=== PATIENT | female | born 1950 | race African-American/Black ===

== ENCOUNTER 2016-09-14 22:34 | Emergency (ER) | payer OTHER ==
[2016-09-14 23:03] VITALS: BMI 22.4
[2016-09-15] MEDS ORDERED: SODIUM CHLORIDE 0.9% 1000 ML INFUS.BAG IV ONE (00:17)
[2016-09-15] MEDS ORDERED: ONDANSETRON 4 MG/2 ML VIAL IVPUSH PRN (00:17)
[2016-09-15] MEDS ORDERED: ONDANSETRON 4 MG/2 ML VIAL IVPUSH ONE (00:18)
[2016-09-15] MEDS ORDERED: ONDANSETRON 4 MG/2 ML VIAL ONE (00:31)
--- NOTE | 2016-09-15 01:04 | PDOC ---
History of Present Illness - General Chief Complaint: Nausea/Vomiting Stated Complaint: VOMITING Time Seen by Provider: 09/14/16 23:55 - History of Present Illness Initial Comments: 09/15/16 00:42 CHIEF COMPLAINT: abdominal pain HISTORY OF PRESENT ILLNESS: 66 yo F with hx of NIDDM, HLD, SBO, and metastatic uterine cancer presents to ED with abdominal pain and vomiting since 4 am today. Patient started chemo on Aug 17 and most recently had chemo this past Thursday. Her last bowel movement was 4 pm today and was normal. She complains of cold sweats and chills. Per her sister and close friends, she appeared to have altered mental status earlier this afternoon but is now back to baseline. She denies any chest pain, shortness of breath, difficulty breathing, palpitations, or headache. No recent travel or sick contacts. PAST MEDICAL HISTORY: Denies past medical history FAMILY HISTORY: Denies SOCIAL HISTORY: Lives at home with sister. Denies tobacco, alcohol, illicit drug use. SURGICAL HISTORY: Denies ALLERGIES: No known drug allergies REVIEW OF SYSTEMS General/Constitutional: Denies fever or chills. Denies weakness, weight change. HEENT: Denies change in vision. Denies ear pain or discharge. Denies sore throat. Cardiovascular: Denies chest pain or shortness of breath. Respiratory: Denies cough, wheezing, or hemoptysis. Gastrointestinal: Abdominal pain, persistent vomiting since 4 am this morning. Denies diarrhea or constipation. Denies rectal bleeding. Genitourinary: Denies dysuria, frequency, or change in urination. Musculoskeletal: Denies joint or muscle swelling or pain. Denies neck or back pain. Skin and breasts: Denies rash or easy bruising. Neurologic: Per family, AMS this afternoon, now resolved. Denies headache, vertigo, loss of consciousness, or loss of sensation. PHYSICAL EXAM General Appearance: Well-appearing, appropriately dressed. No apparent distress , no intoxication. HEENT: EOMI, PERRLA, normal ENT inspection, normal voice, TMs normal, pharynx normal. No conjunctival pallor. No photophobia, scleral icterus. Neck: Supple. Trachea midline. No tenderness, rigidity, carotid bruit, stridor , lymphadenopathy, or thyromegaly. Respiratory/Chest: Lungs CTAB. No shortness of breath, chest tenderness, respiratory distress, accessory muscle use. No crackles, rales, rhonchi, stridor , wheezing, dullness Cardiovascular: RRR. S1, S2. No JVD, murmur, bradycardia, tachycardia. Vascular Pulses: Dorsalis-Pedis (R): 2+, Dorsalis-Pedis (L): 2+ Gastrointestinal/Abdominal: Mass to lower abdomen. Normal bowel sounds. Abdomen soft, non-distended. No tenderness or rebound tenderness. No organomegaly, pulsatile mass, guarding, hernia, hepatomegaly, splenomegaly. Lymphatic: No adenopathy, tenderness. Musculoskeletal/Extremities: Normal inspection. FROM of all extremities, normal capillary refill. Pelvis Stable. No CVA tenderness. No tenderness to extremities, pedal edema, swelling, erythema or deformity. Integumentary: Appropriate color, dry, warm. No cyanosis, erythema, jaundice or rash Neurologic: sole cementer II-XII intact. Fully oriented, alert. Appropriate mood/affect. Motor strength 5/5. No appreciable EOM palsy, facial droop or sensory deficit. Past History - Past Medical History Allergies/Adverse Reactions: Allergies Allergy/AdvReac Type Severity Reaction Status Date / Time shellfish derived Allergy Intermediate Vomiting Verified 09/14/16 23:00 Home Medications: Ambulatory Orders Simvastatin 40 mg PO DAILY 07/24/16 Acetaminophen [Tylenol .Extra-Strength -] 500 mg PO Q6H PRN #30 tablet 08/09/16 Multivitamins [Multivit ([facility] Formulary)] 1 tab PO DAILY #30 tab 08/09/16 Ondansetron [Zofran -] 4 mg PO PRN PRN #15 tablet 08/09/16 Ondansetron [Zofran *Odt*] 8 mg SL TID PRN #21 od.tablet 09/15/16 Cancer: Yes (UTERINE) Diabetes: Yes Hypercholesterolemia: Yes - Surgical History Cholecystectomy: Yes - Immunization History Immunization Up to Date: Yes - Psycho/Social/Smoking Cessation Hx Suicidal Ideation: No Smoking History: Never smoked Hx Alcohol Use: No Drug/Substance Use Hx: No Substance Use Type: None Hx Substance Use Treatment: No *Physical Exam - Vital Signs Last Vital Signs Temp Pulse Resp BP Pulse Ox 97.4 F L 125 H 18 102/67 100 09/14/16 23:02 09/14/16 23:02 09/14/16 23:02 09/14/16 23:02 09/14/16 23:02 ED Treatment Course - LABORATORY CBC & Chemistry Diagram: 09/15/16 00:48 09/15/16 00:48 - RADIOLOGY Radiology Studies Ordered: Category Date Time Status HEAD CT WITHOUT CONTRAST [CT] Stat CT Scan 09/15/16 00:40 Ordered - Medications Given in the ED: ED Medications Discontinued Medications Generic Name Dose Route Start Last Admin Trade Name Dhiraj PRN Reason Stop Dose Admin Ondansetron HCl 8 mg 09/15/16 00:18 09/15/16 00:31 Zofran Injection IVPUSH 09/15/16 00:19 8 mg ONCE ONE Administration Sodium Chloride 1,000 ml 09/15/16 00:17 09/15/16 00:31 Normal Saline - IV 09/15/16 00:18 1,000 ml ONCE ONE Administration Medical Decision Making - Medical Decision Making 09/15/16 03:47 66 yo F with hx of NIDDM, HTN, metastatic uterine cancer presents to ED with abdominal pain and vomiting. -CBC, CMP, Mg -Head CT to r/o stroke -IVF, Zofran -2 mg morphine Labs: WBC, 3.3, K+ 5.6 - Kayexalate po Head CT negative for intracranial pathology. Patient reassessed; she states she is feeling much better and that the pain and nausea have both resolved. At this time patient reports that she was given Zofran for nausea/vomiting secondary to chemotherapy but she was swallowing the pill instead of letting it dissolve on her tongue. Persistent vomiting most likely secondary to chemotherapy and noncompliance to medication. -zofran 8 mg ODT rx sent to pharm. At this time patient's HR is 100 and she is afebrile. Neutropenia likely secondary to chemotherapy. Discussed case with ED attending Amol. Will discharge home with close follow up with PMD. Patient awaiting family for [employer]. Patient complains of epigastric discomfort. -EKG EKG - NSR. -20 mg pepcid IVPB Awaiting transport to home. Advised patient to f/u with oncologist today and to take medication as prescribed. Advised patient of signs and symptoms for return to ED; patient verbalized understanding and agrees to plan. *DC/Admit/Observation/Transfer Diagnosis at time of Disposition: Chemotherapy-induced vomiting - Discharge Dispostion Admit: No - Prescriptions Prescriptions: Ondansetron [Zofran *Odt*] 8 mg SL TID PRN #21 od.tablet PRN Reason: Nausea And/Or Vomiting - Patient Instructions Printed Discharge Instructions: Coping with Nausea and Vomiting From Chemotherapy Additional Instructions: Please take medication as prescribed - as discussed, please let the pill dissolve under your tongue. Please follow up with your oncologist today. If you experience fever, chills, chest pain, shortness of breath, headache, dizziness, weakness, slurred speech, change in vision, or have any new or worsening symptoms, please return to the ER immediately. Por favor, tome la medicacin segn lo prescrito - segn lo discutido, por favor deje que la pldora se disuelva bajo delarosa lengua. Por favor, siga con delarosa onc logo hoy. Si experimenta fiebre, escalofros, dolor en el pecho, dificultad para respirar, dolor de marcia, mareos, debilidad, dificultad para hablar, cambios en la visin o sntomas nuevos o que empeoran, por favor regrese inmediatamente a la kumar de emergencias. Print Language: MALAY
[2016-09-15 01:11] LABS: MCH 26.1 pg (25.7-33.7); MCHC 32.3 g/dl (32.0-36.0); MEAN CELL VOLUME 80.8 fl (80-96); MEAN PLT VOLUME 8.2 fl (7.5-11.1); PLATELET COUNT 498 K/MM3 (134-434); RDW 22.8 % (11.6-15.6); WHITE BLOOD COUNT 3.3 K/mm3 (4.0-10.0)
[2016-09-15 02:07] LABS: ALBUMIN 4.2 g/dl (3.4-5.0); BILIRUBIN,TOTAL 0.7 mg/dL (0.2-1.0); CALCIUM 10.2 mg/dL (8.5-10.1); CREATININE 1.3 mg/dL (0.55-1.02); MAGNESIUM 2.1 mg/dL (1.8-2.4); TOT PROT 9.1 g/dl (6.4-8.2)
[2016-09-15 02:18] LABS: ANISOCYTOSIS 1+; PLATELET ESTIMATE SLT INCREASED (NORMAL)
[2016-09-15] MEDS ORDERED: LIDOCAINE HCL 2% (20ML MULTI-DOSE VIAL) NR ONE (02:27)
[2016-09-15] MEDS ORDERED: morphine CARPU-JECT 2 MG/1 ML DISP.SYRIN IVPUSH ONE (02:45)
[2016-09-15] MEDS ORDERED: SODIUM POLYSTYRENE SULFONATE 15 GM/60 ML BOTTLE PO ONE (03:46)
[2016-09-15 03:47] VITALS: BP 105/40; PULSE 100; TEMP 97.9
[2016-09-15] MEDS ORDERED: SODIUM POLYSTYRENE SULFONATE 15 GM/60 ML BOTTLE ONE (03:53)
[2016-09-15] MEDS ORDERED: FAMOTIDINE 20 MG/50 ML IVPB 50 ML IVPB ONE ×2 (05:43→06:11)
[2016-09-15 05:50] LABS: URINE APPEARANCE CLEAR; URINE BILIRUBIN NEGATIVE (NEGATIVE); URINE BLOOD NEGATIVE (NEGATIVE); URINE COLOR LTYELLOW; URINE GLUCOSE (UA) NEGATIVE (NEGATIVE); URINE KETONE TRACE (NEGATIVE); URINE LEUK ESTERASE NEGATIVE (NEGATIVE); URINE NITRITE NEGATIVE (NEGATIVE); URINE PROTEIN NEGATIVE (NEGATIVE); URINE UROBILINOGEN NEGATIVE E.U./dl (0.2-1.0)
--- NOTE | 2016-09-15 11:02 | EKG ---
Test Reason : Blood Pressure : / mmHG Vent. Rate : 089 BPM Atrial Rate : 089 BPM P-R Int : 154 ms QRS Dur : 084 ms QT Int : 346 ms P-R-T Axes : 073 015 082 degrees QTc Int : 420 ms NORMAL SINUS RHYTHM NORMAL ECG WHEN COMPARED WITH ECG OF 29-JUL-2016 21:41, NO SIGNIFICANT CHANGE WAS FOUND Confirmed by ERIS TOBIN MD ([id number]) on 09/15/2016 11:02:06 AM Referred By: Confirmed By:ERIS TOBIN MD
== END 2016-09-15 06:48 | disposition home or self-care (01) ==
LOC: JER 22:34
PROC: 3E033GC Introduction of Other Therapeutic Substance into Peripheral Vein, Percutaneous Approach (ICD-10-PCS; principal; 2016-09-14)
PROC: 3E033NZ Introduction of Analgesics, Hypnotics, Sedatives into Peripheral Vein, Percutaneous Approach (ICD-10-PCS; 2016-09-14)
DX: R11.10 Vomiting, unspecified (principal); T45.1X5A Adverse effect of antineoplastic and immunosuppressive drugs, initial encounter; C55 Malignant neoplasm of uterus, part unspecified; E11.9 Type 2 diabetes mellitus without complications; E78.00 Pure hypercholesterolemia, unspecified; Y92.038 Other place in apartment as the place of occurrence of the external cause
CPT/HCPCS: 36415; 70450-TC; 80053; 81003; 83735; 85025; 87086; 93005; 93010; 96365; 96376; 99282-25

== ENCOUNTER 2016-10-08 07:33 | Day surgery (SDC) | payer OTHER ==
[2016-10-08] MEDS ORDERED: [UNRECOGNIZED DRUG - OTHER] IVPB ONE (08:00)
[2016-10-08] MEDS ORDERED: ONDANSETRON IVPB ONE (08:00)
[2016-10-08] MEDS ORDERED: DIPHENHYDRAMINE IVPB ONE (08:00)
[2016-10-08] MEDS ORDERED: DEXAMETHASONE IVPB ONE (08:00)
[2016-10-08] MEDS ORDERED: SODIUM CHLORIDE 250 ML IV ONE (08:00)
[2016-10-08] MEDS ORDERED: PACLITAXEL 102 MG in SODIUM CHLORIDE 250 ML IVPB ONE (09:00)
[2016-10-08 10:31] LABS: MCH 27.1 pg (25.7-33.7); MCHC 32.6 g/dl (32.0-36.0); MEAN PLT VOLUME 7.4 fl (7.5-11.1); PLATELET COUNT 221 K/MM3 (134-434)
[2016-10-08 12:56] LABS: PLATELET ESTIMATE ADEQUATE (NORMAL)
[2016-10-08 13:01] LABS: ANISOCYTOSIS 2+; MICROCYTOSIS 1+; OVALOCYTES 1+
[2016-10-08] MEDS ORDERED: ALTEPLASE 2 MG VIAL CVP ONE (13:45)
[2016-10-08 15:14] VITALS: BP 122/77; PULSE 88; TEMP 98.3
== END 2016-10-08 16:15 | disposition home or self-care (01) ==
LOC: JONCCHEMO 07:33 → J7W 07:34 → JONCCHEMO 16:15
PROVIDERS: ATTEND Internal Medicine Hematology & Oncology
DX: Z51.11 Encounter for antineoplastic chemotherapy (principal); C54.1 Malignant neoplasm of endometrium; E11.9 Type 2 diabetes mellitus without complications; Z85.41 Personal history of malignant neoplasm of cervix uteri
CPT/HCPCS: 96361; 96367; 96413; J2780; J9267; 36415; 85025; 96415; J2997

== ENCOUNTER 2016-10-15 06:35 | Day surgery (SDC) | payer OTHER ==
[2016-10-15] MEDS ORDERED: SODIUM CHLORIDE 250 ML IV ONE (08:00)
[2016-10-15] MEDS ORDERED: DIPHENHYDRAMINE IVPB ONE (08:30)
[2016-10-15] MEDS ORDERED: DEXAMETHASONE IVPB ONE (08:30)
[2016-10-15] MEDS ORDERED: ONDANSETRON IVPB ONE (08:30)
[2016-10-15] MEDS ORDERED: [UNRECOGNIZED DRUG - OTHER] IVPB ONE (08:30)
[2016-10-15] MEDS ORDERED: PACLITAXEL 102 MG in SODIUM CHLORIDE 250 ML IVPB ONE (09:00)
[2016-10-15 09:28] LABS: BASOPHIL 2.2 % (0-2.0); EOSINOPHIL 1.5 % (0-4.5); MCH 27.9 pg (25.7-33.7); MCHC 32.9 g/dl (32.0-36.0); MEAN CELL VOLUME 84.8 fl (80-96); MEAN PLT VOLUME 7.5 fl (7.5-11.1); NEUTROPHILS 43.9 % (42.8-82.8); PLATELET COUNT 333 K/MM3 (134-434); RDW 25.2 % (11.6-15.6); WHITE BLOOD COUNT 4.9 K/mm3 (4.0-10.0)
[2016-10-15 10:51] VITALS: BP 98/62; PULSE 71; TEMP 98.4
[2016-10-15 17:45] VITALS: BMI 24.4
== END 2016-10-15 14:00 | disposition home or self-care (01) ==
LOC: JONCCHEMO 06:35 → J7W 10:17 → JONCCHEMO 14:00
PROVIDERS: ATTEND Internal Medicine Hematology & Oncology
DX: Z51.11 Encounter for antineoplastic chemotherapy (principal); C54.1 Malignant neoplasm of endometrium; E11.9 Type 2 diabetes mellitus without complications; Z85.41 Personal history of malignant neoplasm of cervix uteri
CPT/HCPCS: 96361; 96367; 96413; J2780; J9267; 36415; 85025; 96415

== ENCOUNTER 2016-11-27 06:56 | Day surgery (SDC) | payer OTHER ==
[2016-11-27] MEDS ORDERED: PALONOSETRON HCL 0.25 MG in SODIUM CHLORIDE 50 ML IVPB ONE (08:00)
[2016-11-27] MEDS ORDERED: DEXAMETHASONE INJECTION 10 MG, DIPHENHYDRAMINE 25 MG, RANITIDINE INJECTION 50 MG in SOD... IVPB ONE (08:00)
[2016-11-27 08:24] LABS: MCH 30.5 pg (25.7-33.7); MCHC 32.9 g/dl (32.0-36.0); MEAN CELL VOLUME 92.7 fl (80-96); MEAN PLT VOLUME 7.7 fl (7.5-11.1); NEUTROPHILS 53.4 % (42.8-82.8); PLATELET COUNT 162 K/MM3 (134-434); RDW 16.2 % (11.6-15.6); WHITE BLOOD COUNT 7.2 K/mm3 (4.0-10.0)
[2016-11-27] MEDS ORDERED: PACLITAXEL 102 MG in SODIUM CHLORIDE 250 ML IVPB ONE (08:45)
[2016-11-27 09:30] VITALS: TEMP 98.3
[2016-11-27] MEDS ORDERED: SODIUM CHLORIDE IVPB ONE (09:45)
[2016-11-27] MEDS ORDERED: CARBOPLATIN IVPB ONE (09:45)
[2016-11-27] MEDS ORDERED: ALTEPLASE 2 MG VIAL CVP ONE (10:15)
[2016-11-27] MEDS ORDERED: SODIUM CHLORIDE 250 ML IV ONE (10:45)
[2016-11-27 11:17] LABS: CREATININE 0.8 mg/dL (0.55-1.02)
[2016-11-27 11:19] LABS: ALBUMIN 3.4 g/dl (3.4-5.0); BILIRUBIN,DIRECT 0.1 mg/dL (0.0-0.2); BILIRUBIN,TOTAL 0.3 mg/dL (0.2-1.0); TOT PROT 7.1 g/dl (6.4-8.2)
[2016-11-27 15:33] VITALS: BP 133/82; PULSE 76
== END 2016-11-27 15:33 | disposition home or self-care (01) ==
LOC: JONCCHEMO 06:56 → J7W 09:20 → JONCCHEMO 15:33
PROVIDERS: ATTEND Internal Medicine Hematology & Oncology
DX: Z51.11 Encounter for antineoplastic chemotherapy (principal); C90.00 Multiple myeloma not having achieved remission
CPT/HCPCS: 36415; 80048; 80076; 83036; 85025; 86304; 96361; 96367; 96413; 96417; J2469; J2997

== ENCOUNTER 2016-12-04 07:03 | Day surgery (SDC) | payer OTHER ==
[2016-12-04] MEDS ORDERED: DEXAMETHASONE INJECTION 10 MG in SODIUM CHLORIDE 50 ML IVPB ONE (08:00)
[2016-12-04] MEDS ORDERED: ONDANSETRON INJECTION 12 MG, DIPHENHYDRAMINE 25 MG, RANITIDINE INJECTION 50 MG in SODIU... IVPB ONE (08:00)
[2016-12-04] MEDS ORDERED: PACLITAXEL 102 MG in SODIUM CHLORIDE 250 ML IVPB ONE (08:30)
[2016-12-04 08:35] VITALS: TEMP 98.8
[2016-12-04 08:41] LABS: BASOPHIL 1.3 % (0-2.0); EOSINOPHIL 3.9 % (0-4.5); MCHC 33.5 g/dl (32.0-36.0); MEAN CELL VOLUME 92.5 fl (80-96); MEAN PLT VOLUME 7.7 fl (7.5-11.1); NEUTROPHILS 38.2 % (42.8-82.8); PLATELET COUNT 268 K/MM3 (134-434); RDW 14.9 % (11.6-15.6); WHITE BLOOD COUNT 5.6 K/mm3 (4.0-10.0)
[2016-12-04] MEDS ORDERED: SODIUM CHLORIDE 250 ML IV ONE (09:30)
[2016-12-04] MEDS ORDERED: ALTEPLASE 2 MG VIAL CVP ONE (10:15)
[2016-12-04 11:52] LABS: CO2 31 mmol/L (21-32); COCKROFT - GAULT 0; CREATININE 0.9 mg/dL (0.55-1.02); GLUCOSE,RANDOM 128 mg/dL (74-106)
[2016-12-04 11:53] LABS: ALBUMIN 3.4 g/dl (3.4-5.0); ANION GAP 4 (8-16); CALCIUM 8.8 mg/dL (8.5-10.1); SGOT/AST 25 U/L (15-37); SGPT/ALT 26 U/L (12-78)
[2016-12-04 11:55] LABS: ALK PHOS 64 U/L (45-117); BILIRUBIN,DIRECT < 0.1 mg/dL (0.0-0.2); BILIRUBIN,TOTAL 0.3 mg/dL (0.2-1.0); TOT PROT 6.9 g/dl (6.4-8.2)
[2016-12-04 14:43] VITALS: BP 116/72; PULSE 69
== END 2016-12-04 14:00 | disposition home or self-care (01) ==
LOC: JONCCHEMO 07:03 → J7W 09:25 → JONCCHEMO 14:00
PROVIDERS: ATTEND Internal Medicine Hematology & Oncology
DX: Z51.11 Encounter for antineoplastic chemotherapy (principal); C90.00 Multiple myeloma not having achieved remission
CPT/HCPCS: 36415; 80048; 80076; 85025; 96360; 96361; 96367; 96413; J2997

== ENCOUNTER 2016-12-11 07:09 | Day surgery (SDC) | payer OTHER ==
[2016-12-11] MEDS ORDERED: SODIUM CHLORIDE 250 ML IV ONE (08:00)
[2016-12-11] MEDS ORDERED: DEXAMETHASONE INJECTION 10 MG in SODIUM CHLORIDE 50 ML IVPB ONE (08:00)
[2016-12-11] MEDS ORDERED: ONDANSETRON INJECTION 12 MG, DIPHENHYDRAMINE 25 MG, RANITIDINE INJECTION 50 MG in SODIU... IVPB ONE (08:00)
[2016-12-11] MEDS ORDERED: PACLITAXEL 102 MG in SODIUM CHLORIDE 250 ML IVPB ONE (08:30)
[2016-12-11 09:53] LABS: BASOPHIL 0.7 % (0-2.0); EOSINOPHIL 1.6 % (0-4.5); MCH 31.4 pg (25.7-33.7); MCHC 33.8 g/dl (32.0-36.0); MEAN PLT VOLUME 7.4 fl (7.5-11.1); NEUTROPHILS 33.6 % (42.8-82.8); PLATELET COUNT 279 K/MM3 (134-434); RDW 14.5 % (11.6-15.6); WHITE BLOOD COUNT 4.2 K/mm3 (4.0-10.0)
[2016-12-11 10:16] VITALS: BP 117/70; PULSE 79; TEMP 99
[2016-12-11 10:58] LABS: CALCIUM 8.9 mg/dL (8.5-10.1); COCKROFT - GAULT 89.25; CREATININE 0.7 mg/dL (0.55-1.02); MAGNESIUM 1.9 mg/dL (1.8-2.4)
[2016-12-11 11:02] LABS: ALBUMIN 3.4 g/dl (3.4-5.0); ALK PHOS 64 U/L (45-117); BILIRUBIN,TOTAL 0.3 mg/dL (0.2-1.0); SGOT/AST 21 U/L (15-37); SGPT/ALT 27 U/L (12-78); TOT PROT 7.2 g/dl (6.4-8.2)
[2016-12-11 11:06] LABS: BILIRUBIN,DIRECT < 0.1 mg/dL (0.0-0.2)
== END 2016-12-11 15:47 | disposition home or self-care (01) ==
LOC: JONCCHEMO 07:09 → J7W 09:50 → JONCCHEMO 15:47
PROVIDERS: ATTEND Internal Medicine Hematology & Oncology
PROC: 3E04305 Introduction of Other Antineoplastic into Central Vein, Percutaneous Approach (ICD-10-PCS; principal; 2016-12-11)
PROC: 3E043GC Introduction of Other Therapeutic Substance into Central Vein, Percutaneous Approach (ICD-10-PCS; 2016-12-11)
PROC: 3E0437Z Introduction of Electrolytic and Water Balance Substance into Central Vein, Percutaneous Approach (ICD-10-PCS; 2016-12-11)
DX: Z51.11 Encounter for antineoplastic chemotherapy (principal); C54.1 Malignant neoplasm of endometrium
CPT/HCPCS: 96361; 96366; 96367; 96413; J1100; J1200; J2405; J9267; 36415; 74000-TC; 80048; 80076; 83735; 85025; 96360

== ENCOUNTER 2016-12-18 07:04 | Day surgery (SDC) | payer OTHER ==
[2016-12-18] MEDS ORDERED: DEXAMETHASONE INJECTION 10 MG in SODIUM CHLORIDE 50 ML IVPB ONE (08:00)
[2016-12-18] MEDS ORDERED: PALONOSETRON HCL 0.25 MG in SODIUM CHLORIDE 50 ML IVPB ONE (08:00)
[2016-12-18] MEDS ORDERED: SODIUM CHLORIDE 250 ML IV ONE (08:00)
[2016-12-18] MEDS ORDERED: DIPHENHYDRAMINE 25 MG, RANITIDINE INJECTION 50 MG in SODIUM CHLORIDE 50 ML IVPB ONE (08:00)
[2016-12-18] MEDS ORDERED: PACLITAXEL 108 MG in SODIUM CHLORIDE 250 ML IVPB ONE (08:45)
[2016-12-18 08:55] LABS: BASOPHIL 1.6 % (0-2.0); EOSINOPHIL 0.8 % (0-4.5); MCH 30.7 pg (25.7-33.7); MCHC 32.7 g/dl (32.0-36.0); MEAN CELL VOLUME 94.1 fl (80-96); MEAN PLT VOLUME 7.6 fl (7.5-11.1); NEUTROPHILS 37.5 % (42.8-82.8); PLATELET COUNT 230 K/MM3 (134-434); RDW 13.9 % (11.6-15.6); WHITE BLOOD COUNT 4.6 K/mm3 (4.0-10.0)
[2016-12-18] MEDS ORDERED: SODIUM CHLORIDE IVPB ONE (09:45)
[2016-12-18] MEDS ORDERED: CARBOPLATIN IVPB ONE (09:45)
[2016-12-18] MEDS ORDERED: PORTA CATH FLUSH 10 ML IVPUSH ONE (10:17)
[2016-12-18] MEDS ORDERED: DEXAMETHASONE SOD PHOSPHATE 10 MG/1 ML VIAL IVPB ONE (14:07)
[2016-12-18 14:17] VITALS: TEMP 98.7
--- NOTE | 2016-12-18 15:52 | PN ---
Progress Note (short form) - Note Progress Note: Was informed by nurse that she was having itchy hands while receiving carbo infusion, 30mins. into it. Carboplatin stopped at 14:00. no SOB/oral/throat symptoms. She was given decadron, benadryl, NS 0.9% Her vitals and exam were stable. she was monitored . She was not rechallenged Symptoms resolved She was given instructions about signs/symptoms of allergic reactions. She was asked to monitor her blood sugars closely and inform her PMD if they are high. Her friend was instructed as well. Her friend is going to be living with her. She was discharged at 3: 45 pm
[2016-12-18 16:44] VITALS: BP 131/68; PULSE 78
== END 2016-12-18 17:33 | disposition home or self-care (01) ==
LOC: JONCCHEMO 07:04 → J7W 10:04 → JONCCHEMO 17:33
PROVIDERS: ATTEND Internal Medicine Hematology & Oncology
DX: Z51.11 Encounter for antineoplastic chemotherapy (principal); C54.1 Malignant neoplasm of endometrium
CPT/HCPCS: 36415; 85025; 96360; 96361; 96367; 96375; 96413; 96417; J2469

== ENCOUNTER 2016-12-25 07:37 | Day surgery (SDC) | payer OTHER ==
[2016-12-25] MEDS ORDERED: ONDANSETRON INJECTION 12 MG, DIPHENHYDRAMINE 25 MG, RANITIDINE INJECTION 50 MG in SODIU... IVPB ONE (08:00)
[2016-12-25] MEDS ORDERED: SODIUM CHLORIDE 250 ML IV ONE (08:00)
[2016-12-25] MEDS ORDERED: DEXAMETHASONE INJECTION 10 MG in SODIUM CHLORIDE 50 ML IVPB ONE (08:00)
[2016-12-25] MEDS ORDERED: PACLITAXEL 108 MG in SODIUM CHLORIDE 250 ML IVPB ONE (08:30)
[2016-12-25 09:22] LABS: BASOPHIL 1.1 % (0-2.0); EOSINOPHIL 0.7 % (0-4.5); MCH 31.3 pg (25.7-33.7); MCHC 33.5 g/dl (32.0-36.0); MEAN CELL VOLUME 93.4 fl (80-96); MEAN PLT VOLUME 8.1 fl (7.5-11.1); NEUTROPHILS 40.3 % (42.8-82.8); PLATELET COUNT 169 K/MM3 (134-434); RDW 14.1 % (11.6-15.6); WHITE BLOOD COUNT 5.5 K/mm3 (4.0-10.0)
[2016-12-25 13:23] LABS: ALBUMIN 3.5 g/dl (3.4-5.0); BILIRUBIN,TOTAL 0.3 mg/dL (0.2-1.0); MAGNESIUM 1.8 mg/dL (1.8-2.4); SGOT/AST 22 U/L (15-37); SGPT/ALT 28 U/L (12-78)
[2016-12-25 13:24] LABS: ALK PHOS 62 U/L (45-117)
[2016-12-25 13:30] LABS: BILIRUBIN,DIRECT < 0.1 mg/dL (0.0-0.2)
[2016-12-25] MEDS ORDERED: PORTA CATH FLUSH 10 ML IVPUSH ONE (14:59)
[2016-12-25] MEDS ORDERED: MAGNESIUM OXIDE 400 MG TABLET (FP) PO ONE (15:15)
[2016-12-25 16:28] VITALS: BP 129/73; PULSE 80; TEMP 98.4
== END 2016-12-25 16:30 | disposition home or self-care (01) ==
LOC: JONCCHEMO 07:37 → J7W 11:12 → JONCCHEMO 16:30
PROVIDERS: ATTEND Internal Medicine Hematology & Oncology
PROC: 3E04305 Introduction of Other Antineoplastic into Central Vein, Percutaneous Approach (ICD-10-PCS; principal; 2016-12-25)
PROC: 3E043GC Introduction of Other Therapeutic Substance into Central Vein, Percutaneous Approach (ICD-10-PCS; 2016-12-25)
PROC: 3E0437Z Introduction of Electrolytic and Water Balance Substance into Central Vein, Percutaneous Approach (ICD-10-PCS; 2016-12-25)
DX: Z51.11 Encounter for antineoplastic chemotherapy (principal); C54.1 Malignant neoplasm of endometrium
CPT/HCPCS: 96361; 96367; 96375; 96413; J9267; 36415; 80076; 83735; 85025; 86304; 96360

== ENCOUNTER 2017-01-01 07:16 | Day surgery (SDC) | payer OTHER ==
[2017-01-01] MEDS ORDERED: DEXAMETHASONE INJECTION 10 MG in SODIUM CHLORIDE 50 ML IVPB ONE (08:00)
[2017-01-01] MEDS ORDERED: ONDANSETRON INJECTION 12 MG, DIPHENHYDRAMINE 25 MG, RANITIDINE INJECTION 50 MG in SODIU... IVPB ONE (08:00)
[2017-01-01] MEDS ORDERED: SODIUM CHLORIDE 250 ML IV ONE (08:00)
[2017-01-01] MEDS ORDERED: PACLITAXEL 108 MG in SODIUM CHLORIDE 250 ML IVPB ONE (08:30)
[2017-01-01 08:36] LABS: EOSINOPHIL 1.1 % (0-4.5); MCH 31.3 pg (25.7-33.7); MCHC 33.3 g/dl (32.0-36.0); MEAN PLT VOLUME 7.7 fl (7.5-11.1); NEUTROPHILS 37.6 % (42.8-82.8); PLATELET COUNT 256 K/MM3 (134-434); RDW 13.6 % (11.6-15.6); WHITE BLOOD COUNT 4.5 K/mm3 (4.0-10.0)
[2017-01-01 11:32] LABS: CALCIUM 9.3 mg/dL (8.5-10.1); COCKROFT - GAULT 78.2; CREATININE 0.8 mg/dL (0.55-1.02)
[2017-01-01 11:35] LABS: ALBUMIN 3.8 g/dl (3.4-5.0); ALK PHOS 64 U/L (45-117); BILIRUBIN,TOTAL 0.3 mg/dL (0.2-1.0); SGOT/AST 23 U/L (15-37); SGPT/ALT 30 U/L (12-78); TOT PROT 7.4 g/dl (6.4-8.2)
[2017-01-01 11:37] LABS: BILIRUBIN,DIRECT < 0.1 mg/dL (0.0-0.2)
[2017-01-01 12:47] VITALS: TEMP 98.8
[2017-01-01] MEDS ORDERED: PORTA CATH FLUSH 10 ML IVPUSH ONE (12:47)
[2017-01-01 13:41] LABS: MCH 31.2 pg (25.7-33.7); MCHC 33.3 g/dl (32.0-36.0); MEAN CELL VOLUME 93.6 fl (80-96); RDW 13.5 % (11.6-15.6); WHITE BLOOD COUNT 5.1 K/mm3 (4.0-10.0)
[2017-01-01 13:42] LABS: BASOPHIL 0.8 % (0-2.0); EOSINOPHIL 0.7 % (0-4.5); MEAN PLT VOLUME 8.4 fl (7.5-11.1); NEUTROPHILS 38.6 % (42.8-82.8); PLATELET COUNT 264 K/MM3 (134-434)
[2017-01-01 16:24] VITALS: BP 114/72; PULSE 83
== END 2017-01-01 19:08 | disposition home or self-care (01) ==
LOC: JONCCHEMO 07:16 → J7W 09:56 → JONCCHEMO 19:08
PROVIDERS: ATTEND Internal Medicine Hematology & Oncology
DX: Z51.11 Encounter for antineoplastic chemotherapy (principal); C54.1 Malignant neoplasm of endometrium
CPT/HCPCS: 36415; 80048; 80076; 83735; 85025; 85651; 86304; 96360; 96361; 96367; 96413

== ENCOUNTER 2017-01-08 07:36 | Day surgery (SDC) | payer OTHER ==
[2017-01-08] MEDS ORDERED: PALONOSETRON HCL 0.25 MG in SODIUM CHLORIDE 50 ML IVPB ONE (08:00)
[2017-01-08] MEDS ORDERED: DEXAMETHASONE INJECTION 10 MG in SODIUM CHLORIDE 50 ML IVPB ONE (08:00)
[2017-01-08] MEDS ORDERED: SODIUM CHLORIDE 250 ML IV ONE (08:00)
[2017-01-08] MEDS ORDERED: DIPHENHYDRAMINE 25 MG, RANITIDINE INJECTION 50 MG in SODIUM CHLORIDE 50 ML IVPB ONE (08:00)
[2017-01-08] MEDS ORDERED: PACLITAXEL 108 MG in SODIUM CHLORIDE 250 ML IVPB ONE (08:45)
[2017-01-08 10:25] LABS: MCH 30.8 pg (25.7-33.7); MEAN CELL VOLUME 93.3 fl (80-96); MEAN PLT VOLUME 7.9 fl (7.5-11.1); PLATELET COUNT 267 K/MM3 (134-434); RDW 13.8 % (11.6-15.6); WHITE BLOOD COUNT 5.1 K/mm3 (4.0-10.0)
[2017-01-08 10:26] LABS: PLATELET ESTIMATE ADEQUATE (NORMAL)
[2017-01-08] MEDS ORDERED: PORTA CATH FLUSH 10 ML IVPUSH ONE (12:30)
[2017-01-08 14:38] VITALS: BP 132/70; PULSE 70
[2017-01-08 14:39] VITALS: TEMP 98.2
== END 2017-01-08 14:49 | disposition home or self-care (01) ==
LOC: JONCCHEMO 07:36 → J7W 10:42 → JONCCHEMO 14:49
PROVIDERS: ATTEND Internal Medicine Hematology & Oncology
PROC: 3E04305 Introduction of Other Antineoplastic into Central Vein, Percutaneous Approach (ICD-10-PCS; principal; 2017-01-08)
PROC: 3E043GC Introduction of Other Therapeutic Substance into Central Vein, Percutaneous Approach (ICD-10-PCS; 2017-01-08)
PROC: 3E0437Z Introduction of Electrolytic and Water Balance Substance into Central Vein, Percutaneous Approach (ICD-10-PCS; 2017-01-08)
DX: Z51.11 Encounter for antineoplastic chemotherapy (principal); C54.1 Malignant neoplasm of endometrium
CPT/HCPCS: 96361; 96375; 96413; J9267; 36415; 85025; 96360; 96367; J2469

== ENCOUNTER 2017-01-15 07:19 | Day surgery (SDC) | payer OTHER ==
[2017-01-15 09:13] LABS: BASOPHIL 0.3 % (0-2.0); EOSINOPHIL 0.7 % (0-4.5); MCH 31.1 pg (25.7-33.7); MCHC 33.5 g/dl (32.0-36.0); MEAN CELL VOLUME 92.8 fl (80-96); MEAN PLT VOLUME 7.8 fl (7.5-11.1); NEUTROPHILS 38.7 % (42.8-82.8); PLATELET COUNT 214 K/MM3 (134-434); RDW 13.8 % (11.6-15.6); WHITE BLOOD COUNT 4.7 K/mm3 (4.0-10.0)
[2017-01-15 09:33] LABS: ALBUMIN 3.5 g/dl (3.4-5.0); ANION GAP 7 (8-16); CALCIUM 8.7 mg/dL (8.5-10.1); CO2 28 mmol/L (21-32); COCKROFT - GAULT 68.85; CREATININE 0.9 mg/dL (0.55-1.02); GLUCOSE,RANDOM 134 mg/dL (74-106); MAGNESIUM 1.8 mg/dL (1.8-2.4); SGOT/AST 23 U/L (15-37); SGPT/ALT 28 U/L (12-78)
[2017-01-15 09:35] LABS: ALK PHOS 63 U/L (45-117); BILIRUBIN,TOTAL 0.2 mg/dL (0.2-1.0)
[2017-01-15 09:36] LABS: BILIRUBIN,DIRECT < 0.1 mg/dL (0.0-0.2)
[2017-01-15] MEDS ORDERED: DEXAMETHASONE INJECTION 10 MG in SODIUM CHLORIDE 50 ML IVPB ONE (10:00)
[2017-01-15] MEDS ORDERED: SODIUM CHLORIDE 250 ML IV ONE (10:00)
[2017-01-15] MEDS ORDERED: ONDANSETRON INJECTION 12 MG, DIPHENHYDRAMINE 25 MG, RANITIDINE INJECTION 50 MG in SODIU... IVPB ONE (10:00)
[2017-01-15] MEDS ORDERED: PORTA CATH FLUSH 10 ML IVPUSH ONE (10:07)
[2017-01-15] MEDS ORDERED: PACLITAXEL 108 MG in SODIUM CHLORIDE 250 ML IVPB ONE (10:30)
[2017-01-15 13:56] VITALS: BP 112/67; PULSE 74; TEMP 98.3
== END 2017-01-15 14:12 | disposition home or self-care (01) ==
LOC: JONCCHEMO 07:19 → J7W 10:00 → JONCCHEMO 14:12
PROVIDERS: ATTEND Internal Medicine Hematology & Oncology
DX: Z51.11 Encounter for antineoplastic chemotherapy (principal); C54.1 Malignant neoplasm of endometrium
CPT/HCPCS: 36415; 80048; 80076; 83735; 85025; 96360; 96361; 96367; 96413

== ENCOUNTER 2017-04-23 07:46 | Day surgery (SDC) | payer OTHER ==
[2017-04-23 09:11] LABS: BASOPHIL 0.8 % (0-2.0); EOSINOPHIL 3.3 % (0-4.5); MCH 28.5 pg (25.7-33.7); MEAN CELL VOLUME 86.3 fl (80-96); NEUTROPHILS 41.1 % (42.8-82.8); PLATELET COUNT 250 K/MM3 (134-434); RDW 13.4 % (11.6-15.6); WHITE BLOOD COUNT 7.8 K/mm3 (4.0-10.0)
[2017-04-23 09:49] LABS: ALBUMIN 3.8 g/dl (3.4-5.0); ANION GAP 8 (8-16); BILIRUBIN,TOTAL 0.2 mg/dL (0.2-1.0); CALCIUM 9.7 mg/dL (8.5-10.1); CO2 27 mmol/L (21-32); CREATININE 0.9 mg/dL (0.55-1.02); GLUCOSE,RANDOM 140 mg/dL (74-106); MAGNESIUM 1.8 mg/dL (1.8-2.4); SGOT/AST 25 U/L (15-37); SGPT/ALT 29 U/L (12-78); TOT PROT 7.8 g/dl (6.4-8.2)
[2017-04-23 09:50] LABS: ALK PHOS 80 U/L (45-117)
[2017-04-23 09:52] LABS: BILIRUBIN,DIRECT < 0.2 mg/dL (0.0-0.2)
[2017-04-23] MEDS ORDERED: DEXAMETHASONE INJECTION 20 MG in SODIUM CHLORIDE 50 ML IVPB ONE ×2 (10:00→13:00)
[2017-04-23] MEDS ORDERED: SODIUM CHLORIDE 250 ML IV ONE (10:00)
[2017-04-23] MEDS ORDERED: ONDANSETRON INJECTION 12 MG, DIPHENHYDRAMINE 25 MG, RANITIDINE INJECTION 50 MG in SODIU... IVPB ONE (10:00)
[2017-04-23] MEDS ORDERED: PACLITAXEL 108 MG in SODIUM CHLORIDE 250 ML IVPB ONE (10:30)
[2017-04-23] MEDS ORDERED: DEXAMETHASONE INJECTION 10 MG in SODIUM CHLORIDE 50 ML IVPB ONE (10:30)
[2017-04-23 10:33] VITALS: TEMP 97.8
[2017-04-23] MEDS ORDERED: SODIUM CHLORIDE 0.45%/POT 1,000 ML IV SCH (11:00)
[2017-04-23] MEDS ORDERED: PORTA CATH FLUSH 10 ML IVPUSH ONE ×3 (16:35→16:44)
[2017-04-23 16:44] VITALS: BP 130/68; PULSE 85
== END 2017-04-23 16:47 | disposition home or self-care (01) ==
LOC: JONCCHEMO 07:46 → J7W 10:01 → JONCCHEMO 16:47
PROVIDERS: ATTEND Internal Medicine Hematology & Oncology
DX: Z51.11 Encounter for antineoplastic chemotherapy (principal); C54.1 Malignant neoplasm of endometrium
CPT/HCPCS: 36415; 80053; 80076; 83735; 85025; 86300; 86304; 96361; 96375; 96413; J3480; J8540

== ENCOUNTER 2017-04-30 07:19 | Day surgery (SDC) | payer OTHER ==
[2017-04-30] MEDS ORDERED: SODIUM CHLORIDE 250 ML IV ONE (08:00)
[2017-04-30] MEDS ORDERED: ONDANSETRON INJECTION 12 MG, DIPHENHYDRAMINE 25 MG, RANITIDINE INJECTION 50 MG in SODIU... IVPB ONE (08:30)
[2017-04-30] MEDS ORDERED: DEXAMETHASONE INJECTION 20 MG in SODIUM CHLORIDE 50 ML IVPB ONE (08:30)
[2017-04-30] MEDS ORDERED: PACLITAXEL 108 MG in SODIUM CHLORIDE 250 ML IVPB ONE (09:00)
[2017-04-30 10:03] LABS: BASOPHIL 0.7 % (0-2.0); EOSINOPHIL 3.1 % (0-4.5); MCH 28.3 pg (25.7-33.7); MCHC 33.1 g/dl (32.0-36.0); MEAN CELL VOLUME 85.6 fl (80-96); NEUTROPHILS 43.9 % (42.8-82.8); PLATELET COUNT 275 K/MM3 (134-434); RDW 13.6 % (11.6-15.6); WHITE BLOOD COUNT 6.9 K/mm3 (4.0-10.0)
[2017-04-30 10:26] LABS: ALBUMIN 3.8 g/dl (3.4-5.0); ANION GAP 7 (8-16); BILIRUBIN,DIRECT < 0.1 mg/dL (0.0-0.2); CALCIUM 9.2 mg/dL (8.5-10.1); CO2 27 mmol/L (21-32); CREATININE 0.9 mg/dL (0.55-1.02); GLUCOSE,RANDOM 126 mg/dL (74-106); MAGNESIUM 1.9 mg/dL (1.8-2.4); SGOT/AST 18 U/L (15-37); SGPT/ALT 30 U/L (12-78)
[2017-04-30 10:55] LABS: ALK PHOS 77 U/L (45-117); BILIRUBIN,TOTAL 0.3 mg/dL (0.2-1.0); TOT PROT 7.6 g/dl (6.4-8.2)
[2017-04-30 14:59] VITALS: TEMP 97.9
[2017-04-30] MEDS ORDERED: PORTA CATH FLUSH 10 ML IVPUSH ONE (18:39)
[2017-04-30 18:40] VITALS: BP 128/62; PULSE 77
== END 2017-04-30 14:50 | disposition home or self-care (01) ==
LOC: JONCCHEMO 07:19 → J7W 10:15 → JONCCHEMO 14:50
PROVIDERS: ATTEND Internal Medicine Hematology & Oncology
DX: Z51.11 Encounter for antineoplastic chemotherapy (principal); C54.1 Malignant neoplasm of endometrium
CPT/HCPCS: 36415; 80048; 80076; 83735; 85025; 96361; 96367; 96375; 96413

== ENCOUNTER 2017-05-07 07:26 | Day surgery (SDC) | payer OTHER ==
[2017-05-07] MEDS ORDERED: DEXAMETHASONE INJECTION 20 MG in SODIUM CHLORIDE 50 ML IVPB ONE (08:30)
[2017-05-07] MEDS ORDERED: ONDANSETRON INJECTION 12 MG, DIPHENHYDRAMINE 25 MG, RANITIDINE INJECTION 50 MG in SODIU... IVPB ONE (08:30)
[2017-05-07] MEDS ORDERED: PACLITAXEL 108 MG in SODIUM CHLORIDE 250 ML IVPB ONE (09:00)
[2017-05-07 09:25] LABS: BASOPHIL 0.6 % (0-2.0); MCH 28.3 pg (25.7-33.7); MCHC 33.1 g/dl (32.0-36.0); MEAN CELL VOLUME 85.4 fl (80-96); MEAN PLT VOLUME 7.9 fl (7.5-11.1); PLATELET COUNT 273 K/MM3 (134-434); RDW 13.8 % (11.6-15.6); WHITE BLOOD COUNT 5.7 K/mm3 (4.0-10.0)
[2017-05-07] MEDS ORDERED: SODIUM CHLORIDE 250 ML IV ONE (10:00)
[2017-05-07 10:01] LABS: ALBUMIN 3.5 g/dl (3.4-5.0); ANION GAP 10 (8-16); CALCIUM 9.4 mg/dL (8.5-10.1); CO2 21 mmol/L (21-32); GLUCOSE,RANDOM 142 mg/dL (74-106); MAGNESIUM 1.8 mg/dL (1.8-2.4)
[2017-05-07 10:05] LABS: ALK PHOS 76 U/L (45-117); BILIRUBIN,DIRECT < 0.1 mg/dL (0.0-0.2); BILIRUBIN,TOTAL 0.3 mg/dL (0.2-1.0); CREATININE 0.9 mg/dL (0.55-1.02); SGOT/AST 17 U/L (15-37); SGPT/ALT 23 U/L (12-78); TOT PROT 7.3 g/dl (6.4-8.2)
[2017-05-07 15:00] VITALS: BP 119/63; PULSE 82; TEMP 98.7
[2017-05-07] MEDS ORDERED: PORTA CATH FLUSH 10 ML IVPUSH ONE (15:00)
== END 2017-05-07 14:45 | disposition home or self-care (01) ==
LOC: JONCCHEMO 07:26 → J7W 09:51 → JONCCHEMO 14:45
PROVIDERS: ATTEND Internal Medicine Hematology & Oncology
PROC: 3E04305 Introduction of Other Antineoplastic into Central Vein, Percutaneous Approach (ICD-10-PCS; principal; 2017-05-07)
PROC: 3E043GC Introduction of Other Therapeutic Substance into Central Vein, Percutaneous Approach (ICD-10-PCS; 2017-05-07)
PROC: 3E0437Z Introduction of Electrolytic and Water Balance Substance into Central Vein, Percutaneous Approach (ICD-10-PCS; 2017-05-07)
DX: Z51.11 Encounter for antineoplastic chemotherapy (principal); C54.1 Malignant neoplasm of endometrium
CPT/HCPCS: 36415; 80053; 80076; 83735; 85025; 96361; 96367; 96375; 96413; 96415

== ENCOUNTER 2017-05-14 07:22 | Day surgery (SDC) | payer OTHER ==
[2017-05-14] MEDS ORDERED: PALONOSETRON HCL 0.25 MG in SODIUM CHLORIDE 50 ML IVPB ONE (08:00)
[2017-05-14] MEDS ORDERED: DIPHENHYDRAMINE 25 MG, RANITIDINE INJECTION 50 MG in SODIUM CHLORIDE 100 ML IVPB ONE (08:00)
[2017-05-14] MEDS ORDERED: DEXAMETHASONE INJECTION 20 MG in SODIUM CHLORIDE 50 ML IVPB ONE (08:00)
[2017-05-14] MEDS ORDERED: PACLITAXEL 108 MG in SODIUM CHLORIDE 250 ML IVPB ONE (08:30)
[2017-05-14 08:50] LABS: EOSINOPHIL 1.6 % (0-4.5); MCH 28.8 pg (25.7-33.7); MCHC 33.5 g/dl (32.0-36.0); MEAN CELL VOLUME 86.1 fl (80-96); MEAN PLT VOLUME 8.3 fl (7.5-11.1); NEUTROPHILS 50.8 % (42.8-82.8); PLATELET COUNT 302 K/MM3 (134-434); WHITE BLOOD COUNT 6.1 K/mm3 (4.0-10.0)
[2017-05-14 09:21] LABS: ALBUMIN 3.5 g/dl (3.4-5.0); ALK PHOS 76 U/L (45-117); ANION GAP 5 (8-16); BILIRUBIN,DIRECT < 0.1 mg/dL (0.0-0.2); BILIRUBIN,TOTAL 0.2 mg/dL (0.2-1.0); CALCIUM 9.2 mg/dL (8.5-10.1); CO2 27 mmol/L (21-32); GLUCOSE,RANDOM 172 mg/dL (74-106); MAGNESIUM 1.8 mg/dL (1.8-2.4); SGOT/AST 20 U/L (15-37); SGPT/ALT 28 U/L (12-78); TOT PROT 7.5 g/dl (6.4-8.2)
[2017-05-14] MEDS ORDERED: SODIUM CHLORIDE 250 ML IV ONE (09:30)
[2017-05-14] MEDS ORDERED: ALTEPLASE 2 MG VIAL CVP ONE (10:45)
[2017-05-14 16:54] VITALS: BP 134/75; PULSE 88; TEMP 98.6
== END 2017-05-14 17:00 | disposition home or self-care (01) ==
LOC: JONCCHEMO 07:22 → J7W 09:38 → JONCCHEMO 17:00
PROVIDERS: ATTEND Internal Medicine Hematology & Oncology
DX: Z51.11 Encounter for antineoplastic chemotherapy (principal); C54.1 Malignant neoplasm of endometrium
CPT/HCPCS: 36415; 36598; 80053; 80076; 83735; 85025; 96361; 96367; 96375; 96413; J2469; J2997

== ENCOUNTER 2017-05-25 07:33 | Day surgery (SDC) | payer OTHER ==
[2017-05-25 09:15] LABS: BASOPHIL 0.7 % (0-2.0); EOSINOPHIL 1.8 % (0-4.5); MCH 28.6 pg (25.7-33.7); MCHC 33.2 g/dl (32.0-36.0); MEAN CELL VOLUME 86.1 fl (80-96); MEAN PLT VOLUME 7.9 fl (7.5-11.1); NEUTROPHILS 42.7 % (42.8-82.8); PLATELET COUNT 291 K/MM3 (134-434); RDW 14.5 % (11.6-15.6); WHITE BLOOD COUNT 6.1 K/mm3 (4.0-10.0)
[2017-05-25 09:39] LABS: ALBUMIN 3.7 g/dl (3.4-5.0); ALK PHOS 91 U/L (45-117); ANION GAP 5 (8-16); BILIRUBIN,DIRECT < 0.1 mg/dL (0.0-0.2); BILIRUBIN,TOTAL 0.2 mg/dL (0.2-1.0); CALCIUM 8.8 mg/dL (8.5-10.1); CO2 29 mmol/L (21-32); GLUCOSE,RANDOM 125 mg/dL (74-106); MAGNESIUM 1.7 mg/dL (1.8-2.4); SGOT/AST 20 U/L (15-37); SGPT/ALT 28 U/L (12-78); TOT PROT 7.6 g/dl (6.4-8.2)
[2017-05-25] MEDS ORDERED: SODIUM CHLORIDE 250 ML IV ONE (10:00)
[2017-05-25] MEDS ORDERED: ONDANSETRON INJECTION 12 MG, DIPHENHYDRAMINE 25 MG, RANITIDINE INJECTION 50 MG in SODIU... IVPB ONE (10:00)
[2017-05-25] MEDS ORDERED: DEXAMETHASONE INJECTION 20 MG in SODIUM CHLORIDE 50 ML IVPB ONE (10:00)
[2017-05-25] MEDS ORDERED: PACLITAXEL 108 MG in SODIUM CHLORIDE 250 ML IVPB ONE (10:30)
[2017-05-25 14:36] VITALS: TEMP 97.9
[2017-05-25] MEDS ORDERED: PORTA CATH FLUSH 10 ML IVPUSH ONE (14:36)
[2017-05-25 15:18] VITALS: BP 117/70; PULSE 78
== END 2017-05-25 13:45 | disposition home or self-care (01) ==
LOC: JONCCHEMO 07:33 → J7W 09:59 → JONCCHEMO 13:45
PROVIDERS: ATTEND Internal Medicine Hematology & Oncology
DX: Z51.11 Encounter for antineoplastic chemotherapy (principal); C54.1 Malignant neoplasm of endometrium
CPT/HCPCS: 36415; 80053; 80076; 83735; 85025; 96361; 96367; 96375; 96413

== ENCOUNTER 2017-06-01 07:26 | Day surgery (SDC) | payer OTHER ==
[2017-06-01] MEDS ORDERED: [UNRECOGNIZED DRUG - OTHER] IVPB ONE (08:00)
[2017-06-01] MEDS ORDERED: RANITIDINE IVPB ONE (08:00)
[2017-06-01] MEDS ORDERED: ONDANSETRON IVPB ONE (08:00)
[2017-06-01] MEDS ORDERED: DEXAMETHASONE INJECTION 20 MG in SODIUM CHLORIDE 50 ML IVPB ONE (08:00)
[2017-06-01] MEDS ORDERED: DIPHENHYDRAMINE IVPB ONE (08:00)
[2017-06-01] MEDS ORDERED: PACLITAXEL 108 MG in SODIUM CHLORIDE 250 ML IVPB ONE (08:30)
[2017-06-01] MEDS ORDERED: SODIUM CHLORIDE 250 ML IV ONE (09:30)
[2017-06-01 09:32] LABS: BASOPHIL 0.8 % (0-2.0); EOSINOPHIL 2.1 % (0-4.5); MCH 27.9 pg (25.7-33.7); MCHC 32.7 g/dl (32.0-36.0); MEAN CELL VOLUME 85.3 fl (80-96); PLATELET COUNT 262 K/MM3 (134-434); RDW 14.3 % (11.6-15.6); WHITE BLOOD COUNT 6.6 K/mm3 (4.0-10.0)
[2017-06-01 09:59] LABS: ALBUMIN 3.5 g/dl (3.4-5.0); ANION GAP 9 (8-16); CO2 26 mmol/L (21-32); GLUCOSE,RANDOM 152 mg/dL (74-106); MAGNESIUM 1.9 mg/dL (1.8-2.4)
[2017-06-01 10:02] LABS: ALK PHOS 80 U/L (45-117); BILIRUBIN,DIRECT < 0.1 mg/dL (0.0-0.2); BILIRUBIN,TOTAL 0.3 mg/dL (0.2-1.0); SGOT/AST 24 U/L (15-37); SGPT/ALT 30 U/L (12-78); TOT PROT 7.3 g/dl (6.4-8.2)
[2017-06-01 10:04] VITALS: TEMP 97.8
[2017-06-01] MEDS ORDERED: PORTA CATH FLUSH 10 ML IVPUSH ONE (10:09)
[2017-06-01 13:01] VITALS: BP 114/75; PULSE 85
== END 2017-06-01 13:05 | disposition home or self-care (01) ==
LOC: JONCCHEMO 07:26 → J7W 09:45 → JONCCHEMO 13:05
PROVIDERS: ATTEND Internal Medicine Hematology & Oncology
DX: Z51.11 Encounter for antineoplastic chemotherapy (principal); C54.1 Malignant neoplasm of endometrium
CPT/HCPCS: 36415; 80053; 80076; 83735; 85025; 96361; 96367; 96375; 96413

== ENCOUNTER 2017-06-08 07:33 | Day surgery (SDC) | payer OTHER ==
[2017-06-08 09:31] LABS: BASOPHIL 0.5 % (0-2.0); MCHC 32.9 g/dl (32.0-36.0); MEAN CELL VOLUME 85.1 fl (80-96); MEAN PLT VOLUME 8.4 fl (7.5-11.1); NEUTROPHILS 47.6 % (42.8-82.8); PLATELET COUNT 271 K/MM3 (134-434); RDW 15.1 % (11.6-15.6); WHITE BLOOD COUNT 6.4 K/mm3 (4.0-10.0)
[2017-06-08 09:58] LABS: ALBUMIN 3.5 g/dl (3.4-5.0); ANION GAP 9 (8-16); BILIRUBIN,DIRECT < 0.1 mg/dL (0.0-0.2); CALCIUM 8.8 mg/dL (8.5-10.1); CO2 25 mmol/L (21-32); GLUCOSE,RANDOM 164 mg/dL (74-106); MAGNESIUM 1.9 mg/dL (1.8-2.4); SGOT/AST 19 U/L (15-37); SGPT/ALT 29 U/L (12-78)
[2017-06-08 09:59] LABS: ALK PHOS 79 U/L (45-117); BILIRUBIN,TOTAL 0.3 mg/dL (0.2-1.0); TOT PROT 7.2 g/dl (6.4-8.2)
[2017-06-08] MEDS ORDERED: PALONOSETRON HCL 0.25 MG in SODIUM CHLORIDE 50 ML IVPB ONE (10:00)
[2017-06-08] MEDS ORDERED: DIPHENHYDRAMINE 25 MG, RANITIDINE INJECTION 50 MG in SODIUM CHLORIDE 100 ML IVPB ONE (10:00)
[2017-06-08] MEDS ORDERED: DEXAMETHASONE INJECTION 20 MG in SODIUM CHLORIDE 50 ML IVPB ONE (10:00)
[2017-06-08] MEDS ORDERED: SODIUM CHLORIDE 250 ML IV ONE (10:00)
[2017-06-08] MEDS ORDERED: PACLITAXEL 108 MG in SODIUM CHLORIDE 250 ML IVPB ONE (10:45)
[2017-06-08 12:39] VITALS: TEMP 98.1
[2017-06-08] MEDS ORDERED: PORTA CATH FLUSH 10 ML IVPUSH PRN (14:21)
[2017-06-08 14:58] VITALS: BP 110/70; PULSE 90
== END 2017-06-08 14:05 | disposition home or self-care (01) ==
LOC: JONCCHEMO 07:33 → J7W 10:02 → JONCCHEMO 14:05
PROVIDERS: ATTEND Internal Medicine Hematology & Oncology
DX: Z51.11 Encounter for antineoplastic chemotherapy (principal); C54.1 Malignant neoplasm of endometrium
CPT/HCPCS: 36415; 80053; 80076; 83735; 85025; 96361; 96367; 96375; 96413; J2469

== ENCOUNTER 2017-06-15 07:19 | Day surgery (SDC) | payer OTHER ==
[2017-06-15 09:07] LABS: EOSINOPHIL 2.6 % (0-4.5); MCH 27.8 pg (25.7-33.7); MCHC 33.1 g/dl (32.0-36.0); MEAN CELL VOLUME 84.1 fl (80-96); MEAN PLT VOLUME 8.1 fl (7.5-11.1); NEUTROPHILS 45.6 % (42.8-82.8); PLATELET COUNT 269 K/MM3 (134-434); WHITE BLOOD COUNT 5.7 K/mm3 (4.0-10.0)
[2017-06-15 09:28] LABS: ALBUMIN 3.3 g/dl (3.4-5.0); ANION GAP 8 (8-16); BILIRUBIN,DIRECT < 0.1 mg/dL (0.0-0.2); BILIRUBIN,TOTAL 0.2 mg/dL (0.2-1.0); CALCIUM 8.6 mg/dL (8.5-10.1); CO2 25 mmol/L (21-32); CREATININE 0.9 mg/dL (0.55-1.02); GLUCOSE,RANDOM 174 mg/dL (74-106); MAGNESIUM 1.8 mg/dL (1.8-2.4); SGOT/AST 18 U/L (15-37); SGPT/ALT 27 U/L (12-78); TOT PROT 6.8 g/dl (6.4-8.2)
[2017-06-15 09:29] LABS: ALK PHOS 73 U/L (45-117)
[2017-06-15] MEDS ORDERED: SODIUM CHLORIDE 250 ML IV ONE (10:00)
[2017-06-15] MEDS ORDERED: ONDANSETRON INJECTION 12 MG, DIPHENHYDRAMINE 25 MG, RANITIDINE INJECTION 50 MG in SODIU... IVPUSH ONE (10:00)
[2017-06-15] MEDS ORDERED: DEXAMETHASONE INJECTION 20 MG in SODIUM CHLORIDE 50 ML IVPB ONE (10:00)
[2017-06-15] MEDS ORDERED: PACLITAXEL 108 MG in SODIUM CHLORIDE 250 ML IVPB ONE (10:30)
[2017-06-15 10:43] VITALS: TEMP 97.8
[2017-06-15] MEDS: PORTA CATH FLUSH 10 ML IVPUSH PRN ×2 (11:41→13:45)
[2017-06-15 13:49] VITALS: BP 114/71; PULSE 80
== END 2017-06-15 13:45 | disposition home or self-care (01) ==
LOC: JONCCHEMO 07:19 → J7W 10:20 → JONCCHEMO 13:45
PROVIDERS: ATTEND Internal Medicine Hematology & Oncology
DX: Z51.11 Encounter for antineoplastic chemotherapy (principal); C54.1 Malignant neoplasm of endometrium
CPT/HCPCS: 36415; 80053; 80076; 83735; 85025; 96361; 96367; 96375; 96413

== ENCOUNTER 2017-06-22 07:04 | Day surgery (SDC) | payer OTHER ==
[2017-06-22 09:13] LABS: BASOPHIL 0.7 % (0-2.0); EOSINOPHIL 2.6 % (0-4.5); MCH 28.3 pg (25.7-33.7); MCHC 33.7 g/dl (32.0-36.0); MEAN PLT VOLUME 8.4 fl (7.5-11.1); NEUTROPHILS 44.9 % (42.8-82.8); PLATELET COUNT 284 K/MM3 (134-434); RDW 14.9 % (11.6-15.6); WHITE BLOOD COUNT 5.4 K/mm3 (4.0-10.0)
[2017-06-22 09:43] LABS: ALBUMIN 3.4 g/dl (3.4-5.0); ALK PHOS 78 U/L (45-117); ANION GAP 6 (8-16); BILIRUBIN,DIRECT < 0.1 mg/dL (0.0-0.2); BILIRUBIN,TOTAL 0.2 mg/dL (0.2-1.0); CALCIUM 8.6 mg/dL (8.5-10.1); CO2 24 mmol/L (21-32); GLUCOSE,RANDOM 191 mg/dL (74-106); MAGNESIUM 1.7 mg/dL (1.8-2.4); SGOT/AST 17 U/L (15-37); SGPT/ALT 27 U/L (12-78)
[2017-06-22 09:51] VITALS: TEMP 97.9
[2017-06-22] MEDS ORDERED: PORTA CATH FLUSH 10 ML IVPUSH ONE (09:55)
[2017-06-22] MEDS ORDERED: DEXAMETHASONE INJECTION 20 MG in SODIUM CHLORIDE 50 ML IVPB ONE (10:00)
[2017-06-22] MEDS ORDERED: SODIUM CHLORIDE 250 ML IV ONE (10:00)
[2017-06-22] MEDS ORDERED: ONDANSETRON INJECTION 12 MG, DIPHENHYDRAMINE 25 MG, RANITIDINE INJECTION 50 MG in SODIU... IVPUSH ONE (10:00)
[2017-06-22] MEDS ORDERED: PACLITAXEL 108 MG in SODIUM CHLORIDE 250 ML IVPB ONE (10:30)
[2017-06-22] MEDS ORDERED: MAGNESIUM SULF 50% (8.12 MEQ/2 ML-1 GM VIAL) IVPB ONE (12:00)
[2017-06-22 13:02] VITALS: BP 113/70; PULSE 79
== END 2017-06-22 13:10 | disposition home or self-care (01) ==
LOC: JONCCHEMO 07:04 → J7W 09:19 → JONCCHEMO 13:10
PROVIDERS: ATTEND Internal Medicine Hematology & Oncology
DX: Z51.11 Encounter for antineoplastic chemotherapy (principal); C54.1 Malignant neoplasm of endometrium
CPT/HCPCS: 36415; 80048; 80076; 83735; 85025; 96361; 96367; 96375; 96413; 96417

== ENCOUNTER 2017-07-06 07:19 | Day surgery (SDC) | payer OTHER ==
[2017-07-06] MEDS ORDERED: DEXAMETHASONE INJECTION 20 MG in SODIUM CHLORIDE 50 ML IVPB ONE (08:30)
[2017-07-06] MEDS ORDERED: ONDANSETRON INJECTION 12 MG, DIPHENHYDRAMINE 25 MG, RANITIDINE INJECTION 50 MG in SODIU... IVPB ONE (08:30)
[2017-07-06] MEDS ORDERED: PACLITAXEL 108 MG in SODIUM CHLORIDE 250 ML IVPB ONE (09:00)
[2017-07-06 09:15] LABS: BASOPHIL 0.9 % (0-2.0); EOSINOPHIL 1.6 % (0-4.5); MCHC 33.1 g/dl (32.0-36.0); MEAN CELL VOLUME 84.6 fl (80-96); MEAN PLT VOLUME 7.9 fl (7.5-11.1); NEUTROPHILS 49.2 % (42.8-82.8); PLATELET COUNT 291 K/MM3 (134-434); RDW 15.6 % (11.6-15.6)
[2017-07-06 09:47] LABS: ALBUMIN 3.4 g/dl (3.4-5.0); ALK PHOS 72 U/L (45-117); ANION GAP 8 (8-16); BILIRUBIN,DIRECT < 0.2 mg/dL (0.0-0.2); BILIRUBIN,TOTAL 0.3 mg/dL (0.2-1.0); CALCIUM 8.8 mg/dL (8.5-10.1); CO2 24 mmol/L (21-32); CREATININE 0.9 mg/dL (0.55-1.02); GLUCOSE,RANDOM 193 mg/dL (74-106); MAGNESIUM 1.8 mg/dL (1.8-2.4); SGOT/AST 25 U/L (15-37); SGPT/ALT 30 U/L (12-78); TOT PROT 6.8 g/dl (6.4-8.2)
[2017-07-06] MEDS: SODIUM CHLORIDE 250 ML IV ONE ×2 (10:27→13:31)
[2017-07-06] MEDS ORDERED: PORTA CATH FLUSH 10 ML IVPUSH ONE (11:48)
[2017-07-06 14:37] VITALS: BP 119/75; PULSE 80; TEMP 98.8
== END 2017-07-06 14:36 | disposition home or self-care (01) ==
LOC: JONCCHEMO 07:19 → J7W 09:54 → JONCCHEMO 14:36
PROVIDERS: ATTEND Internal Medicine Hematology & Oncology
PROC: 3E04305 Introduction of Other Antineoplastic into Central Vein, Percutaneous Approach (ICD-10-PCS; principal; 2017-07-06)
PROC: 3E043GC Introduction of Other Therapeutic Substance into Central Vein, Percutaneous Approach (ICD-10-PCS; 2017-07-06)
PROC: 3E0437Z Introduction of Electrolytic and Water Balance Substance into Central Vein, Percutaneous Approach (ICD-10-PCS; 2017-07-06)
DX: Z51.11 Encounter for antineoplastic chemotherapy (principal); C54.1 Malignant neoplasm of endometrium
CPT/HCPCS: 36415; 80053; 80076; 83735; 85025; 96361; 96367; 96375; 96413; 96415

== ENCOUNTER 2017-07-13 07:17 | Day surgery (SDC) | payer OTHER ==
[2017-07-13 08:59] LABS: BASOPHIL 1.2 % (0-2.0); EOSINOPHIL 1.8 % (0-4.5); MCH 28.1 pg (25.7-33.7); MCHC 32.7 g/dl (32.0-36.0); MEAN CELL VOLUME 85.8 fl (80-96); MEAN PLT VOLUME 8.2 fl (7.5-11.1); NEUTROPHILS 51.9 % (42.8-82.8); PLATELET COUNT 301 K/MM3 (134-434); WHITE BLOOD COUNT 5.8 K/mm3 (4.0-10.0)
[2017-07-13 09:19] LABS: ALBUMIN 3.4 g/dl (3.4-5.0); ANION GAP 8 (8-16); BILIRUBIN,DIRECT < 0.2 mg/dL (0.0-0.2); CALCIUM 8.5 mg/dL (8.5-10.1); CO2 24 mmol/L (21-32); GLUCOSE,RANDOM 191 mg/dL (74-106); MAGNESIUM 1.7 mg/dL (1.8-2.4); SGOT/AST 20 U/L (15-37); SGPT/ALT 29 U/L (12-78)
[2017-07-13 09:21] LABS: ALK PHOS 81 U/L (45-117); BILIRUBIN,TOTAL 0.3 mg/dL (0.2-1.0)
[2017-07-13] MEDS ORDERED: DEXAMETHASONE INJECTION 20 MG in SODIUM CHLORIDE 50 ML IVPB ONE (10:00)
[2017-07-13] MEDS ORDERED: ONDANSETRON INJECTION 12 MG, DIPHENHYDRAMINE 25 MG, RANITIDINE INJECTION 50 MG in SODIU... IVPB ONE (10:00)
[2017-07-13] MEDS ORDERED: SODIUM CHLORIDE 250 ML IV ONE (10:00)
[2017-07-13] MEDS ORDERED: PACLITAXEL 108 MG in SODIUM CHLORIDE 250 ML IVPB ONE (10:30)
[2017-07-13 15:49] VITALS: BP 123/78; PULSE 84; TEMP 98.1
[2017-07-13] MEDS ORDERED: PORTA CATH FLUSH 10 ML IVPUSH ONE (15:49)
== END 2017-07-13 15:30 | disposition home or self-care (01) ==
LOC: JONCCHEMO 07:17 → J7W 09:37 → JONCCHEMO 15:30
PROVIDERS: ATTEND Internal Medicine Hematology & Oncology
DX: Z51.11 Encounter for antineoplastic chemotherapy (principal); C54.1 Malignant neoplasm of endometrium
CPT/HCPCS: 36415; 80053; 80076; 83735; 85025; 96361; 96366; 96367; 96375; 96413

== ENCOUNTER 2017-10-08 11:29 | Day surgery (SDC) | payer OTHER ==
[2017-10-07 18:51] VITALS: BMI 32.0
[2017-10-08] MEDS ORDERED: MIDAZOLAM HCL 2 MG/2 ML SINGLE DOSE VIAL ONE ×2 (15:44)
[2017-10-08] MEDS ORDERED: ceFAZolin SODIUM 1 GM VIAL IVPB ONE (15:50)
[2017-10-08] MEDS ORDERED: BACITRACIN 15 GM TUBE TOPICAL OINTMENT ONE (16:07)
--- NOTE | 2017-10-08 16:16 | HP ---
Admitting History and Physical - Admission Chief Complaint: pt here for port removal . Chemotherapy treatment is over. Limitations to Obtaining History: No Limitations - Past Medical History Gastrointestinal: Yes: Cancer Heme/Onc: Yes: Anemia - Smoking History Smoking history: Never smoked Have you smoked in the past 12 months: No - Alcohol/Substance Use Hx Alcohol Use: No Home Medications - Allergies Allergies/Adverse Reactions: Allergies Allergy/AdvReac Type Severity Reaction Status Date / Time carboplatin Allergy Intermediate Verified 01/07/17 14:37 shellfish derived Allergy Intermediate Vomiting Verified 09/14/16 23:00 carboplatinum Allergy Intermediate Uncoded 12/25/16 11:30 - Home Medications Home Medications: Ambulatory Orders Simvastatin 40 mg PO DAILY 07/24/16 Acetaminophen [Tylenol .Extra-Strength -] 500 mg PO Q6H PRN #30 tablet 08/09/16 Multivitamins [Multivit ([facility] Formulary)] 1 tab PO DAILY #30 tab 08/09/16 Enoxaparin Sodium [Lovenox] 80 mg SQ BID 09/28/17 Linaclotide [Linzess] 1 cap PO DAILY 09/28/17 Loratadine [Claritin] 1 tab PO DAILY 09/28/17 Meclizine HCl 1 tab PO TID PRN 09/28/17 Denison-3 Acid Ethyl Esters [Lovaza] 2 gm PO BID 09/28/17 Omeprazole Magnesium [Prilosec Otc] 40 mg PO DAILY 09/28/17 Psyllium [Metamucil (Sugar-Free) -] 1 packet PO DAILY 09/28/17 Simethicone 1 tab PO DAILY 09/28/17 Sitagliptin Phosphate [Januvia] 1 tab PO DAILY 09/28/17 Travoprost [Travatan Z] 1 drop OU DAILY 09/28/17 Zolpidem Tartrate [Ambien] 1 tab PO HS 09/28/17 Insulin Glargine,Hum.rec.anlog [Lantus Solostar] ASDIR 10/08/17 Meloxicam [Mobic] 15 mg PO 10/08/17 Review of Systems - Review of Systems Constitutional: reports: No Symptoms Eyes: reports: No Symptoms HENT: reports: No Symptoms Neck: reports: No Symptoms Cardiovascular: reports: No Symptoms Respiratory: reports: No Symptoms Gastrointestinal: reports: No Symptoms Genitourinary: reports: No Symptoms Breasts: reports: No Symptoms Reported Musculoskeletal: reports: No Symptoms Integumentary: reports: No Symptoms Neurological: reports: No Symptoms Endocrine: reports: No Symptoms Hematology/Lymphatic: reports: No Symptoms Psychiatric: reports: No Symptoms Physical Examination Vital Signs: Vital Signs Temperature 98.2 F 10/08/17 12:16 Pulse Rate 71 10/08/17 12:16 Respiratory Rate 16 10/08/17 12:16 Blood Pressure 102/74 10/08/17 12:16 O2 Sat by Pulse Oximetry (%) 98 10/08/17 12:16 Constitutional: Yes: Well Nourished, No Distress, Calm Eyes: Yes: WNL, Conjunctiva Clear, EOM Intact HENT: Yes: WNL, Atraumatic, Normocephalic Neck: Yes: WNL, Supple, Trachea Midline Cardiovascular: Yes: WNL, Regular Rate and Rhythm Respiratory: Yes: WNL, Regular, CTA Bilaterally Gastrointestinal: Yes: WNL, Normal Bowel Sounds Musculoskeletal: Yes: WNL Extremities: Yes: WNL Edema: No Integumentary: Yes: WNL Neurological: Yes: WNL, Alert, Oriented ...Motor Strength: WNL Psychiatric: Yes: WNL Problem List - Problems (1) Uterine cancer Code(s): C55 - MALIGNANT NEOPLASM OF UTERUS, PART UNSPECIFIED Assessment/Plan S/P chemotherapy for uterine cancer. Port no longer needed. 1. Will remove port today.
--- NOTE | 2017-10-08 16:18 | OP ---
Operative Note - Note: Operative Date: 10/08/17 Pre-Operative Diagnosis: uterine cancer Operation: removal of portacath Post-Operative Diagnosis: Same as Pre-op Surgeon: Brendan Bernard Anesthesia: Fractional Estimated Blood Loss (mls): 5 Operative Report Dictated: Yes
[2017-10-08] MEDS ORDERED: LIDOCAINE HCL 1%, 10 MG/ML (20ML VIAL) INF ONE (16:22)
[2017-10-08] MEDS ORDERED: ONDANSETRON 4 MG/2 ML VIAL IVPUSH PRN (16:26)
[2017-10-08] MEDS ORDERED: oxyCODONE HCL 5 MG TABLET PO PRN (16:26)
[2017-10-08] MEDS ORDERED: LACTATED RINGERS SOLUTION 1,000 ML IV SCH (16:30)
[2017-10-08 16:34] VITALS: TEMP 97.8
[2017-10-08 18:14] VITALS: BP 132/80; PULSE 76
--- NOTE | 2017-10-13 17:30 | PATH ---
Surgical Pathology Report Patient Name: MICHAEL ALLRED [facility]. Rec. 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 MACROSCOPIC DIAGNOSIS. Electronically Signed Leigh Pina M.D. Gross Description Received fresh labeled "explanted port," is a 2.5 x 2.5 x 1.3 cm grant metallic device, consistent with a port. The port displays a 23 cm in length portion of tubing extending from one aspect. No soft tissue is present. No sections are submitted, gross only. 10/12/2017 saudi10/12/2017
== END 2017-10-08 18:19 | disposition home or self-care (01) ==
LOC: JASU-SURG 11:29
PROVIDERS: ATTEND Surgery Vascular Surgery
PROC: 02PY03Z Removal of Infusion Device from Great Vessel, Open Approach (ICD-10-PCS; principal; 2017-10-08 13:45)
DX: Z45.2 Encounter for adjustment and management of vascular access device (principal); C55 Malignant neoplasm of uterus, part unspecified
CPT/HCPCS: 82962; 88300-TC; 94760

== ENCOUNTER → 2018-03-16 | Day surgery (SDC) | payer OTHER ==
[2018-03-16 10:01] LABS: BASO % 0.8 % (0-2.0); EOS % 1.3 % (0-4.5); HEMATOCRIT 30.3 % (32.4-45.2); HEMOGLOBIN 9.8 GM/dL (10.7-15.3); MCH 26.7 pg (25.7-33.7); MCHC 32.4 g/dl (32.0-36.0); MEAN CELL VOLUME 82.6 fl (80-96); MEAN PLT VOLUME 7.1 fl (7.5-11.1); MONO % 8.3 % (3.8-10.2); NEUT % 66.6 % (42.8-82.8); PLATELET COUNT 489 K/MM3 (134-434); RBC 3.67 M/mm3 (3.60-5.2); RDW 13.3 % (11.6-15.6); WHITE BLOOD COUNT 9.6 K/mm3 (4.0-10.0)
[2018-03-16 10:18] LABS: INR 1.39 (0.82-1.09); PROTHROMBIN TIME (PATIENT) 15.7 SEC (9.7-13.0)
[2018-03-16 13:30] LABS: PERITONEAL RBC 8769 /mm3
[2018-03-16 13:55] LABS: PERITONEAL FLUID LYMPHOCYTE 76 %; PERITONEAL FLUID MACROPHAGE 1 %; PERITONEAL FLUID MONOCYTE 18 %; PERITONEAL FLUID NEUTROPHIL 5 %
[2018-03-16 14:08] LABS: TOTAL PROTEIN,PERITONEAL FLUID 5 gm/dL
--- NOTE | 2018-03-19 14:21 | PATH ---
Cytology Non-Gynecological Report Patient Name: MICHAEL ALLRED [facility]. Rec. #: [id number] /Age/Gender: 1950 (Age: 68) / F Account: [id number] Location: RADIOLOGY INTER Taken: 03/16/2018 Received: 03/16/2018 Reported: 03/19/2018 Physicians: Fran Dave M.D. Specimen(s) Received A: PERITONEAL FLUID B: PERITONEAL FLUID Clinical History Poorly differentiated adenocarcinoma, uterine cancer Final Diagnosis ABDOMINAL FLUID, PARACENTESIS: SATISFACTORY FOR EVALUATION. POSITIVE FOR MALIGNANT CELLS. ADENOCARCINOMA. MALIGNANT EPITHELIAL CELLS WITH INCREASED NUCLEUS TO CYTOPLASMIC RATIO, HYPERCHROMASIA, IRREGULAR NUCLEAR CONTOURS, AND COARSE CHROMATIN DISPERSED FEW CLUSTERS IN A BACKGROUND OF RARE MESOTHELIAL CELLS AND LYMPHOCYTES PRESENT. Comment: Scant evidence. Immunohistochemical stains performed at [place], [place] ([id number]) and interpreted at [facility] show few clusters of malignant epithelial cells which are strongly positive for Lev-Ep4 (JANEE), p16 , DHAVAL; while weakly positive for MOC31, Lyndon-8 (rare), WT-1 (rare), and ER(rare). D2-40 immunohistochemical stain highlights rare mesothelial cells, while negative for calretinin. Prior history of uterine cancer and prior biopsy ([id number]) is noted. Prior cytology reviewed and show morphologic similarities ([id number]). Overall cytomorphologic features and immunophenotype are consistent with involvement by known history of poorly differentiated adenocarcinoma, favor Mullerian origin. Electronically Signed Leigh Pina M.D. Gross Description A. Approximately 50 cc of bloody fluid received fixed in 50% alcohol. Two direct smears and one cellblock prepared. B. Approximately 1200 cc of bloody fluid received fresh. Two direct smears and one cellblock prepared.
== END | disposition home or self-care (01) ==
LOC: JRADIR 09:23
PROVIDERS: ATTEND Internal Medicine Hematology & Oncology
PROC: 0W9G3ZX Drainage of Peritoneal Cavity, Percutaneous Approach, Diagnostic (ICD-10-PCS; principal; 2018-03-16)
DX: C55 Malignant neoplasm of uterus, part unspecified (principal); R18.0 Malignant ascites
CPT/HCPCS: 36415; 76942-TC; 82042; 82150; 82945; 83615; 84157; 85025; 85610; 87070; 87075; 87102; 87116; 87205; 87206; 87210; 88108; 88305-TC; 89051

== ENCOUNTER 2018-03-29 07:45 | Day surgery (SDC) | payer OTHER ==
[2018-03-22 10:25] VITALS: BMI 26.7
[2018-03-29 08:42] LABS: BASO % 0.6 % (0-2.0); EOS % 1.6 % (0-4.5); HEMATOCRIT 25.9 % (32.4-45.2); HEMOGLOBIN 8.6 GM/dL (10.7-15.3); LYMPH % 25.4 % (8-40); MCH 26.5 pg (25.7-33.7); MCHC 33.3 g/dl (32.0-36.0); MEAN CELL VOLUME 79.8 fl (80-96); MEAN PLT VOLUME 6.5 fl (7.5-11.1); MONO % 8.4 % (3.8-10.2); PLATELET COUNT 644 K/MM3 (134-434); RBC 3.25 M/mm3 (3.60-5.2); RDW 14.3 % (11.6-15.6); WHITE BLOOD COUNT 8.8 K/mm3 (4.0-10.0)
[2018-03-29 09:10] LABS: INR 1.35 (0.83-1.09); PROTHROMBIN TIME (PATIENT) 15.3 SEC (9.7-13.0)
[2018-03-29] MEDS ORDERED: PORTA CATH FLUSH 10 ML IVPUSH PRN (09:53)
[2018-03-29] MEDS ORDERED: PALONOSETRON HCL 0.25 MG/5 ML VIAL IVPUSH ONE (10:00)
[2018-03-29] MEDS ORDERED: DEXAMETHASONE INJECTION 20 MG, DIPHENHYDRAMINE 50 MG, RANITIDINE INJECTION 50 MG in SOD... IVPB ONE (10:00)
[2018-03-29] MEDS ORDERED: DEXTROSE 5% IV ONE (10:30)
[2018-03-29] MEDS ORDERED: WATER IV ONE (10:30)
[2018-03-29] MEDS ORDERED: DOXORUBICIN HCL LIPOSOMAL IV ONE (10:30)
[2018-03-29] MEDS ORDERED: SODIUM CHLORIDE IV ONE (12:00)
[2018-03-29] MEDS ORDERED: BEVACIZUMAB IV ONE (12:00)
[2018-03-29] MEDS ORDERED: SODIUM CHLORIDE 250 ML IV ONE (13:30)
[2018-03-29 18:37] VITALS: TEMP 97.6
[2018-03-29 18:41] VITALS: BP 110/60
[2018-03-29] MEDS ORDERED: PORTA CATH FLUSH 10 ML IVPUSH ONE (18:41)
[2018-03-29 18:44] VITALS: PULSE 70
== END 2018-03-29 18:10 | disposition home or self-care (01) ==
LOC: JRADIR 07:45
PROVIDERS: ATTEND Internal Medicine Hematology & Oncology
PROC: 02HV33Z Insertion of Infusion Device into Superior Vena Cava, Percutaneous Approach (ICD-10-PCS; principal; 2018-03-29)
PROC: B518ZZA Fluoroscopy of Superior Vena Cava, Guidance (ICD-10-PCS; 2018-03-29)
PROC: 3E04305 Introduction of Other Antineoplastic into Central Vein, Percutaneous Approach (ICD-10-PCS; 2018-03-29)
DX: Z51.11 Encounter for antineoplastic chemotherapy (principal); C54.1 Malignant neoplasm of endometrium
CPT/HCPCS: 36561; 96361; 96367; 96413; 96415; 96417; C1751; 36415; 77001-TC-FY; 85025; 85610; 96375; C1788; J1100; J2469; J9035; Q2049

== ENCOUNTER 2018-04-19 07:48 | Day surgery (SDC) | payer OTHER ==
[2018-04-19 09:43] LABS: BASO % 0.8 % (0-2.0); EOS % 1.2 % (0-4.5); HEMATOCRIT 28.4 % (32.4-45.2); HEMOGLOBIN 9.1 GM/dL (10.7-15.3); LYMPH % 25.2 % (8-40); MCH 25.4 pg (25.7-33.7); MEAN CELL VOLUME 79.4 fl (80-96); MEAN PLT VOLUME 7.3 fl (7.5-11.1); MONO % 12.3 % (3.8-10.2); NEUT % 60.5 % (42.8-82.8); PLATELET COUNT 724 K/MM3 (134-434); RBC 3.58 M/mm3 (3.60-5.2); RDW 15.9 % (11.6-15.6)
[2018-04-19] MEDS ORDERED: DEXAMETHASONE INJECTION 10 MG in DEXTROSE 5%-WATER - 50 ML IVPB ONE (10:00)
[2018-04-19 10:03] LABS: ALBUMIN 2.8 g/dl (3.4-5.0); ANION GAP 9 MMOL/L (8-16); BILIRUBIN,TOTAL 0.2 mg/dL (0.2-1.0); BLOOD UREA NITROGEN 11 mg/dL (7-18); CALCIUM 9.2 mg/dL (8.5-10.1); CHLORIDE 101 mmol/L (98-107); CO2 26 mmol/L (21-32); CREATININE 1.1 mg/dL (0.55-1.02); GLUCOSE,RANDOM 107 mg/dL (74-106); POTASSIUM 4.6 mmol/L (3.5-5.1); SGOT/AST 20 U/L (15-37); SGPT/ALT 9 U/L (12-78); SODIUM 136 mmol/L (136-145); TOT PROT 7.4 g/dl (6.4-8.2)
[2018-04-19 10:04] LABS: ALBUMIN 2.7 g/dl (3.4-5.0); ALK PHOS 124 U/L (45-117); BILIRUBIN,DIRECT < 0.2 mg/dL (0.0-0.2); BILIRUBIN,TOTAL 0.2 mg/dL (0.2-1.0); MAGNESIUM 2.1 mg/dL (1.8-2.4); SGOT/AST 17 U/L (15-37); SGPT/ALT 10 U/L (12-78); TOT PROT 7.4 g/dl (6.4-8.2)
[2018-04-19 10:05] LABS: ALK PHOS 125 U/L (45-117)
[2018-04-19] MEDS ORDERED: BEVACIZUMAB IV ONE (10:30)
[2018-04-19] MEDS ORDERED: SODIUM CHLORIDE IV ONE (10:30)
[2018-04-19] MEDS ORDERED: SODIUM CHLORIDE 250 ML IV ONE (11:00)
[2018-04-19] MEDS ORDERED: PORTA CATH FLUSH 10 ML IVPUSH ONE (16:41)
[2018-04-19 16:47] VITALS: BP 130/80; PULSE 72; TEMP 98
== END 2018-04-19 16:47 | disposition home or self-care (01) ==
LOC: JONCCHEMO 07:48 → J7W 10:01 → JONCCHEMO 16:47
PROVIDERS: ATTEND Internal Medicine Hematology & Oncology
DX: Z51.11 Encounter for antineoplastic chemotherapy (principal); C54.1 Malignant neoplasm of endometrium
CPT/HCPCS: 36415; 80053; 80076; 83735; 85025; 96361; 96375; 96413; J1100; J9035

== ENCOUNTER 2018-04-27 07:34 | Day surgery (SDC) | payer OTHER ==
[2018-04-27] MEDS ORDERED: PALONOSETRON HCL 0.25 MG/5 ML VIAL IVPUSH ONE (08:00)
[2018-04-27] MEDS ORDERED: DEXAMETHASONE INJECTION 20 MG, DIPHENHYDRAMINE 25 MG, RANITIDINE INJECTION 50 MG in SOD... IVPB ONE (08:00)
[2018-04-27] MEDS ORDERED: DEXTROSE 5% IV ONE (08:30)
[2018-04-27] MEDS ORDERED: DOXORUBICIN HCL LIPOSOMAL IV ONE (08:30)
[2018-04-27] MEDS ORDERED: WATER IV ONE (08:30)
[2018-04-27] MEDS ORDERED: SODIUM CHLORIDE 250 ML IV ONE (09:30)
[2018-04-27 10:17] LABS: BASO % 0.9 % (0-2.0); EOS % 1.1 % (0-4.5); HEMATOCRIT 28.9 % (32.4-45.2); HEMOGLOBIN 9.4 GM/dL (10.7-15.3); LYMPH % 22.9 % (8-40); MCH 25.5 pg (25.7-33.7); MCHC 32.4 g/dl (32.0-36.0); MEAN CELL VOLUME 78.6 fl (80-96); MEAN PLT VOLUME 7.3 fl (7.5-11.1); MONO % 10.7 % (3.8-10.2); NEUT % 64.4 % (42.8-82.8); PLATELET COUNT 583 K/MM3 (134-434); RBC 3.67 M/mm3 (3.60-5.2); RDW 16.5 % (11.6-15.6); WHITE BLOOD COUNT 7.4 K/mm3 (4.0-10.0)
[2018-04-27 11:18] LABS: CHLORIDE 104 mmol/L (98-107); POTASSIUM 4.4 mmol/L (3.5-5.1); SODIUM 140 mmol/L (136-145)
[2018-04-27 11:20] LABS: CALCIUM 8.7 mg/dL (8.5-10.1)
[2018-04-27 11:21] LABS: ALBUMIN 2.5 g/dl (3.4-5.0); ANION GAP 9 MMOL/L (8-16); BLOOD UREA NITROGEN 9 mg/dL (7-18); CO2 27 mmol/L (21-32); GLUCOSE,RANDOM 132 mg/dL (74-106)
[2018-04-27 11:26] LABS: BILIRUBIN,DIRECT < 0.2 mg/dL (0.0-0.2); CREATININE 0.9 mg/dL (0.55-1.02); SGOT/AST 17 U/L (15-37); SGPT/ALT 10 U/L (12-78)
[2018-04-27 11:27] LABS: ALK PHOS 117 U/L (45-117); BILIRUBIN,TOTAL 0.1 mg/dL (0.2-1.0); TOT PROT 6.9 g/dl (6.4-8.2)
[2018-04-27 15:30] VITALS: TEMP 97.5
[2018-04-27] MEDS ORDERED: PORTA CATH FLUSH 10 ML IVPUSH ONE (15:32)
[2018-04-27 15:38] VITALS: BP 130/81; PULSE 65
== END 2018-04-27 14:30 | disposition home or self-care (01) ==
LOC: JONCCHEMO 07:34 → J7W 11:17 → JONCCHEMO 14:30
PROVIDERS: ATTEND Internal Medicine Hematology & Oncology
PROC: 3E04305 Introduction of Other Antineoplastic into Central Vein, Percutaneous Approach (ICD-10-PCS; principal; 2018-04-27)
PROC: 3E043GC Introduction of Other Therapeutic Substance into Central Vein, Percutaneous Approach (ICD-10-PCS; 2018-04-27)
PROC: 3E0437Z Introduction of Electrolytic and Water Balance Substance into Central Vein, Percutaneous Approach (ICD-10-PCS; 2018-04-27)
DX: Z51.11 Encounter for antineoplastic chemotherapy (principal); C54.1 Malignant neoplasm of endometrium; C54.9 Malignant neoplasm of corpus uteri, unspecified; E11.9 Type 2 diabetes mellitus without complications; E78.5 Hyperlipidemia, unspecified
CPT/HCPCS: 36415; 80053; 80076; 83735; 85025; 96361; 96367; 96375; 96413; J1100; J2469; Q2049

== ENCOUNTER 2018-04-28 07:40 | Day surgery (SDC) | payer OTHER ==
[2018-04-28] MEDS ORDERED: PEGFILGRASTIM 6 MG/0.6 ML DISP.SYRIN SQ ONE (09:00)
[2018-04-28 17:41] VITALS: BP 125/72; PULSE 69; TEMP 97.9
== END 2018-04-28 15:20 | disposition home or self-care (01) ==
LOC: JONCCHEMO 07:40 → J7W 15:05 → JONCCHEMO 15:20
PROVIDERS: ATTEND Internal Medicine Hematology & Oncology
PROC: 3E013GC Introduction of Other Therapeutic Substance into Subcutaneous Tissue, Percutaneous Approach (ICD-10-PCS; principal; 2018-04-28)
DX: Z76.89 Persons encountering health services in other specified circumstances (principal); C54.1 Malignant neoplasm of endometrium; E11.9 Type 2 diabetes mellitus without complications; E78.5 Hyperlipidemia, unspecified
CPT/HCPCS: 96372; J2505

== ENCOUNTER 2018-05-10 07:34 | Day surgery (SDC) | payer OTHER ==
[2018-05-10] MEDS ORDERED: DEXAMETHASONE INJECTION 10 MG in SODIUM CHLORIDE 50 ML IVPB ONE (08:00)
[2018-05-10] MEDS ORDERED: SODIUM CHLORIDE IV ONE (08:30)
[2018-05-10] MEDS ORDERED: BEVACIZUMAB IV ONE (08:30)
[2018-05-10] MEDS ORDERED: SODIUM CHLORIDE 250 ML IV ONE (09:00)
[2018-05-10 10:12] LABS: BASO % 0.9 % (0-2.0); EOS % 1.8 % (0-4.5); HEMOGLOBIN 9.8 GM/dL (10.7-15.3); LYMPH % 16.3 % (8-40); MCH 24.8 pg (25.7-33.7); MCHC 31.6 g/dl (32.0-36.0); MEAN CELL VOLUME 78.6 fl (80-96); MEAN PLT VOLUME 7.6 fl (7.5-11.1); MONO % 4.7 % (3.8-10.2); NEUT % 76.3 % (42.8-82.8); PLATELET COUNT 412 K/MM3 (134-434); RBC 3.94 M/mm3 (3.60-5.2); RDW 17.5 % (11.6-15.6); WHITE BLOOD COUNT 10.8 K/mm3 (4.0-10.0)
[2018-05-10 10:53] LABS: CHLORIDE 101 mmol/L (98-107); POTASSIUM 4.6 mmol/L (3.5-5.1); SODIUM 138 mmol/L (136-145)
[2018-05-10 11:08] LABS: ALBUMIN 2.9 g/dl (3.4-5.0); ALK PHOS 158 U/L (45-117); ALK PHOS 165 U/L (45-117); ANION GAP 11 MMOL/L (8-16); BILIRUBIN,DIRECT < 0.2 mg/dL (0.0-0.2); BILIRUBIN,TOTAL 0.3 mg/dL (0.2-1.0); BLOOD UREA NITROGEN 12 mg/dL (7-18); CALCIUM 9.2 mg/dL (8.5-10.1); CO2 26 mmol/L (21-32); CREATININE 0.9 mg/dL (0.55-1.3); GLUCOSE,RANDOM 100 mg/dL (74-106); MAGNESIUM 2.3 mg/dL (1.8-2.4); SGOT/AST 18 U/L (15-37); SGOT/AST 21 U/L (15-37); SGPT/ALT 10 U/L (13-61); TOT PROT 7.6 g/dl (6.4-8.2); TOT PROT 7.9 g/dl (6.4-8.2)
[2018-05-10 16:45] VITALS: TEMP 98.1
[2018-05-10 16:57] VITALS: BP 112/72; PULSE 82
[2018-05-10] MEDS ORDERED: PORTA CATH FLUSH 10 ML IVPUSH ONE (16:57)
== END 2018-05-10 13:20 | disposition home or self-care (01) ==
LOC: JONCCHEMO 07:34 → J7W 10:46 → JONCCHEMO 13:20
PROVIDERS: ATTEND Internal Medicine Hematology & Oncology
DX: Z51.11 Encounter for antineoplastic chemotherapy (principal); C54.1 Malignant neoplasm of endometrium
CPT/HCPCS: 36415; 80053; 80076; 83735; 84156; 85025; 96361; 96413; J1100; J9035

== ENCOUNTER 2018-05-24 07:27 | Day surgery (SDC) | payer OTHER ==
[2018-05-24 09:34] LABS: BASO % 1.1 % (0-2.0); EOS % 1.8 % (0-4.5); HEMATOCRIT 30.1 % (32.4-45.2); HEMOGLOBIN 9.3 GM/dL (10.7-15.3); LYMPH % 22.7 % (8-40); MCH 24.4 pg (25.7-33.7); MCHC 31.1 g/dl (32.0-36.0); MEAN CELL VOLUME 78.7 fl (80-96); MEAN PLT VOLUME 6.9 fl (7.5-11.1); MONO % 9.2 % (3.8-10.2); NEUT % 65.2 % (42.8-82.8); PLATELET COUNT 554 K/MM3 (134-434); RBC 3.82 M/mm3 (3.60-5.2); RDW 18.8 % (11.6-15.6); WHITE BLOOD COUNT 8.4 K/mm3 (4.0-10.0)
[2018-05-24 09:57] LABS: ALBUMIN 2.8 g/dl (3.4-5.0); ALK PHOS 105 U/L (45-117); BILIRUBIN,DIRECT < 0.2 mg/dL (0.0-0.2); BILIRUBIN,TOTAL 0.2 mg/dL (0.2-1); SGOT/AST 13 U/L (15-37); SGPT/ALT 11 U/L (13-61); TOT PROT 7.2 g/dl (6.4-8.2)
[2018-05-24 10:00] LABS: ALBUMIN 2.8 g/dl (3.4-5.0); ALK PHOS 107 U/L (45-117); ANION GAP 11 MMOL/L (8-16); BILIRUBIN,TOTAL 0.2 mg/dL (0.2-1); BLOOD UREA NITROGEN 13 mg/dL (7-18); CALCIUM 9.7 mg/dL (8.5-10.1); CHLORIDE 105 mmol/L (98-107); CO2 23 mmol/L (21-32); GLUCOSE,RANDOM 128 mg/dL (74-106); POTASSIUM 4.5 mmol/L (3.5-5.1); SGOT/AST 14 U/L (15-37); SGPT/ALT 12 U/L (13-61); SODIUM 140 mmol/L (136-145); TOT PROT 7.1 g/dl (6.4-8.2)
[2018-05-24] MEDS ORDERED: DEXAMETHASONE INJECTION 20 MG, DIPHENHYDRAMINE 25 MG, RANITIDINE INJECTION 50 MG in SOD... IVPB ONE (10:00)
[2018-05-24] MEDS ORDERED: PALONOSETRON HCL 0.25 MG/5 ML VIAL IVPUSH ONE (10:00)
[2018-05-24] MEDS ORDERED: DEXTROSE 5% IV ONE (10:30)
[2018-05-24] MEDS ORDERED: DOXORUBICIN HCL LIPOSOMAL IV ONE (10:30)
[2018-05-24] MEDS ORDERED: WATER IV ONE (10:30)
[2018-05-24] MEDS ORDERED: SODIUM CHLORIDE 250 ML IV ONE (11:30)
[2018-05-24 11:33] VITALS: TEMP 97.9
[2018-05-24 13:53] VITALS: BP 129/76; PULSE 78
[2018-05-24] MEDS ORDERED: PORTA CATH FLUSH 10 ML IVPUSH ONE (13:53)
== END 2018-05-24 13:45 | disposition home or self-care (01) ==
LOC: JONCCHEMO 07:27 → J7W 10:28 → JONCCHEMO 13:45
PROVIDERS: ATTEND Internal Medicine Hematology & Oncology
DX: Z51.11 Encounter for antineoplastic chemotherapy (principal); C54.1 Malignant neoplasm of endometrium
CPT/HCPCS: 36415; 80053; 80076; 83735; 85025; 96361; 96367; 96375; 96413; J1100; J2469; Q2049

== ENCOUNTER 2018-05-25 07:28 | Day surgery (SDC) | payer OTHER ==
[2018-05-25] MEDS ORDERED: PEGFILGRASTIM 6 MG/0.6 ML DISP.SYRIN SQ ONE (10:00)
[2018-05-25 14:30] VITALS: BP 137/73; PULSE 72; TEMP 97.8
== END 2018-05-25 11:20 | disposition home or self-care (01) ==
LOC: JONCCHEMO 07:28 → J7W 11:08 → JONCCHEMO 11:20
PROVIDERS: ATTEND Internal Medicine Hematology & Oncology
PROC: 3E013GC Introduction of Other Therapeutic Substance into Subcutaneous Tissue, Percutaneous Approach (ICD-10-PCS; principal; 2018-05-25)
DX: Z76.89 Persons encountering health services in other specified circumstances (principal); C54.1 Malignant neoplasm of endometrium
CPT/HCPCS: 96372; J2505

== ENCOUNTER 2018-06-21 07:28 | Day surgery (SDC) | payer OTHER ==
[2018-06-21] MEDS ORDERED: DEXAMETHASONE INJECTION 20 MG, DIPHENHYDRAMINE 25 MG, RANITIDINE INJECTION 50 MG in SOD... IVPB ONE (08:00)
[2018-06-21] MEDS ORDERED: PALONOSETRON HCL 0.25 MG/5 ML VIAL IVPUSH ONE (08:00)
[2018-06-21] MEDS ORDERED: DOXORUBICIN HCL LIPOSOMAL IV ONE (08:30)
[2018-06-21] MEDS ORDERED: DEXTROSE 5% IV ONE (08:30)
[2018-06-21] MEDS ORDERED: WATER IV ONE (08:30)
[2018-06-21] MEDS ORDERED: BEVACIZUMAB IV ONE (09:30)
[2018-06-21] MEDS ORDERED: SODIUM CHLORIDE IV ONE (09:30)
[2018-06-21 09:35] LABS: BASO % 0.7 % (0-2.0); EOS % 2.5 % (0-4.5); HEMATOCRIT 28.5 % (32.4-45.2); LYMPH % 23.1 % (8-40); MCH 25.4 pg (25.7-33.7); MCHC 31.7 g/dl (32.0-36.0); MEAN CELL VOLUME 80.3 fl (80-96); MEAN PLT VOLUME 7.6 fl (7.5-11.1); MONO % 9.3 % (3.8-10.2); NEUT % 64.4 % (42.8-82.8); PLATELET COUNT 443 K/MM3 (134-434); RBC 3.55 M/mm3 (3.60-5.2); RDW 20.5 % (11.6-15.6)
[2018-06-21] MEDS ORDERED: SODIUM CHLORIDE 250 ML IV ONE (10:00)
[2018-06-21 10:51] LABS: ALBUMIN 2.8 g/dl (3.4-5.0); ALK PHOS 98 U/L (45-117); ANION GAP 5 MMOL/L (8-16); BILIRUBIN,DIRECT 0.1 mg/dL (0.0-0.2); BILIRUBIN,TOTAL 0.2 mg/dL (0.2-1); BLOOD UREA NITROGEN 10 mg/dL (7-18); CALCIUM 8.6 mg/dL (8.5-10.1); CHLORIDE 107 mmol/L (98-107); CO2 26 mmol/L (21-32); GLUCOSE,RANDOM 125 mg/dL (74-106); MAGNESIUM 2.2 mg/dL (1.8-2.4); POTASSIUM 4.2 mmol/L (3.5-5.1); SGOT/AST 18 U/L (15-37); SGPT/ALT 12 U/L (13-61); SODIUM 138 mmol/L (136-145); TOT PROT 6.8 g/dl (6.4-8.2)
[2018-06-21 11:36] LABS: ANISOCYTOSIS 2+; MACROCYTOSIS 0; OVALOCYTE 1+; PLATELET ESTIMATE NORMAL; TEAR DROP CELLS 1+
[2018-06-21 11:49] VITALS: TEMP 98
[2018-06-21] MEDS ORDERED: PORTA CATH FLUSH 10 ML IVPUSH ONE (14:34)
[2018-06-21 14:35] VITALS: BP 138/60; PULSE 64
== END 2018-06-21 14:15 | disposition home or self-care (01) ==
LOC: JONCCHEMO 07:28 → J7W 10:37 → JONCCHEMO 14:15
PROVIDERS: ATTEND Internal Medicine Hematology & Oncology
DX: Z51.11 Encounter for antineoplastic chemotherapy (principal); C54.1 Malignant neoplasm of endometrium
CPT/HCPCS: 36415; 80053; 80076; 83735; 85025; 86301; 86304; 96361; 96367; 96375; 96413; 96417; J1100; J2469; J9035; Q2049

== ENCOUNTER 2018-06-22 07:52 | Day surgery (SDC) | payer OTHER ==
[2018-06-22] MEDS ORDERED: PEGFILGRASTIM 6 MG/0.6 ML DISP.SYRIN SQ ONE (08:00)
[2018-06-22 13:09] VITALS: BP 149/71; PULSE 64; TEMP 97.8
== END 2018-06-22 13:17 | disposition home or self-care (01) ==
LOC: JONCCHEMO 07:52 → J7W 11:14 → JONCCHEMO 13:17
PROVIDERS: ATTEND Internal Medicine Hematology & Oncology
PROC: 3E013GC Introduction of Other Therapeutic Substance into Subcutaneous Tissue, Percutaneous Approach (ICD-10-PCS; principal; 2018-06-22)
DX: C54.1 Malignant neoplasm of endometrium (principal); Z76.89 Persons encountering health services in other specified circumstances
CPT/HCPCS: 73110-TC-LR-FY; 73110-TC-RT-FY; 96372; J2505

== ENCOUNTER 2018-07-12 07:27 | Day surgery (SDC) | payer OTHER ==
[2018-07-12] MEDS ORDERED: DEXAMETHASONE INJECTION 10 MG in DEXTROSE 5%-WATER - 50 ML IVPB ONE (10:00)
[2018-07-12 10:16] LABS: BASO % 0.5 % (0-2.0); EOS % 2.1 % (0-4.5); HEMATOCRIT 28.4 % (32.4-45.2); HEMOGLOBIN 8.9 GM/dL (10.7-15.3); LYMPH % 21.8 % (8-40); MCH 25.1 pg (25.7-33.7); MCHC 31.2 g/dl (32.0-36.0); MEAN CELL VOLUME 80.6 fl (80-96); MEAN PLT VOLUME 7.6 fl (7.5-11.1); MONO % 7.1 % (3.8-10.2); NEUT % 68.5 % (42.8-82.8); PLATELET COUNT 508 K/MM3 (134-434); RBC 3.52 M/mm3 (3.60-5.2); RDW 19.9 % (11.6-15.6); WHITE BLOOD COUNT 6.8 K/mm3 (4.0-10.0)
[2018-07-12] MEDS ORDERED: BEVACIZUMAB IV ONE (10:30)
[2018-07-12] MEDS ORDERED: SODIUM CHLORIDE IV ONE (10:30)
[2018-07-12 10:47] LABS: ALK PHOS 107 U/L (45-117); ANION GAP 8 MMOL/L (8-16); BILIRUBIN,DIRECT 0.1 mg/dL (0.0-0.2); BILIRUBIN,TOTAL 0.2 mg/dL (0.2-1); BLOOD UREA NITROGEN 17 mg/dL (7-18); CALCIUM 8.8 mg/dL (8.5-10.1); CHLORIDE 106 mmol/L (98-107); CO2 25 mmol/L (21-32); CREATININE 0.9 mg/dL (0.55-1.3); GLUCOSE,RANDOM 118 mg/dL (74-106); MAGNESIUM 2.1 mg/dL (1.8-2.4); POTASSIUM 4.8 mmol/L (3.5-5.1); SGOT/AST 16 U/L (15-37); SGPT/ALT 13 U/L (13-61); SODIUM 139 mmol/L (136-145)
[2018-07-12] MEDS ORDERED: SODIUM CHLORIDE 250 ML IV ONE (11:00)
[2018-07-12 12:36] VITALS: TEMP 97.9
[2018-07-12] MEDS ORDERED: PORTA CATH FLUSH 10 ML IVPUSH ONE (12:37)
[2018-07-12 14:54] VITALS: BP 146/79; PULSE 84
[2018-07-12 22:15] LABS: URINE APPEARANCE CLEAR; URINE BILIRUBIN NEGATIVE (<2.0 mg/dL); URINE COLOR DKYELLOW; URINE GLUCOSE (UA) NEGATIVE (NEGATIVE); URINE KETONE NEGATIVE (NEGATIVE); URINE LEUK ESTERASE NEGATIVE (NEGATIVE); URINE NITRITE NEGATIVE (NEGATIVE); URINE PROTEIN NEGATIVE (NEGATIVE); URINE UROBILINOGEN NEGATIVE mg/dL (0.2-1.0)
== END 2018-07-12 13:55 | disposition home or self-care (01) ==
LOC: JONCCHEMO 07:27 → J7W 11:14 → JONCCHEMO 13:55
PROVIDERS: ATTEND Internal Medicine Hematology & Oncology
DX: Z51.11 Encounter for antineoplastic chemotherapy (principal); C54.1 Malignant neoplasm of endometrium
CPT/HCPCS: 36415; 80053; 80076; 81003; 82378; 83735; 85025; 86301; 86304; 96361; 96375; 96413; J1100; J9035

== ENCOUNTER 2018-07-19 07:26 | Day surgery (SDC) | payer OTHER ==
[2018-07-19] MEDS ORDERED: PALONOSETRON HCL 0.25 MG/5 ML VIAL IVPUSH ONE (10:00)
[2018-07-19] MEDS ORDERED: DEXAMETHASONE INJECTION 20 MG, DIPHENHYDRAMINE 25 MG, RANITIDINE INJECTION 50 MG in SOD... IVPB ONE (10:00)
[2018-07-19] MEDS ORDERED: WATER IV ONE (10:30)
[2018-07-19] MEDS ORDERED: DEXTROSE 5% IV ONE (10:30)
[2018-07-19] MEDS ORDERED: DOXORUBICIN HCL LIPOSOMAL IV ONE (10:30)
[2018-07-19 10:33] LABS: BASO % 0.9 % (0-2.0); EOS % 1.8 % (0-4.5); HEMATOCRIT 25.8 % (32.4-45.2); HEMOGLOBIN 8.7 GM/dL (10.7-15.3); LYMPH % 21.7 % (8-40); MCHC 33.7 g/dl (32.0-36.0); MEAN PLT VOLUME 7.7 fl (7.5-11.1); MONO % 10.3 % (3.8-10.2); NEUT % 65.3 % (42.8-82.8); PLATELET COUNT 462 K/MM3 (134-434); RBC 3.22 M/mm3 (3.60-5.2); RDW 19.9 % (11.6-15.6); WHITE BLOOD COUNT 7.6 K/mm3 (4.0-10.0)
[2018-07-19] MEDS ORDERED: SODIUM CHLORIDE 250 ML IV ONE (11:30)
[2018-07-19 11:36] LABS: ALK PHOS 94 U/L (45-117); ANION GAP 9 MMOL/L (8-16); BILIRUBIN,DIRECT 0.1 mg/dL (0.0-0.2); BILIRUBIN,TOTAL 0.2 mg/dL (0.2-1); BLOOD UREA NITROGEN 15 mg/dL (7-18); CALCIUM 8.5 mg/dL (8.5-10.1); CHLORIDE 106 mmol/L (98-107); CO2 22 mmol/L (21-32); CREATININE 0.9 mg/dL (0.55-1.3); GLUCOSE,RANDOM 103 mg/dL (74-106); MAGNESIUM 2.2 mg/dL (1.8-2.4); POTASSIUM 4.4 mmol/L (3.5-5.1); SGOT/AST 18 U/L (15-37); SGPT/ALT 13 U/L (13-61); SODIUM 137 mmol/L (136-145); TOT PROT 6.7 g/dl (6.4-8.2)
[2018-07-19 17:10] VITALS: PULSE 76; TEMP 97.6
[2018-07-19 17:18] VITALS: BP 133/68
[2018-07-19] MEDS ORDERED: PORTA CATH FLUSH 10 ML IVPUSH ONE (17:18)
== END 2018-07-19 15:15 | disposition home or self-care (01) ==
LOC: JONCCHEMO 07:26 → J7W 10:26 → JONCCHEMO 15:15
PROVIDERS: ATTEND Internal Medicine Hematology & Oncology
DX: Z51.11 Encounter for antineoplastic chemotherapy (principal); C54.1 Malignant neoplasm of endometrium
CPT/HCPCS: 36415; 80053; 80076; 82378; 83735; 85025; 86304; 96361; 96367; 96375; 96413; J1100; J2469; Q2049

== ENCOUNTER 2018-07-20 07:28 | Day surgery (SDC) | payer OTHER ==
[2018-07-20] MEDS ORDERED: PEGFILGRASTIM 6 MG/0.6 ML DISP.SYRIN SQ ONE (10:00)
[2018-07-20 16:43] VITALS: BP 123/84; PULSE 74; TEMP 97.9
== END 2018-07-20 11:30 | disposition home or self-care (01) ==
LOC: JONCCHEMO 07:28 → J7W 11:04 → JONCCHEMO 11:30
PROVIDERS: ATTEND Internal Medicine Hematology & Oncology
PROC: 3E013GC Introduction of Other Therapeutic Substance into Subcutaneous Tissue, Percutaneous Approach (ICD-10-PCS; principal; 2018-07-20)
DX: C54.1 Malignant neoplasm of endometrium (principal); Z76.89 Persons encountering health services in other specified circumstances
CPT/HCPCS: 96372; J2505

== ENCOUNTER 2018-08-02 07:22 | Day surgery (SDC) | payer OTHER ==
[2018-08-02 09:52] LABS: BASO % 0.3 % (0-2.0); EOS % 2.3 % (0-4.5); HEMATOCRIT 28.3 % (32.4-45.2); HEMOGLOBIN 8.8 GM/dL (10.7-15.3); LYMPH % 17.1 % (8-40); MCH 25.7 pg (25.7-33.7); MEAN CELL VOLUME 82.9 fl (80-96); MEAN PLT VOLUME 8.2 fl (7.5-11.1); MONO % 4.8 % (3.8-10.2); NEUT % 75.5 % (42.8-82.8); PLATELET COUNT 261 K/MM3 (134-434); RBC 3.41 M/mm3 (3.60-5.2); RDW 18.6 % (11.6-15.6); WHITE BLOOD COUNT 7.4 K/mm3 (4.0-10.0)
[2018-08-02] MEDS ORDERED: DEXAMETHASONE SODIUM PHOSPHATE 10 MG in DEXTROSE 5%-WATER - 50 ML IVPB ONE (10:00)
[2018-08-02 10:03] LABS: ALBUMIN 2.9 g/dl (3.4-5.0); BILIRUBIN,DIRECT 0.1 mg/dL (0.0-0.2); BILIRUBIN,TOTAL 0.3 mg/dL (0.2-1); TOT PROT 6.8 g/dl (6.4-8.2)
[2018-08-02 10:04] LABS: ALK PHOS 116 U/L (45-117); ANION GAP 7 MMOL/L (8-16); BILIRUBIN,TOTAL 0.2 mg/dL (0.2-1); BLOOD UREA NITROGEN 19 mg/dL (7-18); CALCIUM 8.5 mg/dL (8.5-10.1); CHLORIDE 104 mmol/L (98-107); CO2 26 mmol/L (21-32); CREATININE 1.1 mg/dL (0.55-1.3); GLUCOSE,RANDOM 114 mg/dL (74-106); POTASSIUM 4.4 mmol/L (3.5-5.1); SGOT/AST 19 U/L (15-37); SGPT/ALT 14 U/L (13-61); SODIUM 138 mmol/L (136-145); TOT PROT 6.9 g/dl (6.4-8.2)
[2018-08-02] MEDS ORDERED: SODIUM CHLORIDE IV ONE (10:30)
[2018-08-02] MEDS ORDERED: BEVACIZUMAB IV ONE (10:30)
[2018-08-02] MEDS ORDERED: SODIUM CHLORIDE 250 ML IV ONE (11:00)
[2018-08-02 17:00] VITALS: TEMP 97.6
[2018-08-02] MEDS ORDERED: PORTA CATH FLUSH 10 ML IVPUSH ONE (17:00)
[2018-08-02 17:01] VITALS: BP 140/83; PULSE 77
== END 2018-08-02 12:45 | disposition home or self-care (01) ==
LOC: JONCCHEMO 07:22 → J7W 10:34 → JONCCHEMO 12:45
PROVIDERS: ATTEND Internal Medicine Hematology & Oncology
DX: Z51.11 Encounter for antineoplastic chemotherapy (principal); C54.1 Malignant neoplasm of endometrium
CPT/HCPCS: 36415; 80053; 80076; 83735; 85025; 96361; 96375; 96413; J9035

== ENCOUNTER 2018-08-11 08:50 | Inpatient (IN) | payer OTHER ==
--- NOTE | 2018-08-11 09:29 | PDOC ---
History of Present Illness - History of Present Illness Initial Comments: The patient is a 68 year old female, with a significant PMH of NIDDM, HLD, SBO, diverticulosis, metastatic uterine cancer, and peritoneal carcinomatosis, who presents to the emergency department today for an abdominal cyst drainage. Patient presents to the emergency department today as per Dr. Cervantes request, to be admitted for her cyst drainage. Patient notes she is currently on her 6th cycle of Avastatin. Patient does not complain of significant pain at this time. Patient notes she also has a RLQ hernia. She reports nausea, vomit, diarrhea, and flatulence secondary to chemo medications, and a cough secondary to her seasonal allergies. Patient has no other complaints at this time. The patient denies chest pain, shortness of breath, headache and dizziness. Denies fever, chills, and constipation. Denies dysuria, frequency, urgency and hematuria. Allergies: Seasonal, carboplatin & shellfish Past surgical history: Cholecystectomy & Hysterectomy Social history: No reported PCP: Dr. Alex Tapia Oncologist: Dr. Fran Barger 08/11/18 10:13 <Katie Flores - Last Filed: 08/11/18 14:09> - General History Source: Patient, Old Records Exam Limitations: No Limitations <Mae Watson - Last Filed: 08/12/18 09:30> - General Chief Complaint: Pain Stated Complaint: PCP sent, endomitrial CA Time Seen by Provider: 08/11/18 09:29 Past History <Katie Flores - Last Filed: 08/11/18 14:09> - Past Medical History Anemia: Yes Cancer: Yes (UTERINE, Endometrial) COPD: No Diabetes: Yes Disorders: Yes (uterine) Hypercholesterolemia: Yes - Surgical History Abdominal Surgery: Yes (BLOCKAGE,HERNIA) Cholecystectomy: Yes Orthopedic Surgery: Yes (SHOULDER SX,HAND SX) - Immunization History Immunization Up to Date: Yes - Suicide/Smoking/Psychosocial Hx Smoking History: Never smoked Have you smoked in the past 12 months: No Information on smoking cessation initiated: No Hx Alcohol Use: No Drug/Substance Use Hx: No Substance Use Type: None Hx Substance Use Treatment: No <Mae Watson - Last Filed: 08/12/18 09:30> - Past Medical History Allergies/Adverse Reactions: Allergies Allergy/AdvReac Type Severity Reaction Status Date / Time carboplatin Allergy Intermediate Verified 08/11/18 08:56 shellfish derived Allergy Intermediate Vomiting Verified 08/11/18 08:56 carboplatinum Allergy Intermediate Uncoded 08/11/18 08:56 Home Medications: Ambulatory Orders Loratadine [Claritin] 1 tab PO DAILY 09/28/17 Omeprazole Magnesium [Prilosec Otc] 40 mg PO DAILY 09/28/17 Travoprost [Travatan Z] 1 drop OU DAILY 09/28/17 Meloxicam 15 mg PO 08/11/18 Psyllium Husk [Metamucil] 0.4 gm PO 08/11/18 Sitagliptin Phosphate [Januvia] 100 mg PO 08/11/18 Review of Systems - Review of Systems Comments:: GENERAL/CONSTITUTIONAL: No fever or chills. No weakness. HEAD, EYES, EARS, NOSE AND THROAT: No change in vision. No ear pain or discharge. No sore throat. CARDIOVASCULAR: No chest pain or shortness of breath. RESPIRATORY: +Cough secondary to seasonal allergies. No wheezing or hemoptysis. GASTROINTESTINAL: +Nausea, vomit, flatulence, and diarrhea secondary to chemo medications. No constipation. GENITOURINARY: No dysuria, frequency, or change in urination. MUSCULOSKELETAL: +Abdominal cyst. +RLQ hernia.No joint or muscle swelling or pain. No neck or back pain. SKIN: No rash NEUROLOGIC: No headache, vertigo, loss of consciousness, or change in strength/ sensation. ENDOCRINE: No increased thirst. No abnormal weight change. HEMATOLOGIC/LYMPHATIC: No anemia, easy bleeding, or history of blood clots. ALLERGIC/IMMUNOLOGIC: No hives or skin allergy. 08/11/18 10:13 <Katie Flores - Last Filed: 08/11/18 14:09> *Physical Exam - Vital Signs Last Vital Signs Temp Pulse Resp BP Pulse Ox 97.9 F 91 H 18 172/92 H 99 08/11/18 08:53 08/11/18 08:53 08/11/18 08:53 08/11/18 08:53 08/11/18 08:53 - Physical Exam Comments: GENERAL: The patient is in no acute distress. HEAD: Normal with no signs of trauma. EYES: PERRLA, EOMI, sclera anicteric, conjunctiva clear. ENT: Ears normal, nares patent, oropharynx clear without exudates. Moist mucous membranes. NECK: Normal range of motion, supple without lymphadenopathy, JVD, or masses. LUNGS: Breath sounds equal, clear to auscultation bilaterally. No wheezes, and no crackles. HEART:Regular rate and rhythm, normal S1 and S2 without murmur, rub or gallop. ABDOMEN: +Abdominal distention. +Soft RLQ hernia, nontender to palpation. Soft, nontender, normoactive bowel sounds. No guarding, no rebound. No masses palpable. EXTREMITIES: Normal range of motion, no edema. No clubbing or cyanosis. No erythema, or tenderness. NEUROLOGICAL: Cranial nerves II through XII grossly intact. Normal speech. No focal neurological deficits. MUSCULOSKELETAL: Back non-tender to palpation, no CVA tenderness SKIN: Warm, Dry, normal turgor, no rashes or lesions noted. 08/11/18 10:14 <Katie Flores - Last Filed: 08/11/18 14:09> - Vital Signs Last Vital Signs Temp Pulse Resp BP Pulse Ox 97.9 F 91 H 18 172/92 H 99 08/11/18 08:53 08/11/18 08:53 08/11/18 08:53 08/11/18 08:53 08/11/18 08:53 <Mae Watson - Last Filed: 08/12/18 09:30> Moderate Sedation - Procedure Monitoring Vital Signs: Procedure Monitoring Vital Signs Temperature 97.9 F 08/11/18 08:53 Pulse Rate 91 H 08/11/18 08:53 Respiratory Rate 18 08/11/18 08:53 Blood Pressure 172/92 H 08/11/18 08:53 O2 Sat by Pulse Oximetry (%) 99 08/11/18 08:53 <Katie Flores - Last Filed: 08/11/18 14:09> - Procedure Monitoring Vital Signs: Procedure Monitoring Vital Signs Temperature 97.9 F 08/11/18 08:53 Pulse Rate 91 H 08/11/18 08:53 Respiratory Rate 18 08/11/18 08:53 Blood Pressure 172/92 H 08/11/18 08:53 O2 Sat by Pulse Oximetry (%) 99 08/11/18 08:53 <Mae Watson - Last Filed: 08/12/18 09:30> Heart Score/ECG Review - ECG Intrepretation Comment:: Normal sinus rythm. Minimal voltage criteria for LVH, may be normal variant. Borderline ECG. 08/11/18 10:14 <Katie Flores - Last Filed: 08/11/18 14:09> ED Treatment Course - LABORATORY CBC & Chemistry Diagram: 08/11/18 09:57 08/11/18 09:57 - RADIOLOGY Radiograph Interpretation: RAD/CHEST X-RAY Impression. No evidence of active pulmonary disease. Reported By: Clement Tellez MD 08/11/18 13:27. 08/11/18 14:09 <Katie Flores - Last Filed: 08/11/18 14:09> - LABORATORY CBC & Chemistry Diagram: 08/12/18 06:00 08/12/18 06:00 <Mae Watson - Last Filed: 08/12/18 09:30> Medical Decision Making - Medical Decision Making 08/11/18 10:44 Ms Todd has a h/o metastatic endometrial cancer s/p chemo She is currently on chemotherapy and presents for evaluation/treatment of abdominal ascites No fevers or chills Pt does not particularly reports abdominal pain EKG - NSR rate of 77 bpm, axis nml, no st elevations or depressions, t waves upright Labs - Laboratory Tests 08/02/18 08/11/18 08/11/18 09:22 09:57 09:57 WBC 7.4 6.7 Hgb 8.8 L 8.0 L Hct 28.3 L 24.1 L Plt Count 261 D 466 H D INR 1.14 H 08/11/18 11:34 Laboratory Tests 08/02/18 08/11/18 09:22 09:57 Sodium 138 139 Potassium 4.4 4.0 Chloride 104 106 Carbon Dioxide 26 24 BUN 19 H 12 Creatinine 1.1 1.1 Random Glucose 114 H 98 CXR pending 08/11/18 11:39 Going to IR 08/11/18 12:37 Pt is complete IR drainage of ascites Per Dr Rinaldi: Pt is able to eat now NGT must be placed overnight to wall suction Tomorrow, pt will go BACK to IR for drainage of the other collection Pt admitted to hospitalist team Plan per IR discussed with the Hospitalist team 08/11/18 12:46 CXR still pending <Mae Watson - Last Filed: 08/12/18 09:30> *DC/Admit/Observation/Transfer - Attestations Scribe Attestion: 08/11/18 10:14 Documentation prepared by ZOE Zamorano, acting as medical records clerk for Mae Watson MD. <Katie Flores - Last Filed: 08/11/18 14:09> - Discharge Dispostion Decision to Admit order: Yes <Mae Watson - Last Filed: 08/12/18 09:30> Diagnosis at time of Disposition: Ascites - Discharge Dispostion Condition at time of disposition: Stable
[2018-08-11 10:17] LABS: BASO % 0.9 % (0-2.0); EOS % 1.9 % (0-4.5); HEMATOCRIT 24.1 % (32.4-45.2); LYMPH % 22.3 % (8-40); MCH 27.3 pg (25.7-33.7); MCHC 33.4 g/dl (32.0-36.0); MEAN PLT VOLUME 7.7 fl (7.5-11.1); NEUT % 63.9 % (42.8-82.8); PLATELET COUNT 466 K/MM3 (134-434); RBC 2.93 M/mm3 (3.60-5.2); RDW 18.5 % (11.6-15.6); WHITE BLOOD COUNT 6.7 K/mm3 (4.0-10.0)
[2018-08-11 10:33] LABS: INR 1.14 (0.83-1.09); PROTHROMBIN TIME (PATIENT) 13.5 SEC (9.7-13.0)
[2018-08-11 11:17] LABS: ALBUMIN 2.9 g/dl (3.4-5.0); ALK PHOS 94 U/L (45-117); ANION GAP 8 MMOL/L (8-16); BILIRUBIN,TOTAL 0.2 mg/dL (0.2-1); BLOOD UREA NITROGEN 12 mg/dL (7-18); CALCIUM 8.2 mg/dL (8.5-10.1); CHLORIDE 106 mmol/L (98-107); CO2 24 mmol/L (21-32); CREATININE 1.1 mg/dL (0.55-1.3); GLUCOSE,RANDOM 98 mg/dL (74-106); SGOT/AST 17 U/L (15-37); SGPT/ALT 12 U/L (13-61); SODIUM 139 mmol/L (136-145); TOT PROT 6.4 g/dl (6.4-8.2)
[2018-08-11 12:13] LABS: URINE APPEARANCE CLEAR; URINE BILIRUBIN NEGATIVE (<2.0 mg/dL); URINE COLOR LTYELLOW; URINE GLUCOSE (UA) NEGATIVE (NEGATIVE); URINE KETONE NEGATIVE (NEGATIVE); URINE LEUK ESTERASE NEGATIVE (NEGATIVE); URINE NITRITE NEGATIVE (NEGATIVE); URINE PROTEIN NEGATIVE (NEGATIVE); URINE UROBILINOGEN NEGATIVE mg/dL (0.2-1.0)
--- NOTE | 2018-08-11 13:35 | EKG ---
Test Reason : Blood Pressure : / mmHG Vent. Rate : 077 BPM Atrial Rate : 077 BPM P-R Int : 184 ms QRS Dur : 082 ms QT Int : 394 ms P-R-T Axes : 046 -04 044 degrees QTc Int : 445 ms NORMAL SINUS RHYTHM MINIMAL VOLTAGE CRITERIA FOR LVH, MAY BE NORMAL VARIANT BORDERLINE ECG WHEN COMPARED WITH ECG OF 15-SEP-2016 05:47, T WAVE INVERSION NO LONGER EVIDENT IN LATERAL LEADS Confirmed by ANABEL JHA, MARY ([id number]) on 08/11/2018 1:35:18 PM Referred By: Confirmed By:MARY LITTLE MD
--- NOTE | 2018-08-11 14:19 | CONSULT ---
Consult Consult Specialty:: Hematology-Oncology Referred by:: Dr. John Reason for Consultation:: Endometrial cancer - History of Present Illness Chief Complaint: abdominal pain History of Present Illness: 68 yr old maltese speaking woman with metastatic uterine cancer with peritoneal carcinomatosis on 6th cycle of avostatin, NIDDM, HLD, hx of SBO, ascitis, diverticulosis, RLQ hernia, referred by oncologist for drainage of abdominal cyst drainage identified on CT scan 08/06. She has been having nausea, and scant nonbloody vomiting for past few days, last emesis 2 days ago. Typically has constipation and had to take laxatives yesterday for BM, normal without melena or hematochezia. She has been tolerating her diet well. Last paracentesis , as per patient was 08/06. denies chest pain, lightheadedness, sob, LE, weightloss. pt has a hx of extensive and repeat abdominal surgeries. - History Source History Provided By: Patient (use of [employer] interpretor: Kellie [id number]) Limitations to Obtaining History: Language Barrier - Past Medical History Cardio/Vascular: Yes: HTN Gastrointestinal: Yes: Cancer (uterine with mets) Heme/Onc: Yes: Anemia - Alcohol/Substance Use Hx Alcohol Use: No - Smoking History Smoking history: Never smoked Have you smoked in the past 12 months: No Home Medications - Allergies Allergies/Adverse Reactions: Allergies Allergy/AdvReac Type Severity Reaction Status Date / Time carboplatin Allergy Intermediate Verified 08/11/18 08:56 shellfish derived Allergy Intermediate Vomiting Verified 08/11/18 08:56 carboplatinum Allergy Intermediate Uncoded 08/11/18 08:56 - Home Medications Home Medications: Ambulatory Orders Loratadine [Claritin] 1 tab PO DAILY 09/28/17 Omeprazole Magnesium [Prilosec Otc] 40 mg PO DAILY 09/28/17 Travoprost [Travatan Z] 1 drop OU DAILY 09/28/17 Meloxicam 15 mg PO 08/11/18 Psyllium Husk [Metamucil] 0.4 gm PO 08/11/18 Sitagliptin Phosphate [Januvia] 100 mg PO 08/11/18 Family Disease History - Family Disease History Other Family History: Aunt with cancer Review of Systems - Review of Systems Constitutional: denies: Fever Eyes: reports: No Symptoms HENT: reports: No Symptoms Neck: reports: No Symptoms Cardiovascular: denies: Chest Pain, Palpitations, Shortness of Breath Respiratory: reports: Cough (chronic) Gastrointestinal: reports: Bloating, Constipation, Nausea Genitourinary: reports: No Symptoms Musculoskeletal: reports: No Symptoms Physical Exam Vital Signs: Vital Signs Temperature 97.9 F 08/11/18 13:02 Pulse Rate 76 08/11/18 13:02 Respiratory Rate 18 08/11/18 13:02 Blood Pressure 151/83 08/11/18 13:02 O2 Sat by Pulse Oximetry (%) 98 08/11/18 13:02 Constitutional: Yes: No Distress, Calm Eyes: Yes: Conjunctiva Clear, EOM Intact, PERRL HENT: Yes: Atraumatic, Normocephalic. No: Pharyngeal Erythema, Thrush Neck: Yes: Supple, Trachea Midline Cardiovascular: Yes: Regular Rate and Rhythm. No: Murmur Respiratory: Yes: Regular, CTA Bilaterally Gastrointestinal: Yes: Soft, Distention, Palpable Mass, Other (seruous drainage from pigtail) Extremities: Yes: WNL Edema: No Neurological: Yes: Alert, Oriented Labs: CBC, BMP 08/11/18 09:57 08/11/18 09:57 Assessment/Plan 68 yr old with metastic malignangy, recurrent ascitis presents with abdominal pain requiring paracentesis found to have loculated fluid collections within the abdomen and pelvis. Problem List: Metastatic cancer HTN Loculated ascitis Anemia- chronic A/P underwent ascitis today with IR, tolerated procedure well, drainage with seruous drainage. Fluid studies pending plan for pigtail placement for cyst tomorrow with IR, will need NG tube to wall suction 2hrs after dinner to decompress stomach prior to procedure tomorrow NPO at midnight
[2018-08-11 14:44] LABS: BF WBC & OTHER NUCLEATED CELLS 635 /mm3
[2018-08-11 14:57] VITALS: BMI 27.1
--- NOTE | 2018-08-11 14:58 | PN ---
Teaching Attending Note Name of Resident: Annalee Payne ATTENDING PHYSICIAN STATEMENT I saw and evaluated the patient. I reviewed the resident's note and discussed the case with the resident. I agree with the resident's findings and plan as documented. SUBJECTIVE: [facility] reference # [id number] The patient is a 68yo Guinean speaking female with a PMHx of uterine cancer ( diagnosed in 2010), peritoneal carcinomatosis, hyperlipidemia, GERD, diverticulosis, SBO, was sent to ED. By , the oncologist. The patient is s/p 6th cycle of Avastatin, s/p taxol and carbaplatin. Patient went for IR drainage (paracenthesis) , patient has a pigtail being drained. Patient denies having any fever or chills, her last peritoneal drainage was 5 days ago. OBJECTIVE: Vital Signs Temperature 97.9 F 08/11/18 13:02 Pulse Rate 76 08/11/18 13:02 Respiratory Rate 18 08/11/18 13:02 Blood Pressure 151/83 08/11/18 13:02 O2 Sat by Pulse Oximetry (%) 98 08/11/18 13:02 GENERAL: Awake, alert, and fully oriented, in no acute distress. HEAD: Normal with no signs of trauma. LUNGS: Breath sounds equal, clear to auscultation bilaterally. No wheezes, and no crackles. No accessory muscle use. HEART:s1s2 normal, RRR, ABDOMEN: Soft, mild tenderness, s/p pigtail for drainage , decreased the abdominal distention. positive for BS, no guarding, no rebound, positive for hernia palpable in supraumblical area. MUSCULOSKELETAL: Normal range of motion at all joints. No bony deformities or tenderness. No CVA tenderness. EXTREMITIES: 2+ pulses, warm, well-perfused. No calf tenderness. No peripheral edema. NEUROLOGICAL: Cranial nerves II-XII intact. Normal speech. PSYCHIATRIC: Cooperative. Good eye contact. Appropriate mood and affect. SKIN: Warm, dry, normal turgor, no rashes or lesions noted. CBCD WBC 6.7 K/mm3 (4.0-10.0) 08/11/18 09:57 RBC 2.93 M/mm3 (3.60-5.2) L 08/11/18 09:57 Hgb 8.0 GM/dL (10.7-15.3) L 08/11/18 09:57 Hct 24.1 % (32.4-45.2) L 08/11/18 09:57 MCV 82.0 fl (80-96) 08/11/18 09:57 MCHC 33.4 g/dl (32.0-36.0) 08/11/18 09:57 RDW 18.5 % (11.6-15.6) H 08/11/18 09:57 Plt Count 466 K/MM3 (134-434) H D 08/11/18 09:57 MPV 7.7 fl (7.5-11.1) 08/11/18 09:57 CMP Sodium 139 mmol/L (136-145) 08/11/18 09:57 Potassium 4.0 mmol/L (3.5-5.1) 08/11/18 09:57 Chloride 106 mmol/L (98-107) 08/11/18 09:57 Carbon Dioxide 24 mmol/L (21-32) 08/11/18 09:57 Anion Gap 8 MMOL/L (8-16) 08/11/18 09:57 BUN 12 mg/dL (7-18) 08/11/18 09:57 Creatinine 1.1 mg/dL (0.55-1.3) 08/11/18 09:57 Creat Clearance w eGFR 49.39 (>60) 08/11/18 09:57 Random Glucose 98 mg/dL (74-106) 08/11/18 09:57 Calcium 8.2 mg/dL (8.5-10.1) L 08/11/18 09:57 Total Bilirubin 0.2 mg/dL (0.2-1) 08/11/18 09:57 AST 17 U/L (15-37) 08/11/18 09:57 ALT 12 U/L (13-61) L 08/11/18 09:57 Alkaline Phosphatase 94 U/L (45-117) 08/11/18 09:57 Total Protein 6.4 g/dl (6.4-8.2) 08/11/18 09:57 Albumin 2.9 g/dl (3.4-5.0) L 08/11/18 09:57 Current Medications Generic Name Dose Route Start Last Admin Trade Name Freq PRN Reason Stop Dose Admin Insulin Aspart 1 vial 08/11/18 16:30 Novolog Vial Sliding Scale - SQ ACHS ECTOR Protocol Home Medications Medication Instructions Recorded Simvastatin 40 mg PO DAILY 07/24/16 Acetaminophen [Tylenol 500 mg PO Q6H PRN #30 tablet 08/09/16 .Extra-Strength -] Multivitamins [Multivit ([facility] 1 tab PO DAILY #30 tab 08/09/16 Formulary)] Linaclotide [Linzess] 1 cap PO DAILY 09/28/17 Loratadine [Claritin] 1 tab PO DAILY 09/28/17 Warren-3 Acid Ethyl Esters [Lovaza] 2 gm PO BID 09/28/17 Omeprazole Magnesium [Prilosec Otc] 40 mg PO DAILY 09/28/17 Simethicone 1 tab PO DAILY 09/28/17 Sitagliptin Phosphate [Januvia] 1 tab PO DAILY 09/28/17 Travoprost [Travatan Z] 1 drop OU DAILY 09/28/17 Zolpidem Tartrate [Ambien] 1 tab PO HS 09/28/17 Insulin Glargine,Hum.rec.anlog 0 units SQ ASDIR 10/08/17 [Lantus Solostar] Microbiology 08/11/18 12:40 Peritoneal Fluid Gram Stain - Final 08/11/18 12:40 Peritoneal Fluid WM Preparation - Preliminary 08/11/18 12:40 Peritoneal Fluid Fungal Culture - Preliminary ASSESSMENT AND PLAN: The patient is a 68 year old Guinean speaking female with a PMHx of uterine cancer (diagnosed in 2010), peritoneal carcinomatosis, hyperlipidemia, GERD, diverticulosis, SBO, that presented to the hospital for having increased ascites from Dr. kennedy's office. Patient went for IR procedure, was placed pigtail for continues drainage for ascites. # Metastatic endometrial ca s/p paracentesis by IR, patient has a pigtail, draining well. #Ascites due to metastatic endometrial cancer/perotineal carcinomatosis s/p IR drainage #T2DM : ISS ACHS, BGM ACHS # GERD: cont Omeprazole tomorrow after drainage # Hyperlipidemia: not on medications currently # Hx of anemia- recheck Hct in A.M. DVT px: SCds for now. another procedure by IR in am , NG tube , Npo , DVT px after the procedure.
--- NOTE | 2018-08-11 15:21 | HP ---
CHIEF COMPLAINT: nausea and vomiting PCP: [facility] HISTORY OF PRESENT ILLNESS: The patient is a 68 year old Libyan speaking female with a PMH of uterine cancer (diagnosed in 2010), peritoneal carcinomatosis, hyperlipidemia, GERD, diverticulosis, SBO, that presented to the hospital referred from her Oncologist office-Dr Dave. She finished 6th cycle of Avastin, was treated with taxol and carbaplatin in the past. She has been complaining of nausea and NBNB vomiting for the past 2 days. After she came to the hospital, she underwent paracenthesis in IR. When I saw the patient, she didn't have any complaints, stated that is feeling better after the drainage. Last time she had peritoneal drainage was 5 days ago. She denies fever, chills, abdominal pain, diarrhea. [place]; [id number] ER course was notable for: (1)CBC, CMP (2)CXR (3)IR paracenthesis PAST MEDICAL HISTORY: As above PAST SURGICAL HISTORY: cholecystitis hysterectomy open abdominal surgery for peritoneal carcinomatosis in [facility] in 2017 Social History: Smoking:denies, never smoker Alcohol:denies Drugs: denies The patient lives alone. Family History: unkle and cousin Ca Allergies carboplatin Allergy (Intermediate, Verified 08/11/18 08:56) PT HAD REACTION TO CARBOPLATIN AND WILL NO LONGER RECIEVE THERAPY PER MD OFFICE shellfish derived Allergy (Intermediate, Verified 08/11/18 08:56) Vomiting carboplatinum Allergy (Intermediate, Uncoded 08/11/18 08:56) HOME MEDICATIONS: Home Medications Medication Instructions Recorded Loratadine [Claritin] 1 tab PO DAILY 09/28/17 Omeprazole Magnesium [Prilosec Otc] 40 mg PO DAILY 09/28/17 Travoprost [Travatan Z] 1 drop OU DAILY 09/28/17 Meloxicam 15 mg PO 08/11/18 Psyllium Husk [Metamucil] 0.4 gm PO 08/11/18 Sitagliptin Phosphate [Januvia] 100 mg PO 08/11/18 REVIEW OF SYSTEMS CONSTITUTIONAL: Absent: fever, chills, diaphoresis, generalized weakness, malaise HEENT: Absent: rhinorrhea, nasal congestion, throat pain, throat swelling, difficulty swallowing CARDIOVASCULAR: Absent: chest pain, syncope, palpitations, irregular heart rate, lightheadedness , peripheral edema RESPIRATORY: Absent: cough, shortness of breath, dyspnea with exertion, orthopnea, wheezing, stridor, hemoptysis GASTROINTESTINAL: nausea, vomiting Absent: abdominal pain, diarrhea, constipation, melena, hematochezia GENITOURINARY: Absent: dysuria, frequency, urgency, hesitancy, hematuria MUSCULOSKELETAL: Absent: myalgia, arthralgia, joint swelling, back pain, neck pain SKIN: Absent: rash HEMATOLOGIC/IMMUNOLOGIC: Absent: easy bleeding, easy bruising, lymphadenopathy, frequent infections NEUROLOGIC: Absent: headache, focal weakness or paresthesias, dizziness PSYCHIATRIC: Absent: anxiety, depression PHYSICAL EXAMINATION Vital Signs - 24 hr 08/11/18 08/11/18 08/11/18 08:53 10:07 11:33 Temperature 97.9 F 98.2 F Pulse Rate 91 H 77 Pulse Rate [ Left Radial] Respiratory 18 20 Rate Blood Pressure 172/92 H 150/89 Blood Pressure [Right Arm] O2 Sat by Pulse 99 99 100 Oximetry (%) 08/11/18 13:02 Temperature 97.9 F Pulse Rate Pulse Rate [ 76 Left Radial] Respiratory 18 Rate Blood Pressure Blood Pressure 151/83 [Right Arm] O2 Sat by Pulse 98 Oximetry (%) GENERAL: Awake, alert, and fully oriented, in no acute distress. HEAD: Normal with no signs of trauma. EYES: Pupils equal, round and reactive to light, extraocular movements intact, sclera anicteric, conjunctiva clear, pale. EARS, NOSE, THROAT: Oropharynx clear without exudates. Moist mucous membranes. NECK: Normal range of motion, supple without lymphadenopathy, JVD, or masses. LUNGS: Breath sounds equal, clear to auscultation bilaterally. No wheezes, and no crackles. No accessory muscle use. HEART: Regular rate and rhythm, normal S1 and S2 without murmur, rub or gallop. ABDOMEN: Soft, nontender, distended, normoactive bowel sounds, no guarding, no rebound, mass on right side-non tender, soft MUSCULOSKELETAL: Normal range of motion at all joints. No bony deformities or tenderness. UPPER EXTREMITIES: No peripheral edema. LOWER EXTREMITIES: 2+ pulses, no peripheral edema. NEUROLOGICAL: Non focal, gait not observed. PSYCHIATRIC: Cooperative. Good eye contact. SKIN: Warm, dry, normal turgor, no rashes, longitudinal abdominal scar in her mid and lower abdomen. Laboratory Results - last 24 hr 08/11/18 08/11/18 08/11/18 09:57 09:57 09:57 WBC 6.7 RBC 2.93 L Hgb 8.0 L Hct 24.1 L MCV 82.0 MCH 27.3 MCHC 33.4 RDW 18.5 H Plt Count 466 H D MPV 7.7 Absolute Neuts (auto) 4.3 Neutrophils % 63.9 Lymphocytes % 22.3 D Monocytes % 11.0 H D Eosinophils % 1.9 Basophils % 0.9 Nucleated RBC % 0 PT with INR 13.50 H INR 1.14 H Sodium 139 Potassium 4.0 Chloride 106 Carbon Dioxide 24 Anion Gap 8 BUN 12 Creatinine 1.1 Creat Clearance w eGFR 49.39 Random Glucose 98 Calcium 8.2 L Total Bilirubin 0.2 AST 17 ALT 12 L Alkaline Phosphatase 94 Total Protein 6.4 Albumin 2.9 L Urine Color Urine Appearance Urine pH Ur Specific [place] Urine Protein Urine Glucose (UA) Urine Ketones Urine Blood Urine Nitrite Urine Bilirubin Urine Urobilinogen Ur Leukocyte Esterase Fluid Source Fluid WBC Fluid RBC Blood Type Antibody Screen 08/11/18 08/11/18 08/11/18 09:57 10:06 12:40 WBC RBC Hgb Hct MCV MCH MCHC RDW Plt Count MPV Absolute Neuts (auto) Neutrophils % Lymphocytes % Monocytes % Eosinophils % Basophils % Nucleated RBC % PT with INR INR Sodium Potassium Chloride Carbon Dioxide Anion Gap BUN Creatinine Creat Clearance w eGFR Random Glucose Calcium Total Bilirubin AST ALT Alkaline Phosphatase Total Protein Albumin Urine Color Ltyellow Urine Appearance Clear Urine pH 7.0 D Ur Specific [place] 1.008 L Urine Protein Negative Urine Glucose (UA) Negative Urine Ketones Negative Urine Blood Negative Urine Nitrite Negative Urine Bilirubin Negative Urine Urobilinogen Negative Ur Leukocyte Esterase Negative Fluid Source Ascitic fluid Fluid WBC 635 Fluid RBC 1371 Blood Type O POSITIVE Antibody Screen Negative ASSESSMENT/PLAN: The patient is a 68 year old Libyan speaking female with a PMH of uterine cancer (diagnosed in 2010), peritoneal carcinomatosis, hyperlipidemia, GERD, diverticulosis, SBO, that presented to the hospital referred from her Oncologist office-Dr Dave for IR drainage, ascites. Ascites (in light of history of metaastatic cancer, pertoneal carcinomatosis, treatment with chemiotherapy) -she had 2400 cc of fluid drained and 600 cc was emptied out on arrival to medical floors -pending cytology of peritoneal fluid -she is scheduled for another drainage tomorrow by IR -NPO after midnight, no Heparin, coagulation studies ordered, -NGT on wall suction 2 hrs after dinner -monitoring vital signs, labs for infection -no antibiotics recommended now -will follow IR and Oncology recommendations DMII: -ISS ACHS -BGM ACHS GERD: -cont Omeprazole tomorrow after drainage Hyperlipidemia: -not on medications currently F/E/N: no/no changes/Diabetic, NPO after midnight Disposition: med surg Medications confirmed with pharmacy and updated in [employer]. Problem List - Problem (1) Ascites Code(s): R18.8 - OTHER ASCITES Qualifiers: (2) Chemotherapy-induced vomiting Code(s): R11.10 - VOMITING, UNSPECIFIED; T45.1X5A - ADVERSE EFFECT OF ANTINEOPLASTIC AND IMMUNOSUP DRUGS, INIT (3) H/O cancer of uterus Code(s): Z85.42 - PERSONAL HISTORY OF MALIGNANT NEOPLASM OF OTH PRT UTERUS (4) Intestinal obstruction Code(s): K56.60 - UNSPECIFIED INTESTINAL OBSTRUCTION * DO NOT USE * (5) Small bowel obstruction Code(s): K56.69 - OTHER INTESTINAL OBSTRUCTION * DO NOT USE * (6) Abdominal carcinomatosis Code(s): C76.2 - MALIGNANT NEOPLASM OF ABDOMEN (7) Uterine cancer Code(s): C55 - MALIGNANT NEOPLASM OF UTERUS, PART UNSPECIFIED Visit type - Emergency Visit Emergency Visit: Yes ED Registration Date: 08/11/18 Care time: The patient presented to the Emergency Department on the above date and was hospitalized for further evaluation of their emergent condition. - New Patient This patient is new to me today: Yes Date on this admission: 08/11/18 - Critical Care Critical Care patient: No
[2018-08-11 15:50] LABS: BODY FLUID MACROPHAGES 7 %; BODY FLUID MONOCYTE 30 %; BODYL FLD EOSINOPHIL 1 %
[2018-08-11] MEDS: INSULIN SLIDING SCALE (NOVOLOG) 1 VIAL SQ SCH ×2 (16:30→21:50)
--- NOTE | 2018-08-11 17:06 | PN ---
Teaching Attending Note Name of Resident: Casandra Lynch ATTENDING PHYSICIAN STATEMENT I saw and evaluated the patient. I reviewed the resident's note and discussed the case with the resident. I agree with the resident's findings and plan as documented. SUBJECTIVE:Patient seen earlier today in office Metastatic recurrent endometrial cancer . Recently receiving avastin-doxil having progressed on taxol/carboplatinum. Has had several surgical debulking procedures. Case previously reviewed with I.R. Underwent paracentesis earlier today and will have NG tube placed and attempt at cyst drainage. In interim , exploring other chemotherapy options. Last Vital Signs Temp Pulse Resp BP Pulse Ox 97.9 F 76 18 151/83 98 08/11/18 13:02 08/11/18 13:02 08/11/18 13:02 08/11/18 13:02 08/11/18 13:02 HEENT: NADIA, EOM Intact Oropharynx: No thrush, No mucositis Neck: Supple Nodes: Without adenopathy Breasts: Without masses Cor: RSR, No murmurs, No gallops Lungs: Clear to P&A Abd: Soft, Normal bowel sounds, No organomegaly; ascites now with catheter, large right sided abdominal hernia Ext:No significant edema Skin: No rashes, Integument intact CBC, BMP 08/11/18 09:57 08/11/18 09:57 Current Medications Generic Name Dose Route Start Last Admin Trade Name Freq PRN Reason Stop Dose Admin Insulin Aspart 1 vial 08/11/18 16:30 08/11/18 16:30 Novolog Vial Sliding Scale - SQ Not Given ACHS ECTOR Protocol Impression: Metastatic endometrial ca S/P paracentesis Attempt at cyst drainage on 08/12. anemia- recheck Hct in A.M. OBJECTIVE: ASSESSMENT AND PLAN:
[2018-08-11] MEDS ORDERED: HEPARIN NA (PORCINE) 5,000 UNITS/ML 1ML VIAL SQ SCH (18:00)
[2018-08-11] MEDS: LATANOPROST 0.005% OPHTH SOLN 2.5ML BOTTLE OU SCH (21:51)
[2018-08-12] MEDS: INSULIN SLIDING SCALE (NOVOLOG) 1 VIAL SQ SCH ×4 (06:04→21:21)
[2018-08-12 07:07] LABS: BASO % 0.5 % (0-2.0); EOS % 1.6 % (0-4.5); HEMATOCRIT 25.8 % (32.4-45.2); HEMOGLOBIN 8.7 GM/dL (10.7-15.3); LYMPH % 22.8 % (8-40); MCH 27.6 pg (25.7-33.7); MCHC 33.8 g/dl (32.0-36.0); MEAN CELL VOLUME 81.7 fl (80-96); MONO % 12.7 % (3.8-10.2); NEUT % 62.4 % (42.8-82.8); PLATELET COUNT 448 K/MM3 (134-434); RBC 3.16 M/mm3 (3.60-5.2); WHITE BLOOD COUNT 6.3 K/mm3 (4.0-10.0)
[2018-08-12 07:26] LABS: ALBUMIN 2.8 g/dl (3.4-5.0); ALK PHOS 91 U/L (45-117); ANION GAP 5 MMOL/L (8-16); BILIRUBIN,TOTAL 0.6 mg/dL (0.2-1); BLOOD UREA NITROGEN 11 mg/dL (7-18); CALCIUM 8.2 mg/dL (8.5-10.1); CHLORIDE 107 mmol/L (98-107); CO2 26 mmol/L (21-32); GLUCOSE,RANDOM 96 mg/dL (74-106); MAGNESIUM 2.1 mg/dL (1.8-2.4); PHOSPHOROUS 4.5 mg/dL (2.5-4.9); POTASSIUM 3.9 mmol/L (3.5-5.1); SGOT/AST 17 U/L (15-37); SGPT/ALT 12 U/L (13-61); SODIUM 138 mmol/L (136-145); TOT PROT 6.1 g/dl (6.4-8.2)
[2018-08-12 07:27] LABS: INR 1.18 (0.83-1.09); PROTHROMBIN TIME (PATIENT) 13.9 SEC (9.7-13.0)
--- NOTE | 2018-08-12 07:51 | PN ---
Physical Exam: SUBJECTIVE: Patient seen and examined. Pt for IR drainage today. No acute events overnight. OBJECTIVE: Vital Signs Temperature 98.1 F 08/12/18 06:21 Pulse Rate 73 08/12/18 06:21 Respiratory Rate 20 08/12/18 06:21 Blood Pressure 147/83 08/12/18 06:21 O2 Sat by Pulse Oximetry (%) 98 08/11/18 21:00 GENERAL: Awake, alert, and fully oriented, in no acute distress. HEAD: Normal with no signs of trauma. EYES: Pupils equal, round and reactive to light, extraocular movements intact, sclera anicteric, conjunctiva clear, pale. EARS, NOSE, THROAT: Oropharynx clear without exudates. Moist mucous membranes. NECK: Normal range of motion, supple without lymphadenopathy, JVD, or masses. LUNGS: Breath sounds equal, clear to auscultation bilaterally. No wheezes, and no crackles. No accessory muscle use. HEART: Regular rate and rhythm, normal S1 and S2 without murmur, rub or gallop. ABDOMEN: Soft, nontender, distended, normoactive bowel sounds, no guarding, no rebound, mass on right side-non tender, soft; Abd catheter in place draining blood, tube and drainage bag seen with blood clots MUSCULOSKELETAL: Normal range of motion at all joints. No bony deformities or tenderness. UPPER EXTREMITIES: No peripheral edema. LOWER EXTREMITIES: 2+ pulses, no peripheral edema. NEUROLOGICAL: Non focal, gait not observed. PSYCHIATRIC: Cooperative. Good eye contact. SKIN: Warm, dry, normal turgor, no rashes, longitudinal abdominal scar in her mid and lower abdomen. CBCD WBC 6.3 K/mm3 (4.0-10.0) 08/12/18 06:00 RBC 3.16 M/mm3 (3.60-5.2) L 08/12/18 06:00 Hgb 8.7 GM/dL (10.7-15.3) L 08/12/18 06:00 Hct 25.8 % (32.4-45.2) L 08/12/18 06:00 MCV 81.7 fl (80-96) 08/12/18 06:00 MCHC 33.8 g/dl (32.0-36.0) 08/12/18 06:00 RDW 18.0 % (11.6-15.6) H 08/12/18 06:00 Plt Count 448 K/MM3 (134-434) H 08/12/18 06:00 MPV 8.0 fl (7.5-11.1) 08/12/18 06:00 CMP Sodium 138 mmol/L (136-145) 08/12/18 06:00 Potassium 3.9 mmol/L (3.5-5.1) 08/12/18 06:00 Chloride 107 mmol/L (98-107) 08/12/18 06:00 Carbon Dioxide 26 mmol/L (21-32) 08/12/18 06:00 Anion Gap 5 MMOL/L (8-16) L 08/12/18 06:00 BUN 11 mg/dL (7-18) 08/12/18 06:00 Creatinine 1.0 mg/dL (0.55-1.3) 08/12/18 06:00 Creat Clearance w eGFR 55.14 (>60) 08/12/18 06:00 Calcium 8.2 mg/dL (8.5-10.1) L 08/12/18 06:00 Total Bilirubin 0.6 mg/dL (0.2-1) 08/12/18 06:00 AST 17 U/L (15-37) 08/12/18 06:00 ALT 12 U/L (13-61) L 08/12/18 06:00 Alkaline Phosphatase 91 U/L (45-117) 08/12/18 06:00 Total Protein 6.1 g/dl (6.4-8.2) L 08/12/18 06:00 Albumin 2.8 g/dl (3.4-5.0) L 08/12/18 06:00 Home Medication List Medication Instructions Recorded Confirmed Type Loratadine [Claritin] 1 tab PO DAILY 09/28/17 08/11/18 History Omeprazole Magnesium [Prilosec Otc] 40 mg PO DAILY 09/28/17 08/11/18 History Travoprost [Travatan Z] 1 drop OU DAILY 09/28/17 08/11/18 History Meloxicam 15 mg PO 08/11/18 History Psyllium Husk [Metamucil] 0.4 gm PO 08/11/18 History Sitagliptin Phosphate [Januvia] 100 mg PO 08/11/18 History Active Medications Acetaminophen (Tylenol -) 650 mg PO Q6H PRN PRN Reason: FEVER Insulin Aspart (Novolog Vial Sliding Scale -) 1 vial SQ ACHS ECTOR; Protocol Last Admin: 08/12/18 06:04 Dose: Not Given Latanoprost (Xalatan 0.005% Eye Drops -) 1 drop OU HS ECTOR Last Admin: 08/11/18 21:51 Dose: 1 drop Pantoprazole Sodium (Protonix -) 40 mg PO DAILY [facility] CONSULT: IR- Dr. Rinaldi Heme- Dr. Dave IMAGING: * CXR: No evidence of active pulmonary disease. * CTAP: 1. Development of right lower lobe lung nodule since 02/02/2018 suspicious for metastatic disease. A complete CT scan of the chest is now recommended. 2. Increased size of right hepatic mass, also consistent with a metastatic lesion. 3. Increased ascites and lesser sac loculation. 4. No additional evidence of metastatic disease or acute pathology within the abdomen or pelvis. ASSESSMENT/PLAN: The patient is a 68 year old Tristanian speaking female with a PMH of uterine cancer (diagnosed in 2010), peritoneal carcinomatosis, hyperlipidemia, GERD, diverticulosis, SBO, that presented to the hospital referred from her Oncologist office-Dr Dave for IR drainage, ascites. #Ascites; in setting of metastatic endometrial cx, peritoneal carcinomatosis (s/ p chemotherapy tx) -Underwent 2 IR drainage procedures during this admission. Today, has ELINOR drain for cystic drainage; tolerated procedure well. -pending cytology of peritoneal fluid -monitoring vital signs, labs for infection -Pt failed multiple therapies; heme to evaluate if patient is candidate for clinical trial, awaiting oncology records from [facility] for further evaluation. #DMII -ISS ACHS -BGM ACHS #Acute anemia -Hgb 8.7 today. Recheck H/H in AM. #GERD -Protonix 40 PO QD #HLD -not on medications currently #Prophylaxis DVT: SCDs F/E/N: -no IVf needed, PO fluid hydration -recheck lytes in AM -diabetic diet Dispo -cont to monitor on med surg -Zeina (niece) is HCP. . Can call her for updates on patient. Expressed that if there are no other treatments available, would like pt to remain in [facility] to spend rest of her time with family. Visit type - Emergency Visit Emergency Visit: Yes ED Registration Date: 08/11/18 Care time: The patient presented to the Emergency Department on the above date and was hospitalized for further evaluation of their emergent condition. - New Patient This patient is new to me today: Yes Date on this admission: 08/12/18 - Critical Care Critical Care patient: No
[2018-08-12] MEDS: ACETAMINOPHEN 325 MG TABLET (FP) PO PRN (08:09)
[2018-08-12 08:50] LABS: ACTIVATED PTT 120.2 SECONDS (25.2-36.5)
--- NOTE | 2018-08-12 09:54 | PN ---
Teaching Attending Note Name of Resident: Liya Barksdale ATTENDING PHYSICIAN STATEMENT I saw and evaluated the patient. I reviewed the resident's note and discussed the case with the resident. I agree with the resident's findings and plan as documented. SUBJECTIVE: Patient is feeling better going by IR for another procedure. OBJECTIVE: Vital Signs Temperature 98.1 F 08/12/18 06:21 Pulse Rate 73 08/12/18 06:21 Respiratory Rate 20 08/12/18 06:21 Blood Pressure 147/83 08/12/18 06:21 O2 Sat by Pulse Oximetry (%) 98 08/11/18 21:00 GENERAL: Awake, alert, and fully oriented, in no acute distress. HEAD: Normal with no signs of trauma. LUNGS: Breath sounds equal, clear to auscultation bilaterally. No wheezes, and no crackles. No accessory muscle use. HEART:s1s2 normal, RRR, ABDOMEN: Soft, mild tenderness, s/p pigtail bloody drainage , decreased the abdominal distention. positive for BS, no guarding, no rebound, positive for hernia palpable in supraumblical area. EXTREMITIES: 2+ pulses, warm, well-perfused. No calf tenderness. No peripheral edema. NEUROLOGICAL: Cranial nerves II-XII intact. Normal speech. PSYCHIATRIC: Cooperative. Good eye contact. Appropriate mood and affect. SKIN: Warm, dry, normal turgor, no rashes or lesions noted. CBCD WBC 6.3 K/mm3 (4.0-10.0) 08/12/18 06:00 RBC 3.16 M/mm3 (3.60-5.2) L 08/12/18 06:00 Hgb 8.7 GM/dL (10.7-15.3) L 08/12/18 06:00 Hct 25.8 % (32.4-45.2) L 08/12/18 06:00 MCV 81.7 fl (80-96) 08/12/18 06:00 MCHC 33.8 g/dl (32.0-36.0) 08/12/18 06:00 RDW 18.0 % (11.6-15.6) H 08/12/18 06:00 Plt Count 448 K/MM3 (134-434) H 08/12/18 06:00 MPV 8.0 fl (7.5-11.1) 08/12/18 06:00 CMP Sodium 138 mmol/L (136-145) 08/12/18 06:00 Potassium 3.9 mmol/L (3.5-5.1) 08/12/18 06:00 Chloride 107 mmol/L (98-107) 08/12/18 06:00 Carbon Dioxide 26 mmol/L (21-32) 08/12/18 06:00 Anion Gap 5 MMOL/L (8-16) L 08/12/18 06:00 BUN 11 mg/dL (7-18) 08/12/18 06:00 Creatinine 1.0 mg/dL (0.55-1.3) 08/12/18 06:00 Creat Clearance w eGFR 55.14 (>60) 08/12/18 06:00 Random Glucose 96 mg/dL (74-106) 08/12/18 06:00 Calcium 8.2 mg/dL (8.5-10.1) L 08/12/18 06:00 Total Bilirubin 0.6 mg/dL (0.2-1) 08/12/18 06:00 AST 17 U/L (15-37) 08/12/18 06:00 ALT 12 U/L (13-61) L 08/12/18 06:00 Alkaline Phosphatase 91 U/L (45-117) 08/12/18 06:00 Total Protein 6.1 g/dl (6.4-8.2) L 08/12/18 06:00 Albumin 2.8 g/dl (3.4-5.0) L 08/12/18 06:00 Current Medications Generic Name Dose Route Start Last Admin Trade Name Randolphq PRN Reason Stop Dose Admin Acetaminophen 650 mg 08/12/18 07:28 08/12/18 08:09 Tylenol - PO 650 mg Q6H PRN Administration FEVER Insulin Aspart 1 vial 08/11/18 16:30 08/12/18 06:04 Novolog Vial Sliding Scale - SQ Not Given ACHS ECTOR Protocol Latanoprost 1 drop 08/11/18 22:00 08/11/18 21:51 Xalatan 0.005% Eye Drops - OU 1 drop HS ECTOR Administration Pantoprazole Sodium 40 mg 08/12/18 18:45 Protonix - PO DAILY [facility] Home Medications Medication Instructions Recorded Loratadine [Claritin] 1 tab PO DAILY 09/28/17 Omeprazole Magnesium [Prilosec Otc] 40 mg PO DAILY 09/28/17 Travoprost [Travatan Z] 1 drop OU DAILY 09/28/17 Meloxicam 15 mg PO 08/11/18 Psyllium Husk [Metamucil] 0.4 gm PO 08/11/18 Sitagliptin Phosphate [Januvia] 100 mg PO 08/11/18 EXAM#: TYPE/EXAM: RESULT: [id number] CT/ABDOMEN PELVIS CT WITH CONTR HISTORY PROVIDED: Endometrial CA. Sequential axial images were obtained from the domes of the diaphragms through the symphysis pubis following the administration of both oral and intravenous contrast material. Evaluation lung bases demonstrates an 11 mm nodule within the right lower lobe abutting the hemidiaphragm. This nodule has developed since a prior study of 02/02/2018. There is additional punctate nodule within the periphery of the right lower lobe that may be calcified and was present on the previous exam. A follow-up CT scan of the chest is now recommended. There is a moderate amount of ascites within the abdomen and pelvis. The amount of ascites has increased since the prior study. Some of the fluid is loculated with a large collection within the lesser sac which measures 13.8 x 12.2 cm. This collection has significantly increased in size since the prior study. There is a loculation within the chari hepatis measuring 4 cm. Evaluation of the liver demonstrates a hypodense mass within the dome of the right lobe. The mass measures 2.1 x 1.9 cm and has also increased in size since the prior study. No new intrahepatic masses have developed. The spleen, pancreas, adrenal glands and kidneys demonstrate no significant abnormalities. There is no evidence of intra-abdominal or retroperitoneal lymphadenopathy. Examination of the pelvis demonstrates no evidence of pelvic masses or lymphadenopathy. There is a large ventral hernia within the right lower quadrant containing ascitic fluid and nonobstructed small bowel loops. The uterus has been removed. There is no evidence of bony metastases or acute abnormalities. IMPRESSION: 1. Development of right lower lobe lung nodule since 02/02/2018 suspicious for metastatic disease. A complete CT scan of the chest is now recommended. 2. Increased size of right hepatic mass, also consistent with a metastatic lesion. 3. Increased ascites and lesser sac loculation. 4. No additional evidence of metastatic disease or acute pathology within the abdomen or pelvis. Please see above discussion. 08/11/18 12:40 Peritoneal Fluid Gram Stain - Final 08/11/18 12:40 Peritoneal Fluid WM Preparation - Preliminary 08/11/18 12:40 Peritoneal Fluid Fungal Culture - Preliminary ASSESSMENT AND PLAN: The patient is a 68 year old Khmer speaking female with a PMHx of uterine cancer (diagnosed in 2010), peritoneal carcinomatosis, hyperlipidemia, GERD, diverticulosis, SBO, who presented to the hospital for having increased ascites from Dr. Kennedy's office. Patient went for IR procedure, was placed pigtail for continues drainage for ascites. # Metastatic endometrial ca s/p paracentesis by IR, patient has a pigtail, bloody drainage, discussed with IR will go for cystic drainage today . full fluid studies pending. As per Dr. kennedy , patient's malignancy has been resistant to multiple therapies, awaiting information from [facility] regarding possible clinical trials. #Ascites due to metastatic endometrial cancer/perotineal carcinomatosis s/p IR drainage #T2DM : ISS ACHS, BGM ACHS # GERD: cont Omeprazole tomorrow after drainage # Hyperlipidemia: not on medications currently # Hx of anemia- recheck Hct in A.M. DVT px: SCds for now.
[2018-08-12 10:20] LABS: INR 1.2 (0.83-1.09); PROTHROMBIN TIME (PATIENT) 14.2 SEC (9.7-13.0)
[2018-08-12 10:46] LABS: ACTIVATED PTT 125.4 SECONDS (25.2-36.5)
[2018-08-12 13:16] LABS: BODY FLUID ALBUMIN 2.5 g/dL (.)
[2018-08-12] MEDS ORDERED: ONDANSETRON 4 MG/2 ML VIAL IVPUSH ONE (14:20)
--- NOTE | 2018-08-12 14:33 | PN ---
Progress Note (short form) - Note Progress Note: s/p cyst drainage and pigtail placement pt indicated to primary team that if there was not further treatment options she would rather return to [place] and spend her final days with he family c/o nausea denies abdominal pain Vital Signs Period Temp Pulse Resp BP Sys/Marcelino Pulse Ox Last 24 Hr 97.9 F-98.5 F 70-84 14-20 137-164/77-96 95-99 PE: NAD EOMI, celestina no thrush/oral lesions s1, s2, no mrg abd soft, nontender, nondistended, left lateral quadrant with pigtail catheter in place draining bloody fluid, insertion site CDI right sided pigtail removed, site covered with dressing, no leakage no LE edema CBCD WBC 6.3 K/mm3 (4.0-10.0) 08/12/18 06:00 RBC 3.16 M/mm3 (3.60-5.2) L 08/12/18 06:00 Hgb 8.7 GM/dL (10.7-15.3) L 08/12/18 06:00 Hct 25.8 % (32.4-45.2) L 08/12/18 06:00 MCV 81.7 fl (80-96) 08/12/18 06:00 MCHC 33.8 g/dl (32.0-36.0) 08/12/18 06:00 RDW 18.0 % (11.6-15.6) H 08/12/18 06:00 Plt Count 448 K/MM3 (134-434) H 08/12/18 06:00 MPV 8.0 fl (7.5-11.1) 08/12/18 06:00 CMP Sodium 138 mmol/L (136-145) 08/12/18 06:00 Potassium 3.9 mmol/L (3.5-5.1) 08/12/18 06:00 Chloride 107 mmol/L (98-107) 08/12/18 06:00 Carbon Dioxide 26 mmol/L (21-32) 08/12/18 06:00 Anion Gap 5 MMOL/L (8-16) L 08/12/18 06:00 BUN 11 mg/dL (7-18) 08/12/18 06:00 Creatinine 1.0 mg/dL (0.55-1.3) 08/12/18 06:00 Creat Clearance w eGFR 55.14 (>60) 08/12/18 06:00 Calcium 8.2 mg/dL (8.5-10.1) L 08/12/18 06:00 Total Bilirubin 0.6 mg/dL (0.2-1) 08/12/18 06:00 AST 17 U/L (15-37) 08/12/18 06:00 ALT 12 U/L (13-61) L 08/12/18 06:00 Alkaline Phosphatase 91 U/L (45-117) 08/12/18 06:00 Total Protein 6.1 g/dl (6.4-8.2) L 08/12/18 06:00 Albumin 2.8 g/dl (3.4-5.0) L 08/12/18 06:00 Active Medications Acetaminophen (Tylenol -) 650 mg PO Q6H PRN PRN Reason: FEVER Last Admin: 08/12/18 08:09 Dose: 650 mg Insulin Aspart (Novolog Vial Sliding Scale -) 1 vial SQ ACHS ECTOR; Protocol Last Admin: 08/12/18 11:48 Dose: Not Given Latanoprost (Xalatan 0.005% Eye Drops -) 1 drop OU HS ECTOR Last Admin: 08/11/18 21:51 Dose: 1 drop Pantoprazole Sodium (Protonix -) 40 mg PO DAILY ECTOR Intake & Output 08/11/18 08/12/18 08/12/18 23:59 07:59 15:59 Intake Total 0 0 Output Total 1000 280 Balance -1000 0 -280 Intake: IVPB 0 0 Output: Gastric Drainage 500 Drainage 500 280 Abdomen 500 280 Other: Voiding Method Toilet Toilet 68 yr old with metastic malignancy, cyst requiring pigtail placement for continuous drainage. Problem List: Metastatic cancer HTN large abdominal cyst Anemia- chronic A/P underwent paracentesis with IR 08/11 and cyst drainage today, tolerated procedures well, full fluid studies pending. pigtail in place with bloody fluid pt's malignancy has been resistent to multiple therapies, awaiting information from [facility] regarding possible clinical trials and to determine GOC as per patient's wishes if no further treatment options
[2018-08-12] MEDS: PANTOPRAZOLE 40 MG TABLET (FP) PO SCH (18:07)
--- NOTE | 2018-08-12 18:45 | PN ---
Progress Note (short form) - Note Progress Note: PAtient seen and examined Denies any complaints AFVSS Cor: RSR, No murmurs, No gallops Lungs: Clear to P&A Abd: Soft, Normal bowel sounds, ascites+ Ext:No significant edema Labs/MEds reviewed A/P Metastatic endometrial ca -- on doxil/avastin S/P paracentesis cyst drainage supportive care
[2018-08-12] MEDS ORDERED: PT OWN MED DRAWER 7, Y5N ONE (20:59)
[2018-08-12] MEDS: LATANOPROST 0.005% OPHTH SOLN 2.5ML BOTTLE OU SCH (21:18)
[2018-08-13] MEDS: INSULIN SLIDING SCALE (NOVOLOG) 1 VIAL SQ SCH ×2 (06:43→12:30)
[2018-08-13 07:15] LABS: BASO % 0.7 % (0-2.0); EOS % 3.5 % (0-4.5); HEMATOCRIT 25.1 % (32.4-45.2); HEMOGLOBIN 8.3 GM/dL (10.7-15.3); LYMPH % 31.7 % (8-40); MCH 27.3 pg (25.7-33.7); MCHC 33.1 g/dl (32.0-36.0); MEAN CELL VOLUME 82.5 fl (80-96); MEAN PLT VOLUME 8.2 fl (7.5-11.1); MONO % 13.7 % (3.8-10.2); NEUT % 50.4 % (42.8-82.8); PLATELET COUNT 417 K/MM3 (134-434); RBC 3.04 M/mm3 (3.60-5.2); RDW 17.9 % (11.6-15.6); WHITE BLOOD COUNT 5.4 K/mm3 (4.0-10.0)
[2018-08-13 08:00] LABS: ALBUMIN 2.6 g/dl (3.4-5.0); ALK PHOS 76 U/L (45-117); ANION GAP 7 MMOL/L (8-16); BILIRUBIN,TOTAL 0.3 mg/dL (0.2-1); BLOOD UREA NITROGEN 14 mg/dL (7-18); CALCIUM 8.6 mg/dL (8.5-10.1); CHLORIDE 105 mmol/L (98-107); CO2 26 mmol/L (21-32); CREATININE 0.9 mg/dL (0.55-1.3); GLUCOSE,RANDOM 77 mg/dL (74-106); SGOT/AST 16 U/L (15-37); SGPT/ALT 10 U/L (13-61); SODIUM 138 mmol/L (136-145); TOT PROT 5.8 g/dl (6.4-8.2)
[2018-08-13] MEDS: PANTOPRAZOLE 40 MG TABLET (FP) PO SCH (09:36)
[2018-08-13] MEDS: ACETAMINOPHEN 325 MG TABLET (FP) PO PRN (09:36)
[2018-08-13 13:36] VITALS: BP 145/83; PULSE 70; TEMP 98
--- NOTE | 2018-08-13 15:46 | PN ---
Teaching Attending Note Name of Resident: Liya Barksdale ATTENDING PHYSICIAN STATEMENT I saw and evaluated the patient. I reviewed the resident's note and discussed the case with the resident. I agree with the resident's findings and plan as documented. SUBJECTIVE: OBJECTIVE: Vital Signs Temperature 98 F 08/13/18 13:34 Pulse Rate 70 08/13/18 13:34 Respiratory Rate 20 08/13/18 13:34 Blood Pressure 145/83 08/13/18 13:34 O2 Sat by Pulse Oximetry (%) 95 08/12/18 21:00 GENERAL: Awake, alert, and fully oriented, in no acute distress. HEAD: Normal with no signs of trauma. LUNGS: Breath sounds equal, clear to auscultation bilaterally. No wheezes, and no crackles. No accessory muscle use. HEART:s1s2 normal, RRR, ABDOMEN: Soft, mild tenderness, s/p pigtail bloody drainage , decreased the abdominal distention. positive for BS, no guarding, no rebound, positive for hernia palpable in supraumblical area. EXTREMITIES: 2+ pulses, warm, well-perfused. No calf tenderness. No peripheral edema. NEUROLOGICAL: Cranial nerves II-XII intact. Normal speech. PSYCHIATRIC: Cooperative. Good eye contact. Appropriate mood and affect. SKIN: Warm, dry, normal turgor, no rashes or lesions noted. CBCD WBC 5.4 K/mm3 (4.0-10.0) 08/13/18 06:00 RBC 3.04 M/mm3 (3.60-5.2) L 08/13/18 06:00 Hgb 8.3 GM/dL (10.7-15.3) L 08/13/18 06:00 Hct 25.1 % (32.4-45.2) L 08/13/18 06:00 MCV 82.5 fl (80-96) 08/13/18 06:00 MCHC 33.1 g/dl (32.0-36.0) 08/13/18 06:00 RDW 17.9 % (11.6-15.6) H 08/13/18 06:00 Plt Count 417 K/MM3 (134-434) 08/13/18 06:00 MPV 8.2 fl (7.5-11.1) 08/13/18 06:00 CMP Sodium 138 mmol/L (136-145) 08/13/18 06:00 Potassium 4.0 mmol/L (3.5-5.1) 08/13/18 06:00 Chloride 105 mmol/L (98-107) 08/13/18 06:00 Carbon Dioxide 26 mmol/L (21-32) 08/13/18 06:00 Anion Gap 7 MMOL/L (8-16) L 08/13/18 06:00 BUN 14 mg/dL (7-18) 08/13/18 06:00 Creatinine 0.9 mg/dL (0.55-1.3) 08/13/18 06:00 Creat Clearance w eGFR > 60 (>60) 08/13/18 06:00 Random Glucose 77 mg/dL (74-106) 08/13/18 06:00 Calcium 8.6 mg/dL (8.5-10.1) 08/13/18 06:00 Total Bilirubin 0.3 mg/dL (0.2-1) 08/13/18 06:00 AST 16 U/L (15-37) 08/13/18 06:00 ALT 10 U/L (13-61) L 08/13/18 06:00 Alkaline Phosphatase 76 U/L (45-117) 08/13/18 06:00 Total Protein 5.8 g/dl (6.4-8.2) L 08/13/18 06:00 Albumin 2.6 g/dl (3.4-5.0) L 08/13/18 06:00 Current Medications Generic Name Dose Route Start Last Admin Trade Name Freq PRN Reason Stop Dose Admin Acetaminophen 650 mg 08/12/18 07:28 08/13/18 09:36 Tylenol - PO 650 mg Q6H PRN Administration FEVER Insulin Aspart 1 vial 08/11/18 16:30 08/13/18 12:30 Novolog Vial Sliding Scale - SQ Not Given ACHS ECTOR Protocol Latanoprost 1 drop 08/11/18 22:00 08/12/18 21:18 Xalatan 0.005% Eye Drops - OU 1 drop HS ECTOR Administration Pantoprazole Sodium 40 mg 08/12/18 18:45 08/13/18 09:36 Protonix - PO 40 mg DAILY ECTOR Administration Home Medications Medication Instructions Recorded Loratadine [Claritin] 1 tab PO DAILY 09/28/17 Omeprazole Magnesium [Prilosec Otc] 40 mg PO DAILY 09/28/17 Travoprost [Travatan Z] 1 drop OU HS 09/28/17 Meloxicam 15 mg PO DAILY 08/11/18 Psyllium Husk [Metamucil] 0.4 gm PO DAILY 08/11/18 Sitagliptin Phosphate [Januvia] 100 mg PO DAILY 08/11/18 Acetaminophen [Tylenol] 2 tab PO Q6H PRN 08/13/18 Insulin NPH Hum/Reg Insulin Hm 6 units SQ ACDIN 08/13/18 [Novolin 70-30 Flexpen] Linaclotide [Linzess] 1 tab PO DAILY 08/13/18 Metformin HCl [Glucophage] 1 tab PO AC 08/13/18 Ondansetron [Zuplenz] 1 tab PO Q8H PRN 08/13/18 Zolpidem Tartrate [Ambien] 1 tab PO HS 08/13/18 EXAM#: TYPE/EXAM: RESULT: [id number] CT/ABDOMEN PELVIS CT WITH CONTR HISTORY PROVIDED: Endometrial CA. Sequential axial images were obtained from the domes of the diaphragms through the symphysis pubis following the administration of both oral and intravenous contrast material. Evaluation lung bases demonstrates an 11 mm nodule within the right lower lobe abutting the hemidiaphragm. This nodule has developed since a prior study of 02/02/2018. There is additional punctate nodule within the periphery of the right lower lobe that may be calcified and was present on the previous exam. A follow-up CT scan of the chest is now recommended. There is a moderate amount of ascites within the abdomen and pelvis. The amount of ascites has increased since the prior study. Some of the fluid is loculated with a large collection within the lesser sac which measures 13.8 x 12.2 cm. This collection has significantly increased in size since the prior study. There is a loculation within the chari hepatis measuring 4 cm. Evaluation of the liver demonstrates a hypodense mass within the dome of the right lobe. The mass measures 2.1 x 1.9 cm and has also increased in size since the prior study. No new intrahepatic masses have developed. The spleen, pancreas, adrenal glands and kidneys demonstrate no significant abnormalities. There is no evidence of intra-abdominal or retroperitoneal lymphadenopathy. Examination of the pelvis demonstrates no evidence of pelvic masses or lymphadenopathy. There is a large ventral hernia within the right lower quadrant containing ascitic fluid and nonobstructed small bowel loops. The uterus has been removed. There is no evidence of bony metastases or acute abnormalities. IMPRESSION: 1. Development of right lower lobe lung nodule since 02/02/2018 suspicious for metastatic disease. A complete CT scan of the chest is now recommended. 2. Increased size of right hepatic mass, also consistent with a metastatic lesion. 3. Increased ascites and lesser sac loculation. 4. No additional evidence of metastatic disease or acute pathology within the abdomen or pelvis. Please see above discussion. 08/11/18 12:40 Peritoneal Fluid Gram Stain - Final 08/11/18 12:40 Peritoneal Fluid WM Preparation - Preliminary 08/11/18 12:40 Peritoneal Fluid Fungal Culture - Preliminary ASSESSMENT AND PLAN: The patient is a 68 year old Malay speaking female with a PMHx of uterine cancer (diagnosed in 2010), peritoneal carcinomatosis, hyperlipidemia, GERD, diverticulosis, SBO, who presented to the hospital for having increased ascites from Dr. Kennedy's office. Patient went for IR procedure, was placed pigtail for continues drainage for ascites. # Metastatic endometrial ca s/p paracentesis by IR, s/p removal of a pigtail, patient has a drainage by IR ,will be going home with the cystic drainage . Discussed with the patient , can go home with the drainage and removal will be on Thursday or , patient needs to call for the appointment. As per Dr. kennedy , patient's malignancy has been resistant to multiple therapies, patient will followed up with ; awaiting information from [facility] regarding possible clinical trials. #Ascites due to metastatic endometrial cancer/perotineal carcinomatosis s/p IR drainage #T2DM : ISS ACHS, BGM ACHS # GERD: cont Omeprazole tomorrow after drainage # Hyperlipidemia: not on medications currently # Hx of anemia- stable , no further bloody drainage.
--- NOTE | 2018-08-13 18:55 | PATH ---
Cytology Non-Gynecological Report Patient Name: MICHAEL ALLERD Med. Rec. #: [id number] /Age/Gender: 1950 (Age: 68) / F Account: [id number] Location: [facility] MED/SURG Taken: 08/12/2018 Received: 08/12/2018 Reported: 08/13/2018 Physicians: Tay Silva M.D. Specimen(s) Received ABD ABSCESS FLUID Clinical History Abdominal abscess Final Diagnosis ABDOMINAL ABSCESS FOR CYTOLOGY: SATISFACTORY FOR EVALUATION. ATYPICAL. RARE ATYPICAL CELLS WITH HYPERCHROMASIA, MILD NUCLEAR ENLARGEMENT, AND DEGENERATIVE CHANGES IN A HEMORRHAGIC BACKGROUND PRESENT. Comment: See concurrent specimen ([id number]). Prior materials are noted. Electronically Signed Leigh Pina M.D. Gross Description Approximately 45 cc of bloody fluid received fixed in 50% alcohol. One cytofunnel prepared and Pap stained. One cellblock prepared.
--- NOTE | 2018-08-13 19:25 | DS ---
Physical Exam: SUBJECTIVE: Patient seen and examined OBJECTIVE: Vital Signs Period Temp Pulse Resp BP Sys/Marcelino Pulse Ox Last 24 Hr 98 F-98.6 F 68-77 18-20 131-145/67-83 95 PHYSICAL EXAM GENERAL: The patient is awake, alert, and fully oriented, in no acute distress. HEAD: Normal with no signs of trauma. EYES: PERRL, extraocular movements intact, sclera anicteric, conjunctiva clear. ENT: Ears normal, nares patent, oropharynx clear without exudates, moist mucous membranes. NECK: Trachea midline, full range of motion, supple. LUNGS: Breath sounds equal, clear to auscultation bilaterally, no wheezes, no crackles, no accessory muscle use. HEART: Regular rate and rhythm, S1, S2 without murmur, rub or gallop. ABDOMEN: Soft, nontender, nondistended, normoactive bowel sounds, no guarding, no rebound, no hepatosplenomegaly, no masses. EXTREMITIES: 2+ pulses, warm, well-perfused, no edema. NEUROLOGICAL: Cranial nerves II through XII grossly intact. Normal speech, gait not observed. PSYCH: Normal mood, normal affect. SKIN: Warm, dry, normal turgor, no rashes or lesions noted. LABS Laboratory Results - last 24 hr 08/11/18 08/12/18 08/13/18 12:40 21:17 05:48 WBC RBC Hgb Hct MCV MCH MCHC RDW Plt Count MPV Absolute Neuts (auto) Neutrophils % Lymphocytes % Monocytes % Eosinophils % Basophils % Nucleated RBC % Sodium Potassium Chloride Carbon Dioxide Anion Gap BUN Creatinine Creat Clearance w eGFR POC Glucometer 117 89 Random Glucose Calcium Total Bilirubin AST ALT Alkaline Phosphatase Total Protein Albumin POC Fluid pH 8.3 08/13/18 08/13/18 08/13/18 06:00 06:00 12:29 WBC 5.4 RBC 3.04 L Hgb 8.3 L Hct 25.1 L MCV 82.5 MCH 27.3 MCHC 33.1 RDW 17.9 H Plt Count 417 MPV 8.2 Absolute Neuts (auto) 2.7 Neutrophils % 50.4 Lymphocytes % 31.7 D Monocytes % 13.7 H Eosinophils % 3.5 D Basophils % 0.7 Nucleated RBC % 0 Sodium 138 Potassium 4.0 Chloride 105 Carbon Dioxide 26 Anion Gap 7 L BUN 14 Creatinine 0.9 Creat Clearance w eGFR > 60 POC Glucometer 121 Random Glucose 77 Calcium 8.6 Total Bilirubin 0.3 AST 16 ALT 10 L Alkaline Phosphatase 76 Total Protein 5.8 L Albumin 2.6 L POC Fluid pH HOSPITAL COURSE: Date of Admission:08/11/18 Date of Discharge: 08/13/18 Discharge Summary Reason For Visit: CARCINOMATOSIS,ASCITES Condition: Improved - Instructions Diet, Activity, Other Instructions: You were seen in the hospital for drainage of fluid in your abdomen. During your hospital stay, a procedure was done by the interventional radiologist to drain the fluid in your abdomen. You were also seen by the hematology oncologist for further evaluation. Your symptoms subsequently improved. You are being discharged home. You will keep the abdominal drain in until you return to interventional radiology for removal next week. Call tomorrow and schedule an appointment for next August 18 to make an appointment for your drainage removal. Keep the area of the dressing dry if you take a shower. Avoid baths for now MEDICAL RECOMMENDATIONS Please continue your home medications as directed. CONSULT RECOMMENDATIONS Please follow up with your primary care physician, Dr. Tapia, within 1 week. Please also follow up with your oncologist, Dr. Dave, within 1 week. If you experience worsening abdominal pain, chest pain, shortness of breath, difficulty breathing, then proceed to your nearest emergency room immediately. Referrals: Alex Tapia MD [Primary Care Provider] - 1 Week Genaro Rinaldi MD [Staff Physician] - 08/18/18 (Please call the office for the Drainage removal. ) Fran Dave MD [Staff Physician] - 1 Week Disposition: HOME - Home Medications Comprehensive Discharge Medication List: Ambulatory Orders Loratadine [Claritin] 1 tab PO DAILY 09/28/17 Omeprazole Magnesium [Prilosec Otc] 40 mg PO DAILY 09/28/17 Travoprost [Travatan Z] 1 drop OU HS 09/28/17 Meloxicam 15 mg PO DAILY 08/11/18 Psyllium Husk [Metamucil] 0.4 gm PO DAILY 08/11/18 Sitagliptin Phosphate [Januvia] 100 mg PO DAILY 08/11/18 Acetaminophen [Tylenol] 2 tab PO Q6H PRN 08/13/18 Insulin NPH Hum/Reg Insulin Hm [Novolin 70-30 Flexpen] 6 units SQ ACDIN 12/21/ 18 Linaclotide [Linzess] 1 tab PO DAILY 08/13/18 Metformin HCl [Glucophage] 1 tab PO AC 08/13/18 Ondansetron [Zuplenz] 1 tab PO Q8H PRN 08/13/18 Zolpidem Tartrate [Ambien] 1 tab PO HS 08/13/18
--- NOTE | 2018-08-16 14:01 | PATH ---
Cytology Non-Gynecological Report Patient Name: MICHAEL ALLRED Med. Rec. #: [id number] /Age/Gender: 1950 (Age: 68) / F Account: [id number] Location: [facility] MED/SURG Taken: 08/11/2018 Received: 08/12/2018 Reported: 08/16/2018 Physicians: Tay Silva M.D. Specimen(s) Received PERITONEAL FLUID Clinical History Peritoneal fluid Final Diagnosis PERITONEAL FLUID FOR CYTOLOGY: SATISFACTORY FOR EVALUATION. ATYPICAL CELLS PRESENT. RARE ATYPICAL CELLS WITH HYPERCHROMASIA AND ENLARGED NUCLEI. REACTIVE LYMPHOCYTES IN THE BACKGROUND. Comment: See concurrent specimen ([id number]). Prior materials are noted. Electronically Signed Belem Rowland M.D. Gross Description Approximately 40cc of junior fluid received in 50% alcohol. A cytospin and cell block prepared.
== END 2018-08-13 16:35 | disposition home or self-care (01) | DRG 375 ==
LOC: JER 08:50 → JERBED 11:33 → J7W 13:59
PROVIDERS: ADMIT Internal Medicine; ATTEND Internal Medicine
PROC: 0W9G3ZX Drainage of Peritoneal Cavity, Percutaneous Approach, Diagnostic (ICD-10-PCS; 2018-08-11)
PROC: 0W9G30Z Drainage of Peritoneal Cavity with Drainage Device, Percutaneous Approach (ICD-10-PCS; principal; 2018-08-12)
DX: C78.6 Secondary malignant neoplasm of retroperitoneum and peritoneum (principal); K56.609 Unspecified intestinal obstruction, unspecified as to partial versus complete obstruction; R18.8 Other ascites; C54.1 Malignant neoplasm of endometrium; E11.9 Type 2 diabetes mellitus without complications; E78.5 Hyperlipidemia, unspecified; K21.9 Gastro-esophageal reflux disease without esophagitis; D64.9 Anemia, unspecified; R11.2 Nausea with vomiting, unspecified; T45.1X5A Adverse effect of antineoplastic and immunosuppressive drugs, initial encounter
CPT/HCPCS: 36415; 49406; 71045-TC-FY; 76098-TC-FY; 76380-TC; 76998-TC; 80053; 81003; 82042; 82150; 82945; 82962; 83615; 83735; 83986; 84100; 84157; 84478; 85025; 85610; 85730; 86850; 86900; 86901; 87040; 87070; 87075; 87086; 87102; 87116; 87205; 87206; 87210; 87899; 88108; 88305-TC; 93005; 93010; 97116-GP; 97161-GP; 99285-25; A4358; C1729; C1769

== ENCOUNTER 2018-08-27 09:30 | Inpatient (IN) | payer OTHER ==
--- NOTE | 2018-08-27 09:53 | PDOC ---
History of Present Illness - General History Source: Patient - History of Present Illness Initial Comments: 08/27/18 15:24 Pt is a 68 y/o F with PMH of metastatic endometrial cancer, peritoneal carcinomatosis, NIDDM, who presents to the ED with abdominal pain since yesterday. Pt states she has nausea vomiting and associated diarrhea. When asked where her pain is, she points to the R lower quadrent. Pt also states she recently had a drain placed by IR for theraputic drainage of her ascites. Pt states that she last emptied approximately 300ccs yesterday afternoon from the drain. She notes that only a little has drained since yesterday. Pt admits to subjective fevers. Denies SOB, difficulty breathing, chest pain, weakness, frequency, urgency and hematuria. <Nereida Bates - Last Filed: 08/30/18 09:45> <Fran Fox - Last Filed: 09/03/18 07:18> - General Chief Complaint: Pain Stated Complaint: VOMITING Time Seen by Provider: 08/27/18 09:39 Past History - Travel Traveled outside of the country in the last 30 days: No Close contact w/someone who was outside of country & ill: No - Past Medical History Anemia: Yes Asthma: No Cancer: Yes (UTERINE, Endometrial) Cardiac Disorders: No CVA: No COPD: No CHF: No Dementia: No Diabetes: Yes GI Disorders: Yes (GERD, diverticulosis, SBO) Disorders: Yes (uterine) HTN: No Hypercholesterolemia: Yes Liver Disease: No Seizures: No Thyroid Disease: No - Surgical History Abdominal Surgery: Yes (BLOCKAGE,HERNIA) Appendectomy: No Cardiac Surgery: No Cholecystectomy: Yes Lung Surgery: No Neurologic Surgery: No Orthopedic Surgery: Yes (SHOULDER SX,HAND SX) - Immunization History Immunization Up to Date: Yes - Suicide/Smoking/Psychosocial Hx Smoking History: Never smoked Have you smoked in the past 12 months: No Information on smoking cessation initiated: No Hx Alcohol Use: No Drug/Substance Use Hx: No Substance Use Type: None Hx Substance Use Treatment: No <Nereida Bates - Last Filed: 08/30/18 09:45> <Fran Fox - Last Filed: 09/03/18 07:18> - Past Medical History Allergies/Adverse Reactions: Allergies Allergy/AdvReac Type Severity Reaction Status Date / Time carboplatin Allergy Intermediate Verified 08/11/18 08:56 shellfish derived Allergy Intermediate Vomiting Verified 08/11/18 08:56 carboplatinum Allergy Intermediate Uncoded 08/11/18 08:56 Home Medications: Ambulatory Orders Loratadine [Claritin] 1 tab PO DAILY 09/28/17 Omeprazole Magnesium [Prilosec Otc] 40 mg PO DAILY 09/28/17 Travoprost [Travatan Z] 1 drop OU HS 09/28/17 Meloxicam 15 mg PO DAILY 08/11/18 Psyllium Husk [Metamucil] 0.4 gm PO DAILY 08/11/18 Sitagliptin Phosphate [Januvia] 100 mg PO DAILY 08/11/18 Acetaminophen [Tylenol] 2 tab PO Q6H PRN 08/13/18 Insulin NPH Hum/Reg Insulin Hm [Novolin 70-30 Flexpen] 6 units SQ ACDIN Linaclotide [Linzess] 1 tab PO DAILY 08/13/18 Metformin HCl [Glucophage] 1 tab PO AC 08/13/18 Ondansetron [Zuplenz] 1 tab PO Q8H PRN 08/13/18 Zolpidem Tartrate [Ambien] 1 tab PO HS 08/13/18 *Physical Exam - Vital Signs Last Vital Signs Temp Pulse Resp BP Pulse Ox 99.6 F 114 H 20 144/81 96 08/27/18 09:42 08/27/18 09:42 08/27/18 09:42 08/27/18 09:42 08/27/18 09:42 <Nereida Bates - Last Filed: 08/30/18 09:45> - Vital Signs Last Vital Signs Temp Pulse Resp BP Pulse Ox 98.0 F 83 18 141/69 98 09/03/18 06:00 09/03/18 06:00 09/03/18 06:00 09/03/18 06:00 09/02/18 21:00 <Fran Fox - Last Filed: 09/03/18 07:18> Moderate Sedation - Procedure Monitoring Vital Signs: Procedure Monitoring Vital Signs Temperature 99.6 F 08/27/18 09:42 Pulse Rate 114 H 08/27/18 09:42 Respiratory Rate 20 08/27/18 09:42 Blood Pressure 144/81 08/27/18 09:42 O2 Sat by Pulse Oximetry (%) 96 08/27/18 09:42 <Nereida Bates - Last Filed: 08/30/18 09:45> - Procedure Monitoring Vital Signs: Procedure Monitoring Vital Signs Temperature 98.0 F 09/03/18 06:00 Pulse Rate 83 09/03/18 06:00 Respiratory Rate 18 09/03/18 06:00 Blood Pressure 141/69 09/03/18 06:00 O2 Sat by Pulse Oximetry (%) 98 09/02/18 21:00 <Fran Fox - Last Filed: 09/03/18 07:18> ED Treatment Course - LABORATORY CBC & Chemistry Diagram: 08/30/18 06:30 08/30/18 06:30 <Nereida Bates - Last Filed: 08/30/18 09:45> - LABORATORY CBC & Chemistry Diagram: 08/30/18 06:30 08/30/18 06:30 - ADDITIONAL ORDERS Additional order review: 08/27/18 12:35 Blood Culture - Final Blood - Peripheral Venous NO GROWTH AFTER 5 DAYS INCUBATION 08/27/18 12:35 Blood Culture - Final Blood - Peripheral Venous NO GROWTH AFTER 5 DAYS INCUBATION 08/27/18 13:40 Urine Culture - Final Urine - Urine Clean Catch 08/27/18 10:18 RBC 3.71 MCV 82.5 MCHC 30.9 L RDW 16.8 H MPV 8.3 Neutrophils % 87.7 H D Lymphocytes % 3.9 L D Monocytes % 8.0 Eosinophils % 0.2 D Basophils % 0.2 - Medications Given in the ED: ED Medications Discontinued Medications Generic Name Dose Route Start Last Admin Trade Name Randolphq PRN Reason Stop Dose Admin Acetaminophen 1,000 mg 08/27/18 09:56 08/27/18 10:29 Ofirmev Injection - IVPB 08/27/18 09:57 1,000 mg ONCE ONE Administration Enoxaparin Sodium 40 mg 09/02/18 16:47 09/02/18 18:10 Lovenox - SQ 09/02/18 16:48 40 mg ONCE ONE Administration Sodium Chloride 1,000 mls @ 1,000 mls/hr 08/27/18 10:41 08/27/18 10:58 Normal Saline - IV 08/27/18 11:40 1,000 mls/hr .Q1H ONE Administration Vancomycin HCl 1,000 mg/ 250 mls @ 166.667 mls/hr 08/27/18 12:46 08/27/18 14: 22 Dextrose IVPB 08/27/18 14:15 166.667 mls/hr ONCE ONE Administration Protocol Piperacillin Sod/Tazobactam 50 mls @ 100 mls/hr 08/27/18 12:45 08/27/18 14:02 Sod 3.375 gm/ Dextrose IVPB 08/27/18 13:14 100 mls/hr ONCE ONE Administration Protocol Azithromycin 500 mg/ Dextrose 250 mls @ 250 mls/hr 08/27/18 13:09 08/27/18 13 :34 IVPB 08/27/18 14:08 250 mls/hr ONCE ONE Administration Sodium Chloride 1,000 mls @ 100 mls/hr 08/27/18 19:15 08/29/18 02:57 Normal Saline - IV 100 mls/hr ASDIR ECTOR Administration Cefepime HCl 2 gm in 50 mls @ 100 mls/hr 08/27/18 22:00 08/30/18 07:07 Maxipime 2gm Ivpb (Premix) IVPB Not Given BID ECTOR Protocol Vancomycin HCl 1,000 mg/ 250 mls @ 166.667 mls/hr 08/27/18 20:15 08/30/18 07: 07 Dextrose IVPB Not Given Q12H ECTOR Protocol Vancomycin HCl 1,000 mg in 250 mls @ 166.667 mls/hr 08/28/18 02:22 08/28/18 03:04 Vancomycin (Pre-Docked) IVPB 08/28/18 03:51 166.667 mls/hr Q12H ECTOR Administration Protocol Cefepime HCl 2 gm/ Dextrose 100 mls @ 200 mls/hr 08/27/18 22:00 08/27/18 22: 05 IVPB 08/27/18 22:29 200 mls/hr BID ECTOR Administration Protocol Vancomycin HCl 1,000 mg in 250 mls @ 200 mls/hr 08/29/18 03:00 08/31/18 02:45 Vancomycin (Pre-Docked) IVPB 200 mls/hr DAILY@0300 ECTOR Administration Protocol Piperacillin Sod/Tazobactam 50 mls @ 100 mls/hr 08/28/18 18:00 08/31/18 09:47 Sod 3.375 gm/ Dextrose IVPB 100 mls/hr Q8H-IV ECTOR Administration Protocol Ampicillin Sodium/Sulbactam 100 mls @ 200 mls/hr 08/31/18 15:00 09/02/18 15: 42 Sodium 1.5 gm/ Sodium Chloride IVPB 200 mls/hr Q6H-IV ECTOR Administration Insulin Aspart 1 vial 08/27/18 22:00 09/01/18 17:34 Novolog Vial Sliding Scale - SQ Not Given ACHS ECTOR Protocol Insulin Aspart 1 vial 09/01/18 17:48 09/02/18 18:36 Novolog Vial Sliding Scale - SQ Not Given ACHS ECTOR Protocol Insulin Aspart 1 vial 09/02/18 18:00 09/02/18 18:35 Novolog Vial Sliding Scale - SQ Not Given DAILY ECTOR Protocol Ketorolac Tromethamine 15 mg 08/27/18 13:10 08/27/18 13:41 Toradol Injection - IVPUSH 08/27/18 13:11 15 mg ONCE ONE Administration Ondansetron HCl 4 mg 08/27/18 09:56 08/27/18 10:30 Zofran Injection IVPUSH 08/27/18 09:57 4 mg ONCE ONE Administration <Fran Fox - Last Filed: 09/03/18 07:18> Medical Decision Making - Critical Care Time Total Critical Care Time (minutes): 30 Critical Care Statement: The care of this patient involved high complexity decision making to prevent further life threatening deterioration of the patient 's condition and/or to evaluate & treat vital organ system(s) failure or risk of failure. - Medical Decision Making 08/27/18 11:27 Pt is a 68 y/o F who presents to the ED for lower abdominal pain for one day with associated nausea, vomiting and diarrhea. Pt recently had ELINOR drain placed by IR for a loculated fluid collection in the abdomen. -On exam pt is warm to the touch. Pt is tachycardic at 111. -Exam notable for TTP of the RLQ, LLQ. ELINOR drain in place on the L lower abdomen -Minimal < 50cc dark serosanguenous fluid in the ELINOR currently -Acute abdomen vs ascites vs SBO vs clogged ELINOR drain. -Labs, IV fluids, CXR, ofirmev, zofran, and CTAP ordered at this time -re-evaluate 08/27/18 12:36 -rectal temp done, pt temp 101F -Septic order set ordered -Peritonitis? -Consult to Dr. Jolie solomon -Re-evaluate 08/27/18 13:37 -Pt with leukocytosis to 17. (+) left shift. -Pt with PNA on x-ray. Give recent admission, covered for hospital acquired PNA. -Zosyn, vancomycin, and azithromycin ordered -Pt to head to CT at 15:00 08/27/18 17:31 CT: Atelectesis seen at base of R lower lobe. Also shows R lower quadrant ventral hernia containing ascites and slightly dilated loops of small bowel. In comparison to prior CT exam of 08/06/18 note is made of C-guided percutaneous drainage catheter placement within a fluid collection within the lesser sac representing partially loculated ascites. The lesser sac of fluid collection currently measures approximately 9x3.4cm previously 22x29pu. Note also made of a diminished amount of ascites within the abdomen and pelvis bilaterally which is currently appears moderate. Periotneal fluid collected from drain and sent for culture, gram stain and cell count. Abx should also cover possible peritonitis Pt admitted to [facility]. Case discussed with Dr. Grullon. Attending: Dr. Cintron <Nereida Bates - Last Filed: 08/30/18 09:45> - Medical Decision Making 09/03/18 07:18 The patient was seen and evaluated in conjunction with SUSAN Bates under my direct supervision, ancillary studies were reviewed. I agree with the plan as outlined by SUSAN Bates . <Fran Fox - Last Filed: 09/03/18 07:18> *DC/Admit/Observation/Transfer - Discharge Dispostion Decision to Admit order: Yes <Nereida Bates - Last Filed: 08/30/18 09:45> <Fran Fox - Last Filed: 09/03/18 07:18> Diagnosis at time of Disposition: Fever, Pneumonia Ascites Qualifiers: Ascites type: malignant Qualified Code(s): R18.0 - Malignant ascites - Discharge Dispostion Disposition: HOME Condition at time of disposition: Improved
[2018-08-27] MEDS ORDERED: ACETAMINOPHEN 1000 MG/100 ML VIAL (NON FORMULARY) IVPB ONE (09:56)
[2018-08-27] MEDS ORDERED: ONDANSETRON 4 MG/2 ML VIAL IVPUSH ONE (09:56)
[2018-08-27] MEDS ORDERED: ACETAMINOPHEN INJECTION 100 ML IVPB ONE (10:06)
[2018-08-27] MEDS ORDERED: ONDANSETRON 4 MG/2 ML VIAL ONE (10:06)
[2018-08-27] MEDS ORDERED: SODIUM CHLORIDE 1,000 ML IV ONE (10:41)
[2018-08-27 10:42] LABS: BASO % 0.2 % (0-2.0); EOS % 0.2 % (0-4.5); HEMATOCRIT 30.6 % (32.4-45.2); HEMOGLOBIN 9.5 GM/dL (10.7-15.3); LYMPH % 3.9 % (8-40); MCH 25.5 pg (25.7-33.7); MCHC 30.9 g/dl (32.0-36.0); MEAN CELL VOLUME 82.5 fl (80-96); MEAN PLT VOLUME 8.3 fl (7.5-11.1); NEUT % 87.7 % (42.8-82.8); PLATELET COUNT 255 K/MM3 (134-434); RBC 3.71 M/mm3 (3.60-5.2); RDW 16.8 % (11.6-15.6)
[2018-08-27 10:57] LABS: INR 1.69 (0.83-1.09)
[2018-08-27 11:05] LABS: ALBUMIN 2.6 g/dl (3.4-5.0); ALK PHOS 134 U/L (45-117); ANION GAP 10 MMOL/L (8-16); BILIRUBIN,TOTAL 0.6 mg/dL (0.2-1); BLOOD UREA NITROGEN 20 mg/dL (7-18); CALCIUM 8.3 mg/dL (8.5-10.1); CHLORIDE 102 mmol/L (98-107); CO2 21 mmol/L (21-32); CREATININE 1.3 mg/dL (0.55-1.3); GLUCOSE,RANDOM 97 mg/dL (74-106); POTASSIUM 4.5 mmol/L (3.5-5.1); SGOT/AST 29 U/L (15-37); SGPT/ALT 24 U/L (13-61); SODIUM 133 mmol/L (136-145); TOT PROT 6.4 g/dl (6.4-8.2)
--- NOTE | 2018-08-27 12:36 | EKG ---
Test Reason : Blood Pressure : / mmHG Vent. Rate : 111 BPM Atrial Rate : 111 BPM P-R Int : 168 ms QRS Dur : 082 ms QT Int : 328 ms P-R-T Axes : 059 -08 055 degrees QTc Int : 446 ms SINUS TACHYCARDIA OTHERWISE NORMAL ECG WHEN COMPARED WITH ECG OF 11-AUG-2018 10:14, NO SIGNIFICANT CHANGE WAS FOUND Confirmed by BRENDA VALERIO MD ([id number]) on 08/27/2018 12:35:59 PM Referred By: Confirmed By:BRENDA VALERIO MD
[2018-08-27] MEDS ORDERED: PIPERACILLIN/TAZOB 3.375 GM 3.375 GM in DEXTROSE 5%-WATER - 50 ML IVPB ONE (12:45)
[2018-08-27] MEDS ORDERED: VANCOMYCIN 1,000 MG in DEXTROSE 5%-WATER - 250 ML IVPB ONE (12:46)
[2018-08-27] MEDS ORDERED: AZITHROMYCIN IVPB 500 MG in DEXTROSE 5%-WATER - 250 ML IVPB ONE (13:09)
[2018-08-27] MEDS ORDERED: KETOROLAC TROMETHAMINE 15 MG/ML VIAL IVPUSH ONE (13:10)
[2018-08-27] MEDS ORDERED: AZITHROMYCIN IVPB 500 MG/250 ML BAG IVPB ONE (13:22)
[2018-08-27] MEDS ORDERED: VANCOMYCIN 1 GRAM (PRE-DOCKED) 1,000 MG/250 ML BAG IVPB ONE (13:23)
[2018-08-27] MEDS ORDERED: PIPERACILLIN/TAZOB 3.375 GM 3.375 GM/50 ML BAG IVPB ONE (13:23)
[2018-08-27] MEDS ORDERED: KETOROLAC TROMETHAMINE 15 MG/ML VIAL ONE (13:37)
[2018-08-27 13:59] LABS: URINE APPEARANCE CLEAR; URINE BILIRUBIN NEGATIVE (<2.0 mg/dL); URINE COLOR DKYELLOW; URINE GLUCOSE (UA) NEGATIVE (NEGATIVE); URINE KETONE NEGATIVE (NEGATIVE); URINE LEUK ESTERASE NEGATIVE (NEGATIVE); URINE NITRITE NEGATIVE (NEGATIVE); URINE PROTEIN 1+ (NEGATIVE); URINE UROBILINOGEN NEGATIVE mg/dL (0.2-1.0)
[2018-08-27 14:48] LABS: EPI CELLS RARE /HPF (FEW); URINE HYALINE CAST 1 /lpf; URINE MUCUS RARE
--- NOTE | 2018-08-27 17:56 | HP ---
Admitting History and Physical - Admission Chief Complaint: Fever and abdominal pain x2 days History of Present Illness: The patient is a 68 yo F, with PMHx of NIDDM, HLD, SBO, diverticulosis, metastatic uterine cancer, and peritoneal carcinomatosis, recently discharged ( 08/11/18-08/13/18) with a peritoneal drain for out patient removal, now presenting with fever and abdominal pain. Pain is worse in the RLQ (previously diagnosed ventral hernia). There is associated fever not relieved with tylenol at home. Pt was unable to take the L peritoneal ELINOR drain out as an outpatient she reports, because of insurance issues. Pt said she has being emptying the drain of about 50mls daily now of more serosanguinous fluid from terrance hemorrhagic drainage in past. No dysuria,no hematuria. She has nausea but no vomiting but has had no appetite, with poor PO intake (no food today and one meal yesterday). Pt has had one episode of watery stool yesterday, with 2 of loose bowel movements the day before. No nasal congestion, but pt reports occassional dry cough. No chest pain or SOB. History Source: Patient Limitations to Obtaining History: Language Barrier (Used an pre parole counseling aide) - Past Medical History Cardiovascular: Yes: HTN Gastrointestinal: Yes: Cancer (uterine with mets) Heme/Onc: Yes: Anemia - Past Surgical History Additional Past Surgical History: Peritoneal drainage - Smoking History Smoking history: Never smoked Have you smoked in the past 12 months: No - Alcohol/Substance Use Hx Alcohol Use: No Home Medications - Allergies Allergies/Adverse Reactions: Allergies Allergy/AdvReac Type Severity Reaction Status Date / Time carboplatin Allergy Intermediate Verified 08/11/18 08:56 shellfish derived Allergy Intermediate Vomiting Verified 08/11/18 08:56 carboplatinum Allergy Intermediate Uncoded 08/11/18 08:56 - Home Medications Home Medications: Ambulatory Orders Loratadine [Claritin] 1 tab PO DAILY 09/28/17 Omeprazole Magnesium [Prilosec Otc] 40 mg PO DAILY 09/28/17 Travoprost [Travatan Z] 1 drop OU HS 09/28/17 Meloxicam 15 mg PO DAILY 08/11/18 Psyllium Husk [Metamucil] 0.4 gm PO DAILY 08/11/18 Sitagliptin Phosphate [Januvia] 100 mg PO DAILY 08/11/18 Acetaminophen [Tylenol] 2 tab PO Q6H PRN 08/13/18 Insulin NPH Hum/Reg Insulin Hm [Novolin 70-30 Flexpen] 6 units SQ ACDIN Linaclotide [Linzess] 1 tab PO DAILY 08/13/18 Metformin HCl [Glucophage] 1 tab PO AC 08/13/18 Ondansetron [Zuplenz] 1 tab PO Q8H PRN 08/13/18 Zolpidem Tartrate [Ambien] 1 tab PO HS 08/13/18 Review of Systems - Review of Systems Constitutional: reports: Fever, Loss of Appetite Respiratory: reports: Cough Gastrointestinal: reports: Abdominal Pain, Diarrhea Physical Examination Vital Signs: Vital Signs Temperature 101.3 F H 08/27/18 10:53 Pulse Rate 109 H 08/27/18 10:53 Respiratory Rate 16 08/27/18 10:53 Blood Pressure 125/73 08/27/18 10:53 O2 Sat by Pulse Oximetry (%) 97 08/27/18 10:53 Constitutional: Yes: No Distress Eyes: Yes: WNL HENT: Yes: Other (dry mucous membrane) Cardiovascular: Yes: Tachycardia, S1, S2 Respiratory: Yes: CTA Bilaterally. No: Rales, Rhonchi, Wheezes Gastrointestinal: Yes: Normal Bowel Sounds, Soft, Palpable Mass (R flank tender) , Tenderness, Epigastrium Renal/: No: CVA Tenderness - Left, CVA Tenderness - Right Musculoskeletal: No: Back Pain Extremities: Yes: WNL Edema: No Peripheral Pulses WNL: Yes Neurological: Yes: Alert, Oriented. No: Aphasia, Confusion, Facial Droop, Lethargy, Loss of Sensation ...Motor Strength: WNL Psychiatric: Yes: WNL Labs: CBC, BMP 08/27/18 10:18 08/27/18 10:18 Imaging - Results Chest X-ray: Image Reviewed ( A single AP view the chest is been submitted. Since 08/11/2018 there is some new increased density in the retrocardiac area/ left base. This could represent some atelectasis or infiltrate. The remainder the study is unchanged.) Cat Scan: Image Reviewed (No definite CT findings of acute pathology are noted. In comparison to a prior CT exam of 08/06/2018 note is made of interval placement of a percutaneous drainage catheter within a fluid collection within the lesser sac representing partially loculated ascites. The lesser sac fluid collection has diminished in size. Note is also made of diminished generalized ascites within the abdomen and pelvis which currently appears moderate in volume. A 1.3 cm right lower lobe pulmonary nodule is seen which appears to be slightly increased in size previously measuring 1.1 cm. Bibasilar discoid atelectasis is noted. The remainder of the exam demonstrates no obvious interval change. Mild peritoneal thickening is seen within the right upper quadrant laterally suggestive of peritoneal neoplastic disease. 2.1 cm right hepatic lobe hypodense lesion also suggestive of neoplastic disease. Right lower quadrant ventral hernia containing ascites and several slightly dilated small bowel loops. Administered oral contrast is noted to traverse the small bowel and opacify the colon.) Assessment/Plan The patient is a 68 yo F, with PMHx of NIDDM, HLD, SBO, diverticulosis, metastatic uterine cancer, and peritoneal carcinomatosis, recently discharged ( 08/11/18-08/13/18) with a peritoneal drain for out patient removal, now presenting with fever and abdominal pain. Sepsis secondary to peritonitis vs soft tissue abscess SIRS 2/4 with abdominal pain around previous peritoneal mass with persistent drain Blood cx- pending Peritoneal fluid cx received vanc/zosyn/azithromyc Cont vanc 1g Q12 Start cefepime 2g Q12 ID consult- Dr Griffith Soft tissue US R abdomen CT abd reported above Peritoneal fluid analysis negative flu test negative UA R quadrant ventral hernia Tender, also with some ascites (per imaging) May require surgical evaluation Diarrhea C diff toxin Hyponatremia Likely hypovolemic Poor intake reported NS@100 CADE Likely prerenal NS @100 Anemia Likely in setting of metastatic cancer Monitor CBC Normal transfusion [facility] Hemonc on board NIDDM [id number] ISS ACHS, metastatic uterine cancer, and peritoneal carcinomatosis Dr Dave cpnsult Pt failed therapy in past Availability of Clinical trials previously being evaluated HLD Not on home Statin Elevated alkaline phosphatase In setting of metastasis Monitor Hx of SBO/Hx of diverticulosis No evidence of obstruction FEN NS @100 Monitor lytes Diet PPx Heparin Visit type - Emergency Visit Emergency Visit: Yes ED Registration Date: 08/27/18 Care time: The patient presented to the Emergency Department on the above date and was hospitalized for further evaluation of their emergent condition. - New Patient This patient is new to me today: Yes Date on this admission: 08/27/18 - Critical Care Critical Care patient: No
--- NOTE | 2018-08-27 20:03 | PN ---
Teaching Attending Note Name of Resident: Lila Grullon ATTENDING PHYSICIAN STATEMENT I saw and evaluated the patient. I reviewed the resident's note and discussed the case with the resident. I agree with the resident's findings and plan as documented. SUBJECTIVE: Patient is a 68 year old woman with PMH of NIDDM, HLD, SBO, diverticulosis, metastatic uterine cancer, and peritoneal carcinomatosis, recently discharged ( 08/11/18-08/13/18) with a peritoneal drain for out patient removal, now presenting with fever and abdominal pain. She was unable to take the drain out as an outpatient because of insurance issues. She has being emptying the drain of about 50mls daily now of more serosanguinous fluid from terrance hemorrhagic drainage in past. No dysuria,no hematuria. She has nausea, no vomiting and poor appetite. She had one episode of watery stool yesterday, with 2 of loose bowel movements the day before. No nasal congestion, but reports occasional dry cough. No chest pain or SOB. OBJECTIVE: Alert Vital Signs Period Temp Pulse Resp BP Sys/Marcelino Pulse Ox Last 24 Hr 99.6 F-101.3 F 109-114 16-20 125-144/73-81 96-97 HEENT: No Jaundice, eye redness or discharge, PERRLA, EOMI. Normocephalic, atraumatic. External ears are normal and hearing is grossly intact. No nasal discharge. Neck: Supple, nontender. No palpable adenopathy or thyromegaly. No JVD Chest: Good effort. Clear to auscultation and percussion. Heart: Regular. No S3, rub or murmur Abdomen: Not distended, soft, lower abdominal and epigastric tenderness; ELINOR drain in LLQ; fluctuant mass in RLQ abdominal wall - tender; no HSM. No rebound or guarding. Normoactive bowel sounds. Ext: Peripheral pulses intact. No leg edema. Skin: Warm and dry. No petechiae, rash or ecchymosis. Neuro: Alert. Oriented x3. CN 2-12 grossly intact. Sensation grossly intact in all four extremities and DTR are symmetric. Current Medications Generic Name Dose Route Start Last Admin Trade Name Freq PRN Reason Stop Dose Admin Sodium Chloride 1,000 mls @ 100 mls/hr 08/27/18 19:15 Normal Saline - IV ASDIR ECTOR Insulin Aspart 1 vial 08/27/18 22:00 Novolog Vial Sliding Scale - SQ ACHS [facility] Protocol Ondansetron HCl 4 mg 08/27/18 19:17 Zofran Injection IVPUSH Q6H PRN NAUSEA Home Medications Medication Instructions Recorded Loratadine [Claritin] 1 tab PO DAILY 09/28/17 Omeprazole Magnesium [Prilosec Otc] 40 mg PO DAILY 09/28/17 Travoprost [Travatan Z] 1 drop OU HS 09/28/17 Meloxicam 15 mg PO DAILY 08/11/18 Psyllium Husk [Metamucil] 0.4 gm PO DAILY 08/11/18 Sitagliptin Phosphate [Januvia] 100 mg PO DAILY 08/11/18 Acetaminophen [Tylenol] 2 tab PO Q6H PRN 08/13/18 Insulin NPH Hum/Reg Insulin Hm 6 units SQ ACDIN 08/13/18 [Novolin 70-30 Flexpen] Linaclotide [Linzess] 1 tab PO DAILY 08/13/18 Metformin HCl [Glucophage] 1 tab PO AC 08/13/18 Ondansetron [Zuplenz] 1 tab PO Q8H PRN 08/13/18 Zolpidem Tartrate [Ambien] 1 tab PO HS 08/13/18 Abnormal Lab Results 08/27/18 08/27/18 08/27/18 10:18 10:18 10:18 WBC 17.0 H Hgb 9.5 L Hct 30.6 L D MCH 25.5 L MCHC 30.9 L RDW 16.8 H Absolute Neuts (auto) 14.9 H Neutrophils % 87.7 H D Lymphocytes % 3.9 L D PT with INR 20.00 H INR 1.69 H Sodium 133 L BUN 20 H Calcium 8.3 L Alkaline Phosphatase 134 H Albumin 2.6 L Urine Protein 08/27/18 13:40 WBC Hgb Hct MCH MCHC RDW Absolute Neuts (auto) Neutrophils % Lymphocytes % PT with INR INR Sodium BUN Calcium Alkaline Phosphatase Albumin Urine Protein 1+ H ASSESSMENT AND PLAN: 1. Sepsis due to Peritonitis - Sepsis workup done. CT scan shows loculated ascites. No acute pathology on CXR and EKG shows sinus tachycardia. Peritoneal fluid will be sent for analysis and culture. Will treat with Vancomycin and Cefepime pending culture. Will get sonogram of RLQ abdominal wall mass to rule out abdominal wall fluid collection/?abscess. If peritonitis is confirmed, then the ELINOR drain will have to come out. 2. Hypoalbuminemia - Possibly due to combined effects of proteinuria, malnutrition and inflammation associated with comorbid chronic conditions. Will ensure adequate dietary protein intake and also consult type photography supervisor. 3. DM - For now, we will hold the home diabetes drugs and implement sliding scale insulin regimen. Provide comprehensive diabetes care with patient teaching and counseling about the importance of euglycemia, eye care and foot care. 4. Anemia - Multifactorial including chronic inflammation and cancer. Will do basic anemia work up including serial stool guaiacs, reticulocyte count and iron studies. 5. DVT prophylaxis - Lovenox 40 mg SQ q 24 hours. 6. Advance directives - Full code
[2018-08-27] MEDS ORDERED: CEFEPIME 2 GM/100 ML BAG IVPB ONE (21:46)
[2018-08-27] MEDS: SODIUM CHLORIDE 1,000 ML IV SCH (21:47)
[2018-08-27] MEDS ORDERED: CEFEPIME 2 GM in DEXTROSE 5%-WATER 100 ML IVPB SCH (22:00)
[2018-08-27] MEDS: INSULIN SLIDING SCALE (NOVOLOG) 1 VIAL SQ SCH (23:58)
[2018-08-27] MEDS: ACETAMINOPHEN 325 MG TABLET (FP) PO PRN (23:59)
[2018-08-28] MEDS ORDERED: ACETAMINOPHEN 325 MG TABLET (FP) ONE
[2018-08-28] MEDS ORDERED: VANCOMYCIN 1 GRAM (PRE-DOCKED) 1,000 MG/250 ML BAG IVPB SCH (02:22)
[2018-08-28] MEDS: INSULIN SLIDING SCALE (NOVOLOG) 1 VIAL SQ SCH ×4 (06:06→21:43)
[2018-08-28 06:42] LABS: BASO % 0.7 % (0-2.0); EOS % 3.8 % (0-4.5); HEMATOCRIT 25.6 % (32.4-45.2); HEMOGLOBIN 8.7 GM/dL (10.7-15.3); LYMPH % 7.2 % (8-40); MCHC 34.1 g/dl (32.0-36.0); MEAN PLT VOLUME 8.2 fl (7.5-11.1); MONO % 10.9 % (3.8-10.2); NEUT % 77.4 % (42.8-82.8); PLATELET COUNT 249 K/MM3 (134-434); RBC 3.12 M/mm3 (3.60-5.2); RDW 16.9 % (11.6-15.6); WHITE BLOOD COUNT 9.9 K/mm3 (4.0-10.0)
[2018-08-28 06:56] LABS: INR 1.43 (0.83-1.09); PROTHROMBIN TIME (PATIENT) 16.9 SEC (9.7-13.0)
[2018-08-28 06:59] LABS: ACTIVATED PTT 36.3 SECONDS (25.2-36.5)
[2018-08-28 07:29] LABS: ALBUMIN 2.2 g/dl (3.4-5.0); ALK PHOS 120 U/L (45-117); ANION GAP 8 MMOL/L (8-16); BILIRUBIN,TOTAL 0.6 mg/dL (0.2-1); BLOOD UREA NITROGEN 27 mg/dL (7-18); CALCIUM 7.8 mg/dL (8.5-10.1); CHLORIDE 101 mmol/L (98-107); CO2 23 mmol/L (21-32); CREATININE 1.4 mg/dL (0.55-1.3); GLUCOSE,RANDOM 73 mg/dL (74-106); MAGNESIUM 2.1 mg/dL (1.8-2.4); PHOSPHOROUS 4.2 mg/dL (2.5-4.9); POTASSIUM 4.1 mmol/L (3.5-5.1); SGOT/AST 17 U/L (15-37); SGPT/ALT 15 U/L (13-61); SODIUM 132 mmol/L (136-145); TOT PROT 5.8 g/dl (6.4-8.2)
[2018-08-28] MEDS: ACETAMINOPHEN 325 MG TABLET (FP) PO PRN ×2 (10:45→21:43)
--- NOTE | 2018-08-28 10:55 | PN ---
Progress Note (short form) - Note Progress Note: patient is feeling better with no acute distress. Vital Signs Temperature 98.9 F 08/28/18 10:07 Pulse Rate 92 H 08/28/18 10:07 Respiratory Rate 18 08/28/18 10:07 Blood Pressure 142/77 08/28/18 10:07 O2 Sat by Pulse Oximetry (%) 97 08/28/18 03:31 HEENT: No Jaundice, PERRLA, EOMI. NC/AT Neck: Supple, nontender. No palpable adenopathy or thyromegaly. No JVD Chest: Good effort. Clear to auscultation and percussion. Heart: Regular. S1S2 positive , No S3, rub or murmur Abdomen: soft, lower abdominal and epigastric tenderness; ELINOR drain in LLQ; fluctuant mass in RLQ abdominal wall - tender. ELINOR draining. Ext: Peripheral pulses intact. No leg edema. Skin: Warm and dry. No petechiae, rash or ecchymosis. Neuro: Alert. Oriented x3. CN 2-12 grossly intact. CBCD WBC 9.9 K/mm3 (4.0-10.0) 08/28/18 06:20 RBC 3.12 M/mm3 (3.60-5.2) L 08/28/18 06:20 Hgb 8.7 GM/dL (10.7-15.3) L 08/28/18 06:20 Hct 25.6 % (32.4-45.2) L D 08/28/18 06:20 MCV 82.0 fl (80-96) 08/28/18 06:20 MCHC 34.1 g/dl (32.0-36.0) 08/28/18 06:20 RDW 16.9 % (11.6-15.6) H 08/28/18 06:20 Plt Count 249 K/MM3 (134-434) 08/28/18 06:20 MPV 8.2 fl (7.5-11.1) 08/28/18 06:20 CMP Sodium 132 mmol/L (136-145) L 08/28/18 06:20 Potassium 4.1 mmol/L (3.5-5.1) 08/28/18 06:20 Chloride 101 mmol/L (98-107) 08/28/18 06:20 Carbon Dioxide 23 mmol/L (21-32) 08/28/18 06:20 Anion Gap 8 MMOL/L (8-16) 08/28/18 06:20 BUN 27 mg/dL (7-18) H 08/28/18 06:20 Creatinine 1.4 mg/dL (0.55-1.3) H 08/28/18 06:20 Creat Clearance w eGFR 37.39 (>60) 08/28/18 06:20 Random Glucose 73 mg/dL (74-106) L 08/28/18 06:20 Calcium 7.8 mg/dL (8.5-10.1) L 08/28/18 06:20 Total Bilirubin 0.6 mg/dL (0.2-1) 08/28/18 06:20 AST 17 U/L (15-37) 08/28/18 06:20 ALT 15 U/L (13-61) 08/28/18 06:20 Alkaline Phosphatase 120 U/L (45-117) H 08/28/18 06:20 Total Protein 5.8 g/dl (6.4-8.2) L 08/28/18 06:20 Albumin 2.2 g/dl (3.4-5.0) L 08/28/18 06:20 CARDIAC ENZYMES Troponin I < 0.02 ng/ml (0.00-0.05) 08/27/18 13:30 Current Medications Generic Name Dose Route Start Last Admin Trade Name Freq PRN Reason Stop Dose Admin Acetaminophen 650 mg 08/27/18 22:26 08/28/18 10:45 Tylenol - PO 650 mg Q4H PRN Administration PAIN LEVEL 1-5 Sodium Chloride 1,000 mls @ 100 mls/hr 08/27/18 19:15 08/27/18 21:47 Normal Saline - IV 100 mls/hr ASDIR ECTOR Administration Cefepime HCl 2 gm in 50 mls @ 100 mls/hr 08/27/18 22:00 Maxipime 2gm Ivpb (Premix) IVPB BID ECTOR Protocol Vancomycin HCl 1,000 mg/ 250 mls @ 166.667 mls/hr 08/27/18 20:15 Dextrose IVPB Q12H ECTOR Protocol Insulin Aspart 1 vial 08/27/18 22:00 08/28/18 06:06 Novolog Vial Sliding Scale - SQ Not Given ACHS ECTOR Protocol Ondansetron HCl 4 mg 08/27/18 19:17 Zofran Injection IVPUSH Q6H PRN NAUSEA Home Medications Medication Instructions Recorded Loratadine [Claritin] 1 tab PO DAILY 09/28/17 Omeprazole Magnesium [Prilosec Otc] 40 mg PO DAILY 09/28/17 Travoprost [Travatan Z] 1 drop OU HS 09/28/17 Meloxicam 15 mg PO DAILY 08/11/18 Psyllium Husk [Metamucil] 0.4 gm PO DAILY 08/11/18 Sitagliptin Phosphate [Januvia] 100 mg PO DAILY 08/11/18 Acetaminophen [Tylenol] 2 tab PO Q6H PRN 08/13/18 Insulin NPH Hum/Reg Insulin Hm 6 units SQ ACDIN 08/13/18 [Novolin 70-30 Flexpen] Linaclotide [Linzess] 1 tab PO DAILY 08/13/18 Metformin HCl [Glucophage] 1 tab PO AC 08/13/18 Ondansetron [Zuplenz] 1 tab PO Q8H PRN 08/13/18 Zolpidem Tartrate [Ambien] 1 tab PO HS 08/13/18 Microbiology 08/27/18 22:50 Ascites Gram Stain - Final 08/27/18 22:50 Ascites Body Fluid Culture - Preliminary Non Lactose Fermenting Gnb Lactose Fermenting Neg Bacilli Staphylococcus Latex Coag Pos Group D Strep Or Entero Coccus 08/27/18 12:35 Blood - Peripheral Venous Blood Culture - Preliminary NO GROWTH OBTAINED AFTER 24 HOURS, INCUBATION TO CONTINUE FOR 4 DAYS. 08/27/18 12:35 Blood - Peripheral Venous Blood Culture - Preliminary NO GROWTH OBTAINED AFTER 24 HOURS, INCUBATION TO CONTINUE FOR 4 DAYS. 08/27/18 13:40 Urine - Urine Clean Catch Urine Culture - Final A/P: The patient is a 68 yo F, with PMHx of NIDDM, HLD, SBO, diverticulosis, metastatic uterine cancer, and peritoneal carcinomatosis, recently discharged ( 08/11/18-08/13/18) with a peritoneal drain for out patient removal, now presenting with fever and abdominal pain. #Sepsis secondary to Infected loculated ascitic collection on IV antibiotic as per ID, Empiric zosyn/ vancomycin, Await c/s. Surgical evaluation needed,dr licea. # Metastatic endometrial ca/ Peritoneal carcinomatosis with right quadrant ventral hernia, draining , positive for ELINOR drainage. #Acute Hyponatremia: ON IVF continue to monitor #CADE : 19/09.4 will monitor #Anemia: will monitor #NIDDM: ss with coverage #HLD: Not on home Statin DVT PX: Heparin Visit type - Emergency Visit Emergency Visit: Yes ED Registration Date: 08/27/18 Care time: The patient presented to the Emergency Department on the above date and was hospitalized for further evaluation of their emergent condition. - New Patient This patient is new to me today: Yes Date on this admission: 08/29/18 - Critical Care Critical Care patient: No - Discharge Referral Referred to [facility] No
[2018-08-28] MEDS ORDERED: INSULIN (NOVOLOG) ASPART 100 UNITS/ML 10ML VIAL ONE (11:07)
[2018-08-28] MEDS: CEFEPIME HCL/D5W 2 GM/50 ML BAG IVPB SCH (15:40)
[2018-08-28] MEDS ORDERED: DEXTROSE 5%-WATER - 50 ML IVPB ONE (16:44)
[2018-08-28] MEDS ORDERED: PIPERACILLIN/TAZOBACTAM 3.375 GM VIAL IVPB ONE (16:44)
--- NOTE | 2018-08-28 16:51 | PN ---
Progress Note (short form) - Note Progress Note: ID Consult dictated Infected loculated ascitic collection- polymicrobial ( ? perforated vicus) Fever/ leukocytosis R/O sepsis secondary to GI source Metastatic endometrial ca/ Peritoneal carcinomatosis Await c/s Empiric zosyn/ vancomycin Surgical evaluation
[2018-08-28] MEDS: PIPERACILLIN/TAZOB 3.375 GM 3.375 GM in DEXTROSE 5%-WATER - 50 ML IVPB SCH (17:21)
[2018-08-28] MEDS: VANCOMYCIN 1,000 MG in DEXTROSE 5%-WATER - 250 ML IVPB SCH (17:24)
--- NOTE | 2018-08-28 19:59 | CONS ---
DATE OF CONSULTATION: 08/28/2018 HISTORY OF PRESENT ILLNESS: The patient is a 68-year-old female who is evaluated for fever and leukocytosis. Her history was obtained from the chart as she is English speaking. The patient has a history of metastatic endometrial carcinoma with malignant ascites and peritoneal carcinomatosis. She was hospitalized at [facility] from August 11 through August 13, 2018. At that time, she underwent drainage of loculated ascites by the Interventional Radiology Department. She was discharged home with a drainage catheter in place. Cultures from the initial tap were negative. Routine culture and sensitivity, AFB and fungal cultures were also negative. She now returns with increasing abdominal pain, nausea, vomiting and diarrhea for one day prior to admission. She was seen in the emergency room where her temperature was 101.3 and her white blood cell count was 17,000. Cultures of the blood were obtained as well as cultures of the ascitic fluid. The ascitic fluid is now growing mixed organisms, including gram-negative Staphylococcus aureus and enterococcus. The patient is awake and alert. She complains of abdominal pain, mostly in the lower quadrants, right greater than left. PAST MEDICAL HISTORY: Positive for metastatic endometrial carcinoma, peritoneal carcinomatosis, [id number] diabetes mellitus, hyperlipidemia, diverticulosis, history of small bowel obstruction. ALLERGIES: CARBOPLATIN. MEDICATIONS: Claritin, Prilosec, meloxicam, Linzess, Glucophage. SOCIAL HISTORY: She lives in the community. She is a nonsmoker, nondrinker. REVIEW OF SYSTEMS: Neurologic: No loss of consciousness, seizure activity or focal weakness. Cardiac: Negative for chest pain or palpitations. Respiratory: Negative for cough or sputum production. Gastrointestinal: As per HPI. Genitourinary: Negative for urinary tract infection. LABORATORY DATA: White count on admission 17,000, presently 9.9, hematocrit 25.6, platelet count 249, creatinine 1.4. Urinalysis shows 5 white cells. Influenza swab is negative. PHYSICAL EXAMINATION: General: The patient is awake and alert, in no acute distress. Vital Signs: T-max is 101.3, blood pressure 142/77, pulse 96 and regular, respirations 20 per minute. HEENT:: Sclerae anicteric. Heart: Heart sounds S1, S2. Lungs: Clear. Abdomen: Obese, distended. There is a drainage catheter present in the left midline, lower abdomen. There is an area of what appears to be herniation in the right lower quadrant with tenderness. No mass, rebound or rigidity. Extremities: Negative for edema. IMPRESSION: 1. Infected ascitic fluid collection. 2. Fever; leukocytosis; rule out sepsis secondary to intra-abdominal focus. 3. Metastatic endometrial carcinoma with peritoneal carcinomatosis. PLAN: 1. Initial cultures status post drainage of the loculated ascitic collection were negative; now with mixed organisms. Concerned about the possibility of an occult bowel perforation in light of the mixed sapna. Await cultures. 2. Empiric antibiotic coverage with vancomycin and Zosyn. 3. Surgical evaluation. Thank you for the kind referral. WALTER LE M.D. [id number]
--- NOTE | 2018-08-28 20:21 | CONSULT ---
- Consultation REQUESTING PROVIDER: Rahul JHA CONSULT REQUEST: We have been asked to surgically evaluate this patient for abnormal imaging findings and ? abdominal pain ? PCP:Yulisa Alfonso HISTORY OF PRESENT ILLNESS: 68 y/o female w/known metastatic endometrial carcinoma presented w/fever and other c/o's; patient recently completed chemo and recently had drainage of a lesser sac collection; she is eating and moving her bowels(diarrhea) and passing flatus; she denies nausea and /or vomiting. She has a known incisional hernia. Interview was conducted in [facility]; previous admissions were reviewed as well as w/u to date. Dr. Whitlock notes reviewed. Last PET scan 6 months ago was c/w carcinomatosis. PMHx: IDDM PSHx: TAHBSO 11 years ago; recurrence in 2015 and debulking 04/09; incisional hernia developed after that. Home Medications Medication Instructions Recorded Loratadine [Claritin] 1 tab PO DAILY 09/28/17 Omeprazole Magnesium [Prilosec Otc] 40 mg PO DAILY 09/28/17 Travoprost [Travatan Z] 1 drop OU HS 09/28/17 Meloxicam 15 mg PO DAILY 08/11/18 Psyllium Husk [Metamucil] 0.4 gm PO DAILY 08/11/18 Sitagliptin Phosphate [Januvia] 100 mg PO DAILY 08/11/18 Acetaminophen [Tylenol] 2 tab PO Q6H PRN 08/13/18 Insulin NPH Hum/Reg Insulin Hm 6 units SQ ACDIN 08/13/18 [Novolin 70-30 Flexpen] Linaclotide [Linzess] 1 tab PO DAILY 08/13/18 Metformin HCl [Glucophage] 1 tab PO AC 08/13/18 Ondansetron [Zuplenz] 1 tab PO Q8H PRN 08/13/18 Zolpidem Tartrate [Ambien] 1 tab PO HS 08/13/18 Allergies Allergy/AdvReac Type Severity Reaction Status Date / Time carboplatin Allergy Intermediate Verified 08/11/18 08:56 shellfish derived Allergy Intermediate Vomiting Verified 08/11/18 08:56 carboplatinum Allergy Intermediate Uncoded 08/11/18 08:56 PHYSICAL EXAM: GENERAL: Awake, alert, and fully oriented, in no acute distress. HEAD: Normal with no signs of trauma. EYES: sclera anicteric, conjunctiva clear. NECK: Normal ROM, supple without lymphadenopathy, JVD, or masses. ABDOMEN: Soft, nontender, not distended, normoactive bowel sounds, no guarding, no rebound, no masses. No organomegaly. Healed midline scar; reducible RLQ hernia; there is a drain in the LUQ attached to a closed suction device.o/w negative. No evidence of an acute surgical abdomen. MUSCULOSKELETAL: Normal ROM at all joints. No bony deformities or tenderness. No CVA tenderness. UPPER EXTREMITIES: 2+ pulses, warm, well-perfused. No cyanosis. Cap refill <2 seconds. No peripheral edema. LOWER EXTREMITIES: 2+ pulses, warm, well-perfused. No calf tenderness. No peripheral edema. NEUROLOGICAL: Normal speech, gait not observed. PSYCH: Cooperative. Good eye contact. Appropriate mood and affect. SKIN: Warm, dry, normal turgor, no rashes or lesions noted. Vital Signs Temperature 100.6 F H 08/28/18 18:00 Pulse Rate 102 H 08/28/18 18:00 Respiratory Rate 20 08/28/18 18:00 Blood Pressure 144/83 08/28/18 18:00 O2 Sat by Pulse Oximetry (%) 98 08/28/18 09:00 Lab Results WBC 9.9 K/mm3 (4.0-10.0) 08/28/18 06:20 RBC 3.12 M/mm3 (3.60-5.2) L 08/28/18 06:20 Hgb 8.7 GM/dL (10.7-15.3) L 08/28/18 06:20 Hct 25.6 % (32.4-45.2) L D 08/28/18 06:20 MCV 82.0 fl (80-96) 08/28/18 06:20 MCHC 34.1 g/dl (32.0-36.0) 08/28/18 06:20 RDW 16.9 % (11.6-15.6) H 08/28/18 06:20 Plt Count 249 K/MM3 (134-434) 08/28/18 06:20 Sodium 132 mmol/L (136-145) L 08/28/18 06:20 Potassium 4.1 mmol/L (3.5-5.1) 08/28/18 06:20 Chloride 101 mmol/L (98-107) 08/28/18 06:20 Carbon Dioxide 23 mmol/L (21-32) 08/28/18 06:20 Anion Gap 8 MMOL/L (8-16) 08/28/18 06:20 BUN 27 mg/dL (7-18) H 08/28/18 06:20 Creatinine 1.4 mg/dL (0.55-1.3) H 08/28/18 06:20 Random Glucose 73 mg/dL (74-106) L 08/28/18 06:20 Calcium 7.8 mg/dL (8.5-10.1) L 08/28/18 06:20 INR 1.43 (0.83-1.09) H 08/28/18 06:20 CT a/p reviewed and US reviewed; labs reviewed/cultures reviewed. IMP: NO evidence of an acute surgical abdomen at this time. PLAN: Suggest continuing current tx. plan; there is no evidence for surgical intervention at this time; would tx. w/antibiotics and f/u repeat cultures from the edrainage catheter; prognosis is poor and would avoid surgical intervention at all costs; carcinomatosis and malignant ascites have an almost 100% 30 day mortality. Will f/u. Sal Ware MD FACS
--- NOTE | 2018-08-28 20:54 | PN ---
Progress Note (short form) - Note Progress Note: Patient known to oncology service. Recent discharge, with readmission yesterday, with history gleaned from admission note, as below. "The patient is a 68 yo F, with PMHx of NIDDM, HLD, SBO, diverticulosis, metastatic uterine cancer, and peritoneal carcinomatosis, recently discharged ( 08/11/18-08/13/18) with a peritoneal drain for out patient removal, now presenting with fever and abdominal pain. Pain is worse in the RLQ (previously diagnosed ventral hernia). There is associated fever not relieved with tylenol at home. Pt was unable to take the L peritoneal ELINOR drain out as an outpatient she reports, because of insurance issues. Pt said she has being emptying the drain of about 50mls daily now of more serosanguinous fluid from terrance hemorrhagic drainage in past. No dysuria,no hematuria. She has nausea but no vomiting but has had no appetite, with poor PO intake (no food today and one meal yesterday). Pt has had one episode of watery stool yesterday, with 2 of loose bowel movements the day before. No nasal congestion, but pt reports occassional dry cough. No chest pain or SOB." No new complaints since admission. No acute events overnight. Inpatient Meds reviewed. Current Medications Generic Name Dose Route Start Last Admin Trade Name Dhiraj PRN Reason Stop Dose Admin Acetaminophen 650 mg 08/27/18 22:26 08/28/18 10:45 Tylenol - PO 650 mg Q4H PRN Administration PAIN LEVEL 1-5 Sodium Chloride 1,000 mls @ 100 mls/hr 08/27/18 19:15 08/27/18 21:47 Normal Saline - IV 100 mls/hr ASDIR ECTOR Administration Vancomycin HCl 1,000 mg in 250 mls @ 200 mls/hr 08/29/18 03:00 Vancomycin (Pre-Docked) IVPB DAILY@0300 ECTOR Protocol Piperacillin Sod/Tazobactam 50 mls @ 100 mls/hr 08/28/18 18:00 08/28/18 17:21 Sod 3.375 gm/ Dextrose IVPB 100 mls/hr Q8H-IV ECTOR Administration Protocol Insulin Aspart 1 vial 08/27/18 22:00 08/28/18 17:21 Novolog Vial Sliding Scale - SQ 2 units ACHS ECTOR Administration Protocol Ondansetron HCl 4 mg 08/27/18 19:17 Zofran Injection IVPUSH Q6H PRN NAUSEA On Examination: Last Vital Signs Temp Pulse Resp BP Pulse Ox 100.6 F H 102 H 20 144/83 98 08/28/18 18:00 08/28/18 18:00 08/28/18 18:00 08/28/18 18:00 08/28/18 09:00 General: In no acute distress, lying comfortably in bed. Extremities: No pallor or icterus. No pedal edema. No palpable lymphadenopathy. Chest: breathing comfortably Abdomen: Mildly-distended, diffusely tender, drain in-situ LLQ Neuro: Alert, oriented, non-focal. Labs: CBC, BMP 08/28/18 06:20 08/28/18 06:20 Assessment. Oncology history as per Dr Dave's most recent note. "Metastatic recurrent endometrial cancer . Recently receiving avastin-doxil having progressed on taxol/carboplatinum. Has had several surgical debulking procedures. In interim , exploring other chemotherapy options." Presently admitted with fever, and likely peritoneal infection - loculated ascitic collection. ID following, on broad spectrum antibiotics for polymicrobial infection. Awaiting surgical consultation regarding surgical management options. Explained to patient's proxy that no decisions regarding further treatment would be made until this acute issue was dealt with.
[2018-08-28] MEDS: SODIUM CHLORIDE 1,000 ML IV SCH (21:20)
[2018-08-29] MEDS ORDERED: DEXTROSE 5%-WATER - 50 ML IVPB ONE ×2 (01:55→11:10)
[2018-08-29] MEDS ORDERED: PIPERACILLIN/TAZOBACTAM 3.375 GM VIAL IVPB ONE ×2 (01:55→11:10)
[2018-08-29] MEDS: SODIUM CHLORIDE 1,000 ML IV SCH (02:57)
[2018-08-29] MEDS: PIPERACILLIN/TAZOB 3.375 GM 3.375 GM in DEXTROSE 5%-WATER - 50 ML IVPB SCH ×3 (02:57→18:02)
[2018-08-29] MEDS: VANCOMYCIN 1 GRAM (PRE-DOCKED) 1,000 MG/250 ML BAG IVPB SCH (05:14)
[2018-08-29] MEDS: INSULIN SLIDING SCALE (NOVOLOG) 1 VIAL SQ SCH ×4 (07:16→21:45)
[2018-08-29] MEDS ORDERED: INSULIN (NOVOLOG) ASPART 100 UNITS/ML 10ML VIAL ONE (11:45)
--- NOTE | 2018-08-29 14:44 | PN ---
Physical Exam: SUBJECTIVE: Patient seen and examined. She is complaining of left sided abdominal pain, no fever, no chills, no diarrhea overnight. OBJECTIVE: Vital Signs Period Temp Pulse Resp BP Sys/Marcelino Pulse Ox Last 24 Hr 98.3 F-100.6 F 89-102 20-20 134-149/73-83 97 GENERAL: The patient is awake, alert, and fully oriented, in no acute distress. HEAD: Normal with no signs of trauma. EYES: Extraocular movements intact, sclera anicteric, conjunctiva clear. ENT: Ears normal, nares patent, oropharynx clear without exudates, moist mucous membranes. NECK: Trachea midline, full range of motion, supple. LUNGS: Breath sounds equal, clear to auscultation bilaterally, no wheezes, no crackles, no accessory muscle use. HEART: Regular rate and rhythm, S1, S2 without murmur, rub or gallop. ABDOMEN: Soft, nontender, nondistended, mass on right side, soft, non tender, peritoneal drain on left side of her abdomen, mild tenderness to palpation, normoactive bowel sounds, no guarding. EXTREMITIES: 2+ pulses, no edema. NEUROLOGICAL: Normal speech, non focal, gait not observed. PSYCH: Normal mood, normal affect. SKIN: Warm, dry, normal turgor, no rashes. Laboratory Results - last 24 hr 08/28/18 08/28/18 08/29/18 16:04 21:42 07:12 POC Glucometer 106 92 96 08/29/18 11:30 POC Glucometer 116 Active Medications Generic Name Dose Route Start Last Admin Trade Name Randolphq PRN Reason Stop Dose Admin Acetaminophen 650 mg 08/27/18 22:26 08/28/18 21:43 Tylenol - PO 650 mg Q4H PRN Administration PAIN LEVEL 1-5 Vancomycin HCl 1,000 mg in 250 mls @ 200 mls/hr 08/29/18 03:00 08/29/18 05:14 Vancomycin (Pre-Docked) IVPB 200 mls/hr DAILY@0300 ECTOR Administration Protocol Piperacillin Sod/Tazobactam 50 mls @ 100 mls/hr 08/28/18 18:00 08/29/18 11:26 Sod 3.375 gm/ Dextrose IVPB 100 mls/hr Q8H-IV ECTOR Administration Protocol Insulin Aspart 1 vial 08/27/18 22:00 01/06/19 12:54 Novolog Vial Sliding Scale - SQ Not Given ACHS ECTOR Protocol Ondansetron HCl 4 mg 08/27/18 19:17 Zofran Injection IVPUSH Q6H PRN NAUSEA Microbiology 08/27/18 12:35 Blood Culture - Preliminary Blood - Peripheral Venous NO GROWTH OBTAINED AFTER 48 HOURS, INCUBATION TO CONTINUE FOR 3 DAYS. 08/27/18 12:35 Blood Culture - Preliminary Blood - Peripheral Venous NO GROWTH OBTAINED AFTER 48 HOURS, INCUBATION TO CONTINUE FOR 3 DAYS. 08/27/18 22:50 Gram Stain - Final Ascites Body Fluid Culture - Preliminary Acinetobacter Baumannii/Haemol Lactose Fermenting Neg Bacilli Staphylococcus Latex Coag Pos Group D Strep Or Entero Coccus Anaerobic Culture - Final NO ANAEROBES WERE ISOLATED 08/27/18 13:40 Urine Culture - Final Urine - Urine Clean Catch ASSESSMENT/PLAN: The patient is a 68 yo F, with PMHx of NIDDM, HLD, SBO, diverticulosis, metastatic uterine cancer, and peritoneal carcinomatosis, recently discharged ( 08/11/18-08/13/18) with a peritoneal drain for outpatient removal, now presenting with fever and abdominal pain. Sepsis: -due to to peritonitis vs loculated ascitic collection -Blood cx no growth -Peritoneal fluid cx: Acinetobacter Baumannii/Haemol, Lactose Fermenting Neg Bacilli, Staphylococcus Latex Coag Pos., Group D Strep Or Entero Coccus -continue Vancomycin and Zosyn - f/u ID recommendations and Surgery recommendations. As per Dr Ware very poor prognosis metastatic uterine cancer and peritoneal carcinomatosis -f/u Hem/onc recommendations -Pt failed therapy in past: avastin-doxil having progressed on taxol/ carboplatinum, now looking for other treatments R quadrant ventral hernia no tenderness, not a candidate for surgery Diarrhea -C diff toxin Hyponatremia -resolved CADE -fluids stopped today, will monitor Anemia -Likely in setting of metastatic cancer -f/u Hem/Onc recommendations NIDDM -BGMSACHS -ISS ACHS, Elevated alkaline phosphatase -In setting of metastasis -Monitor Hx of SBO -No evidence of obstruction now FEN no/no changes/Diabetic diet Dispo: med surg, grave prognosis Problem List - Problems (1) Fever Code(s): R50.9 - FEVER, UNSPECIFIED Qualifiers: Fever type: unspecified Qualified Code(s): R50.9 - Fever, unspecified (2) Pneumonia Code(s): J18.9 - PNEUMONIA, UNSPECIFIED ORGANISM Qualifiers: Pneumonia type: due to unspecified organism Laterality: right Lung location: lower lobe of lung Qualified Code(s): J18.1 - Lobar pneumonia, unspecified organism (3) Ascites Code(s): R18.8 - OTHER ASCITES Qualifiers: Ascites type: malignant Qualified Code(s): R18.0 - Malignant ascites (4) Abdominal carcinomatosis Code(s): C76.2 - MALIGNANT NEOPLASM OF ABDOMEN (5) Uterine cancer Code(s): C55 - MALIGNANT NEOPLASM OF UTERUS, PART UNSPECIFIED (6) Abdominal pain Code(s): R10.9 - UNSPECIFIED ABDOMINAL PAIN Qualifiers: Abdominal location: generalized Qualified Code(s): R10.84 - Generalized abdominal pain Visit type - Emergency Visit Emergency Visit: Yes ED Registration Date: 08/27/18 Care time: The patient presented to the Emergency Department on the above date and was hospitalized for further evaluation of their emergent condition. - New Patient This patient is new to me today: No - Critical Care Critical Care patient: No - Discharge Referral Referred to [facility] No
--- NOTE | 2018-08-29 18:09 | PN ---
Teaching Attending Note Name of Resident: Annalee Payne ATTENDING PHYSICIAN STATEMENT I saw and evaluated the patient. I reviewed the resident's note and discussed the case with the resident. I agree with the resident's findings and plan as documented. SUBJECTIVE: Patient has no new complains. OBJECTIVE: Vital Signs Temperature 99.2 F 08/29/18 14:29 Pulse Rate 92 H 08/29/18 14:29 Respiratory Rate 20 08/29/18 14:29 Blood Pressure 130/75 08/29/18 14:29 O2 Sat by Pulse Oximetry (%) 97 08/29/18 09:00 HEENT: No Jaundice, PERRLA, EOMI. NC/AT Neck: Supple, nontender. No palpable adenopathy or thyromegaly. No JVD Chest: Good effort. Clear to auscultation and percussion. Heart: Regular. S1S2 positive , No S3, rub or murmur Abdomen: soft, lower abdominal and epigastric tenderness; ELINOR drain in LLQ; fluctuant mass in RLQ abdominal wall - tender. ELINOR draining. Ext: Peripheral pulses intact. No leg edema. Skin: Warm and dry. No petechiae, rash or ecchymosis. Neuro: Alert. Oriented x3. CN 2-12 grossly intact. CBCD WBC 9.9 K/mm3 (4.0-10.0) 08/28/18 06:20 RBC 3.12 M/mm3 (3.60-5.2) L 08/28/18 06:20 Hgb 8.7 GM/dL (10.7-15.3) L 08/28/18 06:20 Hct 25.6 % (32.4-45.2) L D 08/28/18 06:20 MCV 82.0 fl (80-96) 08/28/18 06:20 MCHC 34.1 g/dl (32.0-36.0) 08/28/18 06:20 RDW 16.9 % (11.6-15.6) H 08/28/18 06:20 Plt Count 249 K/MM3 (134-434) 08/28/18 06:20 MPV 8.2 fl (7.5-11.1) 08/28/18 06:20 CMP Sodium 132 mmol/L (136-145) L 08/28/18 06:20 Potassium 4.1 mmol/L (3.5-5.1) 08/28/18 06:20 Chloride 101 mmol/L (98-107) 08/28/18 06:20 Carbon Dioxide 23 mmol/L (21-32) 08/28/18 06:20 Anion Gap 8 MMOL/L (8-16) 08/28/18 06:20 BUN 27 mg/dL (7-18) H 08/28/18 06:20 Creatinine 1.4 mg/dL (0.55-1.3) H 08/28/18 06:20 Creat Clearance w eGFR 37.39 (>60) 08/28/18 06:20 Random Glucose 73 mg/dL (74-106) L 08/28/18 06:20 Calcium 7.8 mg/dL (8.5-10.1) L 08/28/18 06:20 Total Bilirubin 0.6 mg/dL (0.2-1) 08/28/18 06:20 AST 17 U/L (15-37) 08/28/18 06:20 ALT 15 U/L (13-61) 08/28/18 06:20 Alkaline Phosphatase 120 U/L (45-117) H 08/28/18 06:20 Total Protein 5.8 g/dl (6.4-8.2) L 08/28/18 06:20 Albumin 2.2 g/dl (3.4-5.0) L 08/28/18 06:20 CARDIAC ENZYMES Troponin I < 0.02 ng/ml (0.00-0.05) 08/27/18 13:30 Current Medications Generic Name Dose Route Start Last Admin Trade Name Freq PRN Reason Stop Dose Admin Acetaminophen 650 mg 08/27/18 22:26 08/28/18 21:43 Tylenol - PO 650 mg Q4H PRN Administration PAIN LEVEL 1-5 Vancomycin HCl 1,000 mg in 250 mls @ 200 mls/hr 08/29/18 03:00 08/29/18 05:14 Vancomycin (Pre-Docked) IVPB 200 mls/hr DAILY@0300 [facility] Administration Protocol Piperacillin Sod/Tazobactam 50 mls @ 100 mls/hr 08/28/18 18:00 08/29/18 18:02 Sod 3.375 gm/ Dextrose IVPB 100 mls/hr Q8H-IV [facility] Administration Protocol Insulin Aspart 1 vial 08/27/18 22:00 08/29/18 18:01 Novolog Vial Sliding Scale - SQ Not Given ACHS [facility] Protocol Ondansetron HCl 4 mg 08/27/18 19:17 Zofran Injection IVPUSH Q6H PRN NAUSEA Home Medications Medication Instructions Recorded Loratadine [Claritin] 1 tab PO DAILY 09/28/17 Omeprazole Magnesium [Prilosec Otc] 40 mg PO DAILY 09/28/17 Travoprost [Travatan Z] 1 drop OU HS 09/28/17 Meloxicam 15 mg PO DAILY 08/11/18 Psyllium Husk [Metamucil] 0.4 gm PO DAILY 08/11/18 Sitagliptin Phosphate [Januvia] 100 mg PO DAILY 08/11/18 Acetaminophen [Tylenol] 2 tab PO Q6H PRN 08/13/18 Insulin NPH Hum/Reg Insulin Hm 6 units SQ ACDIN 08/13/18 [Novolin 70-30 Flexpen] Linaclotide [Linzess] 1 tab PO DAILY 08/13/18 Metformin HCl [Glucophage] 1 tab PO AC 08/13/18 Ondansetron [Zuplenz] 1 tab PO Q8H PRN 08/13/18 Zolpidem Tartrate [Ambien] 1 tab PO HS 08/13/18 microbiology 08/27/18 12:35 Blood - Peripheral Venous Blood Culture - Preliminary NO GROWTH OBTAINED AFTER 48 HOURS, INCUBATION TO CONTINUE FOR 3 DAYS. 08/27/18 12:35 Blood - Peripheral Venous Blood Culture - Preliminary NO GROWTH OBTAINED AFTER 48 HOURS, INCUBATION TO CONTINUE FOR 3 DAYS. 08/27/18 22:50 Ascites Gram Stain - Final 08/27/18 22:50 Ascites Body Fluid Culture - Preliminary Acinetobacter Baumannii/Haemol Lactose Fermenting Neg Bacilli Staphylococcus Latex Coag Pos Group D Strep Or Entero Coccus 08/27/18 22:50 Ascites Anaerobic Culture - Final NO ANAEROBES WERE ISOLATED 08/27/18 13:40 Urine - Urine Clean Catch Urine Culture - Final ASSESSMENT AND PLAN: The patient is a 68 yo F, with PMHx of NIDDM, HLD, SBO, diverticulosis, metastatic uterine cancer, and peritoneal carcinomatosis, recently discharged ( 08/11/18-08/13/18) with a peritoneal drain for out patient removal, now presenting with fever and abdominal pain. #Sepsis secondary to Infected loculated ascitic collection on IV antibiotic as per ID, sensitive to zosyn/ vancomycin . Surgical evaluation as per dr licea. # Metastatic endometrial ca/ Peritoneal carcinomatosis with right quadrant ventral hernia, draining , positive for ELINOR drainage. #Acute Hyponatremia: improving on IVF , continue to monitor #CADE : 19/09.4 will monitor #Anemia: will monitor #NIDDM: ss with coverage #HLD: Not on home Statin DVT PX: Heparin
[2018-08-29] MEDS: ACETAMINOPHEN 325 MG TABLET (FP) PO PRN (22:20)
[2018-08-30] MEDS ORDERED: PIPERACILLIN/TAZOBACTAM 3.375 GM VIAL IVPB ONE ×3 (02:21→17:13)
[2018-08-30] MEDS ORDERED: DEXTROSE 5%-WATER - 50 ML IVPB ONE ×3 (02:22→17:13)
[2018-08-30] MEDS: VANCOMYCIN 1 GRAM (PRE-DOCKED) 1,000 MG/250 ML BAG IVPB SCH (02:29)
[2018-08-30] MEDS: PIPERACILLIN/TAZOB 3.375 GM 3.375 GM in DEXTROSE 5%-WATER - 50 ML IVPB SCH ×3 (02:30→17:15)
[2018-08-30] MEDS: INSULIN SLIDING SCALE (NOVOLOG) 1 VIAL SQ SCH ×4 (06:35→22:24)
[2018-08-30] MEDS: VANCOMYCIN 1,000 MG in DEXTROSE 5%-WATER - 250 ML IVPB SCH (07:07)
[2018-08-30] MEDS: CEFEPIME HCL/D5W 2 GM/50 ML BAG IVPB SCH (07:07)
[2018-08-30] MEDS ORDERED: INSULIN (NOVOLOG) ASPART 100 UNITS/ML 10ML VIAL ONE ×3 (07:41→17:25)
[2018-08-30 08:00] LABS: ALBUMIN 2.1 g/dl (3.4-5.0); ALK PHOS 126 U/L (45-117); ANION GAP 7 MMOL/L (8-16); BILIRUBIN,TOTAL 0.4 mg/dL (0.2-1); BLOOD UREA NITROGEN 13 mg/dL (7-18); CALCIUM 8.1 mg/dL (8.5-10.1); CHLORIDE 106 mmol/L (98-107); CO2 23 mmol/L (21-32); CREATININE 0.8 mg/dL (0.55-1.3); GLUCOSE,RANDOM 94 mg/dL (74-106); MAGNESIUM 1.9 mg/dL (1.8-2.4); PHOSPHOROUS 3.6 mg/dL (2.5-4.9); POTASSIUM 3.8 mmol/L (3.5-5.1); SGOT/AST 16 U/L (15-37); SGPT/ALT 13 U/L (13-61); SODIUM 137 mmol/L (136-145); TOT PROT 5.7 g/dl (6.4-8.2)
[2018-08-30 08:09] LABS: BASO % 0.6 % (0-2.0); EOS % 5.1 % (0-4.5); HEMATOCRIT 23.9 % (32.4-45.2); HEMOGLOBIN 8.2 GM/dL (10.7-15.3); LYMPH % 14.3 % (8-40); MCH 27.6 pg (25.7-33.7); MCHC 34.1 g/dl (32.0-36.0); MEAN CELL VOLUME 80.9 fl (80-96); MONO % 15.6 % (3.8-10.2); NEUT % 64.4 % (42.8-82.8); PLATELET COUNT 306 K/MM3 (134-434); RBC 2.96 M/mm3 (3.60-5.2); RDW 16.4 % (11.6-15.6); WHITE BLOOD COUNT 6.3 K/mm3 (4.0-10.0)
--- NOTE | 2018-08-30 09:25 | PN ---
Physical Exam: SUBJECTIVE: Patient seen and examined at bedside. No acute events overnight. Tolerating diet. OBJECTIVE: Vital Signs Temperature 98.3 F 08/30/18 14:04 Pulse Rate 92 H 08/30/18 14:04 Respiratory Rate 18 08/30/18 14:04 Blood Pressure 156/84 08/30/18 14:04 O2 Sat by Pulse Oximetry (%) 100 08/30/18 09:00 GENERAL: The patient is awake, alert, and fully oriented, in no acute distress. HEENT: AT/NC. EOMI. RISHI. Moist mucus membranes. NECK: Trachea midline, full range of motion, supple. LUNGS: CTA B/L. No wheezes noted. HEART: RRR. Normal S1, S2. No murmurs noted. ABDOMEN: Soft NT/ND. +BS in all 4Q's. EXTREMITIES: 2+ pulses, no edema. NEUROLOGICAL: Normal speech, non focal, gait not observed. PSYCH: Normal mood, normal affect. SKIN: Warm, dry, normal turgor, no rashes. CBCD WBC 6.3 K/mm3 (4.0-10.0) 08/30/18 06:30 RBC 2.96 M/mm3 (3.60-5.2) L 08/30/18 06:30 Hgb 8.2 GM/dL (10.7-15.3) L 08/30/18 06:30 Hct 23.9 % (32.4-45.2) L 08/30/18 06:30 MCV 80.9 fl (80-96) 08/30/18 06:30 MCHC 34.1 g/dl (32.0-36.0) 08/30/18 06:30 RDW 16.4 % (11.6-15.6) H 08/30/18 06:30 Plt Count 306 K/MM3 (134-434) D 08/30/18 06:30 MPV 8.0 fl (7.5-11.1) 08/30/18 06:30 CMP Sodium 137 mmol/L (136-145) 08/30/18 06:30 Potassium 3.8 mmol/L (3.5-5.1) 08/30/18 06:30 Chloride 106 mmol/L (98-107) 08/30/18 06:30 Carbon Dioxide 23 mmol/L (21-32) 08/30/18 06:30 Anion Gap 7 MMOL/L (8-16) L 08/30/18 06:30 BUN 13 mg/dL (7-18) 08/30/18 06:30 Creatinine 0.8 mg/dL (0.55-1.3) 08/30/18 06:30 Creat Clearance w eGFR > 60 (>60) 08/30/18 06:30 Calcium 8.1 mg/dL (8.5-10.1) L 08/30/18 06:30 Total Bilirubin 0.4 mg/dL (0.2-1) 08/30/18 06:30 AST 16 U/L (15-37) 08/30/18 06:30 ALT 13 U/L (13-61) 08/30/18 06:30 Alkaline Phosphatase 126 U/L (45-117) H 08/30/18 06:30 Total Protein 5.7 g/dl (6.4-8.2) L 08/30/18 06:30 Albumin 2.1 g/dl (3.4-5.0) L 08/30/18 06:30 Active Medications Acetaminophen (Tylenol -) 650 mg PO Q4H PRN PRN Reason: PAIN LEVEL 1-5 Last Admin: 08/29/18 22:20 Dose: 650 mg Vancomycin HCl (Vancomycin (Pre-Docked)) 1,000 mg in 250 mls @ 200 mls/hr IVPB DAILY@0300 [facility]; Protocol Last Admin: 08/30/18 02:29 Dose: 200 mls/hr Piperacillin Sod/Tazobactam (Sod 3.375 gm/ Dextrose) 50 mls @ 100 mls/hr IVPB Q8H-IV [facility]; Protocol Last Admin: 08/30/18 09:55 Dose: 100 mls/hr Insulin Aspart (Novolog Vial Sliding Scale -) 1 vial SQ ACHS [facility]; Protocol Last Admin: 08/30/18 11:56 Dose: 2 units Ondansetron HCl (Zofran Injection) 4 mg IVPUSH Q6H PRN PRN Reason: NAUSEA CONSULTS Surg- Dr. Ware ID- Dr. Griffith Onc- Dr. Dave ASSESSMENT/PLAN: 68F with PMHx of NIDDM, HLD, SBO, diverticulosis, metastatic uterine cancer, and peritoneal carcinomatosis, recently discharged (08/11/18-08/13/18) with a peritoneal drain for outpatient removal, now presenting with fever and abdominal pain. #Sepsis; 2/2 peritonitis vs. loculated ascitic collection -BCx neg x72h -Peritoneal fluid cx +Acinetobacter Baumannii/Haemol, Lactose Fermenting Neg Bacilli, Staphylococcus Latex Coag Pos., Group D Strep Or Entero Coccus -continue Vancomycin 1gm IVPB QD (started 08/29/18) and Zosyn 3.375 gm (started 08/28/18) -Per surg, no signs of acute abdomen, no surg intervention at this time. #Metastatic uterine cancer and peritoneal carcinomatosis -f/u Hem/onc recommendations -Pt failed therapy in past: avastin-doxil having progressed on taxol/ carboplatinum; grave prognosis #R quadrant ventral hernia -no tenderness, not a candidate for surgery #CADE. BUN/Cr 13/0.8. Resolved. #Anemia; likely in setting of metastatic cancer -f/u Hem/Onc recommendations #NIDDM -BGMs ACHS -ISS ACHS #Elevated alkaline phosphatase; in setting of metastasis -cont to monitor #FEN -no/no changes/Diabetic diet Dispo -cont to monitor on med-surg, grave prognosis Visit type - Emergency Visit Emergency Visit: Yes ED Registration Date: 08/27/18 Care time: The patient presented to the Emergency Department on the above date and was hospitalized for further evaluation of their emergent condition. - New Patient This patient is new to me today: Yes Date on this admission: 08/30/18 - Critical Care Critical Care patient: No
--- NOTE | 2018-08-30 11:43 | PN ---
Progress Note (short form) - Note Progress Note: Attending Surgeon Seen in f/u; no c/o; tolerating diet; moving her bowels VSS AF abdo-soft; flat and non tender; hernia is reducible. WBC-nl IMP: no evidence of an acute surgical abdomen PLAN: Continue present tx. ? palliative care; defer to Oncology.Spoke w/her HCP. Sal Ware MD FACS
--- NOTE | 2018-08-30 16:35 | PN ---
Progress Note, Physician History of Present Illness: Awake, supine in bed Ambulating Temps down Afebrile WBC improved WNL Abdominal c/s polymicrobial Tolerating antibiotics - Current Medication List Current Medications: Active Medications Acetaminophen (Tylenol -) 650 mg PO Q4H PRN PRN Reason: PAIN LEVEL 1-5 Last Admin: 08/29/18 22:20 Dose: 650 mg Vancomycin HCl (Vancomycin (Pre-Docked)) 1,000 mg in 250 mls @ 200 mls/hr IVPB DAILY@0300 [facility]; Protocol Last Admin: 08/30/18 02:29 Dose: 200 mls/hr Piperacillin Sod/Tazobactam (Sod 3.375 gm/ Dextrose) 50 mls @ 100 mls/hr IVPB Q8H-IV [facility]; Protocol Last Admin: 08/30/18 09:55 Dose: 100 mls/hr Insulin Aspart (Novolog Vial Sliding Scale -) 1 vial SQ ACHS [facility]; Protocol Last Admin: 08/30/18 11:56 Dose: 2 units Ondansetron HCl (Zofran Injection) 4 mg IVPUSH Q6H PRN PRN Reason: NAUSEA - Objective Vital Signs: Vital Signs Temperature 98.3 F 08/30/18 14:04 Pulse Rate 92 H 08/30/18 14:04 Respiratory Rate 18 08/30/18 14:04 Blood Pressure 156/84 08/30/18 14:04 O2 Sat by Pulse Oximetry (%) 100 08/30/18 09:00 Constitutional: Yes: No Distress Eyes: Yes: Conjunctiva Clear Cardiovascular: Yes: Regular Rate and Rhythm, S1, S2 Respiratory: Yes: CTA Bilaterally Gastrointestinal: Yes: Normal Bowel Sounds, Soft, Tenderness, Other (Less RLQ tenderness + R ventral hernia) Labs: CBC, BMP 08/30/18 06:30 08/30/18 06:30 INR, PTT INR 1.43 (0.83-1.09) H 08/28/18 06:20 Assessment/Plan Infected loculated ascites Fever/leukocytosis improved Metastatic ca Await final c/s Continue zosyn/ vancomycin
[2018-08-30] MEDS: ACETAMINOPHEN 325 MG TABLET (FP) PO PRN (18:10)
--- NOTE | 2018-08-30 19:11 | PN ---
Teaching Attending Note Name of Resident: iLya Barksdale ATTENDING PHYSICIAN STATEMENT I saw and evaluated the patient. I reviewed the resident's note and discussed the case with the resident. I agree with the resident's findings and plan as documented. SUBJECTIVE: Patient is feeling better with no acute distress. No shortness of breath. OBJECTIVE: Vital Signs Temperature 98.3 F 08/30/18 14:04 Pulse Rate 104 H 08/30/18 18:00 Respiratory Rate 18 08/30/18 18:00 Blood Pressure 162/80 08/30/18 18:00 O2 Sat by Pulse Oximetry (%) 100 08/30/18 09:00 HEENT: No Jaundice, PERRLA, EOMI. NC/AT Neck: Supple, nontender. No palpable adenopathy or thyromegaly. No JVD Chest: Good effort. Clear to auscultation and percussion. Heart: Regular. S1S2 positive , No S3, rub or murmur Abdomen: soft, lower abdominal and epigastric tenderness; ELINOR drain in place, draining. Ext: Peripheral pulses intact. No leg edema. Skin: Warm and dry. No petechiae, rash or ecchymosis. Neuro: Alert. Oriented x3. CN 2-12 grossly intact. CBCD WBC 6.3 K/mm3 (4.0-10.0) 08/30/18 06:30 RBC 2.96 M/mm3 (3.60-5.2) L 08/30/18 06:30 Hgb 8.2 GM/dL (10.7-15.3) L 08/30/18 06:30 Hct 23.9 % (32.4-45.2) L 08/30/18 06:30 MCV 80.9 fl (80-96) 08/30/18 06:30 MCHC 34.1 g/dl (32.0-36.0) 08/30/18 06:30 RDW 16.4 % (11.6-15.6) H 08/30/18 06:30 Plt Count 306 K/MM3 (134-434) D 08/30/18 06:30 MPV 8.0 fl (7.5-11.1) 08/30/18 06:30 CMP Sodium 137 mmol/L (136-145) 08/30/18 06:30 Potassium 3.8 mmol/L (3.5-5.1) 08/30/18 06:30 Chloride 106 mmol/L (98-107) 08/30/18 06:30 Carbon Dioxide 23 mmol/L (21-32) 08/30/18 06:30 Anion Gap 7 MMOL/L (8-16) L 08/30/18 06:30 BUN 13 mg/dL (7-18) 08/30/18 06:30 Creatinine 0.8 mg/dL (0.55-1.3) 08/30/18 06:30 Creat Clearance w eGFR > 60 (>60) 08/30/18 06:30 Random Glucose 94 mg/dL (74-106) 08/30/18 06:30 Calcium 8.1 mg/dL (8.5-10.1) L 08/30/18 06:30 Total Bilirubin 0.4 mg/dL (0.2-1) 08/30/18 06:30 AST 16 U/L (15-37) 08/30/18 06:30 ALT 13 U/L (13-61) 08/30/18 06:30 Alkaline Phosphatase 126 U/L (45-117) H 08/30/18 06:30 Total Protein 5.7 g/dl (6.4-8.2) L 08/30/18 06:30 Albumin 2.1 g/dl (3.4-5.0) L 08/30/18 06:30 CARDIAC ENZYMES Troponin I < 0.02 ng/ml (0.00-0.05) 08/27/18 13:30 Current Medications Generic Name Dose Route Start Last Admin Trade Name Dhiraj PRN Reason Stop Dose Admin Acetaminophen 650 mg 08/27/18 22:26 08/30/18 18:10 Tylenol - PO 650 mg Q4H PRN Administration PAIN LEVEL 1-5 Vancomycin HCl 1,000 mg in 250 mls @ 200 mls/hr 08/29/18 03:00 08/30/18 02:29 Vancomycin (Pre-Docked) IVPB 200 mls/hr DAILY@0300 [facility] Administration Protocol Piperacillin Sod/Tazobactam 50 mls @ 100 mls/hr 08/28/18 18:00 08/30/18 17:15 Sod 3.375 gm/ Dextrose IVPB 100 mls/hr Q8H-IV [facility] Administration Protocol Insulin Aspart 1 vial 08/27/18 22:00 08/30/18 17:17 Novolog Vial Sliding Scale - SQ Not Given ACHS [facility] Protocol Ondansetron HCl 4 mg 08/27/18 19:17 Zofran Injection IVPUSH Q6H PRN NAUSEA Home Medications Medication Instructions Recorded Loratadine [Claritin] 1 tab PO DAILY 09/28/17 Omeprazole Magnesium [Prilosec Otc] 40 mg PO DAILY 09/28/17 Travoprost [Travatan Z] 1 drop OU HS 09/28/17 Meloxicam 15 mg PO DAILY 08/11/18 Psyllium Husk [Metamucil] 0.4 gm PO DAILY 08/11/18 Sitagliptin Phosphate [Januvia] 100 mg PO DAILY 08/11/18 Acetaminophen [Tylenol] 2 tab PO Q6H PRN 08/13/18 Insulin NPH Hum/Reg Insulin Hm 6 units SQ ACDIN 08/13/18 [Novolin 70-30 Flexpen] Linaclotide [Linzess] 1 tab PO DAILY 08/13/18 Metformin HCl [Glucophage] 1 tab PO AC 08/13/18 Ondansetron [Zuplenz] 1 tab PO Q8H PRN 08/13/18 Zolpidem Tartrate [Ambien] 1 tab PO HS 08/13/18 Microbiology 08/27/18 22:50 Ascites Gram Stain - Final 08/27/18 22:50 Ascites Body Fluid Culture - Preliminary Acinetobacter Baumannii/Haemol Klebsiella Pneumoniae Staphylococcus Latex Coag Pos Enterococcus Faecalis 08/27/18 22:50 Ascites Anaerobic Culture - Final NO ANAEROBES WERE ISOLATED 08/27/18 12:35 Blood - Peripheral Venous Blood Culture - Preliminary NO GROWTH OBTAINED AFTER 72 HOURS, INCUBATION TO CONTINUE FOR 2 DAYS. 08/27/18 12:35 Blood - Peripheral Venous Blood Culture - Preliminary NO GROWTH OBTAINED AFTER 72 HOURS, INCUBATION TO CONTINUE FOR 2 DAYS. 08/27/18 13:40 Urine - Urine Clean Catch Urine Culture - Final ASSESSMENT AND PLAN: The patient is a 68 yo F, with PMHx of NIDDM, HLD, SBO, diverticulosis, metastatic uterine cancer, and peritoneal carcinomatosis, recently discharged ( 08/11/18-08/13/18) with a peritoneal drain for out patient removal, now presenting with fever and abdominal pain. #Sepsis secondary to Infected loculated ascitic collection on IV antibiotic as per ID, sensitive to zosyn/ vancomycin continue waiting for sensitivity . Surgical evaluation as per dr licea appreciated. # Metastatic endometrial ca/ Peritoneal carcinomatosis with right quadrant ventral hernia , positive for ELINOR drainage. #Acute Hyponatremia: improved s/p IVF , continue to monitor #CADE : 19/09.4 -->improved 0.8 now #Anemia: will monitor #NIDDM: ss with coverage #HLD: Not on home Statin DVT PX: scds
--- NOTE | 2018-08-30 23:16 | PN ---
Progress Note (short form) - Note Progress Note: Joan seen and examined "Metastatic recurrent endometrial cancer . Recently receiving avastin-doxil having progressed on taxol/carboplatinum. Has had several surgical debulking procedures. Presently admitted with fever, and likely peritoneal infection - loculated ascitic collection. ID following, on broad spectrum antibiotics for polymicrobial infection. surgical note noted ongoing discussions about goals of care
[2018-08-31] MEDS ORDERED: PIPERACILLIN/TAZOBACTAM 3.375 GM VIAL IVPB ONE ×2 (00:29→08:12)
[2018-08-31] MEDS ORDERED: DEXTROSE 5%-WATER - 50 ML IVPB ONE ×2 (00:29→08:12)
[2018-08-31] MEDS: PIPERACILLIN/TAZOB 3.375 GM 3.375 GM in DEXTROSE 5%-WATER - 50 ML IVPB SCH ×2 (02:10→09:47)
[2018-08-31] MEDS: VANCOMYCIN 1 GRAM (PRE-DOCKED) 1,000 MG/250 ML BAG IVPB SCH (02:45)
[2018-08-31] MEDS: INSULIN SLIDING SCALE (NOVOLOG) 1 VIAL SQ SCH ×4 (06:50→21:37)
--- NOTE | 2018-08-31 11:43 | PN ---
Progress Note, Physician History of Present Illness: Awake, supine in bed No complaints Denies abdominal pain Temps down Afebrile WBC improved WNL Abdominal c/s polymicrobial Tolerating antibiotics - Current Medication List Current Medications: Active Medications Acetaminophen (Tylenol -) 650 mg PO Q4H PRN PRN Reason: PAIN LEVEL 1-5 Last Admin: 08/30/18 18:10 Dose: 650 mg Ampicillin Sodium/Sulbactam (Sodium 1.5 gm/ Sodium Chloride) 100 mls @ 200 mls/ hr IVPB Q6H-IV [facility] Insulin Aspart (Novolog Vial Sliding Scale -) 1 vial SQ ACHS [facility]; Protocol Last Admin: 08/31/18 06:50 Dose: Not Given Ondansetron HCl (Zofran Injection) 4 mg IVPUSH Q6H PRN PRN Reason: NAUSEA - Objective Vital Signs: Vital Signs Temperature 98.5 F 08/31/18 09:12 Pulse Rate 94 H 08/31/18 09:12 Respiratory Rate 18 08/31/18 09:12 Blood Pressure 147/85 08/31/18 09:12 O2 Sat by Pulse Oximetry (%) 97 08/31/18 09:51 Constitutional: Yes: No Distress Eyes: Yes: Conjunctiva Clear Cardiovascular: Yes: Regular Rate and Rhythm, S1, S2 Respiratory: Yes: CTA Bilaterally Gastrointestinal: Yes: Normal Bowel Sounds, Soft, Other (drain in place. Minimal fluid in drain). No: Tenderness Edema: No Labs: CBC, BMP 08/30/18 06:30 08/30/18 06:30 INR, PTT INR 1.43 (0.83-1.09) H 08/28/18 06:20 Assessment/Plan Infected loculated ascites Fever/leukocytosis improved Metastatic ca Substitute unasyn
--- NOTE | 2018-08-31 13:22 | PN ---
Physical Exam: SUBJECTIVE: Patient seen and examined at bedside. No acute events overnight. Pt still complaining of mild abd tenderness at site of drain. Denies n/v, cp, sob, urinary/bowel symptoms. OBJECTIVE: Vital Signs Temperature 98.5 F 08/31/18 09:12 Pulse Rate 94 H 08/31/18 09:12 Respiratory Rate 18 08/31/18 09:12 Blood Pressure 147/85 08/31/18 09:12 O2 Sat by Pulse Oximetry (%) 97 08/31/18 09:51 GENERAL: The patient is awake, alert, and fully oriented, in no acute distress. HEENT: AT/NC. EOMI. RISHI. Moist mucus membranes. NECK: Trachea midline, full range of motion, supple. LUNGS: CTA B/L. No wheezes noted. HEART: RRR. Normal S1, S2. No murmurs noted. ABDOMEN: Soft NT/ND. +BS in all 4Q's. ELINOR drain in place on R side of abdomen, surrounding dressing c/d/i. EXTREMITIES: 2+ pulses, no edema. NEUROLOGICAL: Normal speech, non focal, gait not observed. PSYCH: Normal mood, normal affect. SKIN: Warm, dry, normal turgor, no rashes. Laboratory Results - last 24 hr 08/30/18 08/30/18 08/31/18 17:16 21:55 06:50 POC Glucometer 119 115 109 08/31/18 12:02 POC Glucometer 110 Active Medications Acetaminophen (Tylenol -) 650 mg PO Q4H PRN PRN Reason: PAIN LEVEL 1-5 Last Admin: 08/30/18 18:10 Dose: 650 mg Ampicillin Sodium/Sulbactam (Sodium 1.5 gm/ Sodium Chloride) 100 mls @ 200 mls/ hr IVPB Q6H-IV [facility] Insulin Aspart (Novolog Vial Sliding Scale -) 1 vial SQ ACHS [facility]; Protocol Last Admin: 08/31/18 12:03 Dose: Not Given Ondansetron HCl (Zofran Injection) 4 mg IVPUSH Q6H PRN PRN Reason: NAUSEA CONSULTS Surg- Dr. Ware ID- Dr. Griffith Onc- Dr. Dave ASSESSMENT/PLAN: 68F with PMHx of NIDDM, HLD, SBO, diverticulosis, metastatic uterine cancer, and peritoneal carcinomatosis, recently discharged (08/11/18-08/13/18) with a peritoneal drain for outpatient removal, now presenting with fever and abdominal pain found to have sepsis 2/2 peritoneal infection. #Sepsis; likely 2/2 peritoneal infection - loculated ascitic collection -BCx neg x96h -Peritoneal fluid cx +Acinetobacter Baumannii/Haemol, Lactose Fermenting Neg Bacilli, Staphylococcus Latex Coag Pos., Group D Strep Or Enterococcus -Per ID, switch to Unasyn 1.5 gm Q6H (started 08/31/18; previously on Vanc/Zosyn) -Per surg, no signs of acute abdomen, no surg intervention at this time. #Metastatic uterine cancer and peritoneal carcinomatosis -f/u Hem/onc recommendations -Pt failed therapy in past: avastin-doxil having progressed on taxol/ carboplatinum; grave prognosis -Palliative care consult ordered #R quadrant ventral hernia -no tenderness, not a candidate for surgery #CADE. BUN/Cr 13/0.8. Resolved. #Anemia; likely in setting of metastatic cancer -f/u Hem/Onc recommendations #NIDDM -BGMs ACHS -ISS ACHS #Elevated alkaline phosphatase; in setting of metastasis -cont to monitor #FEN -no/no changes/Diabetic diet Dispo -cont to monitor on med-surg, grave prognosis -palliative care consult Visit type - Emergency Visit Emergency Visit: Yes ED Registration Date: 08/27/18 Care time: The patient presented to the Emergency Department on the above date and was hospitalized for further evaluation of their emergent condition. - New Patient This patient is new to me today: No - Critical Care Critical Care patient: No
[2018-08-31] MEDS ORDERED: AMPICILLIN NA/SULBACTAM NA 1.5 GM VIAL ONE ×2 (16:16→19:36)
[2018-08-31] MEDS ORDERED: SODIUM CHLORIDE 100 ML IVPB ONE ×2 (16:17→19:36)
[2018-08-31] MEDS: AMPICILLIN NA/SULBACTAM NA 1.5 GM in SODIUM CHLORIDE 100 ML IVPB SCH ×2 (16:22→20:36)
[2018-08-31] MEDS: ACETAMINOPHEN 325 MG TABLET (FP) PO PRN (16:29)
--- NOTE | 2018-08-31 20:16 | PN ---
Teaching Attending Note Name of Resident: Liya Barksdale ATTENDING PHYSICIAN STATEMENT I saw and evaluated the patient. I reviewed the resident's note and discussed the case with the resident. I agree with the resident's findings and plan as documented. SUBJECTIVE: OBJECTIVE: Vital Signs Temperature 98.5 F 08/31/18 19:56 Pulse Rate 82 08/31/18 19:56 Respiratory Rate 18 08/31/18 19:56 Blood Pressure 146/83 08/31/18 19:56 O2 Sat by Pulse Oximetry (%) 97 08/31/18 09:51 HEENT: No Jaundice, PERRLA, EOMI. NC/AT Neck: Supple, nontender. No palpable adenopathy or thyromegaly. No JVD Chest: Good effort. Clear to auscultation and percussion. Heart: Regular. S1S2 positive , No S3, rub or murmur Abdomen: soft, lower abdominal and epigastric tenderness; ELINOR drain in place, draining. Ext: Peripheral pulses intact. No leg edema. Skin: Warm and dry. No petechiae, rash or ecchymosis. Neuro: Alert. Oriented x3. CN 2-12 grossly intact. CBCD WBC 6.3 K/mm3 (4.0-10.0) 08/30/18 06:30 RBC 2.96 M/mm3 (3.60-5.2) L 08/30/18 06:30 Hgb 8.2 GM/dL (10.7-15.3) L 08/30/18 06:30 Hct 23.9 % (32.4-45.2) L 08/30/18 06:30 MCV 80.9 fl (80-96) 08/30/18 06:30 MCHC 34.1 g/dl (32.0-36.0) 08/30/18 06:30 RDW 16.4 % (11.6-15.6) H 08/30/18 06:30 Plt Count 306 K/MM3 (134-434) D 08/30/18 06:30 MPV 8.0 fl (7.5-11.1) 08/30/18 06:30 CMP Sodium 137 mmol/L (136-145) 08/30/18 06:30 Potassium 3.8 mmol/L (3.5-5.1) 08/30/18 06:30 Chloride 106 mmol/L (98-107) 08/30/18 06:30 Carbon Dioxide 23 mmol/L (21-32) 08/30/18 06:30 Anion Gap 7 MMOL/L (8-16) L 08/30/18 06:30 BUN 13 mg/dL (7-18) 08/30/18 06:30 Creatinine 0.8 mg/dL (0.55-1.3) 08/30/18 06:30 Creat Clearance w eGFR > 60 (>60) 08/30/18 06:30 Random Glucose 94 mg/dL (74-106) 08/30/18 06:30 Calcium 8.1 mg/dL (8.5-10.1) L 08/30/18 06:30 Total Bilirubin 0.4 mg/dL (0.2-1) 08/30/18 06:30 AST 16 U/L (15-37) 08/30/18 06:30 ALT 13 U/L (13-61) 08/30/18 06:30 Alkaline Phosphatase 126 U/L (45-117) H 08/30/18 06:30 Total Protein 5.7 g/dl (6.4-8.2) L 08/30/18 06:30 Albumin 2.1 g/dl (3.4-5.0) L 08/30/18 06:30 CARDIAC ENZYMES Troponin I < 0.02 ng/ml (0.00-0.05) 08/27/18 13:30 Current Medications Generic Name Dose Route Start Last Admin Trade Name Freq PRN Reason Stop Dose Admin Acetaminophen 650 mg 08/27/18 22:26 08/31/18 16:29 Tylenol - PO 650 mg Q4H PRN Administration PAIN LEVEL 1-5 Ampicillin Sodium/Sulbactam 100 mls @ 200 mls/hr 08/31/18 15:00 08/31/18 16: 22 Sodium 1.5 gm/ Sodium Chloride IVPB 200 mls/hr Q6H-IV ECTOR Administration Insulin Aspart 1 vial 08/27/18 22:00 08/31/18 16:22 Novolog Vial Sliding Scale - SQ Not Given ACHS ECTOR Protocol Ondansetron HCl 4 mg 08/27/18 19:17 Zofran Injection IVPUSH Q6H PRN NAUSEA Home Medications Medication Instructions Recorded Loratadine [Claritin] 1 tab PO DAILY 09/28/17 Omeprazole Magnesium [Prilosec Otc] 40 mg PO DAILY 09/28/17 RX: Travoprost [Travatan Z] 1 drop OU HS 09/28/17 Psyllium Husk [Metamucil] 0.4 gm PO DAILY 08/11/18 RX: Meloxicam 15 mg PO DAILY 08/11/18 Sitagliptin Phosphate [Januvia] 100 mg PO DAILY 08/11/18 Acetaminophen [Tylenol] 2 tab PO Q6H PRN 08/13/18 Insulin NPH Hum/Reg Insulin Hm 6 units SQ ACDIN 08/13/18 [Novolin 70-30 Flexpen] Linaclotide [Linzess] 1 tab PO DAILY 08/13/18 RX: Metformin HCl [Glucophage] 1 tab PO AC 08/13/18 RX: Ondansetron [Zuplenz] 1 tab PO Q8H PRN 08/13/18 RX: Zolpidem Tartrate [Ambien] 1 tab PO HS 08/13/18 ASSESSMENT AND PLAN: The patient is a 68 yo F, with PMHx of NIDDM, HLD, SBO, diverticulosis, metastatic uterine cancer, and peritoneal carcinomatosis, recently discharged ( 08/11/18-08/13/18) with a peritoneal drain for out patient removal, now presenting with fever and abdominal pain. #Sepsis secondary to Infected loculated ascitic collection on IV antibiotic , sensitive to Unasyn s/p IV zosyn/ vancomycin continue. Surgical evaluation as per dr licea appreciated. drain is draining well. # Metastatic endometrial ca/ Peritoneal carcinomatosis with right quadrant ventral hernia , positive for ELINOR drainage. #Acute Hyponatremia: improved s/p IVF , continue to monitor #CADE : 27/1.4 -->improved 0.8 now #Anemia: stable will monitor #NIDDM: ss with coverage #HLD: Not on home Statin DVT PX: scds
--- NOTE | 2018-08-31 20:21 | PN ---
Progress Note (short form) - Note Progress Note: Patient seen and examined Spoke at length to health care proxy. Currently being treated for infected loculated ascites. Patient has progressed on standard chemotherapy . We are checking to see if she has MSI which might allow her to be treated with immunotherapy. We checked with [facility] - currently no available studies which patient is eligible. If she is MSI negative , I will check to see if there is a pHase I study available for her. If not, once her antibiotics are completed she will return to her family in [facility].
[2018-09-01] MEDS ORDERED: AMPICILLIN NA/SULBACTAM NA 1.5 GM VIAL ONE ×4 (01:04→19:48)
[2018-09-01] MEDS ORDERED: SODIUM CHLORIDE 100 ML IVPB ONE ×4 (01:04→19:48)
[2018-09-01] MEDS: AMPICILLIN NA/SULBACTAM NA 1.5 GM in SODIUM CHLORIDE 100 ML IVPB SCH ×4 (02:27→20:55)
[2018-09-01] MEDS: INSULIN SLIDING SCALE (NOVOLOG) 1 VIAL SQ SCH ×4 (06:04→21:08)
--- NOTE | 2018-09-01 09:26 | PN ---
Physical Exam: SUBJECTIVE: Patient seen and examined at bedside. No acute events overnight. Denies cp, sob, abd pain. Feeling well. OBJECTIVE: Vital Signs Temperature 99.9 F H 09/01/18 06:00 Pulse Rate 93 H 09/01/18 06:00 Respiratory Rate 18 09/01/18 06:00 Blood Pressure 142/79 09/01/18 06:00 O2 Sat by Pulse Oximetry (%) 97 08/31/18 09:51 GENERAL: Polish-speaking. AAOx3. HEENT: AT/NC. EOMI. RISHI. Moist mucus membranes. NECK: Trachea midline, full range of motion, supple. LUNGS: CTA B/L. No wheezes noted. HEART: RRR. Normal S1, S2. No murmurs noted. ABDOMEN: Soft NT/ND. +BS in all 4Q's. ELINOR drain in place on L side of abdomen, surrounding dressing c/d/i. EXTREMITIES: 2+ pulses, no edema. NEUROLOGICAL: Normal speech, non focal, gait not observed. PSYCH: Normal mood, normal affect. SKIN: Warm, dry, normal turgor, no rashes. Laboratory Results - last 24 hr 08/31/18 08/31/18 08/31/18 12:02 16:33 21:35 POC Glucometer 110 101 114 09/01/18 05:39 POC Glucometer 102 Active Medications Acetaminophen (Tylenol -) 650 mg PO Q4H PRN PRN Reason: PAIN LEVEL 1-5 Last Admin: 08/31/18 16:29 Dose: 650 mg Ampicillin Sodium/Sulbactam (Sodium 1.5 gm/ Sodium Chloride) 100 mls @ 200 mls/ hr IVPB Q6H-IV ECTOR Last Admin: 09/01/18 02:27 Dose: 200 mls/hr Insulin Aspart (Novolog Vial Sliding Scale -) 1 vial SQ ACHS [facility]; Protocol Last Admin: 09/01/18 06:04 Dose: Not Given Ondansetron HCl (Zofran Injection) 4 mg IVPUSH Q6H PRN PRN Reason: NAUSEA CONSULTS Surg- Dr. Ware ID- Dr. Griffith Onc- Dr. Dave ASSESSMENT/PLAN: 68F with PMHx of NIDDM, HLD, SBO, diverticulosis, metastatic uterine cancer, and peritoneal carcinomatosis, recently discharged (08/11/18-08/13/18) with a peritoneal drain for outpatient removal, now presenting with fever and abdominal pain found to have sepsis 2/2 peritoneal infection. #Sepsis; 2/2 peritoneal infection - loculated ascitic collection. Afebrile, Normal WBC. -BCx neg x96h -Peritoneal fluid cx +Acinetobacter Baumannii/Haemol, Lactose Fermenting Neg Bacilli, Staphylococcus Latex Coag Pos., Group D Strep Or Enterococcus -Per ID, switch to Unasyn 1.5 gm Q6H (started 08/31/18; previously on Vanc/Zosyn) ; f/u ID recs -Per surg, no signs of acute abdomen, no surg intervention at this time. #Metastatic uterine cancer and peritoneal carcinomatosis -Pt failed therapy in past: avastin-doxil having progressed on taxol/ carboplatinum; grave prognosis -Per onc, will check if pt qualifies for any studies at specialized facility or Phase I study available. If not, will cont IV abx and pt will likely return to [facility] to be with family. F/u Onc recs #R quadrant ventral hernia -no tenderness, not a candidate for surgery #CADE. BUN/Cr 13/0.8. Resolved. #Anemia; likely in setting of metastatic cancer -f/u Hem/Onc recommendations #NIDDM -BGMs ACHS -ISS ACHS #Elevated alkaline phosphatase; in setting of metastasis -cont to monitor #FEN -no/no changes/Diabetic diet Dispo -cont to monitor on med-surg, grave prognosis -palliative care consult Visit type - Emergency Visit Emergency Visit: Yes ED Registration Date: 08/27/18 Care time: The patient presented to the Emergency Department on the above date and was hospitalized for further evaluation of their emergent condition. - New Patient This patient is new to me today: No - Critical Care Critical Care patient: No
[2018-09-01] MEDS: ACETAMINOPHEN 325 MG TABLET (FP) PO PRN ×2 (11:50→22:08)
[2018-09-01] MEDS ORDERED: INSULIN (NOVOLOG) ASPART 100 UNITS/ML 10ML VIAL ONE (12:02)
--- NOTE | 2018-09-01 15:34 | PN ---
Progress Note (short form) - Note Progress Note: alert no vomiting no fever less abdominal discomfort Vital Signs Period Temp Pulse Resp BP Sys/Marcelino Pulse Ox Last 24 Hr 98.5 F-99.9 F 82-93 18-20 142-151/79-88 cor-rrr lungs clear abd soft,nt drain with minimal drainage ext no edema CBC, BMP 08/30/18 06:30 08/30/18 06:30 Microbiology 08/27/18 12:35 Blood - Peripheral Venous Blood Culture - Final NO GROWTH AFTER 5 DAYS INCUBATION 08/27/18 12:35 Blood - Peripheral Venous Blood Culture - Final NO GROWTH AFTER 5 DAYS INCUBATION 08/27/18 22:50 Ascites Gram Stain - Final 08/27/18 22:50 Ascites Body Fluid Culture - Final Acinetobacter Baumannii/Haemol Klebsiella Pneumoniae Staphylococcus Aureus Enterococcus Faecalis 08/27/18 22:50 Ascites Anaerobic Culture - Final NO ANAEROBES WERE ISOLATED 08/27/18 13:40 Urine - Urine Clean Catch Urine Culture - Final Current Medications Acetaminophen (Tylenol -) 650 mg PO Q4H PRN PRN Reason: PAIN LEVEL 1-5 Last Admin: 09/01/18 11:50 Dose: 650 mg Ampicillin Sodium/Sulbactam (Sodium 1.5 gm/ Sodium Chloride) 100 mls @ 200 mls/ hr IVPB Q6H-IV ECTOR Last Admin: 09/01/18 15:08 Dose: 200 mls/hr Insulin Aspart (Novolog Vial Sliding Scale -) 1 vial SQ ACHS ECTOR; Protocol Last Admin: 09/01/18 12:05 Dose: Not Given Ondansetron HCl (Zofran Injection) 4 mg IVPUSH Q6H PRN PRN Reason: NAUSEA a/p infected ascites continue unasyn metastatic cancer- per oncology
--- NOTE | 2018-09-01 19:14 | PN ---
Teaching Attending Note Name of Resident: Vinita Ann ATTENDING PHYSICIAN STATEMENT I saw and evaluated the patient. I reviewed the resident's note and discussed the case with the resident. I agree with the resident's findings and plan as documented. SUBJECTIVE: No fever or chills. no pain OBJECTIVE: NAD CV: RRR Lungs: CTAB Ext : no edema Abd: soft, mildly distended. hyperactive hgh pitched BS. right sided abd wall hernia ( reducible ) ASSESSMENT AND PLAN: Unfortunate 68 y/o lady with h/o HLP, DM , metastatic uterine cancer, peritoneal carcinomatosis, SB, s/p peritoneal drain for ascitis , who presented with fever and abd paina dn was found tohave peritonitis 1- sepsis 2/2 peritonitis: cx reviewed. - cont unasyn. - cont drainage 2- Uterine cancer with peritoneal carcinomatosis: furhter plans for out pt treatment after infectin control appreciate ONC f/u 3- CADE, hyponatremia : resolved 4- DM : cont SSI HLOC
--- NOTE | 2018-09-01 19:17 | PN ---
Progress Note (short form) - Note Progress Note: Patient seen and examined Minimal drainage from abdominal catheter Spoke with Phase I utilities service investigator at [facility]. Patient might be candidate for study. I discussed this with HCP. When antibiotics discontinued, patient will follow up at [facility] to discuss protocol.
[2018-09-02] MEDS ORDERED: SODIUM CHLORIDE 100 ML IVPB ONE ×3 (01:15→15:21)
[2018-09-02] MEDS ORDERED: AMPICILLIN NA/SULBACTAM NA 1.5 GM VIAL ONE ×3 (01:15→15:21)
[2018-09-02] MEDS: AMPICILLIN NA/SULBACTAM NA 1.5 GM in SODIUM CHLORIDE 100 ML IVPB SCH ×4 (02:33→15:42)
[2018-09-02] MEDS: INSULIN SLIDING SCALE (NOVOLOG) 1 VIAL SQ SCH ×3 (06:00→18:36)
[2018-09-02] MEDS: ACETAMINOPHEN 325 MG TABLET (FP) PO PRN ×2 (09:54→21:00)
--- NOTE | 2018-09-02 15:11 | PN ---
Teaching Attending Note Name of Resident: Liay Barksdale ATTENDING PHYSICIAN STATEMENT I saw and evaluated the patient. I reviewed the resident's note and discussed the case with the resident. I agree with the resident's findings and plan as documented. SUBJECTIVE: No fever or chills . OBJECTIVE: NAD CV: RRR Lungs: CTAB Ext : no edema Abd: soft, mildly distended. NL BS . right sided abd wall hernia ( reducible ). L sided drain ASSESSMENT AND PLAN: Unfortunate 68 y/o lady with h/o HLP, DM , metastatic uterine cancer, peritoneal carcinomatosis, SB, s/p peritoneal drain for ascitis , who presented with fever and abd pain and was found to have peritonitis 1- sepsis 2/2 peritonitis: cx reviewed. - cont unasyn. gato check with ID timing of switch to po abx and duration - cont drainage 2- Uterine cancer with peritoneal carcinomatosis: Patient and family were instructed to follow at [facility] for further treatment. will provide phone number. she was also given choice to follow with Dr. Dave as she had concern about any experimental treatment appreciate ONC f/u 3- DM : ABG daily . not requiring any insulin dispo : depends on timing of Po Abx
[2018-09-02] MEDS: ONDANSETRON 4 MG/2 ML VIAL IVPUSH PRN (15:37)
[2018-09-02] MEDS ORDERED: ENOXAPARIN NA (PORCINE) 40 MG/0.4 ML DISP.SYRIN SQ ONE (16:47)
[2018-09-02] MEDS ORDERED: INSULIN SLIDING SCALE (NOVOLOG) 1 VIAL SQ SCH (18:00)
--- NOTE | 2018-09-02 18:00 | PN ---
Physical Exam: SUBJECTIVE: Patient seen and examined at bedside. No acute events overnight. Pt complaining of gas, but is passing BM. No other complaints. Yakelin PO diet well. Minimal abd pain. OBJECTIVE: Vital Signs Temperature 98.1 F 09/02/18 14:31 Pulse Rate 90 09/02/18 14:31 Respiratory Rate 18 09/02/18 14:31 Blood Pressure 131/73 09/02/18 14:31 O2 Sat by Pulse Oximetry (%) 98 09/02/18 10:30 GENERAL: Maori-speaking. AAOx3. HEENT: AT/NC. EOMI. RISHI. Moist mucus membranes. NECK: Trachea midline, full range of motion, supple. LUNGS: CTA B/L. No wheezes noted. HEART: RRR. Normal S1, S2. No murmurs noted. ABDOMEN: Soft NT/ND. +BS in all 4Q's. ELINOR drain in place on L side of abdomen, surrounding dressing c/d/i. EXTREMITIES: 2+ pulses, no edema. NEUROLOGICAL: Normal speech, non focal, gait not observed. PSYCH: Normal mood, normal affect. SKIN: Warm, dry, normal turgor, no rashes. Laboratory Results - last 24 hr 09/01/18 09/02/18 09/02/18 21:06 05:31 11:41 POC Glucometer 113 92 146 CBCD WBC 6.3 K/mm3 (4.0-10.0) 08/30/18 06:30 RBC 2.96 M/mm3 (3.60-5.2) L 08/30/18 06:30 Hgb 8.2 GM/dL (10.7-15.3) L 08/30/18 06:30 Hct 23.9 % (32.4-45.2) L 08/30/18 06:30 MCV 80.9 fl (80-96) 08/30/18 06:30 MCHC 34.1 g/dl (32.0-36.0) 08/30/18 06:30 RDW 16.4 % (11.6-15.6) H 08/30/18 06:30 Plt Count 306 K/MM3 (134-434) D 08/30/18 06:30 MPV 8.0 fl (7.5-11.1) 08/30/18 06:30 CMP Sodium 137 mmol/L (136-145) 08/30/18 06:30 Potassium 3.8 mmol/L (3.5-5.1) 08/30/18 06:30 Chloride 106 mmol/L (98-107) 08/30/18 06:30 Carbon Dioxide 23 mmol/L (21-32) 08/30/18 06:30 Anion Gap 7 MMOL/L (8-16) L 08/30/18 06:30 BUN 13 mg/dL (7-18) 08/30/18 06:30 Creatinine 0.8 mg/dL (0.55-1.3) 08/30/18 06:30 Creat Clearance w eGFR > 60 (>60) 08/30/18 06:30 Calcium 8.1 mg/dL (8.5-10.1) L 08/30/18 06:30 Total Bilirubin 0.4 mg/dL (0.2-1) 08/30/18 06:30 AST 16 U/L (15-37) 08/30/18 06:30 ALT 13 U/L (13-61) 08/30/18 06:30 Alkaline Phosphatase 126 U/L (45-117) H 08/30/18 06:30 Total Protein 5.7 g/dl (6.4-8.2) L 08/30/18 06:30 Albumin 2.1 g/dl (3.4-5.0) L 08/30/18 06:30 CONSULTS Surg- Dr. Ware ID- Dr. Griffith Onc- Dr. Dave ASSESSMENT/PLAN: 68F with PMHx of NIDDM, HLD, SBO, diverticulosis, metastatic uterine cancer, and peritoneal carcinomatosis, recently discharged (08/11/18-08/13/18) with a peritoneal drain for outpatient removal, now presenting with fever and abdominal pain found to have sepsis 2/2 peritoneal infection. #Sepsis; 2/2 peritoneal infection - loculated ascitic collection. Afebrile, Normal WBC. -Peritoneal fluid cx +Acinetobacter Baumannii/Haemol, Lactose Fermenting Neg Bacilli, Staphylococcus Latex Coag Pos., Group D Strep Or Enterococcus; BCx neg x96h -Per ID, may switch to PO Augmentin 875 mg BID x10 days -Per surg, no signs of acute abdomen, no surg intervention at this time. #Metastatic uterine cancer and peritoneal carcinomatosis -Pt failed therapy in past: avastin-doxil having progressed on taxol/ carboplatinum; grave prognosis -Per onc, will follow up outpatient at [facility] for study after d/c. -F/u IR recs regarding need to keep or remove ELINOR drain #R quadrant ventral hernia -no tenderness, not a candidate for surgery #CADE. Stable. #Anemia; likely in setting of metastatic cancer -f/u Hem/Onc recommendations #NIDDM -BGMs daily -ISS daily #Elevated alkaline phosphatase; in setting of metastasis -cont to monitor #FEN -no/no changes/Diabetic diet Dispo -cont to monitor on med-surg, grave prognosis -Heme-onc has spoken extensively to HCP, Catie regarding pt's cancer treatment. Agreed to f/u outpatient at [facility] for study after d/c Visit type - Emergency Visit Emergency Visit: Yes ED Registration Date: 08/27/18 Care time: The patient presented to the Emergency Department on the above date and was hospitalized for further evaluation of their emergent condition. - New Patient This patient is new to me today: No - Critical Care Critical Care patient: No
[2018-09-03] MEDS: INSULIN SLIDING SCALE (NOVOLOG) 1 VIAL SQ SCH (06:28)
[2018-09-03] MEDS: AMOX TR/POT CLAV 875MG/125MG TABLETS (FP) PO SCH ×2 (09:24→18:03)
[2018-09-03] MEDS: ACETAMINOPHEN 325 MG TABLET (FP) PO PRN ×3 (12:26→23:54)
[2018-09-03 14:47] VITALS: BMI 25.7
--- NOTE | 2018-09-03 18:08 | PN ---
Physical Exam: SUBJECTIVE: Patient seen and examined at bedside. No acute events overnight. Pt feels well and has no complaints. Wishes to go home. OBJECTIVE: Vital Signs Temperature 98.9 F 09/03/18 15:07 Pulse Rate 92 H 09/03/18 15:07 Respiratory Rate 18 09/03/18 15:07 Blood Pressure 140/87 09/03/18 15:07 O2 Sat by Pulse Oximetry (%) 94 L 09/03/18 10:00 GENERAL: Urdu-speaking. AAOx3. HEENT: AT/NC. EOMI. RISHI. Moist mucus membranes. NECK: Trachea midline, full range of motion, supple. LUNGS: CTA B/L. No wheezes noted. HEART: RRR. Normal S1, S2. No murmurs noted. ABDOMEN: Soft NT/ND. +BS in all 4Q's. ELINOR drain in place on L side of abdomen, surrounding dressing c/d/i. EXTREMITIES: 2+ pulses, no edema. NEUROLOGICAL: Normal speech, non focal, gait not observed. PSYCH: Normal mood, normal affect. SKIN: Warm, dry, normal turgor, no rashes. Laboratory Results - last 24 hr 09/03/18 06:26 POC Glucometer 105 Active Medications Acetaminophen (Tylenol -) 650 mg PO Q4H PRN PRN Reason: PAIN LEVEL 1-5 Last Admin: 09/03/18 12:26 Dose: 650 mg Amoxicillin/Clavulanate Potassium (Augmentin - 875mg Tablet) 1 tab PO BID@0800, 1730 ECTOR Last Admin: 09/03/18 09:24 Dose: 1 tab Enoxaparin Sodium (Lovenox -) 40 mg SQ DAILY [facility] Insulin Aspart (Novolog Vial Sliding Scale -) 1 vial SQ AM [facility]; Protocol Last Admin: 09/03/18 06:28 Dose: Not Given Ondansetron HCl (Zofran Injection) 4 mg IVPUSH Q6H PRN PRN Reason: NAUSEA Last Admin: 09/02/18 15:37 Dose: 4 mg CONSULTS Surg- Dr. Ware ID- Dr. Griffith Onc- Dr. Dave ASSESSMENT/PLAN: 68F with PMHx of NIDDM, HLD, SBO, diverticulosis, metastatic uterine cancer, and peritoneal carcinomatosis, recently discharged (08/11/18-08/13/18) with a peritoneal drain for outpatient removal, now presenting with fever and abdominal pain found to have sepsis 2/2 peritoneal infection. #Sepsis; 2/2 peritoneal infection - loculated ascitic collection. Afebrile, Normal WBC. -Peritoneal fluid cx +Acinetobacter Baumannii/Haemol, Lactose Fermenting Neg Bacilli, Staphylococcus Latex Coag Pos., Group D Strep Or Enterococcus; BCx neg x96h -Abdominal catheter replaced by IR with new one; will need SNF placement catheter care -PO Augmentin 875 mg BID x10 days -Per surg, no signs of acute abdomen, no surg intervention at this time. #Metastatic uterine cancer and peritoneal carcinomatosis -Pt failed therapy in past: avastin-doxil having progressed on taxol/ carboplatinum; grave prognosis -Per onc, will follow up outpatient at [facility] for study after d/c with Dr. Antoni Palmer. #R quadrant ventral hernia -no tenderness, not a candidate for surgery #CADE. Stable. #Anemia; likely in setting of metastatic cancer -f/u Hem/Onc recommendations #NIDDM -BGMs daily -ISS daily #Elevated alkaline phosphatase; in setting of metastasis -cont to monitor #FEN -no/no changes/Diabetic diet Dispo -cont to monitor on med-surg, grave prognosis -f/u at [facility] for cancer study with Dr. Antoni Palmer Visit type - Emergency Visit Emergency Visit: Yes ED Registration Date: 08/27/18 Care time: The patient presented to the Emergency Department on the above date and was hospitalized for further evaluation of their emergent condition. - New Patient This patient is new to me today: No - Critical Care Critical Care patient: No
--- NOTE | 2018-09-03 19:55 | PN ---
Teaching Attending Note Name of Resident: Vinita Ann ATTENDING PHYSICIAN STATEMENT I saw and evaluated the patient. I reviewed the resident's note and discussed the case with the resident. I agree with the resident's findings and plan as documented. SUBJECTIVE: No fever or chills . no abd pain. OBJECTIVE: NAD CV: RRR Lungs: CTAB Ext : no edema Abd: soft, mildly distended. NL BS . right sided abd wall hernia ( reducible ). L sided drain ASSESSMENT AND PLAN: Unfortunate 68 y/o lady with h/o HLP, DM , metastatic uterine cancer, peritoneal carcinomatosis, SB, s/p peritoneal drain for ascitis , who presented with fever and abd pain and was found to have peritonitis 1- sepsis 2/2 peritonitis: cx reviewed. - cont with Augmentin - cont drainage 2- Uterine cancer with peritoneal carcinomatosis: - case was d/w Dr. Dave who d/w HCP . decision was made to remove cath with periodic paracentesis. but patient changed her mind, and had biger cath placed. - patient will need to call Montrell Palmer [phone] at [facility] for experimental medications 3- DM : ABG daily . not requiring any insulin - A1c 5.5 in 2017, but on metformin. will repeat A1c and decide on out pt treatment dispo :pending auth for VNS, otherwise will need rehab
[2018-09-04] MEDS: INSULIN SLIDING SCALE (NOVOLOG) 1 VIAL SQ SCH (06:40)
[2018-09-04] MEDS: ACETAMINOPHEN 325 MG TABLET (FP) PO PRN ×2 (06:40→17:46)
[2018-09-04] MEDS ORDERED: PT OWN MED DRAWER 7, Y5N ONE (06:49)
[2018-09-04] MEDS: ENOXAPARIN NA (PORCINE) 40 MG/0.4 ML DISP.SYRIN SQ SCH (09:37)
[2018-09-04] MEDS: AMOX TR/POT CLAV 875MG/125MG TABLETS (FP) PO SCH ×2 (09:37→17:47)
--- NOTE | 2018-09-04 13:45 | PN ---
Physical Exam: SUBJECTIVE: Patient seen and examined at bedside. s/p drain change yesterday by IR. Overnight with tmax 99.4F, received Tylenol. No complaints, uneventful evening. OBJECTIVE: Vital Signs Period Temp Pulse Resp BP Sys/Marcelino Pulse Ox Last 24 Hr 97.6 F-99.4 F 84-93 18-18 138-153/79-87 94-98 GENERAL: The patient is pleasant. awake, alert, and fully oriented, in no acute distress. HEAD: Normal with no signs of trauma. EYES: PERRL, extraocular movements intact, sclera anicteric, conjunctiva clear. ENT: Ears normal, nares patent, oropharynx clear NECK: Trachea midline, supple. LUNGS: Breath sounds equal, clear to auscultation bilaterally, no wheezes, no crackles, no accessory muscle use. HEART: Regular rate and rhythm, S1, S2 without murmur, rub or gallop. ABDOMEN: Soft, obese, nontender. +reducible hernia. normoactive bowel sounds. + ELINOR drain in place, with few cc dark collection EXTREMITIES: 2+ pt pulses, warm, well-perfused, no edema. NEUROLOGICAL: Cranial nerves II through XII grossly intact. 5/5 motor strength upper and lower extremities . ambulating well PSYCH: Normal mood, normal affect. SKIN: Warm, dry, normal turgor Laboratory Results - last 24 hr 09/04/18 09/04/18 06:33 07:00 POC Glucometer 105 Hemoglobin A1c % 6.2 Microbiology 09/03/18: aspirate gram stain, body fluid cx, anaerobic cx - pending 08/27/18 22:50 Ascites Gram Stain - Final 08/27/18 22:50 Ascites Anaerobic Culture - Final Acinetobacter Baumannii/Haemol Klebsiella Pneumoniae Staphylococcus Aureus Enterococcus Faecalis NO ANAEROBES WERE ISOLATED 08/27/18 13:40 Urine - Urine Clean Catch Urine Culture - Final 08/27/18 12:35 Blood - Peripheral Venous Blood Culture - Final NO GROWTH AFTER 5 DAYS INCUBATION 08/27/18 12:35 Blood - Peripheral Venous Blood Culture - Final NO GROWTH AFTER 5 DAYS INCUBATION ASSESSMENT/PLAN: 68F with PMH, preDM HLD, SBO, diverticulosis, metastatic uterine cancer, and peritoneal carcinomatosis, recently discharged (08/11/18-08/13/18) with a peritoneal drain for outpatient removal, now presenting with fever and abdominal pain found to have sepsis 2/2 peritonitis. #sepsis 2/2 peritonitis -ELINOR drain changed by IR 09/03; care noted in dc instructions -Augmentin 875 mg BID x10 days; currently on day2 -no surgical intervention needed #Metastatic uterine cancer and peritoneal carcinomatosis -Per onc, will f/u as outpt w/ [facility] for study w/ Dr. Antoni Palmer #R quadrant ventral hernia -reducible, not sx candidate at this time #preDM -A1c 6.2 -can use ISS as needed in hospital likely will not need oral agent at home on d/c #F/E/N -PO fluids -continue to follow lytes -diabetic diet #PPX lovenox Dispo will likely go on Wednesday 09/06; setting up VNS, [facility] ANESTH[facility]IA C[facility] UN[facility] NURSE f/u at [facility] for cancer study with Dr. Antoni Palmer Visit type - Emergency Visit Emergency Visit: No - New Patient This patient is new to me today: No - Critical Care Critical Care patient: No
[2018-09-05] MEDS: ACETAMINOPHEN 325 MG TABLET (FP) PO PRN ×3 (04:57→23:36)
[2018-09-05] MEDS: INSULIN SLIDING SCALE (NOVOLOG) 1 VIAL SQ SCH (06:05)
[2018-09-05] MEDS ORDERED: oxyCODONE HCL 5 MG TABLET PO PRN (08:16)
[2018-09-05] MEDS: AMOX TR/POT CLAV 875MG/125MG TABLETS (FP) PO SCH (08:52)
[2018-09-05] MEDS: ENOXAPARIN NA (PORCINE) 40 MG/0.4 ML DISP.SYRIN SQ SCH (09:34)
--- NOTE | 2018-09-05 14:33 | PN ---
Progress Note (short form) - Note Progress Note: Subjective: no fever or chills. has more pain in her abd today. no N/V . received morphine last night Objective: Vital Signs: Last Vital Signs Temp Pulse Resp BP Pulse Ox 99.4 F 87 18 140/79 98 09/05/18 09:00 09/05/18 09:00 09/05/18 09:00 09/05/18 09:00 09/05/18 09:00 Laboratory Results - last 24 hr 09/05/18 09/05/18 05:53 11:55 POC Glucometer 106 120 Physical Exam: NAD CV: RRR Lungs: CTAB Ext : no edema Abd: soft,NL BS . right sided abd wall hernia is bigger and not reducible today . more tenderness in abd especially the hernia . no skin changes. ASSESSMENT AND PLAN: Unfortunate 68 y/o lady with h/o HLP, DM , metastatic uterine cancer, peritoneal carcinomatosis, SB, s/p peritoneal drain for ascitis , who presented with fever and abd pain and was found to have peritonitis 1- Sepsis 2/2 peritonitis: - cont with Augmentin - cont drainage 2- Abd pain, worse today and her abd wall hernia is bigger and non reducible any more. - will Get stat CT scan of abd and pelvis with IV contrast, will check Cr first. - Dr. Ware notified by me - add oxycodone 3- Uterine cancer with peritoneal carcinomatosis: - cont drainage - f/u at [facility] number given to patient 3-h/o DM: A1c 6.2 . dc BGM and SSI . no meds for Dm at dc dispo : Auth for VNS is pending. will follow CT of abd . Case was d/w her HCP at bed side Visit type - Emergency Visit Emergency Visit: Yes ED Registration Date: 08/27/18 Care time: The patient presented to the Emergency Department on the above date and was hospitalized for further evaluation of their emergent condition. - New Patient This patient is new to me today: No - Critical Care Critical Care patient: No
[2018-09-05 15:57] LABS: ANION GAP 9 MMOL/L (8-16); BLOOD UREA NITROGEN 13 mg/dL (7-18); CALCIUM 8.5 mg/dL (8.5-10.1); CHLORIDE 98 mmol/L (98-107); CO2 26 mmol/L (21-32); CREATININE 0.8 mg/dL (0.55-1.3); GLUCOSE,RANDOM 117 mg/dL (74-106); POTASSIUM 4.4 mmol/L (3.5-5.1); SODIUM 133 mmol/L (136-145)
[2018-09-05 16:09] LABS: BASO % 0.6 % (0-2.0); EOS % 1.1 % (0-4.5); HEMOGLOBIN 8.4 GM/dL (10.7-15.3); MCH 26.8 pg (25.7-33.7); MCHC 33.6 g/dl (32.0-36.0); MEAN CELL VOLUME 79.9 fl (80-96); MEAN PLT VOLUME 7.2 fl (7.5-11.1); MONO % 8.2 % (3.8-10.2); NEUT % 76.1 % (42.8-82.8); PLATELET COUNT 758 K/MM3 (134-434); RBC 3.13 M/mm3 (3.60-5.2); RDW 16.9 % (11.6-15.6); WHITE BLOOD COUNT 11.5 K/mm3 (4.0-10.0)
[2018-09-05] MEDS: VANCOMYCIN 1 GRAM (PRE-DOCKED) 1,000 MG/250 ML BAG IVPB SCH (17:36)
[2018-09-05] MEDS ORDERED: PT OWN MED DRAWER 7, Y5N ONE ×2 (18:37→19:06)
[2018-09-05 18:40] LABS: URINE APPEARANCE CLEAR; URINE BILIRUBIN NEGATIVE (<2.0 mg/dL); URINE COLOR LTYELLOW; URINE GLUCOSE (UA) NEGATIVE (NEGATIVE); URINE KETONE NEGATIVE (NEGATIVE); URINE LEUK ESTERASE NEGATIVE (NEGATIVE); URINE NITRITE NEGATIVE (NEGATIVE); URINE PROTEIN NEGATIVE (NEGATIVE); URINE UROBILINOGEN NEGATIVE mg/dL (0.2-1.0)
[2018-09-05] MEDS: CEFEPIME 2 GM in DEXTROSE 5%-WATER - 100 ML IVPB SCH (18:52)
--- NOTE | 2018-09-06 01:30 | PN ---
Progress Note (short form) - Note Progress Note: CT A/P with contrast preliminary read by radiology on-call as R incarcerated ventral hernia with fluid in hernia sac. Report states mesenteric vessels within hernia sac are unchanged in character compared to mesenteric vessels within abdominal cavity. Pt still complains of pain at this time. Denies any fevers/chills, nausea, vomiting. Pt's last BM was yesterday. PE: GEN: Laying in bed, NAD HEENT: EOMI, PATTI, sclera anicteric, cir-ox-vqeus mucosa RESP: CTA b/l good inspiratory effort, no wheezes or crackles. On RA CARDIAC: RRR no murmurs appreciated ABD: Soft, obese, R ventral hernia not reducible without any overlying skin changes in RLQ, bowel sounds hyperactive over hernia, normoactive bowel sounds in other quadrants, TTP over hernia EXT: No edema, distal pulses 2+ throughout NEURO: CN II-XII intact. Strength 5/5 in all campos, Sensation intact in all campos. Gait not observed. Normal speech Imaging: CT A/P Prelim read: --Ventral hernia right of midline lower abdomen containing incarcerated small bowel with some fluid present within the hernia sac. Wall enhancement of the herniating bowel appear normal. --No free intraperitoneal air appreciated --Ascites seen surrounding liver and spleen. Fluid present within the paracolic gutters and extending into the pelvis --Diverticular change noted in sigmoid and left colon --No associated SBO identified with the hernia A/P: --Incarcerated ventral hernia confirmed by CT A/P --Pt remains NPO --Hold Lovenox morning dose --Surgical service notified and discussed --Rest per primary team mgmt Helder Becerril, DO - IM PGY-2
[2018-09-06] MEDS: CEFEPIME 2 GM in DEXTROSE 5%-WATER - 100 ML IVPB SCH ×2 (03:39→15:59)
[2018-09-06] MEDS: VANCOMYCIN 1 GRAM (PRE-DOCKED) 1,000 MG/250 ML BAG IVPB SCH ×2 (04:22→18:54)
[2018-09-06 08:36] LABS: ANION GAP 9 MMOL/L (8-16); BLOOD UREA NITROGEN 10 mg/dL (7-18); CALCIUM 8.9 mg/dL (8.5-10.1); CHLORIDE 99 mmol/L (98-107); CO2 26 mmol/L (21-32); CREATININE 0.8 mg/dL (0.55-1.3); GLUCOSE,RANDOM 98 mg/dL (74-106); POTASSIUM 4.4 mmol/L (3.5-5.1); SODIUM 133 mmol/L (136-145)
[2018-09-06 08:47] LABS: BASO % 0.6 % (0-2.0); EOS % 1.7 % (0-4.5); HEMATOCRIT 28.8 % (32.4-45.2); HEMOGLOBIN 8.8 GM/dL (10.7-15.3); LYMPH % 15.9 % (8-40); MCHC 30.6 g/dl (32.0-36.0); MEAN CELL VOLUME 81.6 fl (80-96); MEAN PLT VOLUME 7.1 fl (7.5-11.1); MONO % 9.9 % (3.8-10.2); NEUT % 71.9 % (42.8-82.8); PLATELET COUNT 764 K/MM3 (134-434); RBC 3.53 M/mm3 (3.60-5.2); RDW 16.9 % (11.6-15.6); WHITE BLOOD COUNT 11.8 K/mm3 (4.0-10.0)
--- NOTE | 2018-09-06 11:27 | PN ---
Progress Note (short form) - Note Progress Note: Attending Surgeon Seen in f/u at request of Dr. Kiser; last seen 08/30/18; she will not be getting chemo but has been refrred to [facility] for a possible clinical trial; she is eating and passing flatus and having bowel movements and some pain at the site of her incisional hernia VSS AF abdo-soft; and non tender; hernia is partialy reducible; o/w negative. 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 Sal Ware MD FACS
[2018-09-06] MEDS: ENOXAPARIN NA (PORCINE) 40 MG/0.4 ML DISP.SYRIN SQ SCH (12:38)
--- NOTE | 2018-09-06 14:23 | PN ---
Teaching Attending Note Name of Resident: Azul Borden ATTENDING PHYSICIAN STATEMENT I saw and evaluated the patient. I reviewed the resident's note and discussed the case with the resident. I agree with the resident's findings and plan as documented. SUBJECTIVE: cont to have abd pain, but improved . OBJECTIVE: NAD CV: RRR Lungs: CTAB Ext : no edema Abd: soft,NL BS. right sided abd wall hernia is slightly smaller than yesterday , and now partially reducible. less tender today . nl BS . No skin changes . L sided ELINOR drainage ASSESSMENT AND PLAN: Unfortunate 68 y/o lady with h/o HLP, DM , metastatic uterine cancer, peritoneal carcinomatosis, SB, s/p peritoneal drain for ascitis , who presented with fever and abd pain and was found to have peritonitis 1- Sepsis 2/2 peritonitis: repeat cx of ascitis fluid while on Abx grew same organisms . had fever yesterday . - cont cefepime, flagyl and vanco pending repeat cx and further ID Recs. - cont drainage 2- Incarcerated Abd wall hernia : no signs of Bowel obstruction o CT scan . hernia is partially reducible today and less tender . - case d/w Dr. licea . No surgical intervention given her overall condition and possibel peritoneal carcinomatosis - cont Oxy for pain - check lactic acid 3- Uterine cancer with peritoneal carcinomatosis: - cont drainage - f/u at [facility] number given to patient - R lung nodule and liver lesion, need to be followed as outpt resume diet resume DVT PX dispo : [facility] re-invite palliative care
--- NOTE | 2018-09-06 14:28 | PN ---
Progress Note (short form) - Note Progress Note: isolated temp yesterdya abdominal pain- went for ct scan and was evaluated by surgery antibiotics broadened while awaiting repeat cultures Vital Signs Period Temp Pulse Resp BP Sys/Marcelino Pulse Ox Last 24 Hr 98.2 F-98.8 F 86-105 18-18 124-149/70-84 96-98 cor-rrr lungs clear abd soft, mild diffuse tenderness to palpation +hernia +ELINOR drain with minimal drainage ext no edema CBC, BMP 09/06/18 06:00 09/06/18 06:00 Microbiology 09/03/18 15:15 Aspirate Gram Stain - Final 09/03/18 15:15 Aspirate Body Fluid Culture - Preliminary Enterococcus Faecalis Klebsiella Pneumoniae Pending Organism 09/03/18 15:15 Aspirate Anaerobic Culture - Final NO ANAEROBES WERE ISOLATED 08/27/18 12:35 Blood - Peripheral Venous Blood Culture - Final NO GROWTH AFTER 5 DAYS INCUBATION 08/27/18 12:35 Blood - Peripheral Venous Blood Culture - Final NO GROWTH AFTER 5 DAYS INCUBATION 08/27/18 22:50 Ascites Gram Stain - Final 08/27/18 22:50 Ascites Body Fluid Culture - Final Acinetobacter Baumannii/Haemol Klebsiella Pneumoniae Staphylococcus Aureus Enterococcus Faecalis 08/27/18 22:50 Ascites Anaerobic Culture - Final NO ANAEROBES WERE ISOLATED 08/27/18 13:40 Urine - Urine Clean Catch Urine Culture - Final a/p fever- antibiotics broadened and cultures/ct scan done- f/u repeat culture from 09/14 - not yet complete before narrowing antibioitc coverage in am infected ascites continue vanco/cefepime/flagyl metastatic cancer- per oncology
--- NOTE | 2018-09-06 15:12 | PN ---
Physical Exam: SUBJECTIVE: Patient seen and examined at bedside. Pt states she had a fever yesterday otherwise she feels well today. still complaining of abdominal pain, although pain is controlled. Denies cp, sob, urinary/bowel symptoms. OBJECTIVE: Vital Signs Temperature 98.3 F 09/06/18 13:51 Pulse Rate 96 H 09/06/18 13:51 Respiratory Rate 18 09/06/18 13:51 Blood Pressure 134/75 09/06/18 13:51 O2 Sat by Pulse Oximetry (%) 96 09/06/18 09:00 GENERAL: Chilean-speaking. AAOx3. HEENT: AT/NC. EOMI. RISHI. Moist mucus membranes. NECK: Trachea midline, full range of motion, supple. LUNGS: CTA B/L. No wheezes noted. HEART: RRR. Normal S1, S2. No murmurs noted. ABDOMEN: Soft NT/ND. +BS in all 4Q's. ELINOR drain in place on L side of abdomen, surrounding dressing c/d/i. R sided ventral hernia, tender to palpation, non- reducible. No ecchymoses noted. EXTREMITIES: 2+ pulses, no edema. NEUROLOGICAL: Normal speech, non focal, gait not observed. PSYCH: Normal mood, normal affect. SKIN: Warm, dry, normal turgor, no rashes. CBCD WBC 11.8 K/mm3 (4.0-10.0) H 09/06/18 06:00 RBC 3.53 M/mm3 (3.60-5.2) L 09/06/18 06:00 Hgb 8.8 GM/dL (10.7-15.3) L 09/06/18 06:00 Hct 28.8 % (32.4-45.2) L D 09/06/18 06:00 MCV 81.6 fl (80-96) 09/06/18 06:00 MCHC 30.6 g/dl (32.0-36.0) L 09/06/18 06:00 RDW 16.9 % (11.6-15.6) H 09/06/18 06:00 Plt Count 764 K/MM3 (134-434) H 09/06/18 06:00 MPV 7.1 fl (7.5-11.1) L 09/06/18 06:00 CMP Sodium 133 mmol/L (136-145) L 09/06/18 06:00 Potassium 4.4 mmol/L (3.5-5.1) 09/06/18 06:00 Chloride 99 mmol/L (98-107) 09/06/18 06:00 Carbon Dioxide 26 mmol/L (21-32) 09/06/18 06:00 Anion Gap 9 MMOL/L (8-16) 09/06/18 06:00 BUN 10 mg/dL (7-18) 09/06/18 06:00 Creatinine 0.8 mg/dL (0.55-1.3) 09/06/18 06:00 Creat Clearance w eGFR > 60 (>60) 09/06/18 06:00 Calcium 8.9 mg/dL (8.5-10.1) 09/06/18 06:00 Total Bilirubin 0.4 mg/dL (0.2-1) 08/30/18 06:30 AST 16 U/L (15-37) 08/30/18 06:30 ALT 13 U/L (13-61) 08/30/18 06:30 Alkaline Phosphatase 126 U/L (45-117) H 08/30/18 06:30 Total Protein 5.7 g/dl (6.4-8.2) L 08/30/18 06:30 Albumin 2.1 g/dl (3.4-5.0) L 08/30/18 06:30 Active Medications Acetaminophen (Tylenol -) 650 mg PO Q4H PRN PRN Reason: PAIN LEVEL 1-5 Last Admin: 09/05/18 23:36 Dose: 650 mg Enoxaparin Sodium (Lovenox -) 40 mg SQ DAILY ECTOR Last Admin: 09/06/18 12:38 Dose: 40 mg Cefepime HCl 2 gm/ Dextrose 100 mls @ 200 mls/hr IVPB Q12H ECTOR; Protocol Last Admin: 09/06/18 03:39 Dose: 200 mls/hr Metronidazole (Flagyl 500mg Premixed Ivpb -) 500 mg in 100 mls @ 100 mls/hr IVPB Q8H-IV ECTOR Last Admin: 09/06/18 09:16 Dose: 100 mls/hr Vancomycin HCl (Vancomycin (Pre-Docked)) 1,000 mg in 250 mls @ 166.667 mls/hr IVPB Q12H ECTOR; Protocol Last Admin: 09/06/18 04:22 Dose: 166.667 mls/hr Ondansetron HCl (Zofran Injection) 4 mg IVPUSH Q6H PRN PRN Reason: NAUSEA Last Admin: 09/02/18 15:37 Dose: 4 mg Oxycodone HCl (Roxicodone -) 5 mg PO Q6H PRN PRN Reason: PAIN LEVEL 6-10 Last Admin: 09/05/18 08:51 Dose: 5 mg ASSESSMENT/PLAN: 68F with PMHx of NIDDM, HLD, SBO, diverticulosis, metastatic uterine cancer, and peritoneal carcinomatosis, recently discharged (08/11/18-08/13/18) with a peritoneal drain for outpatient removal, currently being treated for sepsis 2/2 peritoneal infection. #Incarcerated R quadrant ventral hernia -Repeat CTAP noted above -Per surg, not a surgical candidate at this time -Oxycodone 5 mg IVP Q6H for pain control #Sepsis; 2/2 peritoneal infection - loculated ascitic collection. Afebrile, Normal WBC. -Peritoneal fluid cx +Acinetobacter Baumannii/Haemol, Lactose Fermenting Neg Bacilli, Staphylococcus Latex Coag Pos., Group D Strep Or Enterococcus; BCx neg x96h -Cont broad spectrum IV abx: Cefepime 2gm, Flagyl 500 mg Q8H, Vanco 1 gm, Q12H ( started 09/05/18) -Per ID, await repeat cultures before narrowing antibiotic coverage -Abd catheter replaced #Metastatic uterine cancer and peritoneal carcinomatosis -Pt failed therapy in past: avastin-doxil having progressed on taxol/ carboplatinum; grave prognosis -Per onc, will follow up outpatient at [facility] for study after d/c with Dr. Antoni Palmer, however spoke to Catie, pt's hcp, and might defer study due to clinical status. F/u heme-onc recs. #CADE. Stable. #Anemia; likely in setting of metastatic cancer -f/u Hem/Onc recommendations #Elevated alkaline phosphatase; in setting of metastasis -cont to monitor #FEN -no/no changes/Diabetic diet #Prophylaxis DVT- SQH Dispo -cont to monitor on med-surg, grave prognosis -Spoke to Catie who was already contacted by Dr. Ware regarding hernia. It was reiterated to Catie that pt is not a surgical candidate. Wishes to have 24 hour home nurse services to help patient with ADLs as she is dependent on others. Will d/w SW regarding future DC planning. Visit type - Emergency Visit Emergency Visit: Yes ED Registration Date: 08/27/18 Care time: The patient presented to the Emergency Department on the above date and was hospitalized for further evaluation of their emergent condition. - New Patient This patient is new to me today: No - Critical Care Critical Care patient: No
[2018-09-06] MEDS ORDERED: PT OWN MED DRAWER 7, Y5N ONE (15:53)
[2018-09-06] MEDS: ACETAMINOPHEN 325 MG TABLET (FP) PO PRN (15:57)
[2018-09-06] MEDS: ONDANSETRON 4 MG/2 ML VIAL IVPUSH PRN (17:00)
[2018-09-07] MEDS: CEFEPIME 2 GM in DEXTROSE 5%-WATER - 100 ML IVPB SCH ×2 (05:08→16:16)
[2018-09-07] MEDS: VANCOMYCIN 1 GRAM (PRE-DOCKED) 1,000 MG/250 ML BAG IVPB SCH ×2 (05:47→19:00)
[2018-09-07 08:03] LABS: HEMATOCRIT 23.3 % (32.4-45.2); HEMOGLOBIN 8.1 GM/dL (10.7-15.3); MCH 27.6 pg (25.7-33.7); MCHC 34.7 g/dl (32.0-36.0); MEAN CELL VOLUME 79.7 fl (80-96); MEAN PLT VOLUME 7.1 fl (7.5-11.1); PLATELET COUNT 733 K/MM3 (134-434); RBC 2.92 M/mm3 (3.60-5.2); RDW 17.1 % (11.6-15.6); WHITE BLOOD COUNT 8.9 K/mm3 (4.0-10.0)
[2018-09-07 08:25] LABS: ANION GAP 9 MMOL/L (8-16); BLOOD UREA NITROGEN 11 mg/dL (7-18); CALCIUM 8.6 mg/dL (8.5-10.1); CHLORIDE 99 mmol/L (98-107); CO2 25 mmol/L (21-32); CREATININE 0.8 mg/dL (0.55-1.3); GLUCOSE,RANDOM 105 mg/dL (74-106); POTASSIUM 4.4 mmol/L (3.5-5.1); SODIUM 133 mmol/L (136-145)
[2018-09-07] MEDS: ENOXAPARIN NA (PORCINE) 40 MG/0.4 ML DISP.SYRIN SQ SCH (09:40)
--- NOTE | 2018-09-07 14:53 | PN ---
Physical Exam: SUBJECTIVE: Patient seen and examined at bedside. No acute events overnight. Minimal abd pain. Yakelin PO diet. Denies chest pain, sob, urinary/bowel symptoms. OBJECTIVE: Vital Signs Temperature 98 F 09/07/18 13:08 Pulse Rate 93 H 09/07/18 13:08 Respiratory Rate 18 09/07/18 13:08 Blood Pressure 124/67 09/07/18 13:08 O2 Sat by Pulse Oximetry (%) 95 09/07/18 09:00 GENERAL: Ukrainian-speaking. Pleasant female. AAOx3. NAD. comfortable. HEENT: AT/NC. EOMI. RISHI. Moist mucus membranes. NECK: Trachea midline, full range of motion, supple. LUNGS: CTA B/L. No wheezes noted. HEART: RRR. Normal S1, S2. No murmurs noted. ABDOMEN: Soft NT/ND. +BS in all 4Q's. ELINOR drain in place on L side of abdomen, surrounding dressing c/d/i. R sided ventral hernia, minimally tender to palpation, reducible. No ecchymoses noted. EXTREMITIES: 2+ pulses, no edema. NEUROLOGICAL: Normal speech, non focal, gait not observed. PSYCH: Normal mood, normal affect. SKIN: Warm, dry, normal turgor, no rashes. CBC, BMP 09/07/18 06:35 09/07/18 06:35 Active Medications Acetaminophen (Tylenol -) 650 mg PO Q4H PRN PRN Reason: PAIN LEVEL 1-5 Last Admin: 09/06/18 15:57 Dose: 650 mg Enoxaparin Sodium (Lovenox -) 40 mg SQ DAILY ECTOR Last Admin: 09/07/18 09:40 Dose: 40 mg Cefepime HCl 2 gm/ Dextrose 100 mls @ 200 mls/hr IVPB Q12H ECTOR; Protocol Last Admin: 09/07/18 05:08 Dose: 200 mls/hr Metronidazole (Flagyl 500mg Premixed Ivpb -) 500 mg in 100 mls @ 100 mls/hr IVPB Q8H-IV ECTOR Last Admin: 09/07/18 09:57 Dose: 100 mls/hr Vancomycin HCl (Vancomycin (Pre-Docked)) 1,000 mg in 250 mls @ 166.667 mls/hr IVPB Q12H ECTOR; Protocol Last Admin: 09/07/18 05:47 Dose: 166.667 mls/hr Ondansetron HCl (Zofran Injection) 4 mg IVPUSH Q6H PRN PRN Reason: NAUSEA Last Admin: 09/06/18 17:00 Dose: 4 mg Oxycodone HCl (Roxicodone -) 5 mg PO Q6H PRN PRN Reason: PAIN LEVEL 6-10 Last Admin: 09/05/18 08:51 Dose: 5 mg ASSESSMENT/PLAN: 68F with PMHx of NIDDM, HLD, SBO, diverticulosis, metastatic uterine cancer, and peritoneal carcinomatosis, recently discharged (08/11/18-08/13/18) with a peritoneal drain for outpatient removal, currently being treated for sepsis 2/2 peritoneal infection. #Incarcerated R quadrant ventral hernia -Repeat CTAP noted above -Per surg, not a surgical candidate at this time -Oxycodone 5 mg IVP Q6H for pain control #Sepsis; 2/2 peritoneal infection - loculated ascitic collection. Afebrile, Normal WBC. -Peritoneal fluid cx +Acinetobacter Baumannii/Haemol, Lactose Fermenting Neg Bacilli, Staphylococcus Latex Coag Pos., Group D Strep Or Enterococcus; BCx neg x24h (09/05) -Cont broad spectrum IV abx: Cefepime 2gm, Flagyl 500 mg Q8H, Vanco 1 gm, Q12H ( started 09/05/18) -Per ID, await repeat cultures before narrowing antibiotic coverage; await ID recs -Abd catheter replaced #Metastatic uterine cancer and peritoneal carcinomatosis -Pt failed therapy in past: avastin-doxil having progressed on taxol/ carboplatinum; grave prognosis -Per onc, will follow up outpatient at [facility] for study after d/c with Dr. Antoni Palmer, however spoke to Catie, pt's hcp, and might defer study due to clinical status. F/u heme-onc recs. #CADE. Stable. #Anemia; likely in setting of metastatic cancer -f/u Hem/Onc recommendations #Elevated alkaline phosphatase; in setting of metastasis -cont to monitor #FEN -no/no changes/Diabetic diet #Prophylaxis DVT- SQH Dispo -cont to monitor on med-surg, grave prognosis -Spoke to Catie who was already contacted by Dr. Ware regarding hernia. It was reiterated to Catie that pt is not a surgical candidate. Wishes to have 24 hour home nurse services to help patient with ADLs as she is dependent on others. Will d/w SW regarding future DC planning. -Spoke to palliative care talk to pt and niece regarding goals of care. Visit type - Emergency Visit Emergency Visit: Yes ED Registration Date: 08/27/18 Care time: The patient presented to the Emergency Department on the above date and was hospitalized for further evaluation of their emergent condition. - New Patient This patient is new to me today: No - Critical Care Critical Care patient: No
[2018-09-07] MEDS ORDERED: PT OWN MED DRAWER 7, Y5N ONE (15:29)
--- NOTE | 2018-09-07 16:06 | PN ---
Teaching Attending Note Name of Resident: Liya Barksdale ATTENDING PHYSICIAN STATEMENT I saw and evaluated the patient. I reviewed the resident's note and discussed the case with the resident. I agree with the resident's findings and plan as documented. SUBJECTIVE: No fever or chills. Abd pain improved . had a BM today OBJECTIVE: NAD CV: RRR Lungs: CTAB Ext: no edema Abd: soft,NL BS. right sided abd wall hernia is now reducible , and less tender. L sided ELINOR drainage with 2 cc of yellow fluid ASSESSMENT AND PLAN: Unfortunate 68 y/o lady with h/o HLP, DM , metastatic uterine cancer, peritoneal carcinomatosis, SB, s/p peritoneal drain for ascitis , who presented with fever and abd pain and was found to have peritonitis 1- Sepsis 2/2 peritonitis: - follow repeat blood cx - unfortunately, cx from ELINOR was not sent on . - cont current Abx cefepime, flagyl and vanco - vanco trough today before afternoon dose 2- Abd wall hernia, now reducible, with decreased pain. 3- Uterine cancer with possible peritoneal carcinomatosis: - cont drainage - f/u at [facility] number given to patient - R lung nodule and liver lesion, need to be followed as outpt DVT px with lovenox Dispo: HLOC, pending cultures, and decision about abx. when ready for Dc, she can go home if VNS services are arranged
--- NOTE | 2018-09-07 17:31 | PATH ---
Cytology Non-Gynecological Report Patient Name: MICHAEL ALLRED [facility]. Rec. #: [id number] /Age/Gender: 1950 (Age: 68) / F Account: [id number] Location: [address] [place] [address]/[facility] Taken: 09/03/2018 Received: 09/06/2018 Reported: 09/07/2018 Physicians: Tya Silva M.D. Specimen(s) Received ABDOMINAL DRAIN Clinical History Abdominal drain Final Diagnosis ABDOMINAL DRAIN FLUID FOR CYTOLOGY: SATISFACTORY FOR EVALUATION. NO MALIGNANT CELLS IDENTIFIED. NUMEROUS NEUTROPHILS, RARE LYMPHOCYTES, AND DEGENERATED CELLS CONSISTENT WITH ACUTE INFLAMMATORY EXUDATE. Electronically Signed Leigh Pina M.D. Gross Description Approximately 40 cc of red fluid received fixed in 50% alcohol. One cytofunnel prepared and Pap stained. One cellblock prepared.
--- NOTE | 2018-09-07 18:35 | PN ---
Progress Note (short form) - Note Progress Note: isolated temp yesterdya abdominal pain resolving Vital Signs Period Temp Pulse Resp BP Sys/Marcelino Pulse Ox Last 24 Hr 98 F-98.8 F 86-101 18-18 120-139/67-77 95-95 cor-rrr lulngs clear abd soft,nt more drainage from ELINOR noted ext no edema CBC, BMP 09/07/18 06:35 09/07/18 06:35 Microbiology 09/05/18 16:56 Blood - Peripheral Venous Blood Culture - Preliminary NO GROWTH OBTAINED AFTER 48 HOURS, INCUBATION TO CONTINUE FOR 3 DAYS. 09/05/18 16:50 Blood - Peripheral Venous Blood Culture - Preliminary NO GROWTH OBTAINED AFTER 48 HOURS, INCUBATION TO CONTINUE FOR 3 DAYS. 09/05/18 16:54 Urine - Urine Clean Catch Urine Culture - Final NO GROWTH OBTAINED 09/03/18 15:15 Aspirate Gram Stain - Final 09/03/18 15:15 Aspirate Body Fluid Culture - Final Enterococcus Faecalis Klebsiella Pneumoniae 09/03/18 15:15 Aspirate Anaerobic Culture - Final NO ANAEROBES WERE ISOLATED 08/27/18 12:35 Blood - Peripheral Venous Blood Culture - Final NO GROWTH AFTER 5 DAYS INCUBATION 08/27/18 12:35 Blood - Peripheral Venous Blood Culture - Final NO GROWTH AFTER 5 DAYS INCUBATION 08/27/18 22:50 Ascites Gram Stain - Final 08/27/18 22:50 Ascites Body Fluid Culture - Final Acinetobacter Baumannii/Haemol Klebsiella Pneumoniae Staphylococcus Aureus Enterococcus Faecalis 08/27/18 22:50 Ascites Anaerobic Culture - Final NO ANAEROBES WERE ISOLATED 08/27/18 13:40 Urine - Urine Clean Catch Urine Culture - Final a/p fever resolved, abdominal pain improved- antibiotics broadened and cultures/ct scan done- f/u repeat culture from 09/03 - noted can resume unasyn in am metastatic cancer- per oncology
[2018-09-07] MEDS: ACETAMINOPHEN 325 MG TABLET (FP) PO PRN (20:00)
[2018-09-07] MEDS: ONDANSETRON 4 MG/2 ML VIAL IVPUSH PRN (22:10)
[2018-09-08] MEDS ORDERED: PT OWN MED DRAWER 7, Y5N ONE (04:08)
[2018-09-08] MEDS: CEFEPIME 2 GM in DEXTROSE 5%-WATER - 100 ML IVPB SCH (05:01)
[2018-09-08] MEDS: VANCOMYCIN 1 GRAM (PRE-DOCKED) 1,000 MG/250 ML BAG IVPB SCH (05:43)
[2018-09-08 07:27] LABS: HEMATOCRIT 22.6 % (32.4-45.2); HEMOGLOBIN 7.6 GM/dL (10.7-15.3); MCHC 33.7 g/dl (32.0-36.0); MEAN CELL VOLUME 80.3 fl (80-96); MEAN PLT VOLUME 6.7 fl (7.5-11.1); PLATELET COUNT 696 K/MM3 (134-434); RBC 2.81 M/mm3 (3.60-5.2); RDW 16.6 % (11.6-15.6); WHITE BLOOD COUNT 8.6 K/mm3 (4.0-10.0)
--- NOTE | 2018-09-08 08:48 | PN ---
Teaching Attending Note Name of Resident: Liya Barksdale ATTENDING PHYSICIAN STATEMENT I saw and evaluated the patient. I reviewed the resident's note and discussed the case with the resident. I agree with the resident's findings and plan as documented. SUBJECTIVE: Patient is feeling better, with no acute distress. OBJECTIVE: Vital Signs Temperature 98.2 F 09/08/18 05:00 Pulse Rate 82 09/08/18 05:00 Respiratory Rate 20 09/08/18 05:00 Blood Pressure 130/76 09/08/18 05:00 O2 Sat by Pulse Oximetry (%) 96 09/07/18 21:00 GENERAL: Slovak-speaking. Pleasant female. AAOx3. NAD. comfortable. HEENT: AT/NC. EOMI. RISHI. Moist mucus membranes. NECK: Trachea midline, full range of motion, supple. LUNGS: CTA B/L. No wheezes noted. HEART: RRR. Normal S1, S2. No murmurs noted. ABDOMEN: Soft NT/ND. ELINOR drain in place on L side of abdomen, R sided ventral hernia, minimally tender to palpation, reducible. EXTREMITIES: 2+ pulses, no edema. NEUROLOGICAL: Normal speech, non focal, gait not observed. PSYCH: Normal mood, normal affect. SKIN: Warm, dry, normal turgor, no rashes. CBCD WBC 8.6 K/mm3 (4.0-10.0) 09/08/18 06:00 RBC 2.81 M/mm3 (3.60-5.2) L 09/08/18 06:00 Hgb 7.6 GM/dL (10.7-15.3) L 09/08/18 06:00 Hct 22.6 % (32.4-45.2) L 09/08/18 06:00 MCV 80.3 fl (80-96) 09/08/18 06:00 MCHC 33.7 g/dl (32.0-36.0) 09/08/18 06:00 RDW 16.6 % (11.6-15.6) H 09/08/18 06:00 Plt Count 696 K/MM3 (134-434) H 09/08/18 06:00 MPV 6.7 fl (7.5-11.1) L 09/08/18 06:00 CMP Sodium 133 mmol/L (136-145) L 01/15/19 06:35 Potassium 4.4 mmol/L (3.5-5.1) 09/07/18 06:35 Chloride 99 mmol/L (98-107) 09/07/18 06:35 Carbon Dioxide 25 mmol/L (21-32) 09/07/18 06:35 Anion Gap 9 MMOL/L (8-16) 09/07/18 06:35 BUN 11 mg/dL (7-18) 09/07/18 06:35 Creatinine 0.8 mg/dL (0.55-1.3) 09/07/18 06:35 Creat Clearance w eGFR > 60 (>60) 09/07/18 06:35 Random Glucose 105 mg/dL (74-106) 09/07/18 06:35 Calcium 8.6 mg/dL (8.5-10.1) 09/07/18 06:35 Total Bilirubin 0.4 mg/dL (0.2-1) 08/30/18 06:30 AST 16 U/L (15-37) 08/30/18 06:30 ALT 13 U/L (13-61) 08/30/18 06:30 Alkaline Phosphatase 126 U/L (45-117) H 08/30/18 06:30 Total Protein 5.7 g/dl (6.4-8.2) L 08/30/18 06:30 Albumin 2.1 g/dl (3.4-5.0) L 08/30/18 06:30 CARDIAC ENZYMES Troponin I < 0.02 ng/ml (0.00-0.05) 08/27/18 13:30 Current Medications Generic Name Dose Route Start Last Admin Trade Name Freq PRN Reason Stop Dose Admin Acetaminophen 650 mg 08/27/18 22:26 09/07/18 20:00 Tylenol - PO 650 mg Q4H PRN Administration PAIN LEVEL 1-5 Enoxaparin Sodium 40 mg 09/04/18 10:00 09/07/18 09:40 Lovenox - SQ 40 mg DAILY ECTOR Administration Cefepime HCl 2 gm/ Dextrose 100 mls @ 200 mls/hr 09/05/18 16:30 09/08/18 05: 01 IVPB 200 mls/hr Q12H ECTOR Administration Protocol Metronidazole 500 mg in 100 mls @ 100 mls/hr 09/05/18 18:00 09/08/18 02:41 Flagyl 500mg Premixed Ivpb - IVPB 100 mls/hr Q8H-IV ECTOR Administration Vancomycin HCl 1,000 mg in 250 mls @ 166.667 mls/hr 09/05/18 16:30 09/08/18 05:43 Vancomycin (Pre-Docked) IVPB 166.667 mls/hr Q12H ECTOR Administration Protocol Ondansetron HCl 4 mg 08/27/18 19:17 09/07/18 22:10 Zofran Injection IVPUSH 4 mg Q6H PRN Administration NAUSEA Oxycodone HCl 5 mg 09/05/18 08:16 09/05/18 08:51 Roxicodone - PO 5 mg Q6H PRN Administration PAIN LEVEL 6-10 Home Medications Medication Instructions Recorded Loratadine [Claritin] 10 mg PO DAILY 09/28/17 Omeprazole Magnesium [Prilosec Otc] 40 mg PO DAILY 09/28/17 Travoprost [Travatan Z] 1 drop OU HS 09/28/17 Meloxicam 15 mg PO DAILY 08/11/18 Psyllium Husk [Metamucil] 0.4 gm PO DAILY 08/11/18 Sitagliptin Phosphate [Januvia] 100 mg PO DAILY 08/11/18 Acetaminophen [Tylenol] 2 tab PO Q6H PRN 08/13/18 Insulin NPH Hum/Reg Insulin Hm 10 units SQ ACDIN 08/13/18 [Novolin 70-30 Flexpen] Linaclotide [Linzess] 1 tab PO DAILY 08/13/18 Metformin HCl [Glucophage] 500 mg PO BID 08/13/18 Zolpidem Tartrate [Ambien] 5 mg PO HS 08/13/18 Amox-Tr/K Cl [Augmentin 875-125mg 1 tab PO BID@0800,1730 #17 tablet 09/03/18 Tablet -] Amoxicillin/Potassium Clav 1 each PO BID #19 tablet 09/03/18 [Augmentin 875-125 Tablet] Beals-3 Acid Ethyl Esters [Lovaza] 1 g PO DAILY 09/03/18 Microbiology 09/05/18 16:56 Blood - Peripheral Venous Blood Culture - Preliminary NO GROWTH OBTAINED AFTER 48 HOURS, INCUBATION TO CONTINUE FOR 3 DAYS. 09/05/18 16:50 Blood - Peripheral Venous Blood Culture - Preliminary NO GROWTH OBTAINED AFTER 48 HOURS, INCUBATION TO CONTINUE FOR 3 DAYS. 09/05/18 16:54 Urine - Urine Clean Catch Urine Culture - Final NO GROWTH OBTAINED 09/03/18 15:15 Aspirate Gram Stain - Final 09/03/18 15:15 Aspirate Body Fluid Culture - Final Enterococcus Faecalis Klebsiella Pneumoniae 09/03/18 15:15 Aspirate Anaerobic Culture - Final NO ANAEROBES WERE ISOLATED 08/27/18 12:35 Blood - Peripheral Venous Blood Culture - Final NO GROWTH AFTER 5 DAYS INCUBATION 08/27/18 12:35 Blood - Peripheral Venous Blood Culture - Final NO GROWTH AFTER 5 DAYS INCUBATION 08/27/18 22:50 Ascites Gram Stain - Final 08/27/18 22:50 Ascites Body Fluid Culture - Final Acinetobacter Baumannii/Haemol Klebsiella Pneumoniae Staphylococcus Aureus Enterococcus Faecalis 08/27/18 22:50 Ascites Anaerobic Culture - Final NO ANAEROBES WERE ISOLATED 08/27/18 13:40 Urine - Urine Clean Catch Urine Culture - Final ASSESSMENT AND PLAN: Patient is a 68yo female with PMHx of HLP, DM , metastatic uterine cancer, peritoneal carcinomatosis, SB, s/p peritoneal drain for ascitis , who presented with fever and abdominal pain and was found to have peritonitis # s/p sepsis due to peritonitis: repeat blood cx no growth so far, continue IV antibiotics cefepime, flagyl and vanco , unfortunately, cx from was not sent on . vanco trough is 13. Patient continues to improve. # Abdominal wall hernia reducible. no active issues #Uterine cancer with possible peritoneal carcinomatosis: continue drainage - f/u at [facility] number given to patient - R lung nodule and liver lesion, need to be followed as outpt DVT px with lovenox when ready for Dc, she can go home if VNS services are arranged
[2018-09-08] MEDS: ENOXAPARIN NA (PORCINE) 40 MG/0.4 ML DISP.SYRIN SQ SCH (09:56)
--- NOTE | 2018-09-08 10:39 | PN ---
Physical Exam: SUBJECTIVE: Patient seen and examined at bedside. No acute events overnight. Denies f/c, n/v, cp, sob, urinary/bowel symptoms. Complains a lot of flatus. Yakelin PO diet. OBJECTIVE: Vital Signs Temperature 98.2 F 09/08/18 05:00 Pulse Rate 82 09/08/18 05:00 Respiratory Rate 20 09/08/18 05:00 Blood Pressure 130/76 09/08/18 05:00 O2 Sat by Pulse Oximetry (%) 96 09/07/18 21:00 GENERAL: Comoran-speaking. Pleasant female. AAOx3. NAD. comfortable. HEENT: AT/NC. EOMI. RISHI. Moist mucus membranes. NECK: Trachea midline, full range of motion, supple. LUNGS: CTA B/L. No wheezes noted. HEART: RRR. Normal S1, S2. No murmurs noted. ABDOMEN: Soft NT/ND. +BS in all 4Q's. ELINOR drain in place on L side of abdomen, surrounding dressing c/d/i. R sided ventral hernia, minimally tender to palpation, reducible. No ecchymoses noted. EXTREMITIES: 2+ pulses, no edema. NEUROLOGICAL: Normal speech, non focal, gait not observed. PSYCH: Normal mood, normal affect. SKIN: Warm, dry, normal turgor, no rashes. CBCD WBC 8.6 K/mm3 (4.0-10.0) 09/08/18 06:00 RBC 2.81 M/mm3 (3.60-5.2) L 09/08/18 06:00 Hgb 7.6 GM/dL (10.7-15.3) L 09/08/18 06:00 Hct 22.6 % (32.4-45.2) L 09/08/18 06:00 MCV 80.3 fl (80-96) 09/08/18 06:00 MCHC 33.7 g/dl (32.0-36.0) 09/08/18 06:00 RDW 16.6 % (11.6-15.6) H 09/08/18 06:00 Plt Count 696 K/MM3 (134-434) H 09/08/18 06:00 MPV 6.7 fl (7.5-11.1) L 09/08/18 06:00 CMP Sodium 133 mmol/L (136-145) L 09/07/18 06:35 Potassium 4.4 mmol/L (3.5-5.1) 09/07/18 06:35 Chloride 99 mmol/L (98-107) 09/07/18 06:35 Carbon Dioxide 25 mmol/L (21-32) 09/07/18 06:35 Anion Gap 9 MMOL/L (8-16) 09/07/18 06:35 BUN 11 mg/dL (7-18) 09/07/18 06:35 Creatinine 0.8 mg/dL (0.55-1.3) 09/07/18 06:35 Creat Clearance w eGFR > 60 (>60) 09/07/18 06:35 Calcium 8.6 mg/dL (8.5-10.1) 09/07/18 06:35 Total Bilirubin 0.4 mg/dL (0.2-1) 08/30/18 06:30 AST 16 U/L (15-37) 08/30/18 06:30 ALT 13 U/L (13-61) 08/30/18 06:30 Alkaline Phosphatase 126 U/L (45-117) H 08/30/18 06:30 Total Protein 5.7 g/dl (6.4-8.2) L 08/30/18 06:30 Albumin 2.1 g/dl (3.4-5.0) L 08/30/18 06:30 Active Medications Acetaminophen (Tylenol -) 650 mg PO Q4H PRN PRN Reason: PAIN LEVEL 1-5 Last Admin: 09/07/18 20:00 Dose: 650 mg Enoxaparin Sodium (Lovenox -) 40 mg SQ DAILY ECTOR Last Admin: 09/08/18 09:56 Dose: 40 mg Cefepime HCl 2 gm/ Dextrose 100 mls @ 200 mls/hr IVPB Q12H ECTOR; Protocol Last Admin: 09/08/18 05:01 Dose: 200 mls/hr Metronidazole (Flagyl 500mg Premixed Ivpb -) 500 mg in 100 mls @ 100 mls/hr IVPB Q8H-IV ECTOR Last Admin: 09/08/18 09:56 Dose: 100 mls/hr Vancomycin HCl (Vancomycin (Pre-Docked)) 1,000 mg in 250 mls @ 166.667 mls/hr IVPB Q12H ECTOR; Protocol Last Admin: 09/08/18 05:43 Dose: 166.667 mls/hr Ondansetron HCl (Zofran Injection) 4 mg IVPUSH Q6H PRN PRN Reason: NAUSEA Last Admin: 09/07/18 22:10 Dose: 4 mg Oxycodone HCl (Roxicodone -) 5 mg PO Q6H PRN PRN Reason: PAIN LEVEL 6-10 Last Admin: 09/05/18 08:51 Dose: 5 mg ASSESSMENT/PLAN: 68F with PMHx of NIDDM, HLD, SBO, diverticulosis, metastatic uterine cancer, and peritoneal carcinomatosis, recently discharged (08/11/18-08/13/18) with a peritoneal drain for outpatient removal, currently being treated for sepsis 2/2 peritoneal infection. #Peritoneal infection - loculated ascitic collection. Afebrile, Normal WBC. -Peritoneal fluid cx +Acinetobacter Baumannii/Haemol, Lactose Fermenting Neg Bacilli, Staphylococcus Latex Coag Pos., Group D Strep Or Enterococcus -Per ID, Unasyn 1.5 gm (started 09/08; previously on Cefepime, Flagyl, Vanco started 09/05). D/w ID plan for antibiotic regimen, will monitor patient for 24 hours while on IV Unasyn, then can switch to PO Augmentin and monitor pt for 24 hours. -BCx neg x48h (09/05) -Abd catheter replaced #R quadrant ventral hernia; Improved. -Repeat CTAP noted above. No incarceration noted on final read. Improved, and reducible. +flatus, +BM. Yakelin PO diet. -Per surg, not a surgical candidate. -Oxycodone 5 mg IVP Q6H for pain control #Metastatic uterine cancer and peritoneal carcinomatosis -Pt failed therapy in past: avastin-doxil having progressed on taxol/ carboplatinum; grave prognosis -Per onc, will follow up outpatient at [facility] for study after d/c with Dr. Antoni Palmer. Spoke with HCP; pt will try study after discharge. #CADE. Stable. #Anemia; likely in setting of metastatic cancer -f/u Hem/Onc recommendations #Elevated alkaline phosphatase; in setting of metastasis -cont to monitor #FEN -no/no changes/Diabetic diet #Prophylaxis DVT- SQH Dispo -cont to monitor on med-surg, grave prognosis -Palliative care spoke to pt, but does not want to answer DNR/DNI questions and is not amenable to hospice care at this time. Spoke to Catie (HCP) regarding goals of care for patient. Since pt was accepted to a study at [facility], pt will follow up with Dr. Dave outpatient after discharge to proceed with study. Visit type - Emergency Visit Emergency Visit: Yes ED Registration Date: 08/27/18 Care time: The patient presented to the Emergency Department on the above date and was hospitalized for further evaluation of their emergent condition. - New Patient This patient is new to me today: No - Critical Care Critical Care patient: No
--- NOTE | 2018-09-08 12:32 | PN ---
Progress Note (short form) - Note Progress Note: abdominal pain resolved smiling no fever Vital Signs Period Temp Pulse Resp BP Sys/Marcelino Pulse Ox Last 24 Hr 98 F-98.8 F 82-100 18-20 124-140/67-80 96 cor-rrr lungs clear abd soft,nt ext no edema minimal drainage today from daniel drain CBC, BMP 09/08/18 06:00 09/07/18 06:35 Microbiology 09/05/18 16:56 Blood - Peripheral Venous Blood Culture - Preliminary NO GROWTH OBTAINED AFTER 48 HOURS, INCUBATION TO CONTINUE FOR 3 DAYS. 09/05/18 16:50 Blood - Peripheral Venous Blood Culture - Preliminary NO GROWTH OBTAINED AFTER 48 HOURS, INCUBATION TO CONTINUE FOR 3 DAYS. 09/05/18 16:54 Urine - Urine Clean Catch Urine Culture - Final NO GROWTH OBTAINED 09/03/18 15:15 Aspirate Gram Stain - Final 09/03/18 15:15 Aspirate Body Fluid Culture - Final Enterococcus Faecalis Klebsiella Pneumoniae 09/03/18 15:15 Aspirate Anaerobic Culture - Final NO ANAEROBES WERE ISOLATED 08/27/18 12:35 Blood - Peripheral Venous Blood Culture - Final NO GROWTH AFTER 5 DAYS INCUBATION 08/27/18 12:35 Blood - Peripheral Venous Blood Culture - Final NO GROWTH AFTER 5 DAYS INCUBATION 08/27/18 22:50 Ascites Gram Stain - Final 08/27/18 22:50 Ascites Body Fluid Culture - Final Acinetobacter Baumannii/Haemol Klebsiella Pneumoniae Staphylococcus Aureus Enterococcus Faecalis 08/27/18 22:50 Ascites Anaerobic Culture - Final NO ANAEROBES WERE ISOLATED 08/27/18 13:40 Urine - Urine Clean Catch Urine Culture - Final a/p fever resolved, abdominal pain improved- antibiotics broadened and cultures/ct scan done- f/u repeat culture from 09/03 - noted can resume unasyn metastatic cancer- per oncology
[2018-09-08] MEDS ORDERED: SODIUM CHLORIDE 100 ML IVPB ONE ×2 (14:17→20:16)
[2018-09-08] MEDS ORDERED: AMPICILLIN NA/SULBACTAM NA 1.5 GM VIAL ONE ×2 (14:17→20:15)
[2018-09-08] MEDS: AMPICILLIN NA/SULBACTAM NA 1.5 GM in SODIUM CHLORIDE 100 ML IVPB SCH ×2 (15:02→20:39)
--- NOTE | 2018-09-08 17:59 | PN ---
Progress Note (short form) - Note Progress Note: Patient seen and examined Little change. Continuing on IV antibiotic therapy per ID Last Vital Signs Temp Pulse Resp BP Pulse Ox 98 F 90 18 139/90 99 09/08/18 13:43 09/08/18 13:43 09/08/18 13:43 09/08/18 13:43 09/08/18 09:00 HEENT: NADIA, EOM Intact Oropharynx: No thrush, No mucositis,dentures Cor: RSR, No murmurs, No gallops Lungs: Clear to P&A Abd: Soft, Normal bowel sounds, No organomegaly, large ventral hernia, cahteter Ext:No significant edema Skin: No rashes, Integument intact CBC, BMP 09/08/18 06:00 09/07/18 06:35 Current Medications Generic Name Dose Route Start Last Admin Trade Name Freq PRN Reason Stop Dose Admin Acetaminophen 650 mg 08/27/18 22:26 09/07/18 20:00 Tylenol - PO 650 mg Q4H PRN Administration PAIN LEVEL 1-5 Enoxaparin Sodium 40 mg 09/04/18 10:00 09/08/18 09:56 Lovenox - SQ 40 mg DAILY ECTOR Administration Ampicillin Sodium/Sulbactam 100 mls @ 200 mls/hr 09/08/18 15:00 09/08/18 15: 02 Sodium 1.5 gm/ Sodium Chloride IVPB 200 mls/hr Q6H-IV ECTOR Administration Ondansetron HCl 4 mg 08/27/18 19:17 09/07/18 22:10 Zofran Injection IVPUSH 4 mg Q6H PRN Administration NAUSEA Oxycodone HCl 5 mg 09/05/18 08:16 09/05/18 08:51 Roxicodone - PO 5 mg Q6H PRN Administration PAIN LEVEL 6-10 Impression: Metastatic endometrial ca Infected ascitic fluid procured from catheter drainage IV antiobiotics per ID Anemia Plan: transfuse one unit of packed cells Continue IV antibiotics - duration per ID Spoke again with patient and with HCP options of return to [facility] or investigational treatment a [facility].
[2018-09-08] MEDS: ACETAMINOPHEN 325 MG TABLET (FP) PO PRN (20:44)
[2018-09-09] MEDS ORDERED: AMPICILLIN NA/SULBACTAM NA 1.5 GM VIAL ONE ×3 (01:09→14:58)
[2018-09-09] MEDS ORDERED: SODIUM CHLORIDE 100 ML IVPB ONE ×3 (01:09→14:59)
[2018-09-09] MEDS: AMPICILLIN NA/SULBACTAM NA 1.5 GM in SODIUM CHLORIDE 100 ML IVPB SCH ×3 (02:56→17:15)
[2018-09-09 06:37] LABS: BASO % 0.6 % (0-2.0); EOS % 2.4 % (0-4.5); HEMATOCRIT 22.3 % (32.4-45.2); HEMOGLOBIN 7.5 GM/dL (10.7-15.3); LYMPH % 17.4 % (8-40); MCH 27.1 pg (25.7-33.7); MCHC 33.8 g/dl (32.0-36.0); MEAN CELL VOLUME 80.2 fl (80-96); MEAN PLT VOLUME 6.9 fl (7.5-11.1); MONO % 10.3 % (3.8-10.2); NEUT % 69.3 % (42.8-82.8); PLATELET COUNT 702 K/MM3 (134-434); RBC 2.78 M/mm3 (3.60-5.2); RDW 17.2 % (11.6-15.6); WHITE BLOOD COUNT 8.1 K/mm3 (4.0-10.0)
[2018-09-09 09:00] LABS: ALBUMIN 2.1 g/dl (3.4-5.0); ALK PHOS 90 U/L (45-117); ANION GAP 9 MMOL/L (8-16); BILIRUBIN,TOTAL 0.3 mg/dL (0.2-1); BLOOD UREA NITROGEN 11 mg/dL (7-18); CHLORIDE 103 mmol/L (98-107); CO2 25 mmol/L (21-32); CREATININE 0.8 mg/dL (0.55-1.3); GLUCOSE,RANDOM 86 mg/dL (74-106); POTASSIUM 4.8 mmol/L (3.5-5.1); SGOT/AST 11 U/L (15-37); SGPT/ALT 6 U/L (13-61); SODIUM 137 mmol/L (136-145); TOT PROT 6.4 g/dl (6.4-8.2)
--- NOTE | 2018-09-09 09:17 | PN ---
Physical Exam: SUBJECTIVE: Patient seen and examined at bedside. No acute events overnight. Pt yakelin PO diet. Denies cp, sob, urinary/bowel symptoms. OBJECTIVE: Vital Signs Temperature 97.9 F 09/09/18 06:00 Pulse Rate 92 H 09/09/18 06:00 Respiratory Rate 20 09/09/18 06:00 Blood Pressure 138/72 09/09/18 06:00 O2 Sat by Pulse Oximetry (%) 99 09/08/18 09:00 GENERAL: Albanian-speaking. Pleasant female. AAOx3. NAD. comfortable. HEENT: AT/NC. EOMI. RISHI. Moist mucus membranes. NECK: Trachea midline, full range of motion, supple. LUNGS: CTA B/L. No wheezes noted. HEART: RRR. Normal S1, S2. No murmurs noted. ABDOMEN: Soft NT/ND. +BS in all 4Q's. ELINOR drain in place on L side of abdomen, surrounding dressing c/d/i. R sided ventral hernia, minimally tender to palpation, reducible. No ecchymoses noted. EXTREMITIES: 2+ pulses, no edema. NEUROLOGICAL: Normal speech, non focal, gait not observed. PSYCH: Normal mood, normal affect. SKIN: Warm, dry, normal turgor, no rashes. CBCD WBC 8.1 K/mm3 (4.0-10.0) 09/09/18 05:55 RBC 2.78 M/mm3 (3.60-5.2) L 09/09/18 05:55 Hgb 7.5 GM/dL (10.7-15.3) L 09/09/18 05:55 Hct 22.3 % (32.4-45.2) L 09/09/18 05:55 MCV 80.2 fl (80-96) 09/09/18 05:55 MCHC 33.8 g/dl (32.0-36.0) 09/09/18 05:55 RDW 17.2 % (11.6-15.6) H 09/09/18 05:55 Plt Count 702 K/MM3 (134-434) H 09/09/18 05:55 MPV 6.9 fl (7.5-11.1) L 09/09/18 05:55 CMP Sodium 137 mmol/L (136-145) 09/09/18 05:55 Potassium 4.8 mmol/L (3.5-5.1) 09/09/18 05:55 Chloride 103 mmol/L (98-107) 09/09/18 05:55 Carbon Dioxide 25 mmol/L (21-32) 09/09/18 05:55 Anion Gap 9 MMOL/L (8-16) 09/09/18 05:55 BUN 11 mg/dL (7-18) 09/09/18 05:55 Creatinine 0.8 mg/dL (0.55-1.3) 09/09/18 05:55 Creat Clearance w eGFR > 60 (>60) 09/09/18 05:55 Calcium 9.0 mg/dL (8.5-10.1) 09/09/18 05:55 Total Bilirubin 0.3 mg/dL (0.2-1) 09/09/18 05:55 AST 11 U/L (15-37) L 09/09/18 05:55 ALT 6 U/L (13-61) L 09/09/18 05:55 Alkaline Phosphatase 90 U/L (45-117) 09/09/18 05:55 Total Protein 6.4 g/dl (6.4-8.2) 09/09/18 05:55 Albumin 2.1 g/dl (3.4-5.0) L 09/09/18 05:55 Active Medications Acetaminophen (Tylenol -) 650 mg PO Q4H PRN PRN Reason: PAIN LEVEL 1-5 Last Admin: 09/08/18 20:44 Dose: 650 mg Enoxaparin Sodium (Lovenox -) 40 mg SQ DAILY ECTOR Last Admin: 09/08/18 09:56 Dose: 40 mg Ampicillin Sodium/Sulbactam (Sodium 1.5 gm/ Sodium Chloride) 100 mls @ 200 mls/ hr IVPB Q6H-IV ECTOR Last Admin: 09/09/18 08:28 Dose: 200 mls/hr Ondansetron HCl (Zofran Injection) 4 mg IVPUSH Q6H PRN PRN Reason: NAUSEA Last Admin: 09/07/18 22:10 Dose: 4 mg Oxycodone HCl (Roxicodone -) 5 mg PO Q6H PRN PRN Reason: PAIN LEVEL 6-10 Last Admin: 09/05/18 08:51 Dose: 5 mg ASSESSMENT/PLAN: 68F with PMHx of NIDDM, HLD, SBO, diverticulosis, metastatic uterine cancer, and peritoneal carcinomatosis, recently discharged (08/11/18-08/13/18) with a peritoneal drain for outpatient removal, currently being treated for sepsis 2/2 peritoneal infection. #Peritoneal infection - loculated ascitic collection. Afebrile, Normal WBC. -Peritoneal fluid cx +Acinetobacter Baumannii/Haemol, Lactose Fermenting Neg Bacilli, Staphylococcus Latex Coag Pos., Group D Strep Or Enterococcus -Per ID, Unasyn 1.5 gm (started 09/08; previously on Cefepime, Flagyl, Vanco started 09/05). D/w ID plan for antibiotic regimen, IV Unasyn given today, will give one more dose in PM and then switch to PO Augmentin after and monitor for another 24 hrs. -BCx neg x48h (09/05) -Abd catheter replaced #R quadrant ventral hernia; Improved. -Repeat CTAP noted above. No incarceration noted on final read. Improved, and reducible. +flatus, +BM. Yakelin PO diet. -Per surg, not a surgical candidate. -Oxycodone 5 mg IVP Q6H for pain control #Metastatic uterine cancer and peritoneal carcinomatosis -Pt failed therapy in past: avastin-doxil having progressed on taxol/ carboplatinum; grave prognosis -Per onc, will follow up outpatient at [facility] for study after d/c with Dr. Antoni Palmer. Spoke with HCP; pt will try study after discharge. #CADE. Stable. #Anemia; likely in setting of metastatic cancer -f/u Hem/Onc recommendations #Elevated alkaline phosphatase; in setting of metastasis -cont to monitor #FEN -no/no changes/Diabetic diet #Prophylaxis DVT- SQH Dispo -cont to monitor on med-surg, grave prognosis -Palliative care spoke to pt, but does not want to answer DNR/DNI questions and is not amenable to hospice care at this time. Spoke to Catie (HCP) regarding goals of care for patient. Since pt was accepted to a study at [facility], pt will follow up with Dr. Dave outpatient after discharge to proceed with study. Visit type - Emergency Visit Emergency Visit: Yes ED Registration Date: 08/27/18 Care time: The patient presented to the Emergency Department on the above date and was hospitalized for further evaluation of their emergent condition. - New Patient This patient is new to me today: No - Critical Care Critical Care patient: No
[2018-09-09] MEDS: ENOXAPARIN NA (PORCINE) 40 MG/0.4 ML DISP.SYRIN SQ SCH (11:08)
--- NOTE | 2018-09-09 14:34 | PN ---
Teaching Attending Note Name of Resident: Liya Barksdale ATTENDING PHYSICIAN STATEMENT I saw and evaluated the patient. I reviewed the resident's note and discussed the case with the resident. I agree with the resident's findings and plan as documented. SUBJECTIVE: Patient is comfortable, feels better, minimal drainage from DANIEL. OBJECTIVE: Vital Signs Temperature 98.7 F 09/09/18 12:56 Pulse Rate 92 H 09/09/18 12:56 Respiratory Rate 18 09/09/18 12:56 Blood Pressure 144/74 09/09/18 12:56 O2 Sat by Pulse Oximetry (%) 96 09/09/18 09:00 GENERAL: German-speaking. Pleasant female. AAOx3. NAD. comfortable. HEENT: AT/NC. EOMI. RISHI. Moist mucus membranes. NECK: Trachea midline, full range of motion, supple. LUNGS: CTA B/L. No wheezes noted. HEART: RRR. Normal S1, S2. No murmurs noted. ABDOMEN: Soft NT/ND. DANIEL drain in place on L side of abdomen, R sided ventral hernia, reducible. EXTREMITIES: 2+ pulses, no edema. NEUROLOGICAL: Normal speech, non focal, gait not observed. PSYCH: Normal mood, normal affect. SKIN: Warm, dry, normal turgor, no rashes. CBCD WBC 8.1 K/mm3 (4.0-10.0) 09/09/18 05:55 RBC 2.78 M/mm3 (3.60-5.2) L 09/09/18 05:55 Hgb 7.5 GM/dL (10.7-15.3) L 09/09/18 05:55 Hct 22.3 % (32.4-45.2) L 09/09/18 05:55 MCV 80.2 fl (80-96) 09/09/18 05:55 MCHC 33.8 g/dl (32.0-36.0) 09/09/18 05:55 RDW 17.2 % (11.6-15.6) H 09/09/18 05:55 Plt Count 702 K/MM3 (134-434) H 09/09/18 05:55 MPV 6.9 fl (7.5-11.1) L 09/09/18 05:55 CMP Sodium 137 mmol/L (136-145) 09/09/18 05:55 Potassium 4.8 mmol/L (3.5-5.1) 09/09/18 05:55 Chloride 103 mmol/L (98-107) 09/09/18 05:55 Carbon Dioxide 25 mmol/L (21-32) 09/09/18 05:55 Anion Gap 9 MMOL/L (8-16) 09/09/18 05:55 BUN 11 mg/dL (7-18) 09/09/18 05:55 Creatinine 0.8 mg/dL (0.55-1.3) 09/09/18 05:55 Creat Clearance w eGFR > 60 (>60) 09/09/18 05:55 Random Glucose 86 mg/dL (74-106) 09/09/18 05:55 Calcium 9.0 mg/dL (8.5-10.1) 09/09/18 05:55 Total Bilirubin 0.3 mg/dL (0.2-1) 09/09/18 05:55 AST 11 U/L (15-37) L 09/09/18 05:55 ALT 6 U/L (13-61) L 09/09/18 05:55 Alkaline Phosphatase 90 U/L (45-117) 09/09/18 05:55 Total Protein 6.4 g/dl (6.4-8.2) 09/09/18 05:55 Albumin 2.1 g/dl (3.4-5.0) L 09/09/18 05:55 CARDIAC ENZYMES Troponin I < 0.02 ng/ml (0.00-0.05) 08/27/18 13:30 Current Medications Generic Name Dose Route Start Last Admin Trade Name Freq PRN Reason Stop Dose Admin Acetaminophen 650 mg 08/27/18 22:26 09/08/18 20:44 Tylenol - PO 650 mg Q4H PRN Administration PAIN LEVEL 1-5 Enoxaparin Sodium 40 mg 09/04/18 10:00 09/09/18 11:08 Lovenox - SQ 40 mg DAILY ECTOR Administration Ampicillin Sodium/Sulbactam 100 mls @ 200 mls/hr 09/08/18 15:00 09/09/18 08: 28 Sodium 1.5 gm/ Sodium Chloride IVPB 200 mls/hr Q6H-IV ECTOR Administration Ondansetron HCl 4 mg 08/27/18 19:17 09/07/18 22:10 Zofran Injection IVPUSH 4 mg Q6H PRN Administration NAUSEA Oxycodone HCl 5 mg 09/05/18 08:16 09/05/18 08:51 Roxicodone - PO 5 mg Q6H PRN Administration PAIN LEVEL 6-10 Home Medications Medication Instructions Recorded Loratadine [Claritin] 10 mg PO DAILY 09/28/17 Omeprazole Magnesium [Prilosec Otc] 40 mg PO DAILY 09/28/17 Travoprost [Travatan Z] 1 drop OU HS 09/28/17 Meloxicam 15 mg PO DAILY 08/11/18 Psyllium Husk [Metamucil] 0.4 gm PO DAILY 08/11/18 Sitagliptin Phosphate [Januvia] 100 mg PO DAILY 08/11/18 Acetaminophen [Tylenol] 2 tab PO Q6H PRN 08/13/18 Insulin NPH Hum/Reg Insulin Hm 10 units SQ ACDIN 08/13/18 [Novolin 70-30 Flexpen] Linaclotide [Linzess] 1 tab PO DAILY 08/13/18 Metformin HCl [Glucophage] 500 mg PO BID 08/13/18 Zolpidem Tartrate [Ambien] 5 mg PO HS 08/13/18 Amox-Tr/K Cl [Augmentin 875-125mg 1 tab PO BID@0800,1730 #17 tablet 09/03/18 Tablet -] Amoxicillin/Potassium Clav 1 each PO BID #19 tablet 09/03/18 [Augmentin 875-125 Tablet] [place]-3 Acid Ethyl Esters [Lovaza] 1 g PO DAILY 09/03/18 Microbiology 09/05/18 16:56 Blood - Peripheral Venous Blood Culture - Preliminary NO GROWTH OBTAINED AFTER 72 HOURS, INCUBATION TO CONTINUE FOR 2 DAYS. 09/05/18 16:50 Blood - Peripheral Venous Blood Culture - Preliminary NO GROWTH OBTAINED AFTER 72 HOURS, INCUBATION TO CONTINUE FOR 2 DAYS. 09/05/18 16:54 Urine - Urine Clean Catch Urine Culture - Final NO GROWTH OBTAINED 09/03/18 15:15 Aspirate Gram Stain - Final 09/03/18 15:15 Aspirate Body Fluid Culture - Final Enterococcus Faecalis Klebsiella Pneumoniae 09/03/18 15:15 Aspirate Anaerobic Culture - Final NO ANAEROBES WERE ISOLATED 08/27/18 12:35 Blood - Peripheral Venous Blood Culture - Final NO GROWTH AFTER 5 DAYS INCUBATION 08/27/18 12:35 Blood - Peripheral Venous Blood Culture - Final NO GROWTH AFTER 5 DAYS INCUBATION 08/27/18 22:50 Ascites Gram Stain - Final 08/27/18 22:50 Ascites Body Fluid Culture - Final Acinetobacter Baumannii/Haemol Klebsiella Pneumoniae Staphylococcus Aureus Enterococcus Faecalis 08/27/18 22:50 Ascites Anaerobic Culture - Final NO ANAEROBES WERE ISOLATED 08/27/18 13:40 Urine - Urine Clean Catch Urine Culture - Final ASSESSMENT AND PLAN: Patient is a 68yo female with PMHx of HLP, DM , metastatic uterine cancer, peritoneal carcinomatosis, SB, s/p peritoneal drain for ascitis , who presented with fever and abdominal pain and was found to have peritonitis # s/p sepsis due to peritonitis: repeat blood cx no growth so far, continue IV antibiotic Unasyn now, s/p cefepime, flagyl and vanco , unfortunately, cx from DANIEL was not sent on . vanco trough is 13. Patient continues to improve. # Abdominal wall hernia reducible. no active issues #Uterine cancer with possible peritoneal carcinomatosis: continues to drain from daniel drainage. - f/u at [facility] number given to patient - R lung nodule and liver lesion, need to be followed as outpt DVT px with lovenox when ready for Dc, she can go home if VNS services are arranged
[2018-09-09] MEDS: ACETAMINOPHEN 325 MG TABLET (FP) PO PRN (16:12)
[2018-09-09] MEDS: LACTATED RINGERS SOLUTION 1,000 ML/1,000 ML INFUS.BAG IV SCH (16:27)
--- NOTE | 2018-09-09 16:33 | HOSP ---
Subjective - Review of Symptoms Subjective: Messaged by nurse after pt received 1U pRBC, completed at 3:30pm. Pt complaining of upper b/l back pain, abd pain, and arm pain - notified by nurse due to concerns of possible transfusion reaction. BP noted to be 150/90, HR 100- 14 after completion of transfusion, afebrile at 98.7. PO Tylenol given for pain. Pt assessed at bedside and pain has subsided now. Denies chest pain, shortness of breath, difficulty breathing, skin changes. Lungs CTA B/L RRR. Normal S1, S2. TTP to upper thoracic region b/l A/P: Dr. Tillman contacted for recs, will order transfusion protocol: -CBC/CMP -Haptoglobin/Harriet -LDH -U/A -LR @ 100 -CXR -Will sign out to on-call team for follow up of transfusion workup Physical Examination Vital Signs: Vital Signs Temperature 99.7 F H 09/09/18 16:11 Pulse Rate 104 H 09/09/18 16:11 Respiratory Rate 20 09/09/18 16:11 Blood Pressure 150/86 09/09/18 16:11 O2 Sat by Pulse Oximetry (%) 96 09/09/18 09:00 Labs: CBC, BMP 09/09/18 05:55 09/09/18 05:55 Visit type - Emergency Visit Emergency Visit: Yes ED Registration Date: 08/27/18 Care time: The patient presented to the Emergency Department on the above date and was hospitalized for further evaluation of their emergent condition. - New Patient This patient is new to me today: No - Critical Care Critical Care patient: No
[2018-09-09] MEDS: AMOX TR/POT CLAV 875MG/125MG TABLETS (FP) PO SCH (18:06)
[2018-09-09 18:12] LABS: BASO % 0.5 % (0-2.0); EOS % 0.6 % (0-4.5); HEMATOCRIT 25.1 % (32.4-45.2); HEMOGLOBIN 8.6 GM/dL (10.7-15.3); MCH 27.4 pg (25.7-33.7); MCHC 34.3 g/dl (32.0-36.0); MEAN CELL VOLUME 79.8 fl (80-96); MEAN PLT VOLUME 7.1 fl (7.5-11.1); MONO % 7.3 % (3.8-10.2); NEUT % 80.6 % (42.8-82.8); PLATELET COUNT 725 K/MM3 (134-434); RBC 3.14 M/mm3 (3.60-5.2); RDW 16.2 % (11.6-15.6); WHITE BLOOD COUNT 11.8 K/mm3 (4.0-10.0)
[2018-09-09 18:13] LABS: URINE APPEARANCE SLCLOUDY; URINE BILIRUBIN NEGATIVE (<2.0 mg/dL); URINE COLOR YELLOW; URINE GLUCOSE (UA) NEGATIVE (NEGATIVE); URINE KETONE NEGATIVE (NEGATIVE); URINE LEUK ESTERASE TRACE (NEGATIVE); URINE NITRITE NEGATIVE (NEGATIVE); URINE PROTEIN NEGATIVE (NEGATIVE); URINE UROBILINOGEN NEGATIVE mg/dL (0.2-1.0)
[2018-09-09 18:17] LABS: EPI CELLS RARE /HPF (FEW); URINE HYALINE CAST 1 /lpf; URINE MUCUS FEW
[2018-09-09 18:19] LABS: ALBUMIN 2.2 g/dl (3.4-5.0); ALK PHOS 94 U/L (45-117); ANION GAP 8 MMOL/L (8-16); BILIRUBIN,TOTAL 0.3 mg/dL (0.2-1); BLOOD UREA NITROGEN 13 mg/dL (7-18); CALCIUM 8.5 mg/dL (8.5-10.1); CHLORIDE 100 mmol/L (98-107); CO2 24 mmol/L (21-32); CREATININE 0.9 mg/dL (0.55-1.3); GLUCOSE,RANDOM 119 mg/dL (74-106); LDH 126 U/L (84-246); POTASSIUM 4.6 mmol/L (3.5-5.1); SGOT/AST 10 U/L (15-37); SGPT/ALT 6 U/L (13-61); SODIUM 132 mmol/L (136-145); TOT PROT 6.6 g/dl (6.4-8.2)
[2018-09-10] MEDS: ACETAMINOPHEN 325 MG TABLET (FP) PO PRN ×2 (00:07→14:35)
[2018-09-10] MEDS: LACTATED RINGERS SOLUTION 1,000 ML/1,000 ML INFUS.BAG IV SCH ×2 (03:15→17:29)
[2018-09-10 07:10] LABS: HEMATOCRIT 24.2 % (32.4-45.2); HEMOGLOBIN 8.4 GM/dL (10.7-15.3); MCH 27.7 pg (25.7-33.7); MCHC 34.5 g/dl (32.0-36.0); MEAN CELL VOLUME 80.1 fl (80-96); MEAN PLT VOLUME 6.8 fl (7.5-11.1); PLATELET COUNT 685 K/MM3 (134-434); RBC 3.02 M/mm3 (3.60-5.2); RDW 16.5 % (11.6-15.6); WHITE BLOOD COUNT 10.9 K/mm3 (4.0-10.0)
--- NOTE | 2018-09-10 07:38 | PN ---
Teaching Attending Note Name of Resident: Liya Barksdale ATTENDING PHYSICIAN STATEMENT I saw and evaluated the patient. I reviewed the resident's note and discussed the case with the resident. I agree with the resident's findings and plan as documented. SUBJECTIVE: Patient is comfortable with no acute distress, patient is going home today. OBJECTIVE: Vital Signs Temperature 97.9 F 09/10/18 05:55 Pulse Rate 88 09/10/18 05:55 Respiratory Rate 20 09/10/18 05:55 Blood Pressure 138/78 09/10/18 05:55 O2 Sat by Pulse Oximetry (%) 96 09/09/18 09:00 GENERAL: Swedish-speaking. Pleasant female. AAOx3. NAD. comfortable. HEENT: AT/NC. EOMI. RISHI. Moist mucus membranes. NECK: Trachea midline, full range of motion, supple. LUNGS: CTA B/L. No wheezes noted. HEART: RRR. Normal S1, S2. No murmurs noted. ABDOMEN: Soft NT/ND. DANIEL drain in place on L side of abdomen with minimal drainage, R sided ventral hernia, reducible. EXTREMITIES: 2+ pulses, no edema. NEUROLOGICAL: Normal speech, non focal, gait not observed. PSYCH: Normal mood, normal affect. SKIN: Warm, dry, normal turgor, no rashes. CBCD WBC 10.9 K/mm3 (4.0-10.0) H 09/10/18 06:00 RBC 3.02 M/mm3 (3.60-5.2) L 09/10/18 06:00 Hgb 8.4 GM/dL (10.7-15.3) L 09/10/18 06:00 Hct 24.2 % (32.4-45.2) L 09/10/18 06:00 MCV 80.1 fl (80-96) 09/10/18 06:00 MCHC 34.5 g/dl (32.0-36.0) 09/10/18 06:00 RDW 16.5 % (11.6-15.6) H 09/10/18 06:00 Plt Count 685 K/MM3 (134-434) H 09/10/18 06:00 MPV 6.8 fl (7.5-11.1) L 09/10/18 06:00 CMP Sodium 132 mmol/L (136-145) L 09/09/18 17:30 Potassium 4.6 mmol/L (3.5-5.1) 09/09/18 17:30 Chloride 100 mmol/L (98-107) 09/09/18 17:30 Carbon Dioxide 24 mmol/L (21-32) 09/09/18 17:30 Anion Gap 8 MMOL/L (8-16) 09/09/18 17:30 BUN 13 mg/dL (7-18) 09/09/18 17:30 Creatinine 0.9 mg/dL (0.55-1.3) 09/09/18 17:30 Creat Clearance w eGFR > 60 (>60) 09/09/18 17:30 Random Glucose 119 mg/dL (74-106) H 09/09/18 17:30 Calcium 8.5 mg/dL (8.5-10.1) 09/09/18 17:30 Total Bilirubin 0.3 mg/dL (0.2-1) 09/09/18 17:30 AST 10 U/L (15-37) L 09/09/18 17:30 ALT 6 U/L (13-61) L 09/09/18 17:30 Alkaline Phosphatase 94 U/L (45-117) 09/09/18 17:30 Total Protein 6.6 g/dl (6.4-8.2) 09/09/18 17:30 Albumin 2.2 g/dl (3.4-5.0) L 09/09/18 17:30 CARDIAC ENZYMES Troponin I < 0.02 ng/ml (0.00-0.05) 08/27/18 13:30 Current Medications Generic Name Dose Route Start Last Admin Trade Name Freq PRN Reason Stop Dose Admin Acetaminophen 650 mg 08/27/18 22:26 09/10/18 00:07 Tylenol - PO 650 mg Q4H PRN Administration PAIN LEVEL 1-5 Amoxicillin/Clavulanate Potassium 1 tab 09/09/18 17:30 09/09/18 18:06 Augmentin - 875mg Tablet PO 1 tab BID@0800,1730 ECTOR Administration Enoxaparin Sodium 40 mg 09/04/18 10:00 09/09/18 11:08 Lovenox - SQ 40 mg DAILY ECTOR Administration Lactated Ringer's 1,000 ml in 1,000 mls @ 100 mls/hr 09/09/18 16:15 09/10/18 03:15 Lactated Ringers Solution IV 09/11/18 02:14 100 mls/hr ASDIR ECTOR Administration Ondansetron HCl 4 mg 08/27/18 19:17 09/07/18 22:10 Zofran Injection IVPUSH 4 mg Q6H PRN Administration NAUSEA Oxycodone HCl 5 mg 09/05/18 08:16 09/05/18 08:51 Roxicodone - PO 5 mg Q6H PRN Administration PAIN LEVEL 6-10 Home Medications Medication Instructions Recorded Loratadine [Claritin] 10 mg PO DAILY 09/28/17 Omeprazole Magnesium [Prilosec Otc] 40 mg PO DAILY 09/28/17 Travoprost [Travatan Z] 1 drop OU HS 09/28/17 Meloxicam 15 mg PO DAILY 08/11/18 Psyllium Husk [Metamucil] 0.4 gm PO DAILY 08/11/18 Sitagliptin Phosphate [Januvia] 100 mg PO DAILY 08/11/18 Acetaminophen [Tylenol] 2 tab PO Q6H PRN 08/13/18 Insulin NPH Hum/Reg Insulin Hm 10 units SQ ACDIN 08/13/18 [Novolin 70-30 Flexpen] Linaclotide [Linzess] 1 tab PO DAILY 08/13/18 Metformin HCl [Glucophage] 500 mg PO BID 08/13/18 Zolpidem Tartrate [Ambien] 5 mg PO HS 08/13/18 Amox-Tr/K Cl [Augmentin 875-125mg 1 tab PO BID@0800,1730 #17 tablet 09/03/18 Tablet -] Amoxicillin/Potassium Clav 1 each PO BID #19 tablet 09/03/18 [Augmentin 875-125 Tablet] [place]-3 Acid Ethyl Esters [Lovaza] 1 g PO DAILY 09/03/18 ASSESSMENT AND PLAN: Patient is a 68yo female with PMHx of HLP, DM , metastatic uterine cancer, peritoneal carcinomatosis, SB, s/p peritoneal drain for ascitis , who presented with fever and abdominal pain and was found to have peritonitis # s/p sepsis due to peritonitis: repeat blood cx no growth so far, continue IV antibiotic Unasyn now, s/p cefepime, flagyl and vanco , unfortunately, cx from DANIEL was not sent on .Vanco trough is 13. Patient continues to improve. # Abdominal wall hernia reducible. no active issues #Uterine cancer with possible peritoneal carcinomatosis: minimal drainage from the daniel drainage. - f/u at [facility] number given to patient - R lung nodule and liver lesion, need to be followed as outpt Patient can be discharged home and follow up with [facility]. VNS services are arranged
[2018-09-10 07:55] LABS: ANION GAP 6 MMOL/L (8-16); BLOOD UREA NITROGEN 10 mg/dL (7-18); CALCIUM 8.5 mg/dL (8.5-10.1); CHLORIDE 102 mmol/L (98-107); CO2 26 mmol/L (21-32); CREATININE 0.7 mg/dL (0.55-1.3); GLUCOSE,RANDOM 88 mg/dL (74-106); POTASSIUM 4.6 mmol/L (3.5-5.1); SODIUM 134 mmol/L (136-145)
[2018-09-10] MEDS: AMOX TR/POT CLAV 875MG/125MG TABLETS (FP) PO SCH ×2 (09:24→17:29)
[2018-09-10] MEDS: ENOXAPARIN NA (PORCINE) 40 MG/0.4 ML DISP.SYRIN SQ SCH (09:24)
--- NOTE | 2018-09-10 10:09 | DS ---
Physical Exam: SUBJECTIVE: Patient seen and examined at bedside. No acute events overnight. OBJECTIVE: Vital Signs Temperature 98.6 F 09/10/18 08:52 Pulse Rate 88 09/10/18 08:52 Respiratory Rate 20 09/10/18 08:52 Blood Pressure 141/70 09/10/18 08:52 O2 Sat by Pulse Oximetry (%) 96 09/09/18 09:00 PHYSICAL EXAM GENERAL: Vietnamese-speaking. Pleasant female. AAOx3. NAD. comfortable. HEENT: AT/NC. EOMI. RISHI. Moist mucus membranes. NECK: Trachea midline, full range of motion, supple. LUNGS: CTA B/L. No wheezes noted. HEART: RRR. Normal S1, S2. No murmurs noted. ABDOMEN: Soft NT/ND. +BS in all 4Q's. ELINOR drain in place on L side of abdomen, surrounding dressing c/d/i. R sided ventral hernia, minimally tender to palpation, reducible. No ecchymoses noted. EXTREMITIES: 2+ pulses, no edema. NEUROLOGICAL: Normal speech, non focal, gait not observed. PSYCH: Normal mood, normal affect. SKIN: Warm, dry, normal turgor, no rashes. LABS CBC, BMP 09/10/18 06:00 09/10/18 06:00 HOSPITAL COURSE: Date of Admission:08/27/18 68F with PMHx of NIDDM, HLD, SBO, diverticulosis, metastatic uterine cancer, and peritoneal carcinomatosis, recently discharged (08/11/18-08/13/18) with a peritoneal drain for outpatient removal, admitted to the hospital for treatment of sepsis 2/[address]. [address] abd imaging, pt was found to have a loculated ascitic collection, as well as a ventral non-obstructing ventral hernia. Pt was initially given IV Vanc and Zosyn and ID was consulted. Fluid culture showed +Acinetobacter Baumannii/Haemol, Lactose Fermenting Neg Bacilli, Staphylococcus Latex Coag Pos., Group D Strep Or Entero Coccus. Upon ID eval, pt was switched to IV Unasyn and further monitored. Due to ventral hernia, pt was additionally evaluated by surgery. Upon surg eval, there was no recommendation for surgical intervention as pt is a poor surgical candidate given clinical condition. Pt's ELINOR drain was replaced by IR during hospital visit. Per IR recommendation, VNS will need to change dressing once a week, with a 4x4 Tegederm and biopatch to cover the catheter. Pt is allowed to shower on same day as dressing change. ELINOR drain will also need to be flushed with NS 5cc twice a day and will be emptied when full. Additionally, pt was seen by oncologist during duration of hospital stay. As per onc recommendation, pt was transfused 1U pRBC once during admission. Pt's symptoms improved throughout admission and was later switched to PO Augmentin. Upon discharge, she was advised to follow up with her primary care physician and oncologist outpatient and to continue PO Augmentin for 5 more days. (Throughout hospital admission, pt's HCP, Catie was made aware of pt's hospital treatment/plan.) Date of Discharge: 09/10/18 Minutes to complete discharge: 40 Discharge Summary Reason For Visit: FEVER ASCITES PNEUMONIA Current Active Problems Ascites (Chronic) Condition: Improved - Instructions Diet, Activity, Other Instructions: You were seen in the hospital for complaints of fever and abdominal pain. In the hospital, imaging studies of your abdomen was done that showed an infected collection of fluid in your abdomen. You were evaluated by the infectious disease doctor and treated with IV antibiotics. Imaging studies also showed a hernia. You were seen and evaluated by a surgeon, with recommendation by the surgeon for no intervention at this time. Additionally, you were seen by the oncologist due your extensive history of uterine cancer. Your abdominal catheter drain was replaced with a new one. Throughout your hospital stay, your abdominal pain and fever improved. You are being discharged home. MEDICAL RECOMMENDATIONS Please take Augmentin 875 mg twice a day for 7 total day with food. Today is day 2 of 7. Please start taking your dose tonight and continue for 5 more days. Please continue taking your home medications as directed. CATHETER CARE INSTRUCTIONS You will have the help of a nurse one time a week to change the dressing on your drain. A 4x4 tegederm with biopatch over the catheter will be used. You can shower on the same day your dressing is changed- only one time a week. The drain will be flushed with normal saline 5cc twice a day. The ELINOR drain will be emptied when it is full. CONSULT RECOMMENDATIONS Please follow up with your primary care physician, Dr. Tapia, within 1 week. Please follow up with your oncologist, Dr. Dave, within 1 week. You will need to follow up with the oncology clinic at [facility] after discharge. Please call for an appointment. You will see Dr. Antoni Palmer; the phone number is [phone]. If you experience worsening abdominal pain, chest pain, shortness of breath, mental status changes, or other associated symptoms, please proceed to your nearest emergency room immediately. R lung nodule has increased in size and you have a liver lesion. These need to be followed closely by oncologist. Usted fue atendido en el hospital por quejas de fiebre y dolor abdominal. En el hospital, se realizaron estudios de imgenes de delarosa abdomen que mostraron jessie coleccin infectada de lquido en delarosa abdomen. Usted fue evaluado por el mdico de enfermedades infecciosas y tratado con antibiticos por va intravenosa. Los estudios de imagen tambin mostraron jessie hernia. Fue examinado y evaluado por un cirujano, con jessie recomendacin por parte del cirujano de no intervenir en anahy momento. Adems, el onclogo lo atendi debido a delarosa extenso historial de cncer uterino. El drenaje de delarosa catter abdominal fue reemplazado por amrik nuevo. A lo kady de delarosa estada en el hospital, delarosa dolor abdominal y fiebre mejoraron. Ests siendo dado de sherron a casa. RECOMENDACIONES MEDICAS [place] Augmentin 875 mg dos veces al da julienne un total de 7 turner con los alimentos. Hoy es el da 2 de 7. Comience a juan delarosa dosis esta noche y contine julienne 5 turner ms. Por favor contine tomando abby medicamentos caseros segn las indicaciones. INSTRUCCIONES PARA EL CUIDADO DEL CATETER Tendr la ayuda de jessie enfermera jessie vez a la semana para cambiar el apsito de delarosa drenaje. Se utilizar un tegederm 4x4 con biopatch sobre el catter. Puede ducharse el mismo da que se cambia delarosa vendaje, solo jessie vez a la semana. El drenaje se stacy con jessie solucin salina normal de 5 cc dos veces al da. El drenaje del ELINOR se vaciar cuando est lleno. CONSULTE RECOMENDACIONES Por favor shimon un seguimiento con delarosa mdico de atencin primaria, el Dr. Tapia, dentro de jessie semana. Por favor shimon un seguimiento con delarosa onclogo, el Dr. Dave, dentro de jessie semana. Deber realizar un seguimiento en la clnica de oncologa de [facility] despus del sherron. Por favor llame para jessie conner. Vers al Dr. Antoni Palmer; El nmero de telfono es [phone]. Si experimenta un empeoramiento del dolor abdominal, dolor en el pecho, dificultad para respirar, cambios en el estado mental u otros sntomas asociados , dirjase a la kumar de emergencias ms cercana de inmediato. El ndulo pulmonar R oneill aumentado de tamao y usted tiene jessie lesin heptica. Estos deben ser seguidos de cerca por el onclogo. Referrals: Alex Tapia MD [Primary Care Provider] - 1 Week Fran Dave MD [Staff Physician] - 1 Week Disposition: HOME - Home Medications Comprehensive Discharge Medication List: Ambulatory Orders Loratadine [Claritin] 10 mg PO DAILY 09/28/17 Omeprazole Magnesium [Prilosec Otc] 40 mg PO DAILY 09/28/17 Travoprost [Travatan Z] 1 drop OU HS 09/28/17 Meloxicam 15 mg PO DAILY 08/11/18 Psyllium Husk [Metamucil] 0.4 gm PO DAILY 08/11/18 Sitagliptin Phosphate [Januvia] 100 mg PO DAILY 08/11/18 Acetaminophen [Tylenol] 2 tab PO Q6H PRN 08/13/18 Insulin NPH Hum/Reg Insulin Hm [Novolin 70-30 Flexpen] 10 units SQ ACDIN Linaclotide [Linzess] 1 tab PO DAILY 08/13/18 Metformin HCl [Glucophage] 500 mg PO BID 08/13/18 Zolpidem Tartrate [Ambien] 5 mg PO HS 08/13/18 [employer]-3 Acid Ethyl Esters [Lovaza] 1 g PO DAILY 09/03/18 Amoxicillin/Potassium Clav [Augmentin 875-125 Tablet] 1 each PO BID #11 tablet 09/10/18 This patient is new to me today: No Emergency Visit: Yes ED Registration Date: 08/27/18 Care time: The patient presented to the Emergency Department on the above date and was hospitalized for further evaluation of their emergent condition. Critical Care patient: No - Discharge Referral Referred to [facility] Yes Physician Referral: Alex Flores MD ([facility])
--- NOTE | 2018-09-10 16:41 | PN ---
Progress Note (short form) - Note Progress Note: Patient seen and examined No change in clinical status For antibiotics as outpatient Will follow up in out patient setting.
[2018-09-10 17:40] VITALS: BP 144/83; PULSE 106; TEMP 98.2
== END 2018-09-10 19:13 | disposition home or self-care (01) | DRG 871 ==
LOC: JER 09:30 → JERBED 20:28 → J5S 08-28 02:49
PROVIDERS: ADMIT Internal Medicine; ATTEND Internal Medicine
PROC: 30233N1 Transfusion of Nonautologous Red Blood Cells into Peripheral Vein, Percutaneous Approach (ICD-10-PCS; principal; 2018-09-08)
DX: A41.9 Sepsis, unspecified organism (principal); K65.1 Peritoneal abscess; J18.1 Lobar pneumonia, unspecified organism; K65.8 Other peritonitis; E87.1 Hypo-osmolality and hyponatremia; N17.9 Acute kidney failure, unspecified; C78.6 Secondary malignant neoplasm of retroperitoneum and peritoneum; J98.11 Atelectasis; R18.8 Other ascites; E11.9 Type 2 diabetes mellitus without complications; E86.1 Hypovolemia; C54.1 Malignant neoplasm of endometrium; K57.30 Diverticulosis of large intestine without perforation or abscess without bleeding; Z79.4 Long term (current) use of insulin; Z79.84 Long term (current) use of oral hypoglycemic drugs; K43.9 Ventral hernia without obstruction or gangrene; R74.8 Abnormal levels of other serum enzymes; E88.09 Other disorders of plasma-protein metabolism, not elsewhere classified; Z90.710 Acquired absence of both cervix and uterus; D63.0 Anemia in neoplastic disease; B96.1 Klebsiella pneumoniae [K. pneumoniae] as the cause of diseases classified elsewhere; B95.8 Unspecified staphylococcus as the cause of diseases classified elsewhere; B95.2 Enterococcus as the cause of diseases classified elsewhere; R91.1 Solitary pulmonary nodule; K76.9 Liver disease, unspecified
CPT/HCPCS: 36415; 36430; 49423; 71045-TC-FY; 74018-TC-FY; 74177-TC; 76000-TC-FY; 76705; 80048; 80053; 81003; 81015; 82962; 83010; 83036; 83605; 83615; 83735; 84100; 84484; 85025; 85027; 85610; 85730; 86078; 86850; 86880; 86900; 86901; 86922; 87040; 87070; 87075; 87086; 87186; 87205; 87804; 88108; 88305-TC; 93005; 93010; 99284-25; C1729; C1769; G0480; J0131; J7030; P9058

== ENCOUNTER 2018-09-11 17:47 | Inpatient (IN) | payer OTHER ==
--- NOTE | 2018-09-11 18:09 | PDOC ---
Attending Attestation - HPI HPI: 09/11/18 18:55 The patient is a 68 year old female with a significant past medical history of metastatic endometrial ca, peritoneal carcinomatosis, diabetes, GERD, sbo, anemia, and hypercholesterolemia who presents to the emergency department with a fever since earlier today. The patient reports that she was at home today when she felt a sudden onset of her fever. She states that she woke up feeling fine. It is noted that the patient was recently discharged from the ED for sepsis secondary to her peritoneal diagnosis. The patient was treated with unison in the ED and sent home with Augmentin. The patient denies any associated pain or other symptoms with her fever today. She states that she took 2 tylenol 2 hours prior to arrival with no apparent relief of her symptom. The patient denies any chills, nausea, vomiting, diarrhea, constipation or urinary symptoms. She denies any chest pain, shortness of breath, or dizziness. The patient denies any other complaints. - Physicial Exam PE: 09/11/18 19:09 GENERAL: The patient is in no acute distress. HEAD: Normal with no signs of trauma. EYES: PERRLA, EOMI, sclera anicteric, conjunctiva clear. ENT: Ears normal, nares patent, oropharynx clear without exudates. Moist mucous membranes. NECK: Normal range of motion, supple without lymphadenopathy, JVD, or masses. LUNGS: Breath sounds equal, clear to auscultation bilaterally. No wheezes, and no crackles. HEART:(+)reg murmur. Regular rate and rhythm, normal S1 and S2 without rub or gallop. ABDOMEN: Soft, nontender, normoactive bowel sounds. No guarding, no rebound. No masses palpable. EXTREMITIES: Normal range of motion, no edema. No clubbing or cyanosis. No erythema, or tenderness. NEUROLOGICAL: Cranial nerves II through XII grossly intact. Normal speech. No focal neurological deficits. MUSCULOSKELETAL: Back non-tender to palpation, no CVA tenderness SKIN: Warm, Dry, normal turgor, no rashes or lesions noted. Documentation prepared by Spencer Alexander, acting as curator medical museum for Mae Watson MD. <Spencer Alexander - Last Filed: 09/11/18 18:55> - Resident Resident Name: Corey Diane - ED Attending Attestation I have performed the following: I have examined & evaluated the patient, The case was reviewed & discussed with the resident, I agree w/resident's findings & plan, Exceptions are as noted - Medical Decision Making 09/11/18 18:29 68 yo F presenting to the ER for fevers Pt h/o NIDDM, metastatic endometrial carcinoma with peritoneal carcinomatosis with pleurex cathether for outpatient management of ascites, s/p admission for sepsis related to peritoneal infection, was treated with Unasyn, discharged on Augmentin. Discharged to home yesterday Pt returns today with a fever She took Tylenol Temp here 101 tolerating po no diarrhea chronic abd pain, no new pain No dysuria Drainage not increased Mild cough no body aches Will do Sepsis orderset IVF Motrin EKG CXR Plan to admit EKG: Sinus rhythm, rate of 118 bpm, axis nml, intervals nml, no st elevation or depression, t waves upright 09/11/18 19:29 Laboratory Tests 09/10/18 09/10/18 09/11/18 06:00 06:00 18:14 WBC 10.9 H Hgb 8.4 L Hct 24.2 L Plt Count 685 H Absolute Neuts (auto) Neutrophils % PT with INR INR PTT (Actin FS) Sodium Potassium Chloride Carbon Dioxide BUN 10 Creatinine 0.7 Urine Nitrite Negative Ur Leukocyte Esterase Negative Urine WBC (Auto) 4 Urine RBC (Auto) None Influenza A (Rapid) Influenza B (Rapid) 09/11/18 09/11/18 09/11/18 18:27 18:28 18:28 WBC 17.8 H Hgb 8.2 L Hct 24.7 L Plt Count 643 H Absolute Neuts (auto) 15.4 H Neutrophils % 86.4 H PT with INR 20.30 H INR 1.71 H PTT (Actin FS) 39.3 H Sodium Potassium Chloride Carbon Dioxide BUN Creatinine Urine Nitrite Ur Leukocyte Esterase Urine WBC (Auto) Urine RBC (Auto) Influenza A (Rapid) Negative Influenza B (Rapid) Negative 09/11/18 18:28 WBC Hgb Hct Plt Count Absolute Neuts (auto) Neutrophils % PT with INR INR PTT (Actin FS) Sodium 133 L Potassium 4.7 Chloride 100 Carbon Dioxide 24 BUN 15 Creatinine 1.0 Urine Nitrite Ur Leukocyte Esterase Urine WBC (Auto) Urine RBC (Auto) Influenza A (Rapid) Influenza B (Rapid) 09/11/18 19:33 CXR - no consolidation Given Vanc and Zosyn Will admit <Mae Watson - Last Filed: 09/11/18 19:37>
[2018-09-11 18:22] LABS: URINE APPEARANCE SLCLOUDY; URINE BILIRUBIN NEGATIVE (<2.0 mg/dL); URINE COLOR YELLOW; URINE GLUCOSE (UA) NEGATIVE (NEGATIVE); URINE KETONE NEGATIVE (NEGATIVE); URINE LEUK ESTERASE NEGATIVE (NEGATIVE); URINE NITRITE NEGATIVE (NEGATIVE); URINE PROTEIN 1+ (NEGATIVE); URINE UROBILINOGEN NEGATIVE mg/dL (0.2-1.0)
[2018-09-11] MEDS ORDERED: IBUPROFEN 800 MG/8 ML IJ IVPB ONE (18:27)
[2018-09-11] MEDS ORDERED: SODIUM CHLORIDE 1,000 ML IV STA (18:28)
--- NOTE | 2018-09-11 18:32 | PDOC ---
History of Present Illness - General Chief Complaint: SIRS, Suspected/Possible Stated Complaint: FEVER/HYPERTENSION Time Seen by Provider: 09/11/18 18:03 History Source: Patient, Family Exam Limitations: No Limitations - History of Present Illness Initial Comments: 09/11/18 18:30 The patient is a 68F with a PMH of NIDDM, HLD, SBO, diverticulosis, metastatic uterine cancer, and peritoneal carcinomatosis, recently discharged (08/11/18-) with a peritoneal drain for outpatient removal, discharged from the hospital yesterday, who presents to the ER with fever x 1 day. She states that she feels well but her VNS checked her temperature today and it was elevated. She denies any other complaints including chills, nausea, vomiting, abnormal drainage, dysuria, hematuria. Past History - Past Medical History Allergies/Adverse Reactions: Allergies Allergy/AdvReac Type Severity Reaction Status Date / Time carboplatin Allergy Intermediate Verified 09/11/18 18:00 shellfish derived Allergy Intermediate Vomiting Verified 09/11/18 18:00 carboplatinum Allergy Intermediate Uncoded 09/11/18 18:00 Home Medications: Ambulatory Orders Loratadine [Claritin] 10 mg PO DAILY 09/28/17 Omeprazole Magnesium [Prilosec Otc] 40 mg PO DAILY 09/28/17 Travoprost [Travatan Z] 1 drop OU HS 09/28/17 Meloxicam 15 mg PO DAILY 08/11/18 Psyllium Husk [Metamucil] 0.4 gm PO DAILY 08/11/18 Sitagliptin Phosphate [Januvia] 100 mg PO DAILY 08/11/18 Acetaminophen [Tylenol] 2 tab PO Q6H PRN 08/13/18 Insulin NPH Hum/Reg Insulin Hm [Novolin 70-30 Flexpen] 10 units SQ ACDIN Linaclotide [Linzess] 1 tab PO DAILY 08/13/18 Metformin HCl [Glucophage] 500 mg PO BID 08/13/18 Zolpidem Tartrate [Ambien] 5 mg PO HS 08/13/18 [place]-3 Acid Ethyl Esters [Lovaza] 1 g PO DAILY 09/03/18 Amoxicillin/Potassium Clav [Augmentin 875-125 Tablet] 1 each PO BID #11 tablet 09/10/18 Anemia: Yes Asthma: No Cancer: Yes (UTERINE, Endometrial) Cardiac Disorders: No CVA: No COPD: No CHF: No Dementia: No Diabetes: Yes GI Disorders: Yes (GERD, diverticulosis, SBO) Disorders: Yes (uterine) HTN: No Hypercholesterolemia: Yes Liver Disease: No Seizures: No Thyroid Disease: No - Surgical History Abdominal Surgery: Yes (BLOCKAGE,HERNIA) Appendectomy: No Cardiac Surgery: No Cholecystectomy: Yes Lung Surgery: No Neurologic Surgery: No Orthopedic Surgery: Yes (SHOULDER SX,HAND SX) - Immunization History Immunization Up to Date: Yes - Suicide/Smoking/Psychosocial Hx Smoking History: Never smoked Have you smoked in the past 12 months: No Information on smoking cessation initiated: No Hx Alcohol Use: No Drug/Substance Use Hx: No Substance Use Type: None Hx Substance Use Treatment: No Review of Systems - Review of Systems Able to Perform ROS?: Yes Comments:: 09/11/18 18:35 GENERAL/CONSTITUTIONAL: Positive for fever. No chills. No weakness. HEAD, EYES, EARS, NOSE AND THROAT: No change in vision. No ear pain or discharge. No sore throat. CARDIOVASCULAR: No chest pain, palpitations, or lightheadedness. RESPIRATORY: No cough, wheezing, shortness of breath, or hemoptysis. GASTROINTESTINAL: No nausea, vomiting, diarrhea, constipation, or abdominal pain. GENITOURINARY: No dysuria, frequency, hematuria, or change in urination. MUSCULOSKELETAL: No joint or muscle swelling or pain. No neck or back pain. SKIN: No rash or lesions. NEUROLOGIC: No headache, numbness, tingling, focal weakness, loss of consciousness, or change in strength/sensation. ENDOCRINE: No increased thirst. No abnormal weight change. HEMATOLOGIC/LYMPHATIC: No anemia, easy bleeding, or history of blood clots. ALLERGIC/IMMUNOLOGIC: No hives or skin allergy. Is the patient limited Kiswahili proficient: No *Physical Exam - Vital Signs Last Vital Signs Temp Pulse Resp BP Pulse Ox 101.1 F H 127 H 20 135/76 97 09/11/18 17:50 09/11/18 17:50 09/11/18 17:50 09/11/18 17:50 09/11/18 17:50 - Physical Exam Comments: 09/11/18 18:35 GENERAL: Well developed, well nourished. Awake and alert. No acute distress. Warm to touch. HEENT: Normocephalic, atraumatic. Hearing grossly normal. Moist mucous membranes. PERRLA, EOMI. No conjunctival pallor. Sclera are non-icteric. NECK: Supple. Full ROM. CARDIOVASCULAR: Tachycardic with regular rhythm. No murmurs, rubs, or gallops. PULMONARY: No evidence of respiratory distress. Lungs clear to auscultation bilaterally. No wheezing, rales or rhonchi. ABDOMINAL: Soft. Mild tenderness to deep palpation in epigastrium and RLQ. Mass noted in RLQ. No rebound or guarding. MUSCULOSKELETAL: Normal range of motion at all joints. No bony deformities or tenderness. EXTREMITIES: No cyanosis. No clubbing. No edema. No calf tenderness or swelling. SKIN: Warm and dry. Normal capillary refill. No rashes. No jaundice. NEUROLOGICAL: Alert, awake, appropriate. Cranial nerves 2-12 grossly intact. Normal speech. Gait is normal without ataxia. PSYCHIATRIC: Cooperative. Good eye contact. Appropriate mood and affect. Moderate Sedation - Procedure Monitoring Vital Signs: Procedure Monitoring Vital Signs Temperature 101.1 F H 09/11/18 17:50 Pulse Rate 127 H 09/11/18 17:50 Respiratory Rate 20 09/11/18 17:50 Blood Pressure 135/76 09/11/18 17:50 O2 Sat by Pulse Oximetry (%) 97 09/11/18 17:50 ED Treatment Course - LABORATORY CBC & Chemistry Diagram: 09/11/18 18:28 09/11/18 18:28 - RADIOLOGY Radiology Studies Ordered: Category Date Time Status CHEST X-RAY PORTABLE* [RAD] Stat Radiology 09/11/18 18:04 Ordered Medical Decision Making - Medical Decision Making 09/11/18 18:59 The patient is a 68F with an extensive PMH who presents to the ER with fever and tachycardia, concerning for sepsis. The patient was recently discharged from our facility after being found with peritoneal infection causing sepsis, discharged on azithromycin after being put on IV unasyn in the hospital. Due to her long stay at the hospital, we will start broad spectrum abx. EKG shows sinus tach without ischemic changes. Pt otherwise stable. Cultures sent from drain. CXR unremarkable on preliminary read. Giving fluids and motrin for fever and tachycardia. 09/11/18 20:08 WBC 17. UA negative. Influenza negative. Likely peritoneal infection recurring. Will send microblog for admission. 09/11/18 20:23 I have endorsed the patient to Dr. Gray for admission under Dr. Fitch. *DC/Admit/Observation/Transfer Diagnosis at time of Disposition: Sepsis Qualifiers: Sepsis type: sepsis due to unspecified organism Qualified Code(s): A41.9 - Sepsis, unspecified organism - Discharge Dispostion Condition at time of disposition: Guarded Decision to Admit order: Yes - Referrals - Patient Instructions - Post Discharge Activity
[2018-09-11] MEDS ORDERED: IBUPROFEN 600 MG TABLET (FP) PO ONE (18:33)
[2018-09-11 18:37] LABS: EPI CELLS RARE /HPF (FEW); URINE MUCUS RARE
[2018-09-11 18:39] LABS: VENOUS PC02 36.7 mmHg (38-52); VENOUS PH 7.43 (7.32-7.42); VENOUS PO2 42.4 mmHg (28-48)
[2018-09-11 18:59] LABS: INR 1.71 (0.83-1.09); PROTHROMBIN TIME (PATIENT) 20.3 SEC (9.7-13.0)
[2018-09-11 19:01] LABS: ACTIVATED PTT 39.3 SECONDS (25.2-36.5)
[2018-09-11] MEDS ORDERED: VANCOMYCIN 1,000 MG in DEXTROSE 5%-WATER - 250 ML IVPB ONE (19:02)
[2018-09-11] MEDS ORDERED: PIPERACILLIN/TAZOB 3.375 GM 3.375 GM in DEXTROSE 5%-WATER - 50 ML IVPB ONE (19:02)
[2018-09-11 19:08] LABS: BASO % 0.3 % (0-2.0); EOS % 0.1 % (0-4.5); HEMATOCRIT 24.7 % (32.4-45.2); HEMOGLOBIN 8.2 GM/dL (10.7-15.3); LYMPH % 6.1 % (8-40); MCH 26.7 pg (25.7-33.7); MCHC 33.1 g/dl (32.0-36.0); MEAN CELL VOLUME 80.6 fl (80-96); MEAN PLT VOLUME 6.9 fl (7.5-11.1); MONO % 7.1 % (3.8-10.2); NEUT % 86.4 % (42.8-82.8); PLATELET COUNT 643 K/MM3 (134-434); RBC 3.06 M/mm3 (3.60-5.2); RDW 16.7 % (11.6-15.6); WHITE BLOOD COUNT 17.8 K/mm3 (4.0-10.0)
[2018-09-11] MEDS ORDERED: VANCOMYCIN 1 GRAM (PRE-DOCKED) 1,000 MG/250 ML BAG IVPB ONE (19:13)
[2018-09-11] MEDS ORDERED: PIPERACILLIN/TAZOB 3.375 GM 3.375 GM/50 ML BAG IVPB ONE (19:13)
[2018-09-11 19:19] LABS: ALBUMIN 2.1 g/dl (3.4-5.0); ALK PHOS 106 U/L (45-117); ANION GAP 9 MMOL/L (8-16); BILIRUBIN,TOTAL 0.2 mg/dL (0.2-1); BLOOD UREA NITROGEN 15 mg/dL (7-18); CHLORIDE 100 mmol/L (98-107); CO2 24 mmol/L (21-32); GLUCOSE,RANDOM 130 mg/dL (74-106); POTASSIUM 4.7 mmol/L (3.5-5.1); SGOT/AST 12 U/L (15-37); SGPT/ALT < 6 U/L (13-61); SODIUM 133 mmol/L (136-145); TOT PROT 6.7 g/dl (6.4-8.2)
--- NOTE | 2018-09-11 21:40 | HP ---
CHIEF COMPLAINT: Fever, discharged yesterday PCP: Regina HISTORY OF PRESENT ILLNESS: 68 yo Female with PMH of Metastatic Endometrial cancer, peritoneal carcinomatosis, NIDDM, GERD, Anemia, HLD, admitted after being discharged yesterday and found with fever again today. She says her fever at home was over 100 but she is not sure the exact number as the aide was the one who checked it and told her she needed to return to the emergency department. In the ED her temp was noted to be 101.7 and she was also noted to be tachycardic. She states she is having some pain in her abdomen that is 4/10 and "mostly in the site of her hernia and where they did the procedure" in addition to epigastric and LLQ pain. She denies any cough, diarrhea, or urinary symptoms. ER course was notable for: (1) Vanc/Zosyn (2) UA negative, Flu negative, CXR unremarkable (3) ELINOR drain fluid, urine and blood cultures pending Recent Travel: none PAST MEDICAL HISTORY: Metastatic Endometrial cancer, peritoneal carcinomatosis, NIDDM, GERD, Anemia, HLD PAST SURGICAL HISTORY: Peritoneal drainage Social History: Smoking: Denies Alcohol: Denies Drugs: Denies Family History: Allergies carboplatin Allergy (Intermediate, Verified 09/11/18 18:00) PT HAD REACTION TO CARBOPLATIN AND WILL NO LONGER RECIEVE THERAPY PER MD OFFICE shellfish derived Allergy (Intermediate, Verified 09/11/18 18:00) Vomiting carboplatinum Allergy (Intermediate, Uncoded 09/11/18 18:00) HOME MEDICATIONS: Home Medications Medication Instructions Recorded Loratadine [Claritin] 10 mg PO DAILY 09/28/17 Omeprazole Magnesium [Prilosec Otc] 40 mg PO DAILY 09/28/17 Travoprost [Travatan Z] 1 drop OU HS 09/28/17 Meloxicam 15 mg PO DAILY 08/11/18 Psyllium Husk [Metamucil] 0.4 gm PO DAILY 08/11/18 Sitagliptin Phosphate [Januvia] 100 mg PO DAILY 08/11/18 Acetaminophen [Tylenol] 2 tab PO Q6H PRN 08/13/18 Insulin NPH Hum/Reg Insulin Hm 10 units SQ ACDIN 08/13/18 [Novolin 70-30 Flexpen] Linaclotide [Linzess] 1 tab PO DAILY 08/13/18 Metformin HCl [Glucophage] 500 mg PO BID 08/13/18 Zolpidem Tartrate [Ambien] 5 mg PO HS 08/13/18 [place]-3 Acid Ethyl Esters [Lovaza] 1 g PO DAILY 09/03/18 Amoxicillin/Potassium Clav 1 each PO BID #11 tablet 09/10/18 [Augmentin 875-125 Tablet] REVIEW OF SYSTEMS CONSTITUTIONAL: fever Absent: , chills, diaphoresis, generalized weakness, malaise, loss of appetite, weight change HEENT: Absent: rhinorrhea, nasal congestion, throat pain, throat swelling, difficulty swallowing, mouth swelling, ear pain, eye pain, visual changes CARDIOVASCULAR: Absent: chest pain, syncope, palpitations, irregular heart rate, lightheadedness , peripheral edema RESPIRATORY: Absent: cough, shortness of breath, dyspnea with exertion, orthopnea, wheezing, stridor, hemoptysis GASTROINTESTINAL: abdominal pain Absent: , abdominal distension, nausea, vomiting, diarrhea, constipation, melena , hematochezia GENITOURINARY: Absent: dysuria, frequency, urgency, hesitancy, hematuria, flank pain, genital pain MUSCULOSKELETAL: Absent: myalgia, arthralgia, joint swelling, back pain, neck pain SKIN: Absent: rash, itching, pallor HEMATOLOGIC/IMMUNOLOGIC: Absent: easy bleeding, easy bruising, lymphadenopathy, frequent infections ENDOCRINE: Absent: unexplained weight gain, unexplained weight loss, heat intolerance, cold intolerance NEUROLOGIC: Absent: headache, focal weakness or paresthesias, dizziness, unsteady gait, seizure, mental status changes, bladder or bowel incontinence PSYCHIATRIC: Absent: anxiety, depression, suicidal or homicidal ideation, hallucinations. PHYSICAL EXAMINATION Vital Signs - 24 hr 09/11/18 09/11/18 17:50 18:48 Temperature 101.1 F H 101.7 F H Pulse Rate 127 H Respiratory 20 Rate Blood Pressure 135/76 O2 Sat by Pulse 97 Oximetry (%) GENERAL: Divehi-speaking. Pleasant female. AAOx3. NAD. comfortable. HEENT: AT/NC. Moist mucus membranes. NECK: supple without lymphadenopathy LUNGS: CTA B/L. No wheezes noted. HEART: RRR. Normal S1, S2. No murmurs noted. ABDOMEN: Soft NT/ND. Normoactive bowel sounds. ELINOR drain in place on L side of abdomen, surrounding dressing c/d/i. R sided ventral hernia, tender to palpation , reducible. EXTREMITIES: 2+ pulses, no edema. NEUROLOGICAL: Normal speech, CN grossly in tact gait not observed. PSYCH: Normal mood, normal affect. SKIN: Warm, dry, normal turgor, no rashes. Laboratory Results - last 24 hr 09/11/18 09/11/18 09/11/18 18:08 18:14 18:27 WBC RBC Hgb Hct MCV MCH MCHC RDW Plt Count MPV Absolute Neuts (auto) Neutrophils % Lymphocytes % Monocytes % Eosinophils % Basophils % Nucleated RBC % PT with INR INR PTT (Actin FS) VBG pH POC VBG pCO2 POC VBG pO2 Mixed VBG HCO3 Sodium Potassium Chloride Carbon Dioxide Anion Gap BUN Creatinine Creat Clearance w eGFR Random Glucose Lactic Acid 1.4 Calcium Total Bilirubin AST ALT Alkaline Phosphatase Troponin I Total Protein Albumin Urine Color Yellow Urine Appearance Slcloudy Urine pH 5.0 Ur Specific [place] 1.017 Urine Protein 1+ H Urine Glucose (UA) Negative Urine Ketones Negative Urine Blood Negative Urine Nitrite Negative Urine Bilirubin Negative Urine Urobilinogen Negative Ur Leukocyte Esterase Negative Urine WBC (Auto) 4 Urine RBC (Auto) None Ur Epithelial Cells Rare Urine Mucus Rare Influenza A (Rapid) Negative Influenza B (Rapid) Negative 09/11/18 09/11/18 09/11/18 18:28 18:28 18:28 WBC 17.8 H RBC 3.06 L Hgb 8.2 L Hct 24.7 L MCV 80.6 MCH 26.7 MCHC 33.1 RDW 16.7 H Plt Count 643 H MPV 6.9 L Absolute Neuts (auto) 15.4 H Neutrophils % 86.4 H Lymphocytes % 6.1 L D Monocytes % 7.1 Eosinophils % 0.1 D Basophils % 0.3 Nucleated RBC % 0 PT with INR 20.30 H INR 1.71 H PTT (Actin FS) 39.3 H VBG pH 7.43 H POC VBG pCO2 36.7 L POC VBG pO2 42.4 Mixed VBG HCO3 23.6 Sodium Potassium Chloride Carbon Dioxide Anion Gap BUN Creatinine Creat Clearance w eGFR Random Glucose Lactic Acid Calcium Total Bilirubin AST ALT Alkaline Phosphatase Troponin I Total Protein Albumin Urine Color Urine Appearance Urine pH Ur Specific [place] Urine Protein Urine Glucose (UA) Urine Ketones Urine Blood Urine Nitrite Urine Bilirubin Urine Urobilinogen Ur Leukocyte Esterase Urine WBC (Auto) Urine RBC (Auto) Ur Epithelial Cells Urine Mucus Influenza A (Rapid) Influenza B (Rapid) 09/11/18 18:28 WBC RBC Hgb Hct MCV MCH MCHC RDW Plt Count MPV Absolute Neuts (auto) Neutrophils % Lymphocytes % Monocytes % Eosinophils % Basophils % Nucleated RBC % PT with INR INR PTT (Actin FS) VBG pH POC VBG pCO2 POC VBG pO2 Mixed VBG HCO3 Sodium 133 L Potassium 4.7 Chloride 100 Carbon Dioxide 24 Anion Gap 9 BUN 15 Creatinine 1.0 Creat Clearance w eGFR 55.14 Random Glucose 130 H Lactic Acid Calcium 8.0 L Total Bilirubin 0.2 AST 12 L ALT < 6 L Alkaline Phosphatase 106 Troponin I < 0.02 Total Protein 6.7 Albumin 2.1 L Urine Color Urine Appearance Urine pH Ur Specific [place] Urine Protein Urine Glucose (UA) Urine Ketones Urine Blood Urine Nitrite Urine Bilirubin Urine Urobilinogen Ur Leukocyte Esterase Urine WBC (Auto) Urine RBC (Auto) Ur Epithelial Cells Urine Mucus Influenza A (Rapid) Influenza B (Rapid) ASSESSMENT/PLAN: 68 yo Female with PMH of Metastatic Endometrial cancer, peritoneal carcinomatosis, NIDDM, GERD, Anemia, HLD, admitted after being discharged yesterday and found with fever again today. Sepsis likely secondary to Peritoneal source -Likely due to same source as prior admission, flu negative, UA clean, CXR unremarkable -Cultures pending: blood, urine, drain fluid -Vanc/Zosyn for now as patient recently hospitalized for 2 weeks, though last admission treated with Unasyn and Augmentin on discharge -ID consulted NIDDM -BGMs ACHS -Insulin Sliding scale Anemia -Stable from prior admission GERD -Prilosec 40 mg PO Daily, continue hospital formulary equivalent IBS -Stable, continue home Linzess Metastatic Endometrial cancer -Heme/onc reconsulted DVT Prophylaxis -Lovenox 40 mg SQ Daily FEN -Fluids: LR @ 75 cc/hr -Electrolytes: No electrolyte abnormalities, BMP in AM -Nutrition: Diabetic Diet Disposition Med/Surg Visit type - Emergency Visit Emergency Visit: Yes ED Registration Date: 09/11/18 Care time: The patient presented to the Emergency Department on the above date and was hospitalized for further evaluation of their emergent condition. - New Patient This patient is new to me today: Yes Date on this admission: 09/11/18 - Critical Care Critical Care patient: No
[2018-09-11] MEDS: LACTATED RINGERS SOLUTION 1,000 ML IV SCH (21:50)
[2018-09-11] MEDS: INSULIN SLIDING SCALE (NOVOLOG) 1 VIAL SQ SCH (22:41)
[2018-09-12 00:11] VITALS: BMI 26.7
[2018-09-12] MEDS: INSULIN SLIDING SCALE (NOVOLOG) 1 VIAL SQ SCH (06:07)
--- NOTE | 2018-09-12 07:05 | PN ---
Teaching Attending Note Name of Resident: Serafin Gray ATTENDING PHYSICIAN STATEMENT I saw and evaluated the patient. I reviewed the resident's note and discussed the case with the resident. I agree with the resident's findings and plan as documented. SUBJECTIVE: OBJECTIVE: aaox3 s1 and s2 RRR abdomen soft non-tender lungs cta ASSESSMENT AND PLAN: 68 yo Female with PMH of Metastatic Endometrial cancer, peritoneal carcinomatosis, NIDDM, GERD, Anemia, HLD, admitted after being discharged yesterday and found with fever again today. Sepsis likely secondary to Peritoneal source -Likely due to same source as prior admission, flu negative, UA clean, CXR unremarkable -Cultures pending: blood, urine, drain fluid -Vanc/Zosyn for now as patient recently hospitalized for 2 weeks, though last admission treated with Unasyn and Augmentin on discharge -ID consulted NIDDM -BGMs ACHS -Insulin Sliding scale Anemia -Stable from prior admission GERD -Prilosec 40 mg PO Daily, continue hospital formulary equivalent IBS -Stable, continue home Linzess Metastatic Endometrial cancer -Heme/onc reconsulted
[2018-09-12 07:24] LABS: BASO % 0.5 % (0-2.0); EOS % 1.1 % (0-4.5); HEMATOCRIT 22.7 % (32.4-45.2); HEMOGLOBIN 7.8 GM/dL (10.7-15.3); LYMPH % 8.8 % (8-40); MCH 27.5 pg (25.7-33.7); MCHC 34.4 g/dl (32.0-36.0); MEAN CELL VOLUME 80.1 fl (80-96); MEAN PLT VOLUME 6.8 fl (7.5-11.1); MONO % 9.3 % (3.8-10.2); NEUT % 80.3 % (42.8-82.8); PLATELET COUNT 603 K/MM3 (134-434); RBC 2.83 M/mm3 (3.60-5.2); RDW 16.7 % (11.6-15.6); WHITE BLOOD COUNT 13.9 K/mm3 (4.0-10.0)
[2018-09-12 07:37] LABS: INR 1.62 (0.83-1.09); PROTHROMBIN TIME (PATIENT) 19.2 SEC (9.7-13.0)
[2018-09-12 07:54] LABS: ANION GAP 8 MMOL/L (8-16); BLOOD UREA NITROGEN 11 mg/dL (7-18); CALCIUM 8.7 mg/dL (8.5-10.1); CHLORIDE 105 mmol/L (98-107); CO2 25 mmol/L (21-32); CREATININE 0.7 mg/dL (0.55-1.3); GLUCOSE,RANDOM 85 mg/dL (74-106); PHOSPHOROUS 3.9 mg/dL (2.5-4.9); POTASSIUM 4.4 mmol/L (3.5-5.1); SODIUM 138 mmol/L (136-145)
--- NOTE | 2018-09-12 09:46 | PN ---
Physical Exam: SUBJECTIVE: Patient seen and examined at bedside. No acute events overnight. Pt still with same persistent abd pain, however well-controlled. Denies cp, sob, f/ c, urinary/bowel symptoms. OBJECTIVE: GENERAL: Monegasque-speaking. Pleasant female. AAOx3. NAD. comfortable. HEENT: AT/NC. EOMI. RISHI. Moist mucus membranes. NECK: Trachea midline, full range of motion, supple. LUNGS: CTA B/L. No wheezes noted. HEART: RRR. Normal S1, S2. No murmurs noted. ABDOMEN: Soft NT/ND. +BS in all 4Q's. ELINOR drain in place on L side of abdomen, surrounding dressing c/d/i. R sided ventral hernia, minimally tender to palpation, reducible. No ecchymoses noted. EXTREMITIES: 2+ pulses, no edema. NEUROLOGICAL: Normal speech, non focal, gait not observed. PSYCH: Normal mood, normal affect. SKIN: Warm, dry, normal turgor, no rashes. CBC, BMP 09/12/18 06:20 09/12/18 06:20 Active Medications Acetaminophen (Tylenol -) 650 mg PO Q4H PRN PRN Reason: PAIN LEVEL 1-5 OR FEVER Enoxaparin Sodium (Lovenox -) 40 mg SQ DAILY [facility] Lactated Ringer's (Lactated Ringers Solution) 1,000 mls @ 75 mls/hr IV ASDIR [facility] Last Admin: 09/11/18 21:50 Dose: 75 mls/hr Insulin Aspart (Novolog Vial Sliding Scale -) 1 vial SQ ACHS [facility]; Protocol Last Admin: 09/12/18 06:07 Dose: Not Given ASSESSMENT/PLAN: 68 yo Female with PMH of Metastatic Endometrial cancer, peritoneal carcinomatosis, NIDDM, GERD, Anemia, HLD, admitted after being discharged yesterday and found with fever again today. #Sepsis likely secondary to Peritoneal source -Likely due to same source as prior admission, flu negative, UA clean, CXR unremarkable -WBC improved 17.8, now 13.9; afebrile 98.1 -BCx, UCx, Fluid Cx pending -Per ID, cont w/ Unasyn 1.5 gm Q6H IVPB (Vanc/Zosyn given in ED, patient recently hospitalized for 2 weeks, though last admission treated with Unasyn and Augmentin on discharge) -Tylenol 650 mg PO Q4H PRN #Ventral hernia -CTAP done previous admission showed non-obstructing hernia. -Evaluated by surg last admission; no surg intervention at this time. #Anemia -Stable from prior admission #GERD -Prilosec 40 mg PO Daily, continue hospital formulary equivalent #IBS -Stable, continue home Linzess #Metastatic Endometrial cancer -Heme/onc reconsulted -No further intervention at this time until pt is stable. Pt agreed to follow up outpatient for clinical study at [facility] #? DM; Pt stable throughout last 2 admissions with no need for insulin use. Not currently on DM meds at home. D/C ISS. Monitor BGMs. #DVT Prophylaxis -Lovenox 40 mg SQ Daily #FEN -Fluids: LR @ 75 cc/hr -Electrolytes: No electrolyte abnormalities, BMP in AM -Nutrition: Diabetic Diet #Disposition -Med/Surg Visit type - Emergency Visit Emergency Visit: Yes ED Registration Date: 09/11/18 Care time: The patient presented to the Emergency Department on the above date and was hospitalized for further evaluation of their emergent condition. - New Patient This patient is new to me today: No - Critical Care Critical Care patient: No
[2018-09-12] MEDS: ACETAMINOPHEN 325 MG TABLET (FP) PO PRN ×2 (09:53→17:26)
[2018-09-12] MEDS: ENOXAPARIN NA (PORCINE) 40 MG/0.4 ML DISP.SYRIN SQ SCH (09:54)
--- NOTE | 2018-09-12 11:02 | PN ---
Progress Note (short form) - Note Progress Note: ID CONSULT DICTATED R/O SEPSIS SECONDARY TO GI SOURCE INFECTED ASCITES ? TUMOR FEVER AWAIT C/S UNASYN
--- NOTE | 2018-09-12 13:42 | PN ---
Progress Note (short form) - Note Progress Note: Patient seen in follow up. Was discharged briefly, on Abics, but returned promptly with high fever recorded at home. Now afebrile. Reports ongoing pain abdomen. Inpatient Meds reviewed. Current Medications Generic Name Dose Route Start Last Admin Trade Name Dhiraj PRN Reason Stop Dose Admin Acetaminophen 650 mg 09/11/18 21:20 09/12/18 09:53 Tylenol - PO 650 mg Q4H PRN Administration PAIN LEVEL 1-5 OR FEVER Enoxaparin Sodium 40 mg 09/12/18 10:00 09/12/18 09:54 Lovenox - SQ 40 mg DAILY ECTOR Administration Lactated Ringer's 1,000 mls @ 75 mls/hr 09/11/18 21:30 09/11/18 21:50 Lactated Ringers Solution IV 75 mls/hr ASDIR ECTOR Administration Ampicillin Sodium/Sulbactam 100 mls @ 200 mls/hr 09/12/18 11:15 Sodium 1.5 gm/ Sodium Chloride IVPB Q6H-IV ECTOR Insulin Aspart 1 vial 09/11/18 22:00 09/12/18 06:07 Novolog Vial Sliding Scale - SQ Not Given ACHS ECTOR Protocol On Examination: Last Vital Signs Temp Pulse Resp BP Pulse Ox 98.1 F 93 H 17 121/67 96 09/12/18 06:00 09/12/18 06:00 09/12/18 06:00 09/12/18 06:00 09/11/18 22:45 General: In no acute distress, lying comfortably in bed. Extremities: No pallor or icterus. No pedal edema. No palpable lymphadenopathy. Tunneled catheter RIJ, no visible swelling. CVS: S1, S2, regular, no gallop or murmur. Chest: good air entry bilaterally, clear Abdomen: Somewhat distended,tender, no palpable organomegaly, drain in -situ. Neuro: Alert, oriented, non-focal. Labs: CBC, BMP 09/12/18 06:20 09/12/18 06:20 Assessment. Oncology history as per Dr Dave. "Metastatic recurrent endometrial cancer . Recently receiving avastin-doxil having progressed on taxol/carboplatinum. Has had several surgical debulking procedures. In interim , exploring other chemotherapy options." Presently admitted with fever, again, likely due to peritoneal infection - loculated ascitic collection. ID following, now on Unasyn. No decisions regarding further treatment would be made until this acute issue was dealt with.
[2018-09-12] MEDS: AMPICILLIN NA/SULBACTAM NA 1.5 GM in SODIUM CHLORIDE 100 ML IVPB SCH ×3 (17:27→21:29)
--- NOTE | 2018-09-12 19:06 | EKG ---
Test Reason : Blood Pressure : / mmHG Vent. Rate : 118 BPM Atrial Rate : 118 BPM P-R Int : 168 ms QRS Dur : 078 ms QT Int : 314 ms P-R-T Axes : 053 -02 056 degrees QTc Int : 440 ms SINUS TACHYCARDIA MINIMAL VOLTAGE CRITERIA FOR LVH, MAY BE NORMAL VARIANT BORDERLINE ECG WHEN COMPARED WITH ECG OF 27-AUG-2018 10:03, NO SIGNIFICANT CHANGE WAS FOUND Confirmed by LAURENCE JHA, ROXANNE ([id number]) on 09/12/2018 7:06:19 PM Referred By: Confirmed By:ROXANNE DANG MD
[2018-09-12] MEDS ORDERED: KETOROLAC TROMETHAMINE 10 MG TABLET PO ONE (21:00)
[2018-09-12] MEDS ORDERED: PT OWN MED DRAWER 7, Y5N ONE (21:11)
[2018-09-12] MEDS: LACTATED RINGERS SOLUTION 1,000 ML IV SCH (21:29)
[2018-09-13] MEDS ORDERED: PT OWN MED DRAWER 7, Y5N ONE (02:06)
[2018-09-13] MEDS: AMPICILLIN NA/SULBACTAM NA 1.5 GM in SODIUM CHLORIDE 100 ML IVPB SCH ×4 (02:15→21:50)
[2018-09-13 07:33] LABS: HEMATOCRIT 22.2 % (32.4-45.2); HEMOGLOBIN 7.6 GM/dL (10.7-15.3); MCH 27.5 pg (25.7-33.7); MCHC 34.1 g/dl (32.0-36.0); MEAN CELL VOLUME 80.8 fl (80-96); MEAN PLT VOLUME 6.9 fl (7.5-11.1); PLATELET COUNT 574 K/MM3 (134-434); RBC 2.75 M/mm3 (3.60-5.2); RDW 16.8 % (11.6-15.6); WHITE BLOOD COUNT 12.6 K/mm3 (4.0-10.0)
[2018-09-13 08:24] LABS: ALBUMIN 1.7 g/dl (3.4-5.0); ALK PHOS 97 U/L (45-117); ANION GAP 8 MMOL/L (8-16); BILIRUBIN,TOTAL 0.3 mg/dL (0.2-1); BLOOD UREA NITROGEN 11 mg/dL (7-18); CHLORIDE 102 mmol/L (98-107); CO2 25 mmol/L (21-32); CREATININE 0.8 mg/dL (0.55-1.3); GLUCOSE,RANDOM 72 mg/dL (74-106); POTASSIUM 4.3 mmol/L (3.5-5.1); SGOT/AST 8 U/L (15-37); SGPT/ALT < 6 U/L (13-61); SODIUM 135 mmol/L (136-145); TOT PROT 5.8 g/dl (6.4-8.2)
--- NOTE | 2018-09-13 08:31 | PN ---
Progress Note, Physician Chief Complaint: No c/o abd pain , low grade fever tachycardia resolved HR < 100 no cardiac issue , peritoneal fluid grew GNB (non nutrition representative) History of Present Illness: 68 yo Female with PMH of Metastatic Endometrial cancer, peritoneal carcinomatosis, NIDDM, GERD, Anemia, HLD, admitted after being discharged with fever. Elevated TWBC ascitis fluid growing non fermerter GNB - Current Medication List Current Medications: Active Medications Acetaminophen (Tylenol -) 650 mg PO Q4H PRN PRN Reason: PAIN LEVEL 1-5 OR FEVER Last Admin: 09/12/18 17:26 Dose: 650 mg Enoxaparin Sodium (Lovenox -) 40 mg SQ DAILY ECTOR Last Admin: 09/12/18 09:54 Dose: 40 mg Lactated Ringer's (Lactated Ringers Solution) 1,000 mls @ 75 mls/hr IV ASDIR ECTOR Last Admin: 09/12/18 21:29 Dose: Not Given Ampicillin Sodium/Sulbactam (Sodium 1.5 gm/ Sodium Chloride) 100 mls @ 200 mls/ hr IVPB Q6H-IV ECTOR - Objective Vital Signs: Vital Signs Temperature 98.5 F 09/13/18 06:00 Pulse Rate 99 H 09/13/18 06:00 Respiratory Rate 18 09/13/18 06:00 Blood Pressure 145/81 09/13/18 06:00 O2 Sat by Pulse Oximetry (%) 97 09/12/18 21:00 ElDerly F feels comfortable denies any nausea, vomiting or diarrhea, mild abd pain. HEENT: mm moist, mild anemia, PERRLA EOMI NECK: No JVd No Bruit CHEST: occasional crepts CVS: s1S2 r no murmur/ gallop ABD: Mild distention, soft, mild tenderness Bs +, peritoneal draign at place. 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 Labs: CBC, BMP 09/13/18 05:50 09/13/18 05:50 INR, PTT INR 1.62 (0.83-1.09) H 09/12/18 06:20 Problem List - Problems (1) Sepsis Assessment/Plan: Due to peritonitis ascitic fluid grew GNB non fernmenter on Unsyn responding TWBC trending normal low grade fever yesterday Code(s): A41.9 - SEPSIS, UNSPECIFIED ORGANISM Qualifiers: Sepsis type: sepsis due to unspecified organism Qualified Code(s): A41.9 - Sepsis, unspecified organism (2) Abdominal carcinomatosis Assessment/Plan: Due to endemetrial carcinoma Code(s): C76.2 - MALIGNANT NEOPLASM OF ABDOMEN (3) Peritonitis Assessment/Plan: Bacterial on IV unasyn grew GNB f/u final culture and Id input Code(s): K65.9 - PERITONITIS, UNSPECIFIED (4) Uterine cancer Assessment/Plan: No active management at present Code(s): C55 - MALIGNANT NEOPLASM OF UTERUS, PART UNSPECIFIED (5) Ventral hernia without obstruction or gangrene Assessment/Plan: Observe Code(s): K43.9 - VENTRAL HERNIA WITHOUT OBSTRUCTION OR GANGRENE (6) T2DM (type 2 diabetes mellitus) Assessment/Plan: Fs are well controlled Code(s): E11.9 - TYPE 2 DIABETES MELLITUS WITHOUT COMPLICATIONS
[2018-09-13] MEDS: ENOXAPARIN NA (PORCINE) 40 MG/0.4 ML DISP.SYRIN SQ SCH (10:02)
[2018-09-13] MEDS: oxyCODONE HCL 5 MG TABLET PO PRN (18:22)
[2018-09-13] MEDS ORDERED: AMPICILLIN NA/SULBACTAM NA 1.5 GM VIAL ONE (21:40)
[2018-09-13] MEDS ORDERED: SODIUM CHLORIDE 100 ML IVPB ONE (21:41)
[2018-09-13] MEDS: LACTATED RINGERS SOLUTION 1,000 ML IV SCH (21:51)
--- NOTE | 2018-09-13 23:36 | PN ---
Progress Note, Physician History of Present Illness: No c/o abdominal pain Afebrile BC (-) Abdominal c/s GNR - Current Medication List Current Medications: Active Medications Acetaminophen (Tylenol -) 650 mg PO Q4H PRN PRN Reason: PAIN LEVEL 1-5 OR FEVER Last Admin: 09/12/18 17:26 Dose: 650 mg Acetaminophen (Tylenol -) 325 mg PO Q8H PRN PRN Reason: PAIN LEVEL 6-10 Enoxaparin Sodium (Lovenox -) 40 mg SQ DAILY [facility] Last Admin: 09/13/18 10:02 Dose: 40 mg Lactated Ringer's (Lactated Ringers Solution) 1,000 mls @ 75 mls/hr IV ASDIR [facility] Last Admin: 09/13/18 21:51 Dose: 75 mls/hr Ampicillin Sodium/Sulbactam (Sodium 1.5 gm/ Sodium Chloride) 100 mls @ 200 mls/ hr IVPB Q6H-IV [facility] Last Admin: 09/13/18 21:50 Dose: 200 mls/hr Oxycodone HCl (Roxicodone -) 5 mg PO Q8H PRN PRN Reason: PAIN LEVEL 6-10 Last Admin: 09/13/18 18:22 Dose: 5 mg - Objective Vital Signs: Vital Signs Temperature 98.7 F 09/13/18 14:10 Pulse Rate 102 H 09/13/18 14:10 Respiratory Rate 18 09/13/18 14:10 Blood Pressure 152/86 09/13/18 14:10 O2 Sat by Pulse Oximetry (%) 97 09/12/18 21:00 Constitutional: Yes: No Distress Eyes: Yes: Conjunctiva Clear Cardiovascular: Yes: Regular Rate and Rhythm, S1, S2 Respiratory: Yes: CTA Bilaterally Gastrointestinal: Yes: Normal Bowel Sounds, Soft, Other (distended, non tender catheter in place) Labs: CBC, BMP 09/13/18 05:50 09/13/18 05:50 INR, PTT INR 1.62 (0.83-1.09) H 09/12/18 06:20 Assessment/Plan Infected ascites R/O sepsis secondary to GI source Metastatic endometrial ca Await c/s Continue unasyn
--- NOTE | 2018-09-14 00:11 | CONS ---
DATE OF CONSULTATION: DATE OF DICTATION: 09/13/2018 INFECTIOUS DISEASE CONSULTATION HISTORY OF PRESENT ILLNESS: A 68-year-old female with a history of recurrent metastatic endometrial carcinoma with peritoneal carcinomatosis and infected ascites now evaluated for fever. Patient was recently discharged from [facility] after a 2-week hospitalization significant for infected loculated ascitic fluid. She underwent a percutaneous drainage procedure and had received a course of IV antibiotic therapy. She was discharged home on Augmentin. She now returns shortly after discharge with recurrent fever. According to the notes, a visiting nurse noted her to be febrile. She was evaluated in the emergency room where temperature was 101.7. Admitting laboratory showed an elevated white blood cell count of 17.8. Cultures were obtained. At the present time she is awake and alert. She has no complaints of abdominal pain at present. No complaints of fever or chills. She denies any chest pain, shortness of breath, cough or sputum production, no complaints of dysuria or hematuria. PAST MEDICAL HISTORY: Positive for recurrent metastatic endometrial carcinoma, peritoneal carcinomatosis, infected ascites, diabetes mellitus, gastroesophageal reflux, hyperlipidemia. ALLERGIES: CARBOPLATIN and SHELLFISH. MEDICATION: Include Tylenol, Lovenox, oxycodone. SOCIAL HISTORY: She resides at home in the community. She is a nonsmoker, nondrinker. SYSTEMS REVIEW: Neurologic: No loss of consciousness, seizure activity, focal weakness. Cardiac: Negative for chest pain or palpitations. Respiratory: Negative for cough or sputum production. Gastrointestinal: As per HPI. LABORATORY DATA: White count on admission 17.8, presently 13.9, hematocrit 22.7, platelet count 603, creatinine 0.7, influenza swab negative. Cultures pending. PHYSICAL EXAMINATION: General: On exam, she is awake, in no acute distress. Vital signs: Temperature 98.1, T-max 101.7, blood pressure 121/67, pulse 93 regular, respirations 18 per minute. HEENT: Sclerae anicteric. Cardiovascular: Heart sounds S1, S2. Lungs: Grossly clear. Abdomen: Distended. There is a hernia present right lower quadrant. The abdomen is not tender. No mass, rebound, or rigidity. IMPRESSION: 1. Infected ascitic fluid, possible sepsis secondary to gastrointestinal source. 2. Metastatic endometrial carcinoma with peritoneal carcinomatosis. 3. Rule out tumor fever. Await culture results, empiric antibiotic based on previous ascitic fluid culture with Unasyn 1.5 g IV piggyback every 6 hours, oncology followup, will follow. Thank you for the kind referral. WALTER LE M.D. [id number]
[2018-09-14] MEDS ORDERED: SODIUM CHLORIDE 100 ML IVPB ONE ×4 (03:22→20:10)
[2018-09-14] MEDS ORDERED: AMPICILLIN NA/SULBACTAM NA 1.5 GM VIAL ONE ×6 (03:22→21:09)
[2018-09-14] MEDS: AMPICILLIN NA/SULBACTAM NA 1.5 GM in SODIUM CHLORIDE 100 ML IVPB SCH ×4 (03:26→21:16)
[2018-09-14] MEDS: ACETAMINOPHEN 325 MG TABLET (FP) PO PRN ×2 (05:43→17:18)
[2018-09-14 06:58] LABS: BASO % 0.5 % (0-2.0); EOS % 0.4 % (0-4.5); HEMATOCRIT 22.3 % (32.4-45.2); HEMOGLOBIN 7.4 GM/dL (10.7-15.3); LYMPH % 13.1 % (8-40); MCH 26.4 pg (25.7-33.7); MCHC 33.1 g/dl (32.0-36.0); MEAN CELL VOLUME 79.8 fl (80-96); MEAN PLT VOLUME 6.7 fl (7.5-11.1); MONO % 12.4 % (3.8-10.2); NEUT % 73.6 % (42.8-82.8); PLATELET COUNT 557 K/MM3 (134-434); RDW 17.1 % (11.6-15.6)
[2018-09-14 07:33] LABS: ALBUMIN 1.6 g/dl (3.4-5.0); ALK PHOS 102 U/L (45-117); ANION GAP 9 MMOL/L (8-16); BILIRUBIN,TOTAL 0.4 mg/dL (0.2-1); BLOOD UREA NITROGEN 9 mg/dL (7-18); CALCIUM 7.7 mg/dL (8.5-10.1); CHLORIDE 101 mmol/L (98-107); CO2 24 mmol/L (21-32); CREATININE 0.8 mg/dL (0.55-1.3); GLUCOSE,RANDOM 83 mg/dL (74-106); POTASSIUM 4.1 mmol/L (3.5-5.1); SGOT/AST 10 U/L (15-37); SGPT/ALT < 6 U/L (13-61); SODIUM 134 mmol/L (136-145); TOT PROT 5.8 g/dl (6.4-8.2)
[2018-09-14] MEDS: oxyCODONE HCL 5 MG TABLET PO PRN ×2 (11:32→19:51)
[2018-09-14] MEDS: ENOXAPARIN NA (PORCINE) 40 MG/0.4 ML DISP.SYRIN SQ SCH (11:35)
--- NOTE | 2018-09-14 13:33 | PN ---
Teaching Attending Note Name of Resident: Liya Barksdale ATTENDING PHYSICIAN STATEMENT I saw and evaluated the patient. I reviewed the resident's note and discussed the case with the resident. I agree with the resident's findings and plan as documented. SUBJECTIVE:C/o Mild diffuse abd pain OBJECTIVE: Vital Signs Temperature 101.3 F H 09/14/18 06:00 Pulse Rate 114 H 09/14/18 06:00 Respiratory Rate 20 09/14/18 06:00 Blood Pressure 137/74 09/14/18 06:00 O2 Sat by Pulse Oximetry (%) 95 09/13/18 21:00 ElDerly F feels comfortable denies any nausea, vomiting or diarrhea, mild abd pain. HEENT: mm moist, mild anemia, PERRLA EOMI NECK: No JVd No Bruit CHEST: occasional crepts CVS: s1S2 r no murmur/ gallop ABD: Ventral hernia on Rt lower abd, Mild distention, soft, mild tenderness Bs + , peritoneal drain at place. 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 LABS: CBC, BMP 09/14/18 05:30 09/14/18 05:30 ASSESSMENT AND PLAN: 68 yrs old peritoneal carcinomatous recurrent peritonitis present with fever and chills, ascitic flud culture + for GNB grew cinetobacter; Plan; cont Unasyn Abd Ultrasound re evaluate after ultrasound if peritoneal drain can be removed 9potential port of infection) Problem List - Problems (1) Sepsis Assessment/Plan: Due to peritonitis ascitic fluid grew GNB non fernmenter (acinetbacter) on Unsyn responding TWBc 12 K Code(s): A41.9 - SEPSIS, UNSPECIFIED ORGANISM Qualifiers: Sepsis type: sepsis due to unspecified organism Qualified Code(s): A41.9 - Sepsis, unspecified organism (2) Abdominal carcinomatosis Assessment/Plan: Due to endemetrial carcinoma Code(s): C76.2 - MALIGNANT NEOPLASM OF ABDOMEN (3) Peritonitis Assessment/Plan: Abdominal ultrasound and re evaluate if peritonal drain can be removed Code(s): K65.9 - PERITONITIS, UNSPECIFIED (4) Uterine cancer Assessment/Plan: No active management at present Code(s): C55 - MALIGNANT NEOPLASM OF UTERUS, PART UNSPECIFIED (5) Ventral hernia without obstruction or gangrene Assessment/Plan: Observe Code(s): K43.9 - VENTRAL HERNIA WITHOUT OBSTRUCTION OR GANGRENE (6) T2DM (type 2 diabetes mellitus) Assessment/Plan: Fs are well controlled Code(s): E11.9 - TYPE 2 DIABETES MELLITUS WITHOUT COMPLICATIONS (7) Thrombocytosis Assessment/Plan: Rective Code(s): D47.3 - ESSENTIAL (HEMORRHAGIC) THROMBOCYTHEMIA (8) Anemia Assessment/Plan: Chronic Hb 7.4 F/U H/H consider transfusin if H/h drops , 7.0 F/U stool occult blood Code(s): D64.9 - ANEMIA, UNSPECIFIED
[2018-09-14 13:58] LABS: PLATELET ESTIMATE SLT INCREASE
--- NOTE | 2018-09-14 15:25 | PN ---
Physical Exam: SUBJECTIVE: Patient seen and examined at bedside. No acute events overnight. OBJECTIVE: Vital Signs Temperature 101.3 F H 09/14/18 06:00 Pulse Rate 114 H 09/14/18 06:00 Respiratory Rate 20 09/14/18 06:00 Blood Pressure 137/74 09/14/18 06:00 O2 Sat by Pulse Oximetry (%) 95 09/13/18 21:00 GENERAL: [place]-speaking. Pleasant female. AAOx3. NAD. comfortable. HEENT: AT/NC. EOMI. RISHI. Moist mucus membranes. NECK: Trachea midline, full range of motion, supple. LUNGS: CTA B/L. No wheezes noted. HEART: RRR. Normal S1, S2. No murmurs noted. ABDOMEN: Soft NT/ND. +BS in all 4Q's. ELINOR drain in place on L side of abdomen, surrounding dressing c/d/i. R sided ventral hernia, minimally tender to palpation, reducible. No ecchymoses noted. EXTREMITIES: 2+ pulses, no edema. NEUROLOGICAL: Normal speech, non focal, gait not observed. PSYCH: Normal mood, normal affect. SKIN: Warm, dry, normal turgor, no rashes. Laboratory Results - last 24 hr 09/13/18 09/14/18 09/14/18 17:18 05:30 05:30 WBC 12.0 H RBC 2.80 L Hgb 7.4 L Hct 22.3 L MCV 79.8 L MCH 26.4 MCHC 33.1 RDW 17.1 H Plt Count 557 H MPV 6.7 L Absolute Neuts (auto) 8.8 H Neutrophils % 73.6 Lymphocytes % 13.1 D Monocytes % 12.4 H Eosinophils % 0.4 Basophils % 0.5 Nucleated RBC % 0 Platelet Estimate Slt increase Platelet Comment Sodium 134 L Potassium 4.1 Chloride 101 Carbon Dioxide 24 Anion Gap 9 BUN 9 Creatinine 0.8 Creat Clearance w eGFR > 60 POC Glucometer 134 Random Glucose 83 Calcium 7.7 L Total Bilirubin 0.4 AST 10 L ALT < 6 L Alkaline Phosphatase 102 Total Protein 5.8 L Albumin 1.6 L 09/14/18 06:29 WBC RBC Hgb Hct MCV MCH MCHC RDW Plt Count MPV Absolute Neuts (auto) Neutrophils % Lymphocytes % Monocytes % Eosinophils % Basophils % Nucleated RBC % Platelet Estimate Platelet Comment Sodium Potassium Chloride Carbon Dioxide Anion Gap BUN Creatinine Creat Clearance w eGFR POC Glucometer 100 Random Glucose Calcium Total Bilirubin AST ALT Alkaline Phosphatase Total Protein Albumin Active Medications Acetaminophen (Tylenol -) 650 mg PO Q4H PRN PRN Reason: PAIN LEVEL 1-5 OR FEVER Last Admin: 09/14/18 05:43 Dose: 650 mg Acetaminophen (Tylenol -) 325 mg PO Q8H PRN PRN Reason: PAIN LEVEL 6-10 Enoxaparin Sodium (Lovenox -) 40 mg SQ DAILY [facility] Last Admin: 09/14/18 11:35 Dose: 40 mg Lactated Ringer's (Lactated Ringers Solution) 1,000 mls @ 75 mls/hr IV ASDIR [facility] Last Admin: 09/13/18 21:51 Dose: 75 mls/hr Ampicillin Sodium/Sulbactam (Sodium 1.5 gm/ Sodium Chloride) 100 mls @ 200 mls/ hr IVPB Q6H-IV [facility] Last Admin: 09/14/18 11:35 Dose: 200 mls/hr Oxycodone HCl (Roxicodone -) 5 mg PO Q8H PRN PRN Reason: PAIN LEVEL 6-10 Last Admin: 09/14/18 11:32 Dose: 5 mg Ranitidine HCl (Zantac -) 150 mg PO DAILY [facility] IMAGING: * CTAP: pending ASSESSMENT/PLAN: 68 yo Female with PMH of Metastatic Endometrial cancer, peritoneal carcinomatosis, NIDDM, GERD, Anemia, HLD, admitted after being discharged yesterday and found with fever again today. #Sepsis likely secondary to Peritoneal source -Likely due to same source as prior admission, flu negative, UA clean, CXR unremarkable -WBC 12; febrile overnight at 101.3 -BCx neg x48/pending (taken 09/14/18), UCx neg/pending (taken 09/14/18) Abd Cx + Acetinobacter baumannii/haemol -Per ID, cont w/ Unasyn 1.5 gm Q6H IVPB, Day 4 (Vanc/Zosyn given in ED, patient recently hospitalized for 2 weeks, though last admission treated with Unasyn and Augmentin on discharge); await final cultures -Tylenol 650 mg PO Q4H PRN -Will repeat CTAP to assess fluid collection since drain has minimal output, may need to be readjusted by IR. Pending results, may need to consult IR for repositioning; Catie (HCP) notified, agreed. #Ventral hernia -CTAP done previous admission showed non-obstructing hernia. -Evaluated by surg last admission; no surg intervention at this time. #Anemia -Stable from prior admission #GERD -Prilosec 40 mg PO Daily, continue hospital formulary equivalent #IBS -Stable, continue home Linzess #Metastatic Endometrial cancer -Heme/onc reconsulted -No further intervention at this time until pt is stable. Pt agreed to follow up outpatient for clinical study at [facility] #? DM; Pt stable throughout last 2 admissions with no need for insulin use. Not currently on DM meds at home. D/C ISS. Monitor BGMs. #DVT Prophylaxis -Lovenox 40 mg SQ Daily #FEN -Fluids: LR @ 75 cc/hr -Electrolytes: No electrolyte abnormalities, BMP in AM -Nutrition: Diabetic Diet #Disposition -Med/Surg -Spoke to Catie (HCP) this AM. She expresses that she would like to do the clinical trial at [facility] however, given pt's multiple recent hospitalizations, she realizes this will be difficult. Additionally, HCP acknowledges that the prognosis is guarded. Will update Catie regarding daily course of treatment. Visit type - Emergency Visit Emergency Visit: Yes ED Registration Date: 09/11/18 Care time: The patient presented to the Emergency Department on the above date and was hospitalized for further evaluation of their emergent condition. - New Patient This patient is new to me today: No - Critical Care Critical Care patient: No
--- NOTE | 2018-09-14 17:30 | PN ---
Progress Note (short form) - Note Progress Note: Patient seen and examined Complains of cough and abdominal discomfort with cough Last Vital Signs Temp Pulse Resp BP Pulse Ox 99.4 F 102 H 20 137/78 95 09/14/18 14:00 09/14/18 14:00 09/14/18 14:00 09/14/18 14:00 09/13/18 21:00 HEENT: NADIA, EOM Intact Oropharynx: No thrush, No mucositis, dentures Breasts: Without masses Cor: RSR, No murmurs, No gallops Lungs: diminished breath sounds Abd: Soft, Normal bowel sounds, No organomegaly, large right sided ventral hernia Ext:No significant edema Skin: No rashes, Integument intact CBC, BMP 09/14/18 05:30 09/14/18 05:30 Current Medications Generic Name Dose Route Start Last Admin Trade Name Freq PRN Reason Stop Dose Admin Acetaminophen 650 mg 09/11/18 21:20 09/14/18 17:18 Tylenol - PO 650 mg Q4H PRN Administration PAIN LEVEL 1-5 OR FEVER Acetaminophen 325 mg 09/13/18 18:16 Tylenol - PO Q8H PRN PAIN LEVEL 6-10 Enoxaparin Sodium 40 mg 09/12/18 10:00 09/14/18 11:35 Lovenox - SQ 40 mg DAILY ECTOR Administration Lactated Ringer's 1,000 mls @ 75 mls/hr 09/11/18 21:30 09/13/18 21:51 Lactated Ringers Solution IV 75 mls/hr ASDIR ECTOR Administration Ampicillin Sodium/Sulbactam 100 mls @ 200 mls/hr 09/13/18 07:52 09/14/18 17: 00 Sodium 1.5 gm/ Sodium Chloride IVPB 200 mls/hr Q6H-IV ECTOR Administration Oxycodone HCl 5 mg 09/13/18 18:16 09/14/18 11:32 Roxicodone - PO 5 mg Q8H PRN Administration PAIN LEVEL 6-10 Ranitidine HCl 150 mg 09/15/18 10:00 Zantac - PO DAILY [facility] Microbiology 09/11/18 18:27 Abdomen Gram Stain - Final 09/11/18 18:27 Abdomen Wound Culture - Preliminary Acinetobacter Baumannii/Haemol Group D Strep Or Entero Coccus 09/11/18 18:08 Blood - Peripheral Venous Blood Culture - Preliminary NO GROWTH OBTAINED AFTER 48 HOURS, INCUBATION TO CONTINUE FOR 3 DAYS. 09/11/18 18:08 Blood - Peripheral Venous Blood Culture - Preliminary NO GROWTH OBTAINED AFTER 48 HOURS, INCUBATION TO CONTINUE FOR 3 DAYS. Impression Infected ascites Anemia Endometrial ca Plan:: Transfuse packed cells Antibiotics per ID
[2018-09-14] MEDS: LACTATED RINGERS SOLUTION 1,000 ML IV SCH (21:00)
[2018-09-15] MEDS: ACETAMINOPHEN 325 MG TABLET (FP) PO PRN ×3 (01:06→16:15)
[2018-09-15] MEDS ORDERED: AMPICILLIN NA/SULBACTAM NA 1.5 GM VIAL ONE ×4 (03:51→21:01)
[2018-09-15] MEDS ORDERED: SODIUM CHLORIDE 100 ML IVPB ONE ×4 (03:51→21:02)
[2018-09-15] MEDS: AMPICILLIN NA/SULBACTAM NA 1.5 GM in SODIUM CHLORIDE 100 ML IVPB SCH ×4 (03:54→22:02)
[2018-09-15 07:29] LABS: BASO % 0.9 % (0-2.0); EOS % 1.3 % (0-4.5); HEMATOCRIT 27.9 % (32.4-45.2); HEMOGLOBIN 9.3 GM/dL (10.7-15.3); LYMPH % 13.9 % (8-40); MCH 27.1 pg (25.7-33.7); MCHC 33.4 g/dl (32.0-36.0); MEAN CELL VOLUME 81.1 fl (80-96); MONO % 15.1 % (3.8-10.2); NEUT % 68.8 % (42.8-82.8); PLATELET COUNT 474 K/MM3 (134-434); RBC 3.44 M/mm3 (3.60-5.2); RDW 17.4 % (11.6-15.6); WHITE BLOOD COUNT 11.7 K/mm3 (4.0-10.0)
[2018-09-15 08:16] LABS: ALBUMIN 1.6 g/dl (3.4-5.0); ALK PHOS 106 U/L (45-117); ANION GAP 8 MMOL/L (8-16); BILIRUBIN,TOTAL 0.4 mg/dL (0.2-1); BLOOD UREA NITROGEN 6 mg/dL (7-18); CHLORIDE 100 mmol/L (98-107); CO2 26 mmol/L (21-32); CREATININE 0.7 mg/dL (0.55-1.3); GLUCOSE,RANDOM 72 mg/dL (74-106); POTASSIUM 4.2 mmol/L (3.5-5.1); SGOT/AST 12 U/L (15-37); SGPT/ALT 8 U/L (13-61); SODIUM 134 mmol/L (136-145); TOT PROT 6.1 g/dl (6.4-8.2)
[2018-09-15] MEDS: oxyCODONE HCL 5 MG TABLET PO PRN ×2 (08:21→16:14)
[2018-09-15] MEDS ORDERED: PT OWN MED DRAWER 7, Y5N ONE (10:15)
[2018-09-15] MEDS: ENOXAPARIN NA (PORCINE) 40 MG/0.4 ML DISP.SYRIN SQ SCH (10:16)
--- NOTE | 2018-09-15 11:08 | PN ---
Physical Exam: SUBJECTIVE: Patient seen and examined at bedside. Pt feels more diffuse abdominal pain today. Ate last night and had a bowel movement. OBJECTIVE: Vital Signs Temperature 98.6 F 09/15/18 06:00 Pulse Rate 104 H 09/15/18 06:00 Respiratory Rate 20 09/15/18 06:00 Blood Pressure 150/78 09/15/18 06:00 O2 Sat by Pulse Oximetry (%) 95 09/13/18 21:00 GENERAL: Yoruba-speaking. Pleasant female. AAOx3. NAD. Mild discomfort. HEENT: AT/NC. EOMI. RISHI. Moist mucus membranes. NECK: Trachea midline, full range of motion, supple. LUNGS: CTA B/L. No wheezes noted. HEART: RRR. Normal S1, S2. No murmurs noted. ABDOMEN: Soft NT/ND. +BS in all 4Q's. ELINOR drain in place on L side of abdomen, surrounding dressing c/d/i. R sided ventral hernia, diffusely tender to palpation, non-reducible today. No ecchymoses noted. EXTREMITIES: 2+ pulses, no edema. NEUROLOGICAL: Normal speech, non focal, gait not observed. PSYCH: Normal mood, normal affect. SKIN: Warm, dry, normal turgor, no rashes. CBCD WBC 11.7 K/mm3 (4.0-10.0) H 09/15/18 06:30 RBC 3.44 M/mm3 (3.60-5.2) L 09/15/18 06:30 Hgb 9.3 GM/dL (10.7-15.3) L 09/15/18 06:30 Hct 27.9 % (32.4-45.2) L D 09/15/18 06:30 MCV 81.1 fl (80-96) 09/15/18 06:30 MCHC 33.4 g/dl (32.0-36.0) 09/15/18 06:30 RDW 17.4 % (11.6-15.6) H 09/15/18 06:30 Plt Count 474 K/MM3 (134-434) H 09/15/18 06:30 MPV 7.0 fl (7.5-11.1) L 09/15/18 06:30 CMP Sodium 134 mmol/L (136-145) L 09/15/18 06:30 Potassium 4.2 mmol/L (3.5-5.1) 09/15/18 06:30 Chloride 100 mmol/L (98-107) 09/15/18 06:30 Carbon Dioxide 26 mmol/L (21-32) 09/15/18 06:30 Anion Gap 8 MMOL/L (8-16) 09/15/18 06:30 BUN 6 mg/dL (7-18) L 09/15/18 06:30 Creatinine 0.7 mg/dL (0.55-1.3) 09/15/18 06:30 Creat Clearance w eGFR > 60 (>60) 09/15/18 06:30 Calcium 8.0 mg/dL (8.5-10.1) L 09/15/18 06:30 Total Bilirubin 0.4 mg/dL (0.2-1) 09/15/18 06:30 AST 12 U/L (15-37) L 09/15/18 06:30 ALT 8 U/L (13-61) L 09/15/18 06:30 Alkaline Phosphatase 106 U/L (45-117) 09/15/18 06:30 Total Protein 6.1 g/dl (6.4-8.2) L 09/15/18 06:30 Albumin 1.6 g/dl (3.4-5.0) L 09/15/18 06:30 Active Medications Acetaminophen (Tylenol -) 650 mg PO Q4H PRN PRN Reason: PAIN LEVEL 1-5 OR FEVER Last Admin: 09/15/18 01:06 Dose: 650 mg Acetaminophen (Tylenol -) 325 mg PO Q8H PRN PRN Reason: PAIN LEVEL 6-10 Last Admin: 09/15/18 08:23 Dose: 325 mg Enoxaparin Sodium (Lovenox -) 40 mg SQ DAILY [facility] Last Admin: 09/15/18 10:16 Dose: 40 mg Lactated Ringer's (Lactated Ringers Solution) 1,000 mls @ 75 mls/hr IV ASDIR ECTOR Last Admin: 09/14/18 21:00 Dose: Not Given Ampicillin Sodium/Sulbactam (Sodium 1.5 gm/ Sodium Chloride) 100 mls @ 200 mls/ hr IVPB Q6H-IV E[facility] Last Admin: 09/15/18 08:25 Dose: 200 mls/hr Oxycodone HCl (Roxicodone -) 5 mg PO Q8H PRN PRN Reason: PAIN LEVEL 6-10 Last Admin: 09/15/18 08:21 Dose: 5 mg Ranitidine HCl (Zantac -) 150 mg PO DAILY [facility] IMAGING: * CTAP: pending ASSESSMENT/PLAN: 68 yo Female with PMH of Metastatic Endometrial cancer, peritoneal carcinomatosis, NIDDM, GERD, Anemia, HLD, admitted after being discharged yesterday and found with fever again today. #Sepsis likely secondary to Peritoneal source -Likely due to same source as prior admission, flu negative, UA clean, CXR unremarkable -WBC 12 > 11.7; febrile overnight at 100.5. -BCx neg x48/pending (taken 09/14/18), UCx neg/pending (taken 09/14/18) Abd Cx + Acetinobacter baumannii/haemol -Per ID, cont w/ Unasyn 1.5 gm Q6H IVPB, Day 4 (Vanc/Zosyn given in ED, patient recently hospitalized for 2 weeks, though last admission treated with Unasyn and Augmentin on discharge); await final cultures -Tylenol 650 mg PO Q4H PRN -CTAP done, awaiting final report. Pending results, may need to consult IR for repositioning; Catie (HCP) notified, agreed. #Ventral hernia; more painful today. -CTAP done previous admission showed non-obstructing hernia. -Evaluated by surg last admission; no surg intervention at this time. #Anemia -s/p 2U pRBCs ordered by heme #GERD -Prilosec 40 mg PO Daily, continue hospital formulary equivalent #IBS -Stable, continue home Linzess #Metastatic Endometrial cancer -Heme/onc reconsulted -No further intervention at this time until pt is stable. Pt agreed to follow up outpatient for clinical study at [facility] #? DM; Pt stable throughout last 2 admissions with no need for insulin use. Not currently on DM meds at home. D/C ISS. Monitor BGMs. #DVT Prophylaxis -Lovenox 40 mg SQ Daily #FEN -Fluids: LR @ 75 cc/hr -Electrolytes: No electrolyte abnormalities, BMP in AM -Nutrition: Diabetic Diet #Disposition -Med/Surg -Spoke to Catie (HCP) at bedside today. She acknowledged that prognosis of pt is guarded, and that ascites may not fully resolve. Also made aware that surgical intervention will be unlikely given pt's complaints abdominal history due to current clinical condition. Will update Catie regarding daily course of treatment. Visit type - Emergency Visit Emergency Visit: Yes ED Registration Date: 09/11/18 Care time: The patient presented to the Emergency Department on the above date and was hospitalized for further evaluation of their emergent condition. - New Patient This patient is new to me today: No - Critical Care Critical Care patient: No
[2018-09-15] MEDS: RANITIDINE HCL 150 MG TABLET (FP) PO SCH (14:47)
--- NOTE | 2018-09-15 19:34 | PN ---
Progress Note (short form) - Note Progress Note: Patient seen and examined Last Vital Signs Temp Pulse Resp BP Pulse Ox 99.2 F 109 H 18 159/93 95 09/15/18 16:20 09/15/18 16:20 09/15/18 16:20 09/15/18 16:20 09/13/18 21:00 HEENT: NADIA, EOM Intact Oropharynx: No thrush, No mucositis,dentures Cor: RSR, No murmurs, No gallops Lungs: Clear to P&A Abd:mild tenderness; hernia Ext:No significant edema Skin: No rashes, Integument intact CBC, BMP 09/15/18 06:30 09/15/18 06:30 Current Medications Generic Name Dose Route Start Last Admin Trade Name Freq PRN Reason Stop Dose Admin Acetaminophen 650 mg 09/11/18 21:20 09/15/18 01:06 Tylenol - PO 650 mg Q4H PRN Administration PAIN LEVEL 1-5 OR FEVER Acetaminophen 325 mg 09/13/18 18:16 09/15/18 16:15 Tylenol - PO 325 mg Q8H PRN Administration PAIN LEVEL 6-10 Enoxaparin Sodium 40 mg 09/12/18 10:00 09/15/18 10:16 Lovenox - SQ 40 mg DAILY ECTOR Administration Ampicillin Sodium/Sulbactam 100 mls @ 200 mls/hr 09/13/18 07:52 09/15/18 14: 48 Sodium 1.5 gm/ Sodium Chloride IVPB 200 mls/hr Q6H-IV ECTOR Administration Oxycodone HCl 5 mg 09/13/18 18:16 09/15/18 16:14 Roxicodone - PO 5 mg Q8H PRN Administration PAIN LEVEL 6-10 Ranitidine HCl 150 mg 09/15/18 10:00 09/15/18 14:47 Zantac - PO 150 mg DAILY ECTOR Administration Impression: Continuing on antibiotics with zosyn for infected ascites S/P 2 units of p.c. Anemia Metastatic endometrial ca
--- NOTE | 2018-09-15 19:38 | PN ---
Teaching Attending Note Name of Resident: Azul Borden ATTENDING PHYSICIAN STATEMENT I saw and evaluated the patient. I reviewed the resident's note and discussed the case with the resident. I agree with the resident's findings and plan as documented. SUBJECTIVE: No fever or chills. has abd pain OBJECTIVE: NAD CV: RRR Lungs: CTAB Ext : no edema Abd: soft,NL BS. right sided abd wall hernia is tender and not reducible . TTP in LUQ. LUQ ELINOR drain in . , ASSESSMENT AND PLAN: Unfortunate 68 y/o lady with h/o HLP, DM , metastatic uterine cancer, peritoneal carcinomatosis, SB, s/p peritoneal drain for ascitis ,recent admisison for peritonitis who presented with fever and worsening abd pain 1- Sepsis 2/2 peritonitis: peritoneal fluid cx with acinetobacter and E fecalis . - cont unasyn - CT scan of abd pending read - appreciate ID Recs 2- Abd wall hernia . - Ct scan pending - Sx consult 3- Uterine cancer with peritoneal carcinomatosis: - cont drainage . DVT px with lovenox HLOC
[2018-09-16] MEDS ORDERED: SODIUM CHLORIDE 100 ML IVPB ONE ×4 (02:05→20:59)
[2018-09-16] MEDS ORDERED: AMPICILLIN NA/SULBACTAM NA 1.5 GM VIAL ONE ×4 (02:05→20:59)
[2018-09-16] MEDS: AMPICILLIN NA/SULBACTAM NA 1.5 GM in SODIUM CHLORIDE 100 ML IVPB SCH ×4 (02:29→21:41)
[2018-09-16] MEDS: oxyCODONE HCL 5 MG TABLET PO PRN ×2 (02:31→21:40)
[2018-09-16] MEDS: INSULIN SLIDING SCALE (NOVOLOG) 1 VIAL SQ SCH (07:09)
[2018-09-16 07:36] LABS: HEMATOCRIT 26.1 % (32.4-45.2); HEMOGLOBIN 8.8 GM/dL (10.7-15.3); MCH 27.3 pg (25.7-33.7); MCHC 33.5 g/dl (32.0-36.0); MEAN CELL VOLUME 81.4 fl (80-96); MEAN PLT VOLUME 7.1 fl (7.5-11.1); PLATELET COUNT 416 K/MM3 (134-434); RBC 3.21 M/mm3 (3.60-5.2); RDW 17.4 % (11.6-15.6); WHITE BLOOD COUNT 10.9 K/mm3 (4.0-10.0)
[2018-09-16 08:07] LABS: ANION GAP 9 MMOL/L (8-16); BLOOD UREA NITROGEN 7 mg/dL (7-18); CALCIUM 7.9 mg/dL (8.5-10.1); CHLORIDE 100 mmol/L (98-107); CO2 26 mmol/L (21-32); CREATININE 0.8 mg/dL (0.55-1.3); GLUCOSE,RANDOM 82 mg/dL (74-106); POTASSIUM 4.2 mmol/L (3.5-5.1); SODIUM 134 mmol/L (136-145)
[2018-09-16] MEDS: ENOXAPARIN NA (PORCINE) 40 MG/0.4 ML DISP.SYRIN SQ SCH (09:33)
[2018-09-16] MEDS: RANITIDINE HCL 150 MG TABLET (FP) PO SCH (09:33)
--- NOTE | 2018-09-16 11:33 | PN ---
Physical Exam: SUBJECTIVE: Patient seen and examined OBJECTIVE: Vital Signs Temperature 98.4 F 09/16/18 07:08 Pulse Rate 64 09/16/18 07:08 Respiratory Rate 20 09/16/18 07:08 Blood Pressure 118/57 L 09/16/18 07:08 O2 Sat by Pulse Oximetry (%) 96 09/15/18 21:00 GENERAL: Yoruba-speaking. Pleasant female. AAOx3. NAD. Mild discomfort. HEENT: AT/NC. EOMI. RISHI. Moist mucus membranes. NECK: Trachea midline, full range of motion, supple. LUNGS: CTA B/L. No wheezes noted. HEART: RRR. Normal S1, S2. No murmurs noted. ABDOMEN: Soft NT/ND. +BS in all 4Q's. ELINOR drain in place on L side of abdomen, surrounding dressing c/d/i. R sided ventral hernia, diffusely tender to palpation, non-reducible today. No ecchymoses noted. EXTREMITIES: 2+ pulses, no edema. NEUROLOGICAL: Normal speech, non focal, gait not observed. PSYCH: Normal mood, normal affect. SKIN: Warm, dry, normal turgor, no rashes. CBCD WBC 10.9 K/mm3 (4.0-10.0) H 09/16/18 07:00 RBC 3.21 M/mm3 (3.60-5.2) L 09/16/18 07:00 Hgb 8.8 GM/dL (10.7-15.3) L 09/16/18 07:00 Hct 26.1 % (32.4-45.2) L 09/16/18 07:00 MCV 81.4 fl (80-96) 09/16/18 07:00 MCHC 33.5 g/dl (32.0-36.0) 09/16/18 07:00 RDW 17.4 % (11.6-15.6) H 09/16/18 07:00 Plt Count 416 K/MM3 (134-434) 09/16/18 07:00 MPV 7.1 fl (7.5-11.1) L 09/16/18 07:00 CMP Sodium 134 mmol/L (136-145) L 09/16/18 07:00 Potassium 4.2 mmol/L (3.5-5.1) 09/16/18 07:00 Chloride 100 mmol/L (98-107) 09/16/18 07:00 Carbon Dioxide 26 mmol/L (21-32) 09/16/18 07:00 Anion Gap 9 MMOL/L (8-16) 09/16/18 07:00 BUN 7 mg/dL (7-18) 09/16/18 07:00 Creatinine 0.8 mg/dL (0.55-1.3) 09/16/18 07:00 Creat Clearance w eGFR > 60 (>60) 09/16/18 07:00 Calcium 7.9 mg/dL (8.5-10.1) L 09/16/18 07:00 Total Bilirubin 0.4 mg/dL (0.2-1) 09/15/18 06:30 AST 12 U/L (15-37) L 09/15/18 06:30 ALT 8 U/L (13-61) L 09/15/18 06:30 Alkaline Phosphatase 106 U/L (45-117) 09/15/18 06:30 Total Protein 6.1 g/dl (6.4-8.2) L 09/15/18 06:30 Albumin 1.6 g/dl (3.4-5.0) L 09/15/18 06:30 Active Medications Acetaminophen (Tylenol -) 650 mg PO Q4H PRN PRN Reason: PAIN LEVEL 1-5 OR FEVER Last Admin: 09/15/18 01:06 Dose: 650 mg Acetaminophen (Tylenol -) 325 mg PO Q8H PRN PRN Reason: PAIN LEVEL 6-10 Last Admin: 09/15/18 16:15 Dose: 325 mg Enoxaparin Sodium (Lovenox -) 40 mg SQ DAILY [facility] Last Admin: 09/16/18 09:33 Dose: 40 mg Ampicillin Sodium/Sulbactam (Sodium 1.5 gm/ Sodium Chloride) 100 mls @ 200 mls/ hr IVPB Q6H-IV ECTOR Last Admin: 09/16/18 09:33 Dose: 200 mls/hr Oxycodone HCl (Roxicodone -) 5 mg PO Q8H PRN PRN Reason: PAIN LEVEL 6-10 Last Admin: 09/16/18 02:31 Dose: 5 mg Ranitidine HCl (Zantac -) 150 mg PO DAILY [facility] Last Admin: 09/16/18 09:33 Dose: 150 mg CONSULTS: ID- Dr. Mark Kendrick-onc- Dr. Dave IMAGING: * CTAP: Atelectasis/infiltration at both bases with small pleural effusions. Low -density lesion within liver, metastatic disease suspected. Fluid collection measuring 8.6 x 5.3 x 8.2 cm in lesser sac ventral to pancreas with drainage catheter in place. Appears larger compared to prior image. Residual fluid. ASSESSMENT/PLAN: 68 yo Female with PMH of Metastatic Endometrial cancer, peritoneal carcinomatosis, GERD, Anemia, HLD, admitted after being discharged on Thursday admitted for sepsis 2/2 infected ascitic fluid collection. #Sepsis likely secondary to infected ascitic fluid colleciton -Likely due to same source as prior admission, flu negative, UA clean, CXR unremarkable -WBC 10.9, improved from 11.7 yesterday; afebrile overnight. -BCx neg x48/pending (taken 09/14/18), UCx neg/pending (taken 09/14/18) Abd Cx + Acetinobacter baumannii/haemol -Per ID, cont w/ Unasyn 1.5 gm Q6H IVPB, Day 5 (Vanc/Zosyn given in ED, patient recently hospitalized for 2 weeks, though last admission treated with Unasyn and Augmentin on discharge); WCx +Acetinobacter; await further ID recs -Tylenol 650 mg PO Q4H PRN -CTAP noted above, catheter drain within fluid collection. #Ventral hernia; Less painful today, improved. -CTAP done previous admission showed non-obstructing hernia. -Evaluated by surg last admission; no surg intervention at this time. #Anemia -s/p 2U pRBCs ordered by heme #GERD -Prilosec 40 mg PO Daily, continue hospital formulary equivalent #IBS -Stable, continue home Linzess #Metastatic Endometrial cancer -Heme/onc reconsulted -No further intervention at this time until pt is stable. Pt agreed to follow up outpatient for clinical study at [facility] #DVT Prophylaxis -Lovenox 40 mg SQ Daily #FEN -Fluids: LR @ 75 cc/hr -Electrolytes: No electrolyte abnormalities, BMP in AM -Nutrition: Diabetic Diet #Disposition -Med/Surg -Spoke to Catie (HCP) at bedside today. She acknowledged that prognosis of pt is guarded, and that ascites may not fully resolve. Also made aware that surgical intervention will be unlikely given pt's metastatic endometrial cancer. Will update Catie regarding daily course of treatment. Visit type - Emergency Visit Emergency Visit: Yes ED Registration Date: 09/11/18 Care time: The patient presented to the Emergency Department on the above date and was hospitalized for further evaluation of their emergent condition. - New Patient This patient is new to me today: No - Critical Care Critical Care patient: No
--- NOTE | 2018-09-16 14:40 | PN ---
Teaching Attending Note Name of Resident: Liya Barksdale ATTENDING PHYSICIAN STATEMENT I saw and evaluated the patient. I reviewed the resident's note and discussed the case with the resident. I agree with the resident's findings and plan as documented. SUBJECTIVE: abd pain is better . No fever or chills OBJECTIVE: NAD CV: RRR Lungs: CTAB Ext : no edema Abd: soft,NL BS. right sided abd wall hernia is tender but softer , still not reducible. TTP in LUQ. LUQ ELINOR drain in . , ASSESSMENT AND PLAN: Unfortunate 68 y/o lady with h/o HLP, DM , metastatic uterine cancer, peritoneal carcinomatosis, SB, s/p peritoneal drain for ascitis ,recent admisison for peritonitis who presented with fever and worsening abd pain 1- Sepsis 2/2 peritonitis: peritoneal fluid cx with acinetobacter and E fecalis . - Cont unasyn - CT scan of abd image and report reviewed. drainage cath within fluid collection. to be d/w IR 2- Abd wall hernia . incarcerated - CT scan with no signs of strangulation although with out contrast. Monitor 3- Uterine cancer with peritoneal carcinomatosis: - cont drainage . DVT px with lovenox HLOC
[2018-09-16] MEDS: ACETAMINOPHEN 325 MG TABLET (FP) PO PRN (21:40)
[2018-09-17] MEDS ORDERED: AMPICILLIN NA/SULBACTAM NA 1.5 GM VIAL ONE ×4 (02:11→20:00)
[2018-09-17] MEDS ORDERED: SODIUM CHLORIDE 100 ML IVPB ONE ×4 (02:11→20:01)
[2018-09-17] MEDS: AMPICILLIN NA/SULBACTAM NA 1.5 GM in SODIUM CHLORIDE 100 ML IVPB SCH ×4 (02:22→20:06)
[2018-09-17] MEDS: ACETAMINOPHEN 325 MG TABLET (FP) PO PRN ×2 (06:04→19:15)
[2018-09-17] MEDS: oxyCODONE HCL 5 MG TABLET PO PRN ×2 (06:04→19:15)
[2018-09-17 07:59] LABS: HEMOGLOBIN 9.2 GM/dL (10.7-15.3); MCH 28.6 pg (25.7-33.7); MCHC 35.3 g/dl (32.0-36.0); MEAN CELL VOLUME 81.2 fl (80-96); MEAN PLT VOLUME 7.3 fl (7.5-11.1); PLATELET COUNT 413 K/MM3 (134-434); RDW 17.3 % (11.6-15.6); WHITE BLOOD COUNT 9.8 K/mm3 (4.0-10.0)
--- NOTE | 2018-09-17 08:27 | CONSULT ---
- Consultation REQUESTING PROVIDER: Margi JHA CONSULT REQUEST: We have been asked to surgically evaluate this patient again for possible incarcerated incisional hernia and infected ascites. PCP:Lesvia Kiser HISTORY OF PRESENT ILLNESS: See my original consult of 08/28/18; patient w/ recurrent metastatic endometrial carcinoma w/ an incisional hernia and infected intraabdominal collection s/p IRD; she is eating and moving her bowels and having BM's and passing flatus; no n/v; recent CT scan a/p reviewed; she has no documented bacteremia and her drain remains in place. PMHx: IDDM; recurrent PSHx: TAHBSO and repeat surgery for endometrial carcinoma Home Medications Medication Instructions Recorded Loratadine [Claritin] 10 mg PO DAILY 09/28/17 Omeprazole Magnesium [Prilosec Otc] 40 mg PO DAILY 09/28/17 Travoprost [Travatan Z] 1 drop OU HS 09/28/17 Meloxicam 15 mg PO DAILY 08/11/18 Psyllium Husk [Metamucil] 0.4 gm PO DAILY 08/11/18 Sitagliptin Phosphate [Januvia] 100 mg PO DAILY 08/11/18 Acetaminophen [Tylenol] 2 tab PO Q6H PRN 08/13/18 Insulin NPH Hum/Reg Insulin Hm 10 units SQ ACDIN 08/13/18 [Novolin 70-30 Flexpen] Linaclotide [Linzess] 1 tab PO DAILY 08/13/18 Metformin HCl [Glucophage] 500 mg PO BID 08/13/18 Zolpidem Tartrate [Ambien] 5 mg PO HS 08/13/18 Motley-3 Acid Ethyl Esters [Lovaza] 1 g PO DAILY 09/03/18 Amoxicillin/Potassium Clav 1 each PO BID #11 tablet 09/10/18 [Augmentin 875-125 Tablet] Allergies Allergy/AdvReac Type Severity Reaction Status Date / Time carboplatin Allergy Intermediate Verified 09/11/18 18:00 shellfish derived Allergy Intermediate Vomiting Verified 09/11/18 18:00 carboplatinum Allergy Intermediate Uncoded 09/11/18 18:00 . PHYSICAL EXAM: GENERAL: Awake, alert, and fully oriented, in no acute distress. HEAD: Normal with no signs of trauma. EYES: sclera anicteric, conjunctiva clear. NECK: Normal ROM, supple without lymphadenopathy, JVD, or masses. ABDOMEN: Soft, nontender, not distended, normoactive bowel sounds, no guarding, no rebound, no masses. No organomegaly. Incisional hernia is present and chronically incarcerated. MUSCULOSKELETAL: Normal ROM at all joints. No bony deformities or tenderness. No CVA tenderness. UPPER EXTREMITIES: 2+ pulses, warm, well-perfused. No cyanosis. Cap refill <2 seconds. No peripheral edema. LOWER EXTREMITIES: 2+ pulses, warm, well-perfused. No calf tenderness. No peripheral edema. NEUROLOGICAL: Normal speech, gait not observed. PSYCH: Cooperative. Good eye contact. Appropriate mood and affect. SKIN: Warm, dry, normal turgor, no rashes or lesions noted. Vital Signs Temperature 101.1 F H 09/17/18 07:00 Pulse Rate 96 H 09/17/18 07:00 Respiratory Rate 20 09/17/18 07:00 Blood Pressure 156/92 09/17/18 07:00 O2 Sat by Pulse Oximetry (%) 96 09/16/18 21:00 Lab Results WBC 10.9 K/mm3 (4.0-10.0) H 09/16/18 07:00 RBC 3.21 M/mm3 (3.60-5.2) L 09/16/18 07:00 Hgb 8.8 GM/dL (10.7-15.3) L 09/16/18 07:00 Hct 26.1 % (32.4-45.2) L 09/16/18 07:00 MCV 81.4 fl (80-96) 09/16/18 07:00 MCHC 33.5 g/dl (32.0-36.0) 09/16/18 07:00 RDW 17.4 % (11.6-15.6) H 09/16/18 07:00 Plt Count 416 K/MM3 (134-434) 09/16/18 07:00 Sodium 134 mmol/L (136-145) L 09/16/18 07:00 Potassium 4.2 mmol/L (3.5-5.1) 09/16/18 07:00 Chloride 100 mmol/L (98-107) 09/16/18 07:00 Carbon Dioxide 26 mmol/L (21-32) 09/16/18 07:00 Anion Gap 9 MMOL/L (8-16) 09/16/18 07:00 BUN 7 mg/dL (7-18) 09/16/18 07:00 Creatinine 0.8 mg/dL (0.55-1.3) 09/16/18 07:00 Random Glucose 82 mg/dL (74-106) 09/16/18 07:00 Calcium 7.9 mg/dL (8.5-10.1) L 09/16/18 07:00 Blood Type O POSITIVE 09/14/18 17:20 Antibody Screen Negative 09/14/18 17:20 INR 1.62 (0.83-1.09) H 09/12/18 06:20 Imaging and lab w/u to date reviewed. IMP: recurrent/metastatic endometrial carcinoma w/sequelae PLAN: There remains no indication for operative intervention w/r/t the incisional hernia based on clinical and imaging studies; consideration should be given to removal of the drain and suggest ? palliative care evaluation ?. Sal Ware MD FACS
[2018-09-17 08:36] LABS: ANION GAP 12 MMOL/L (8-16); BLOOD UREA NITROGEN 7 mg/dL (7-18); CALCIUM 7.6 mg/dL (8.5-10.1); CHLORIDE 100 mmol/L (98-107); CO2 24 mmol/L (21-32); CREATININE 0.7 mg/dL (0.55-1.3); GLUCOSE,RANDOM 82 mg/dL (74-106); POTASSIUM 3.9 mmol/L (3.5-5.1); SODIUM 135 mmol/L (136-145)
[2018-09-17] MEDS: RANITIDINE HCL 150 MG TABLET (FP) PO SCH (09:26)
[2018-09-17] MEDS: ENOXAPARIN NA (PORCINE) 40 MG/0.4 ML DISP.SYRIN SQ SCH (09:26)
--- NOTE | 2018-09-17 13:57 | PN ---
Addendum entered and electronically signed by Liya Barksdale, RESIDENT 16:22: Spoke to Catie and discussed IR plan to replace drain; she is in agreement. She also says she will come to the hospital this Thursday morning to discuss goals of care with the patient and to sign the DNR/DNI form if patient is also agreeable. States Kinsey has already expressed in the past to Catie that she does not want intubation if needed in the future. Catie has also discussed DNR/ DNI with Gloria and has her contact info. for any further questions. Original Note: Physical Exam: SUBJECTIVE: Patient seen and examined at bedside. Per nurse, pt was febrile at 101.1 and given 2 doses of Tylenol. (Supervisor Extrusion: [id number]) Pt reports improved abdominal pain, but admits now to having a cold and feeling congested. SHe denies cough, sob, cp, nausea/vomiting, urinary/bowel symptoms. Ambulatory. OBJECTIVE: Vital Signs Temperature 98.5 F 09/17/18 10:00 Pulse Rate 86 09/17/18 10:00 Respiratory Rate 20 09/17/18 10:00 Blood Pressure 143/82 09/17/18 10:00 O2 Sat by Pulse Oximetry (%) 94 L 09/17/18 09:00 GENERAL: Tanzanian-speaking. Pleasant female. AAOx3. NAD. Mild discomfort. HEENT: AT/NC. EOMI. RISHI. Moist mucus membranes. NECK: Trachea midline, full range of motion, supple. LUNGS: CTA B/L. No wheezes noted. HEART: RRR. Normal S1, S2. No murmurs noted. ABDOMEN: Soft NT/ND. +BS in all 4Q's. ELINOR drain in place on L side of abdomen, surrounding dressing c/d/i. R sided ventral hernia, diffusely tender to palpation, non-reducible today. No ecchymoses noted. EXTREMITIES: 2+ pulses, no edema. NEUROLOGICAL: Normal speech, non focal, gait not observed. PSYCH: Normal mood, normal affect. SKIN: Warm, dry, normal turgor, no rashes. CBC, BMP 09/17/18 06:00 09/17/18 06:00 Active Medications Acetaminophen (Tylenol -) 650 mg PO Q4H PRN PRN Reason: PAIN LEVEL 1-5 OR FEVER Last Admin: 09/17/18 06:04 Dose: 650 mg Acetaminophen (Tylenol -) 325 mg PO Q8H PRN PRN Reason: PAIN LEVEL 6-10 Last Admin: 09/16/18 21:40 Dose: 325 mg Enoxaparin Sodium (Lovenox -) 40 mg SQ DAILY [facility] Last Admin: 09/17/18 09:26 Dose: 40 mg Ampicillin Sodium/Sulbactam (Sodium 1.5 gm/ Sodium Chloride) 100 mls @ 200 mls/ hr IVPB Q6H-IV [facility]CTOR Last Admin: 09/17/18 08:41 Dose: 200 mls/hr Oxycodone HCl (Roxicodone -) 5 mg PO Q8H PRN PRN Reason: PAIN LEVEL 6-10 Last Admin: 09/17/18 06:04 Dose: 5 mg Ranitidine HCl (Zantac -) 150 mg PO DAILY [facility] Last Admin: 09/17/18 09:26 Dose: 150 mg CONSULTS: ID- Dr. Mark Kendrick-onc- Dr. Dave IMAGING: * CTAP: Atelectasis/infiltration at both bases with small pleural effusions. Low -density lesion within liver, metastatic disease suspected. Fluid collection measuring 8.6 x 5.3 x 8.2 cm in lesser sac ventral to pancreas with drainage catheter in place. Appears larger compared to prior image. Residual fluid. ASSESSMENT/PLAN: 68 yo Female with PMH of Metastatic Endometrial cancer, peritoneal carcinomatosis, GERD, Anemia, HLD, admitted after being discharged on Thursday admitted for sepsis 2/2 infected ascitic fluid collection. #Sepsis likely secondary to infected ascitic fluid colleciton -Likely due to same source as prior admission, flu negative, UA clean, CXR unremarkable -WBC 9.8, improved from 10.9 yesterday, however febrile at 101.1 this AM -BCx neg x72/, UCx neg, Abd Cx +Acetinobacter baumannii/haemol and E faecalis -Per ID, cont w/ Unasyn 1.5 gm Q6H IVPB, Day 5 (Vanc/Zosyn given in ED, patient recently hospitalized for 2 weeks, though last admission treated with Unasyn and Augmentin on discharge); WCx +Acetinobacter; await further ID recs -Tylenol 650 mg PO Q4H PRN -CTAP noted above, catheter drain within fluid collection. -Will discuss with IR if ELINOR drain may be removed and can possibly have drainage done when needed. Will also discuss with ID if maybe pt is colonized? -Will repeat BCx, order respiratory panel, and b/l LE duplex since pt was febrile and may possibly have another source of infection #Ventral hernia; Less painful today, improved. -CTAP done previous admission showed non-obstructing hernia. -Evaluated by surg last admission; no surg intervention at this time. #Anemia -s/p 2U pRBCs this admission; Hgb stable at 9.2 #GERD -Zantac 150 mg PO QD #Metastatic Endometrial cancer -Heme/onc reconsulted -No further intervention at this time until pt is stable. Pt agreed to follow up outpatient for clinical study at [facility] #DVT Prophylaxis -Lovenox 40 mg SQ Daily #FEN -Fluids: LR @ 75 cc/hr -Electrolytes: No electrolyte abnormalities, BMP in AM -Nutrition: Diabetic Diet #Disposition -Med/Surg -Spoke to Catie (HCP) via telephone. She acknowledged that prognosis of pt is guarded, and that ascites may not fully resolve. Also made aware that surgical intervention will be unlikely given pt's metastatic endometrial cancer. Will update Catie regarding daily course of treatment. Will discuss DNR/DNI status as well. Visit type - Emergency Visit Emergency Visit: Yes ED Registration Date: 09/11/18 Care time: The patient presented to the Emergency Department on the above date and was hospitalized for further evaluation of their emergent condition. - New Patient This patient is new to me today: No - Critical Care Critical Care patient: No
--- NOTE | 2018-09-17 18:52 | PN ---
Teaching Attending Note Name of Resident: Liya Barksdale ATTENDING PHYSICIAN STATEMENT I saw and evaluated the patient. I reviewed the resident's note and discussed the case with the resident. I agree with the resident's findings and plan as documented. SUBJECTIVE: no pain, had fever last night OBJECTIVE: NAD CV: RRR Lungs: CTAB Ext: no edema Abd: soft,NL BS. right sided abd wall hernia is tender and not reducible, . TTP in RLQ and over hernia . LUQ ELINOR drain in . , ASSESSMENT AND PLAN: Unfortunate 68 y/o lady with h/o HLP, DM , metastatic uterine cancer, peritoneal carcinomatosis, SB, s/p peritoneal drain for ascitis ,recent admisison for peritonitis who presented with fever and worsening abd pain 1- Sepsis 2/2 peritonitis: peritoneal fluid cx with acinetobacter and E fecalis . - Cont unasyn - case d/w IR y team, catheter was changed 2- Abd wall hernia. incarcerated - appreciate surgery input . Monitor 3- Uterine cancer with peritoneal carcinomatosis: - cont drainage . DVT px with lovenox HLOC Goals of care were d/w HCP again, she wishes to continue with full treatment knowing that prognosis is very poor. Code status was discussed as well and decision about DNR/DNI to be made tomorrow
[2018-09-17] MEDS ORDERED: guaiFENesin 200 MG/10 ML 10 ML UNIT-DOSE CUPS PO ONE (20:24)
[2018-09-18] MEDS ORDERED: SODIUM CHLORIDE 100 ML IVPB ONE (02:06)
[2018-09-18] MEDS ORDERED: AMPICILLIN NA/SULBACTAM NA 1.5 GM VIAL ONE (02:06)
[2018-09-18] MEDS: AMPICILLIN NA/SULBACTAM NA 1.5 GM in SODIUM CHLORIDE 100 ML IVPB SCH ×2 (02:09→09:34)
[2018-09-18] MEDS: oxyCODONE HCL 5 MG TABLET PO PRN ×2 (06:09→18:08)
[2018-09-18] MEDS: ACETAMINOPHEN 325 MG TABLET (FP) PO PRN ×2 (06:10→18:09)
[2018-09-18 07:30] LABS: HEMATOCRIT 26.1 % (32.4-45.2); HEMOGLOBIN 9.1 GM/dL (10.7-15.3); MCHC 34.9 g/dl (32.0-36.0); MEAN CELL VOLUME 80.2 fl (80-96); MEAN PLT VOLUME 7.1 fl (7.5-11.1); PLATELET COUNT 425 K/MM3 (134-434); RBC 3.25 M/mm3 (3.60-5.2); RDW 17.7 % (11.6-15.6); WHITE BLOOD COUNT 8.7 K/mm3 (4.0-10.0)
[2018-09-18 08:28] LABS: ANION GAP 10 MMOL/L (8-16); BLOOD UREA NITROGEN 6 mg/dL (7-18); CALCIUM 7.7 mg/dL (8.5-10.1); CHLORIDE 99 mmol/L (98-107); CO2 25 mmol/L (21-32); CREATININE 0.7 mg/dL (0.55-1.3); GLUCOSE,RANDOM 115 mg/dL (74-106); POTASSIUM 3.9 mmol/L (3.5-5.1); SODIUM 133 mmol/L (136-145)
[2018-09-18] MEDS: ENOXAPARIN NA (PORCINE) 40 MG/0.4 ML DISP.SYRIN SQ SCH (09:34)
[2018-09-18] MEDS: RANITIDINE HCL 150 MG TABLET (FP) PO SCH (09:34)
--- NOTE | 2018-09-18 13:12 | PN ---
Physical Exam: SUBJECTIVE: Patient seen and examined at bedside. Less pain, n/v/d, 70cc drainage overnight OBJECTIVE: Vital Signs Period Temp Pulse Resp BP Sys/Marcelino Pulse Ox Last 24 Hr 98.3 F-99.9 F 85-97 12-20 140-164/81-91 94 GENERAL: A&Ox3, no acute distress EYES: PERRLA, EOMI ENT: Moist mucus membranes NECK: No JVD LUNGS: CTA, no wheezes HEART: RRR, no murmurs ABDOMEN: Soft, nontender, BS present, large ventral hernia present on R side, moderately reducible. L sided abdominal drain in place, not currently draining. MUSCULOSKELETAL: No CVA Tenderness EXTREMITIES: 2+ pulses, no edema. NEUROLOGICAL: Cranial nerves II-XII intact. Laboratory Results - last 24 hr 09/14/18 09/17/18 09/17/18 17:20 16:45 21:51 WBC RBC Hgb Hct MCV MCH MCHC RDW Plt Count MPV Sodium Potassium Chloride Carbon Dioxide Anion Gap BUN Creatinine Creat Clearance w eGFR POC Glucometer 119 129 Random Glucose Calcium Blood Type O POSITIVE Antibody Screen Negative Crossmatch See Detail 09/18/18 09/18/18 09/18/18 06:01 07:00 07:00 WBC 8.7 RBC 3.25 L Hgb 9.1 L Hct 26.1 L MCV 80.2 MCH 28.0 MCHC 34.9 RDW 17.7 H Plt Count 425 MPV 7.1 L Sodium 133 L Potassium 3.9 Chloride 99 Carbon Dioxide 25 Anion Gap 10 BUN 6 L Creatinine 0.7 Creat Clearance w eGFR > 60 POC Glucometer 82 Random Glucose 115 H Calcium 7.7 L Blood Type Antibody Screen Crossmatch 09/18/18 12:25 WBC RBC Hgb Hct MCV MCH MCHC RDW Plt Count MPV Sodium Potassium Chloride Carbon Dioxide Anion Gap BUN Creatinine Creat Clearance w eGFR POC Glucometer 98 Random Glucose Calcium Blood Type Antibody Screen Crossmatch Active Medications Generic Name Dose Route Start Last Admin Trade Name Freq PRN Reason Stop Dose Admin Acetaminophen 650 mg 09/11/18 21:20 09/17/18 06:04 Tylenol - PO 650 mg Q4H PRN Administration PAIN LEVEL 1-5 OR FEVER Acetaminophen 325 mg 09/13/18 18:16 09/18/18 06:10 Tylenol - PO 325 mg Q8H PRN Administration PAIN LEVEL 6-10 Enoxaparin Sodium 40 mg 09/12/18 10:00 09/18/18 09:34 Lovenox - SQ 40 mg DAILY ECTOR Administration Ampicillin Sodium/Sulbactam 100 mls @ 200 mls/hr 09/13/18 07:52 09/18/18 09: 34 Sodium 1.5 gm/ Sodium Chloride IVPB 200 mls/hr Q6H-IV ECTOR Administration Oxycodone HCl 5 mg 09/16/18 20:23 09/18/18 06:09 Roxicodone - PO 5 mg Q8H PRN Administration PAIN LEVEL 6-10 Ranitidine HCl 150 mg 09/15/18 10:00 09/18/18 09:34 Zantac - PO 150 mg DAILY ECTOR Administration ASSESSMENT/PLAN: 68 yo Female with PMH of Metastatic Endometrial cancer, peritoneal carcinomatosis, GERD, Anemia, HLD, admitted after being discharged on Thursday admitted for sepsis 2/2 infected fluid collection. #Sepsis likely secondary to infected fluid collection: improving -Tylenol 650 mg PO Q4H PRN -CTAP noted above, catheter drain within fluid collection. -drain replaced yesterday -afebrile -switch from unasyn to augmentin and monitor, d/w ID #Ventral hernia; Less painful today, improved. -CTAP done previous admission showed non-obstructing hernia. -Evaluated by surg last admission; no surg intervention at this time. #Anemia -s/p 2U pRBCs this admission; Hgb stable at 9.2 #GERD -Zantac 150 mg PO QD #Metastatic Endometrial cancer -Heme/onc reconsulted -No further intervention at this time until pt is stable. Pt agreed to follow up outpatient for clinical study at [facility] #DVT Prophylaxis -Lovenox 40 mg SQ Daily #FEN -Fluids: LR @ 75 cc/hr -Electrolytes: No electrolyte abnormalities, BMP in AM -Nutrition: Diabetic Diet #Disposition -Med/Surg -Spoke to Catie (HCP) via telephone. She acknowledged that prognosis of pt is guarded, and that ascites may not fully resolve. Also made aware that surgical intervention will be unlikely given pt's metastatic endometrial cancer. Will update Catie regarding daily course of treatment. Will discuss DNR/DNI status as well. Visit type - Emergency Visit Emergency Visit: No - New Patient This patient is new to me today: No - Critical Care Critical Care patient: No
--- NOTE | 2018-09-18 14:37 | PN ---
Teaching Attending Note Name of Resident: Helder Marroquin ATTENDING PHYSICIAN STATEMENT I saw and evaluated the patient. I reviewed the resident's note and discussed the case with the resident. I agree with the resident's findings and plan as documented. SUBJECTIVE: No fever or chills. minimal abd pain OBJECTIVE: NAD CV: RRR Lungs: CTAB Ext: no edema Abd: soft, NL BS. right sided abd wall hernia is tender and not completely reducible. TTP in RLQ and over hernia. LUQ ELINOR drain in. ASSESSMENT AND PLAN: Unfortunate 68 y/o lady with h/o HLP, DM , metastatic uterine cancer, peritoneal carcinomatosis, SB, s/p peritoneal drain for ascitis ,recent admisison for peritonitis who presented with fever and worsening abd pain 1- Sepsis 2/2 peritonitis: peritoneal fluid cx with acinetobacter and E fecalis . - Cont unasyn pending further ID Recs - s/p change of ELINOR drain 2- Abd wall hernia. incarcerated 3- Uterine cancer with peritoneal carcinomatosis: - cont drainage . DVT px with lovenox HLOC today will decide on code status . HCP will be here
[2018-09-18] MEDS: AMOX TR/POT CLAV 875MG/125MG TABLETS (FP) PO SCH (17:57)
[2018-09-19 07:11] LABS: HEMATOCRIT 26.1 % (32.4-45.2); MCH 27.7 pg (25.7-33.7); MCHC 34.6 g/dl (32.0-36.0); MEAN CELL VOLUME 80.2 fl (80-96); MEAN PLT VOLUME 7.2 fl (7.5-11.1); PLATELET COUNT 455 K/MM3 (134-434); RBC 3.26 M/mm3 (3.60-5.2); RDW 17.6 % (11.6-15.6); WHITE BLOOD COUNT 8.7 K/mm3 (4.0-10.0)
[2018-09-19 07:36] LABS: ALBUMIN 1.6 g/dl (3.4-5.0); ALK PHOS 104 U/L (45-117); ANION GAP 7 MMOL/L (8-16); BILIRUBIN,TOTAL 0.4 mg/dL (0.2-1); BLOOD UREA NITROGEN 5 mg/dL (7-18); CALCIUM 7.8 mg/dL (8.5-10.1); CHLORIDE 99 mmol/L (98-107); CO2 28 mmol/L (21-32); CREATININE 0.7 mg/dL (0.55-1.3); GLUCOSE,RANDOM 85 mg/dL (74-106); MAGNESIUM 1.7 mg/dL (1.8-2.4); PHOSPHOROUS 3.5 mg/dL (2.5-4.9); POTASSIUM 4.1 mmol/L (3.5-5.1); SGOT/AST 14 U/L (15-37); SGPT/ALT 9 U/L (13-61); SODIUM 134 mmol/L (136-145); TOT PROT 6.2 g/dl (6.4-8.2)
[2018-09-19] MEDS: ACETAMINOPHEN 325 MG TABLET (FP) PO PRN ×2 (08:31→16:46)
[2018-09-19] MEDS ORDERED: AMPICILLIN NA/SULBACTAM NA 3 GM in SODIUM CHLORIDE 100 ML IVPB SCH (09:00)
[2018-09-19] MEDS: AMOX TR/POT CLAV 875MG/125MG TABLETS (FP) PO SCH (09:10)
[2018-09-19] MEDS: RANITIDINE HCL 150 MG TABLET (FP) PO SCH (09:35)
[2018-09-19] MEDS: ENOXAPARIN NA (PORCINE) 40 MG/0.4 ML DISP.SYRIN SQ SCH (09:35)
[2018-09-19] MEDS ORDERED: PT OWN MED DRAWER 7, Y5N ONE ×2 (09:46→21:01)
[2018-09-19] MEDS: AMPICILLIN NA/SULBACTAM NA 3 GM in SODIUM CHLORIDE 100 ML IVPB SCH ×3 (10:20→22:01)
[2018-09-19 10:40] LABS: URINE APPEARANCE CLEAR; URINE BILIRUBIN NEGATIVE (<2.0 mg/dL); URINE COLOR LTYELLOW; URINE GLUCOSE (UA) NEGATIVE (NEGATIVE); URINE KETONE NEGATIVE (NEGATIVE); URINE LEUK ESTERASE NEGATIVE (NEGATIVE); URINE NITRITE NEGATIVE (NEGATIVE); URINE PROTEIN NEGATIVE (NEGATIVE); URINE UROBILINOGEN NEGATIVE mg/dL (0.2-1.0)
[2018-09-19] MEDS: oxyCODONE HCL 5 MG TABLET PO PRN (16:47)
--- NOTE | 2018-09-19 17:05 | PN ---
Progress Note (short form) - Note Progress Note: Subjective: abd pain is better . had fever this morning . no N/V , no SOB . Objective: Vital Signs: Last Vital Signs Temp Pulse Resp BP Pulse Ox 98.1 F 95 H 16 151/88 100 09/19/18 09:39 09/19/18 09:39 09/19/18 09:39 09/19/18 09:39 09/18/18 21:00 Laboratory Results - last 24 hr 09/18/18 09/19/18 09/19/18 21:07 05:52 06:30 WBC 8.7 RBC 3.26 L Hgb 9.0 L Hct 26.1 L MCV 80.2 MCH 27.7 MCHC 34.6 RDW 17.6 H Plt Count 455 H MPV 7.2 L Sodium Potassium Chloride Carbon Dioxide Anion Gap BUN Creatinine Creat Clearance w eGFR POC Glucometer 112 104 Random Glucose Calcium Phosphorus Magnesium Total Bilirubin AST ALT Alkaline Phosphatase Total Protein Albumin Urine Color Urine Appearance Urine pH Ur Specific Warren Urine Protein Urine Glucose (UA) Urine Ketones Urine Blood Urine Nitrite Urine Bilirubin Urine Urobilinogen Ur Leukocyte Esterase 09/19/18 09/19/18 06:30 09:33 WBC RBC Hgb Hct MCV MCH MCHC RDW Plt Count MPV Sodium 134 L Potassium 4.1 Chloride 99 Carbon Dioxide 28 Anion Gap 7 L BUN 5 L Creatinine 0.7 Creat Clearance w eGFR > 60 POC Glucometer Random Glucose 85 Calcium 7.8 L Phosphorus 3.5 Magnesium 1.7 L Total Bilirubin 0.4 AST 14 L ALT 9 L Alkaline Phosphatase 104 Total Protein 6.2 L Albumin 1.6 L Urine Color Ltyellow Urine Appearance Clear Urine pH 7.0 D Ur Specific Warren 1.006 L Urine Protein Negative Urine Glucose (UA) Negative Urine Ketones Negative Urine Blood Negative Urine Nitrite Negative Urine Bilirubin Negative Urine Urobilinogen Negative Ur Leukocyte Esterase Negative Physical Exam: NAD CV: RRR Lungs: CTAB Ext: no edema Abd: soft, NL BS. right sided abd wall hernia is tender and not completely reducible. TTP in RLQ and over hernia. LUQ ELINOR drain in. ASSESSMENT AND PLAN: Unfortunate 68 y/o lady with h/o HLP, DM , metastatic uterine cancer, peritoneal carcinomatosis, SB, s/p peritoneal drain for ascitis ,recent admisison for peritonitis who presented with fever and worsening abd pain 1- Sepsis 2/2 peritonitis: peritoneal fluid cx with acinetobacter and E fecalis .now s/p change of ELINOR drain - due to the fever this morning , change Augmentin to Unasyn. use 3 g dosing . - page placed to d/w ID - repeat cxray and UA this am , with no source 2- Abd wall hernia. incarcerated 3- Uterine cancer with peritoneal carcinomatosis: - cont drainage. DVT px with lovenox HLOC Code status was d/w her and her HCP Catie. decision was made to make her DNR/ DNI. paperwork signed. Visit type - Emergency Visit Emergency Visit: Yes ED Registration Date: 09/11/18 Care time: The patient presented to the Emergency Department on the above date and was hospitalized for further evaluation of their emergent condition. - New Patient This patient is new to me today: No - Critical Care Critical Care patient: No
[2018-09-19] MEDS ORDERED: MAGNESIUM OXIDE 400 MG TABLET (FP) PO ONE (17:08)
[2018-09-19] MEDS ORDERED: guaiFENesin 200 MG/10 ML 10 ML UNIT-DOSE CUPS PO ONE (22:20)
[2018-09-20] MEDS: AMPICILLIN NA/SULBACTAM NA 3 GM in SODIUM CHLORIDE 100 ML IVPB SCH (02:16)
[2018-09-20 07:59] LABS: BASO % 0.5 % (0-2.0); EOS % 0.9 % (0-4.5); HEMATOCRIT 26.9 % (32.4-45.2); HEMOGLOBIN 9.2 GM/dL (10.7-15.3); LYMPH % 15.5 % (8-40); MCH 27.6 pg (25.7-33.7); MCHC 34.3 g/dl (32.0-36.0); MEAN CELL VOLUME 80.4 fl (80-96); MEAN PLT VOLUME 7.3 fl (7.5-11.1); MONO % 11.1 % (3.8-10.2); PLATELET COUNT 475 K/MM3 (134-434); RBC 3.35 M/mm3 (3.60-5.2); RDW 18.3 % (11.6-15.6); WHITE BLOOD COUNT 10.1 K/mm3 (4.0-10.0)
[2018-09-20 08:10] LABS: MAGNESIUM 1.9 mg/dL (1.8-2.4); PHOSPHOROUS 3.9 mg/dL (2.5-4.9); POTASSIUM 4.2 mmol/L (3.5-5.1)
[2018-09-20] MEDS ORDERED: PIPERACILLIN/TAZOBACTAM 3.375 GM VIAL IVPB ONE ×3 (08:40→23:06)
[2018-09-20] MEDS ORDERED: DEXTROSE 5%-WATER - 50 ML IVPB ONE ×3 (08:40→23:06)
[2018-09-20] MEDS: PIPERACILLIN/TAZOB 3.375 GM 3.375 GM in DEXTROSE 5%-WATER - 50 ML IVPB SCH ×2 (08:48→17:17)
[2018-09-20] MEDS: RANITIDINE HCL 150 MG TABLET (FP) PO SCH (09:13)
[2018-09-20] MEDS: ACETAMINOPHEN 325 MG TABLET (FP) PO PRN ×3 (11:00→20:13)
--- NOTE | 2018-09-20 15:39 | PN ---
Physical Exam: SUBJECTIVE: Patient seen and examined at bedside. (Physician Office Secretary #[id number]) Pt denies cp, sob, n/v. Yakelin PO diet. +BM. She states that her R flank feels a little more "full" ever since the drain was replaced, however denies any pain. OBJECTIVE: Vital Signs Temperature 97.9 F 09/20/18 14:46 Pulse Rate 87 09/20/18 14:46 Respiratory Rate 18 09/20/18 14:46 Blood Pressure 150/88 09/20/18 14:46 O2 Sat by Pulse Oximetry (%) 96 09/20/18 09:00 GENERAL: A&Ox3, no acute distress EYES: PERRLA, EOMI ENT: Moist mucus membranes NECK: No JVD LUNGS: CTA, no wheezes HEART: RRR, no murmurs ABDOMEN: Soft, nontender, BS present, large ventral hernia present on R side, moderately reducible. L sided abdominal drain in place, no drainage seen. MUSCULOSKELETAL: No CVA Tenderness EXTREMITIES: 2+ pulses, no edema. NEUROLOGICAL: Cranial nerves II-XII intact. CBC, BMP 09/20/18 06:30 09/20/18 06:30 Microbiology 09/19/18 09:10 Blood - Peripheral Venous Blood Culture - Preliminary NO GROWTH OBTAINED AFTER 24 HOURS, INCUBATION TO CONTINUE FOR 4 DAYS. 09/19/18 09:18 Blood - Peripheral Venous Blood Culture - Preliminary NO GROWTH OBTAINED AFTER 24 HOURS, INCUBATION TO CONTINUE FOR 4 DAYS. Active Medications Acetaminophen (Tylenol -) 650 mg PO Q4H PRN PRN Reason: PAIN LEVEL 1-5 OR FEVER Last Admin: 09/20/18 11:00 Dose: 650 mg Acetaminophen (Tylenol -) 325 mg PO Q8H PRN PRN Reason: PAIN LEVEL 6-10 Last Admin: 09/19/18 16:46 Dose: 325 mg Piperacillin Sod/Tazobactam (Sod 3.375 gm/ Dextrose) 50 mls @ 100 mls/hr IVPB Q8H-IV ECTOR; Protocol Last Admin: 09/20/18 08:48 Dose: 100 mls/hr Ranitidine HCl (Zantac -) 150 mg PO DAILY ECTOR Last Admin: 09/20/18 09:13 Dose: 150 mg ASSESSMENT/PLAN: 68F with pmhx of Metastatic Endometrial cancer, peritoneal carcinomatosis, GERD , Anemia, HLD, admitted after being recently admitted for sepsis 2/2 infected fluid collection. #Sepsis likely secondary to infected fluid collection: improving -Tylenol 650 mg PO Q4H PRN -CTAP noted above, catheter drain within fluid collection. Wound Cx +E.faecalis , +Acetinobacter Baumanii/haemol -drain replaced 09/17 -Febrile at 101.6, WBC increased from 8.7 to 10.1 today. -Per ID, cont Zosyn 3.375gm Q8H for now. Goal is to switch to PO Augmentin but only after pt has been afebrile for at least 48h. No need for re-culture. #Ventral hernia; Less painful today, improved. -CTAP done previous admission showed non-obstructing hernia. -Evaluated by surg last admission; no surg intervention at this time. #Anemia -s/p 2U pRBCs this admission; Hgb stable at 9.2 #GERD -Zantac 150 mg PO QD #Metastatic Endometrial cancer -Heme/onc reconsulted -No further intervention at this time until pt is stable. Pt agreed to follow up outpatient for clinical study at [facility] #DVT Prophylaxis -Lovenox 40 mg SQ Daily #FEN -Fluids: LR @ 75 cc/hr -Electrolytes: No electrolyte abnormalities, BMP in AM -Nutrition: Diabetic Diet #Disposition -Med/Surg -DNR/DNI formed signed, d/w HCP. Visit type - Emergency Visit Emergency Visit: Yes ED Registration Date: 09/11/18 Care time: The patient presented to the Emergency Department on the above date and was hospitalized for further evaluation of their emergent condition. - New Patient This patient is new to me today: No - Critical Care Critical Care patient: No
--- NOTE | 2018-09-20 18:20 | PN ---
Teaching Attending Note Name of Resident: Liya Barksdale ATTENDING PHYSICIAN STATEMENT I saw and evaluated the patient. I reviewed the resident's note and discussed the case with the resident. I agree with the resident's findings and plan as documented. SUBJECTIVE: no fever or chills today. Abd pain is better OBJECTIVE: NAD CV: RRR Lungs: CTAB Ext: no edema Abd: soft, NL BS. right sided abd wall hernia is tender and not completely reducible. TTP in RLQ and over hernia. LUQ ELINOR drain in. ASSESSMENT AND PLAN: Unfortunate 68 y/o lady with h/o HLP, DM , metastatic uterine cancer, peritoneal carcinomatosis, SB, s/p peritoneal drain for ascitis ,recent admisison for peritonitis who presented with fever and worsening abd pain 1- Sepsis 2/2 peritonitis: - intermittent fevers are maybe tumor fever - case was d/w ID . on zosyn. 2- Incarcerated Abd wall hernia. No intervention 3- Uterine cancer with peritoneal carcinomatosis: - cont drainage. DVT px with lovenox HLOC DNR/DNI
[2018-09-20] MEDS ORDERED: oxyCODONE HCL 5 MG TABLET PO SCH (20:00)
[2018-09-20] MEDS ORDERED: oxyCODONE HCL 5 MG TABLET PO ONE (20:15)
[2018-09-21] MEDS: PIPERACILLIN/TAZOB 3.375 GM 3.375 GM in DEXTROSE 5%-WATER - 50 ML IVPB SCH ×3 (02:36→17:15)
[2018-09-21 07:58] LABS: HEMATOCRIT 27.6 % (32.4-45.2); HEMOGLOBIN 9.2 GM/dL (10.7-15.3); MCH 26.9 pg (25.7-33.7); MCHC 33.5 g/dl (32.0-36.0); MEAN CELL VOLUME 80.4 fl (80-96); MEAN PLT VOLUME 7.1 fl (7.5-11.1); PLATELET COUNT 552 K/MM3 (134-434); RBC 3.43 M/mm3 (3.60-5.2); RDW 17.8 % (11.6-15.6); WHITE BLOOD COUNT 10.3 K/mm3 (4.0-10.0)
[2018-09-21] MEDS ORDERED: PIPERACILLIN/TAZOBACTAM 3.375 GM VIAL IVPB ONE ×2 (09:14→17:04)
[2018-09-21] MEDS ORDERED: DEXTROSE 5%-WATER - 50 ML IVPB ONE ×2 (09:15→17:05)
[2018-09-21] MEDS: oxyCODONE HCL 5 MG TABLET PO PRN ×2 (09:28→18:37)
[2018-09-21] MEDS: RANITIDINE HCL 150 MG TABLET (FP) PO SCH (09:28)
[2018-09-21] MEDS: ACETAMINOPHEN 325 MG TABLET (FP) PO PRN ×2 (09:28→18:37)
[2018-09-21] MEDS ORDERED: ENOXAPARIN NA (PORCINE) 40 MG/0.4 ML DISP.SYRIN SQ SCH (14:30)
--- NOTE | 2018-09-21 14:31 | PN ---
Physical Exam: SUBJECTIVE: Patient seen and examined at bedside. Complaining of R flank pain, but unchanged since yesterday. Yakelin PO diet. Denies cp, sob, abd pain, urinary/ bowel symptoms. +BM. OBJECTIVE: Vital Signs Temperature 98.0 F 09/21/18 10:00 Pulse Rate 94 H 09/21/18 10:00 Respiratory Rate 20 09/21/18 10:00 Blood Pressure 144/81 09/21/18 10:00 O2 Sat by Pulse Oximetry (%) 96 09/21/18 09:00 GENERAL: A&Ox3, no acute distress EYES: PERRLA, EOMI ENT: Moist mucus membranes NECK: No JVD LUNGS: CTA, no wheezes HEART: RRR, no murmurs ABDOMEN: Soft, nontender, BS present, large ventral hernia present on R side, moderately reducible. L sided abdominal drain in place, no drainage seen. MUSCULOSKELETAL: No CVA Tenderness EXTREMITIES: 2+ pulses, no edema. NEUROLOGICAL: Cranial nerves II-XII intact. CBC, BMP 09/21/18 06:37 09/20/18 06:30 Microbiology 09/17/18 12:25 Nasopharyngeal Swab Respiratory Virus (PCR) - Final 09/19/18 09:10 Blood - Peripheral Venous Blood Culture - Preliminary NO GROWTH OBTAINED AFTER 48 HOURS, INCUBATION TO CONTINUE FOR 3 DAYS. 09/19/18 09:18 Blood - Peripheral Venous Blood Culture - Preliminary NO GROWTH OBTAINED AFTER 48 HOURS, INCUBATION TO CONTINUE FOR 3 DAYS. Active Medications Acetaminophen (Tylenol -) 650 mg PO Q4H PRN PRN Reason: PAIN LEVEL 1-5 OR FEVER Last Admin: 09/20/18 11:00 Dose: 650 mg Acetaminophen (Tylenol -) 325 mg PO Q8H PRN PRN Reason: PAIN LEVEL 6-10 Last Admin: 09/21/18 09:28 Dose: 325 mg Enoxaparin Sodium (Lovenox -) 40 mg SQ TID ECTOR Piperacillin Sod/Tazobactam (Sod 3.375 gm/ Dextrose) 50 mls @ 100 mls/hr IVPB Q8H-IV ECTOR; Protocol Last Admin: 09/21/18 09:28 Dose: 100 mls/hr Oxycodone HCl (Roxicodone -) 5 mg PO Q6H PRN PRN Reason: PAIN LEVEL 6-10 Last Admin: 09/21/18 09:28 Dose: 5 mg Ranitidine HCl (Zantac -) 150 mg PO DAILY ECTOR Last Admin: 09/21/18 09:28 Dose: 150 mg ASSESSMENT/PLAN: 68F with pmhx of Metastatic Endometrial cancer, peritoneal carcinomatosis, GERD , Anemia, HLD, admitted after being recently admitted for sepsis 2/2 infected fluid collection. #Sepsis likely secondary to infected fluid collection: improving -Tylenol 650 mg PO Q4H PRN -CTAP noted above, catheter drain within fluid collection. Wound Cx +E.faecalis , +Acetinobacter Baumanii/haemol -drain replaced 09/17 -Febrile at 101.6, WBC increased from 8.7 to 10.1 today. -Per ID, cont Zosyn 3.375gm Q8H for now. Goal is to switch to PO Augmentin but only after pt has been afebrile for at least 48h. No need for re-culture. Also d /w ID possibility of tumor fever as cause of spontaneous febrile spikes. Could potentially switch to PO when appropriate and if pt spikes fever, then still cont with same PO Augmentin and monitor. NSAID use may possibly help with fever spikes; she was previously on Meloxicam at home for inflammation. #Ventral hernia; Less painful today, improved. -CTAP done previous admission showed non-obstructing hernia. -Evaluated by surg last admission; no surg intervention at this time. #Anemia -s/p 2U pRBCs this admission; Hgb stable at 9.2 #GERD -Zantac 150 mg PO QD #Metastatic Endometrial cancer -Heme/onc reconsulted -No further intervention at this time until pt is stable. Pt agreed to follow up outpatient for clinical study at [facility] #DVT Prophylaxis -Lovenox 40 mg SQ Daily #FEN -Fluids: LR @ 75 cc/hr -Electrolytes: No electrolyte abnormalities, BMP in AM -Nutrition: Diabetic Diet #Disposition -Med/Surg -DNR/DNI formed signed, d/w HCP. Visit type - Emergency Visit Emergency Visit: Yes ED Registration Date: 09/11/18 Care time: The patient presented to the Emergency Department on the above date and was hospitalized for further evaluation of their emergent condition. - New Patient This patient is new to me today: No - Critical Care Critical Care patient: No
--- NOTE | 2018-09-21 15:45 | PN ---
Teaching Attending Note Name of Resident: Liya Barksdale ATTENDING PHYSICIAN STATEMENT I saw and evaluated the patient. I reviewed the resident's note and discussed the case with the resident. I agree with the resident's findings and plan as documented. SUBJECTIVE: Abd pain, no N/V . OBJECTIVE: NAD CV: RRR Lungs: CTAB Ext: no edema Abd: soft, NL BS. right sided abd wall hernia is tender and not completely reducible, slightly softer compared to yesterday . TTP in RLQ and over hernia. LUQ ELINOR drain in. ASSESSMENT AND PLAN: Unfortunate 68 y/o lady with h/o HLP, DM , metastatic uterine cancer, peritoneal carcinomatosis, SB, s/p peritoneal drain for ascitis ,recent admisison for peritonitis who presented with fever and worsening abd pain 1- Sepsis 2/2 peritonitis: - intermittent fevers are maybe tumor fever. - case was d/w ID. cont zosyn for now, then will determine switching to po if remains afebrile. 2- Incarcerated Abd wall hernia. No intervention 3- Uterine cancer with peritoneal carcinomatosis: - cont drainage. DVT px with lovenox HLOC DNR/DNI
[2018-09-21] MEDS: ENOXAPARIN NA (PORCINE) 40 MG/0.4 ML DISP.SYRIN SQ SCH (15:46)
--- NOTE | 2018-09-21 16:53 | PATH ---
Cytology Non-Gynecological Report Patient Name: MICHAEL ALLRED Med. Rec. #: [id number] /Age/Gender: 1950 (Age: 68) / F Account: [id number] Location: [facility] MED/SURG Taken: 09/17/2018 Received: 09/20/2018 Reported: 09/21/2018 Physicians: Tay Silva M.D. Specimen(s) Received BODY FLUID LEFT ABDOMEN Clinical History Left abdominal fluid Final Diagnosis ABDOMINAL FLUID, LEFT, PARACENTESIS: SATISFACTORY FOR EVALUATION. NO MALIGNANT CELLS IDENTIFIED. INFLAMMATORY INFILTRATE COMPRISED OF MANY NEUTROPHILS AND RARE LYMPHOCYTES IN A PROTEINACEOUS AND HEMORRHAGIC BACKGROUND. Electronically Signed Leigh Pina M.D. Gross Description Approximately 15 cc of pink fluid received fresh in a sterile cup. One cytofunnel prepared and Pap stained. One cellblock prepared.
--- NOTE | 2018-09-21 18:53 | PN ---
Progress Note (short form) - Note Progress Note: Patient seen and examined Frustrated with hospital course Intermittent fevers Last Vital Signs Temp Pulse Resp BP Pulse Ox 98.7 F 94 H 20 156/97 96 09/21/18 17:20 09/21/18 17:20 09/21/18 17:20 09/21/18 17:20 09/21/18 09:00 HEENT: NADIA, EOM Intact Oropharynx: No thrush, No mucositis,dentures Cor: RSR, No murmurs, No gallops Lungs: Clear to P&A Abd: Soft, Normal bowel sounds, No organomegaly, catheter drainage Ext:No significant edema Skin: No rashes, Integument intact CBC, BMP 09/21/18 06:37 09/20/18 06:30 Current Medications Generic Name Dose Route Start Last Admin Trade Name Freq PRN Reason Stop Dose Admin Acetaminophen 650 mg 09/11/18 21:20 09/20/18 11:00 Tylenol - PO 650 mg Q4H PRN Administration PAIN LEVEL 1-5 OR FEVER Acetaminophen 325 mg 09/13/18 18:16 09/21/18 18:37 Tylenol - PO 325 mg Q8H PRN Administration PAIN LEVEL 6-10 Enoxaparin Sodium 40 mg 09/21/18 15:30 09/21/18 15:46 Lovenox - SQ 40 mg DAILY ECTOR Administration Piperacillin Sod/Tazobactam 50 mls @ 100 mls/hr 09/20/18 08:45 09/21/18 17:15 Sod 3.375 gm/ Dextrose IVPB 100 mls/hr Q8H-IV ECTOR Administration Protocol Oxycodone HCl 5 mg 09/21/18 08:15 09/21/18 18:37 Roxicodone - PO 5 mg Q6H PRN Administration PAIN LEVEL 6-10 Ranitidine HCl 150 mg 09/15/18 10:00 09/21/18 09:28 Zantac - PO 150 mg DAILY ECTOR Administration impression; Endometrial ca - carcinomatosis intraabdominal infected cyst with catheter drainage Anemia Fevers Plan: Per ID - duration of IV antibiotics and transition to p.o.
[2018-09-22] MEDS ORDERED: PIPERACILLIN/TAZOBACTAM 3.375 GM VIAL IVPB ONE (01:22)
[2018-09-22] MEDS ORDERED: DEXTROSE 5%-WATER - 50 ML IVPB ONE (01:23)
[2018-09-22] MEDS: PIPERACILLIN/TAZOB 3.375 GM 3.375 GM in DEXTROSE 5%-WATER - 50 ML IVPB SCH (01:39)
[2018-09-22] MEDS: ACETAMINOPHEN 325 MG TABLET (FP) PO PRN ×3 (02:14→20:24)
[2018-09-22] MEDS: oxyCODONE HCL 5 MG TABLET PO PRN ×2 (02:15→10:27)
--- NOTE | 2018-09-22 07:16 | PN ---
Physical Exam: SUBJECTIVE: Patient seen and examined at bedside. No acute events overnight. States she has R back ache. Denies cp, sob, urinary/bowel symptoms. Still rambo PO diet, denies n/v, OBJECTIVE: Last Vital Signs Temp Pulse Resp BP Pulse Ox 98.8 F 90 20 142/88 96 09/22/18 06:24 09/22/18 06:24 09/22/18 06:24 09/22/18 06:24 09/21/18 09:00 GENERAL: A&Ox3, no acute distress EYES: PERRLA, EOMI ENT: Moist mucus membranes NECK: No JVD LUNGS: CTA, no wheezes HEART: RRR, no murmurs ABDOMEN: Soft, nontender, BS present, large ventral hernia present on R side, moderately reducible. L sided abdominal drain in place, no drainage seen. MUSCULOSKELETAL: No CVA Tenderness EXTREMITIES: 2+ pulses, no edema. NEUROLOGICAL: Cranial nerves II-XII intact. CBC, BMP 09/21/18 06:37 Microbiology 09/17/18 12:25 Nasopharyngeal Swab Respiratory Virus (PCR) - Final 09/19/18 09:10 Blood - Peripheral Venous Blood Culture - Preliminary NO GROWTH OBTAINED AFTER 48 HOURS, INCUBATION TO CONTINUE FOR 3 DAYS. 09/19/18 09:18 Blood - Peripheral Venous Blood Culture - Preliminary NO GROWTH OBTAINED AFTER 48 HOURS, INCUBATION TO CONTINUE FOR 3 DAYS. Active Medications Acetaminophen (Tylenol -) 650 mg PO Q4H PRN PRN Reason: PAIN LEVEL 1-5 OR FEVER Last Admin: 09/20/18 11:00 Dose: 650 mg Acetaminophen (Tylenol -) 325 mg PO Q8H PRN PRN Reason: PAIN LEVEL 6-10 Last Admin: 09/22/18 02:14 Dose: 325 mg Enoxaparin Sodium (Lovenox -) 40 mg SQ DAILY ECTOR Last Admin: 09/21/18 15:46 Dose: 40 mg Piperacillin Sod/Tazobactam (Sod 3.375 gm/ Dextrose) 50 mls @ 100 mls/hr IVPB Q8H-IV ECTOR; Protocol Last Admin: 09/22/18 01:39 Dose: 100 mls/hr Oxycodone HCl (Roxicodone -) 5 mg PO Q6H PRN PRN Reason: PAIN LEVEL 6-10 Last Admin: 09/22/18 02:15 Dose: 5 mg Ranitidine HCl (Zantac -) 150 mg PO DAILY [facility] Last Admin: 09/21/18 09:28 Dose: 150 mg ASSESSMENT/PLAN: 68F with pmhx of Metastatic Endometrial cancer, peritoneal carcinomatosis, GERD , Anemia, HLD, admitted after being recently admitted for sepsis 2/2 infected fluid collection. #Sepsis likely secondary to infected fluid collection: improving -Tylenol 650 mg PO Q4H PRN -CTAP noted above, catheter drain within fluid collection. Wound Cx +E.faecalis , +Acetinobacter Baumanii/haemol -drain replaced 09/17 -Per ID, cont Zosyn 3.375gm Q8H for now, then will determine when to switch to PO if pt remains afebrile. #Ventral hernia; Less painful today, improved. -CTAP done previous admission showed non-obstructing hernia. -Evaluated by surg last admission; no surg intervention at this time. #Anemia -s/p 2U pRBCs this admission; Hgb stable at 9.2 #GERD -Zantac 150 mg PO QD #Metastatic Endometrial cancer -Heme/onc reconsulted -No further intervention at this time until pt is stable. Pt agreed to follow up outpatient for clinical study at [facility] #DVT Prophylaxis -Lovenox 40 mg SQ Daily #FEN -Fluids: LR @ 75 cc/hr -Electrolytes: No electrolyte abnormalities, BMP in AM -Nutrition: Diabetic Diet #Disposition -Med/Surg -DNR/DNI formed signed, d/w HCP. Visit type - Emergency Visit Emergency Visit: Yes ED Registration Date: 09/11/18 Care time: The patient presented to the Emergency Department on the above date and was hospitalized for further evaluation of their emergent condition. - New Patient This patient is new to me today: No - Critical Care Critical Care patient: No
[2018-09-22 07:46] LABS: ANION GAP 7 MMOL/L (8-16); BLOOD UREA NITROGEN 9 mg/dL (7-18); CALCIUM 8.3 mg/dL (8.5-10.1); CHLORIDE 101 mmol/L (98-107); CO2 27 mmol/L (21-32); CREATININE 0.7 mg/dL (0.55-1.3); GLUCOSE,RANDOM 85 mg/dL (74-106); POTASSIUM 4.3 mmol/L (3.5-5.1); SODIUM 135 mmol/L (136-145)
[2018-09-22] MEDS: RANITIDINE HCL 150 MG TABLET (FP) PO SCH (10:28)
[2018-09-22] MEDS: ENOXAPARIN NA (PORCINE) 40 MG/0.4 ML DISP.SYRIN SQ SCH (10:28)
[2018-09-22] MEDS ORDERED: AMOX TR/POT CLAV 875MG/125MG TABLETS (FP) PO SCH (17:30)
--- NOTE | 2018-09-22 18:01 | PN ---
Teaching Attending Note Name of Resident: Liya Barksdale ATTENDING PHYSICIAN STATEMENT I saw and evaluated the patient. I reviewed the resident's note and discussed the case with the resident. I agree with the resident's findings and plan as documented. SUBJECTIVE: Patient is comfortable with no acute distress, feels better. OBJECTIVE: Vital Signs Temperature 98.6 F 09/22/18 17:11 Pulse Rate 91 H 09/22/18 17:11 Respiratory Rate 20 09/22/18 17:11 Blood Pressure 155/103 H 09/22/18 17:11 O2 Sat by Pulse Oximetry (%) 96 09/21/18 09:00 GENERAL: A&Ox3, no acute distress EYES: PERRLA, EOMI ENT: Moist mucus membranes NECK: No JVD LUNGS: CTA, no wheezes HEART: RRR, no murmurs, S1S2 positive ABDOMEN: Soft, nontender, BS present, large ventral hernia present on R side, moderately reducible. L sided abdominal drain in place, no drainage seen. EXTREMITIES: 2+ pulses, no edema. NEUROLOGICAL: Cranial nerves II-XII intact. CBCD WBC 10.3 K/mm3 (4.0-10.0) H 09/21/18 06:37 RBC 3.43 M/mm3 (3.60-5.2) L 09/21/18 06:37 Hgb 9.2 GM/dL (10.7-15.3) L 09/21/18 06:37 Hct 27.6 % (32.4-45.2) L 09/21/18 06:37 MCV 80.4 fl (80-96) 09/21/18 06:37 MCHC 33.5 g/dl (32.0-36.0) 09/21/18 06:37 RDW 17.8 % (11.6-15.6) H 09/21/18 06:37 Plt Count 552 K/MM3 (134-434) H 09/21/18 06:37 MPV 7.1 fl (7.5-11.1) L 09/21/18 06:37 CMP Sodium 135 mmol/L (136-145) L 09/22/18 06:00 Potassium 4.3 mmol/L (3.5-5.1) 09/22/18 06:00 Chloride 101 mmol/L (98-107) 09/22/18 06:00 Carbon Dioxide 27 mmol/L (21-32) 09/22/18 06:00 Anion Gap 7 MMOL/L (8-16) L 09/22/18 06:00 BUN 9 mg/dL (7-18) 09/22/18 06:00 Creatinine 0.7 mg/dL (0.55-1.3) 09/22/18 06:00 Creat Clearance w eGFR > 60 (>60) 09/22/18 06:00 Random Glucose 85 mg/dL (74-106) 09/22/18 06:00 Calcium 8.3 mg/dL (8.5-10.1) L 09/22/18 06:00 Total Bilirubin 0.4 mg/dL (0.2-1) 09/19/18 06:30 AST 14 U/L (15-37) L 09/19/18 06:30 ALT 9 U/L (13-61) L 09/19/18 06:30 Alkaline Phosphatase 104 U/L (45-117) 09/19/18 06:30 Total Protein 6.2 g/dl (6.4-8.2) L 09/19/18 06:30 Albumin 1.6 g/dl (3.4-5.0) L 09/19/18 06:30 CARDIAC ENZYMES Troponin I < 0.02 ng/ml (0.00-0.05) 09/11/18 18:28 Current Medications Generic Name Dose Route Start Last Admin Trade Name Freq PRN Reason Stop Dose Admin Acetaminophen 650 mg 09/11/18 21:20 09/22/18 10:28 Tylenol - PO 650 mg Q4H PRN Administration PAIN LEVEL 1-5 OR FEVER Acetaminophen 325 mg 09/13/18 18:16 09/22/18 02:14 Tylenol - PO 325 mg Q8H PRN Administration PAIN LEVEL 6-10 Enoxaparin Sodium 40 mg 09/21/18 15:30 09/22/18 10:28 Lovenox - SQ 40 mg DAILY ECTOR Administration Lisinopril 5 mg 09/22/18 17:00 Prinivil PO DAILY ECTOR Oxycodone HCl 5 mg 09/21/18 08:15 09/22/18 10:27 Roxicodone - PO 5 mg Q6H PRN Administration PAIN LEVEL 6-10 Ranitidine HCl 150 mg 09/15/18 10:00 09/22/18 10:28 Zantac - PO 150 mg DAILY ECTOR Administration Home Medications Medication Instructions Recorded Loratadine [Claritin] 10 mg PO DAILY 09/28/17 Omeprazole Magnesium [Prilosec Otc] 40 mg PO DAILY 09/28/17 Travoprost [Travatan Z] 1 drop OU HS 09/28/17 Psyllium Husk [Metamucil] 0.4 gm PO DAILY 08/11/18 Sitagliptin Phosphate [Januvia] 100 mg PO DAILY 08/11/18 Insulin NPH Hum/Reg Insulin Hm 6 units SQ ACDIN 08/13/18 [Novolin 70-30 Flexpen] Linaclotide [Linzess] 1 tab PO DAILY 08/13/18 Metformin HCl [Glucophage] 500 mg PO BID 08/13/18 Zolpidem Tartrate [Ambien] 5 mg PO HS 08/13/18 [place]-3 Acid Ethyl Esters [Lovaza] 1 g PO DAILY 09/03/18 Meloxicam 15 mg PO DAILY 09/21/18 Olopatadine HCl [Pazeo] 2.5 ml OU DAILY 09/21/18 ASSESSMENT AND PLAN: Patient is a 68 y/o lady with Pmhx of HLP, DM , metastatic uterine cancer, peritoneal carcinomatosis, SB, s/p peritoneal drain for ascitis ,recent admisison for peritonitis who presented with fever and worsening abd pain # Sepsis due to having peritonitis: intermittent fevers with possible tumor fever. on zosyn continue if stable will discharge the patient in am. # Incarcerated Abd wall hernia. No intervention at this time # Uterine cancer with peritoneal carcinomatosis: continues to drain. DVT px with lovenox DNR/DNI
[2018-09-22] MEDS: LISINOPRIL 5 MG TABLET (FP) PO SCH (18:14)
[2018-09-23] MEDS: oxyCODONE HCL 5 MG TABLET PO PRN ×2 (06:24→19:22)
[2018-09-23] MEDS: ACETAMINOPHEN 325 MG TABLET (FP) PO PRN (06:25)
[2018-09-23 07:51] LABS: HEMATOCRIT 27.2 % (32.4-45.2); MCHC 33.2 g/dl (32.0-36.0); MEAN CELL VOLUME 81.4 fl (80-96); MEAN PLT VOLUME 7.3 fl (7.5-11.1); PLATELET COUNT 610 K/MM3 (134-434); RBC 3.34 M/mm3 (3.60-5.2); RDW 17.8 % (11.6-15.6); WHITE BLOOD COUNT 9.9 K/mm3 (4.0-10.0)
[2018-09-23] MEDS ORDERED: ONDANSETRON 4 MG/2 ML VIAL IVPUSH PRN (07:58)
[2018-09-23 08:19] LABS: ANION GAP 6 MMOL/L (8-16); BLOOD UREA NITROGEN 8 mg/dL (7-18); CHLORIDE 102 mmol/L (98-107); CO2 27 mmol/L (21-32); CREATININE 0.7 mg/dL (0.55-1.3); GLUCOSE,RANDOM 86 mg/dL (74-106); POTASSIUM 4.4 mmol/L (3.5-5.1); SODIUM 135 mmol/L (136-145)
[2018-09-23] MEDS: RANITIDINE HCL 150 MG TABLET (FP) PO SCH (09:27)
[2018-09-23] MEDS: ENOXAPARIN NA (PORCINE) 40 MG/0.4 ML DISP.SYRIN SQ SCH (09:27)
[2018-09-23] MEDS: LISINOPRIL 5 MG TABLET (FP) PO SCH (09:27)
[2018-09-23] MEDS ORDERED: DOCUSATE SODIUM 100 MG CAPSULE (FP) PO SCH (10:00)
[2018-09-23] MEDS ORDERED: POLYETHYLENE GLYCOL 3350 119 GM BTL PO SCH (10:00)
--- NOTE | 2018-09-23 12:55 | DS ---
Physical Exam: SUBJECTIVE: Patient seen and examined at bedside. No acute events overnight. OBJECTIVE: Vital Signs Period Temp Pulse Resp BP Sys/Marcelino Pulse Ox Last 24 Hr 97.9 F-98.8 F 80-92 18-20 145-157/81-103 97 PHYSICAL EXAM GENERAL: A&Ox3, no acute distress EYES: PERRLA, EOMI ENT: Moist mucus membranes NECK: No JVD LUNGS: CTA, no wheezes HEART: RRR, no murmurs ABDOMEN: Soft, nontender, BS present, large ventral hernia present on R side, moderately reducible. L sided abdominal drain in place, no drainage seen. MUSCULOSKELETAL: No CVA Tenderness EXTREMITIES: 2+ pulses, no edema. NEUROLOGICAL: Cranial nerves II-XII intact. LABS Laboratory Results - last 24 hr 09/22/18 09/23/18 09/23/18 17:31 06:00 06:00 WBC 9.9 RBC 3.34 L Hgb 9.0 L Hct 27.2 L MCV 81.4 MCH 27.0 MCHC 33.2 RDW 17.8 H Plt Count 610 H MPV 7.3 L Sodium 135 L Potassium 4.4 Chloride 102 Carbon Dioxide 27 Anion Gap 6 L BUN 8 Creatinine 0.7 Creat Clearance w eGFR > 60 POC Glucometer 167 Random Glucose 86 Calcium 8.0 L 09/23/18 06:15 WBC RBC Hgb Hct MCV MCH MCHC RDW Plt Count MPV Sodium Potassium Chloride Carbon Dioxide Anion Gap BUN Creatinine Creat Clearance w eGFR POC Glucometer 103 Random Glucose Calcium HOSPITAL COURSE: Date of Admission:09/11/18 IMAGING: * CTAP: Atelectasis/infiltration at both bases with small pleural effusions. Low -density lesion within liver, metastatic disease suspected. Fluid collection measuring 8.6 x 5.3 x 8.2 cm in lesser sac ventral to pancreas with drainage catheter in place. Appears larger compared to prior image. Residual fluid. 68F with pmhx of metastatic endometrial cancer, peritoneal carcinomatosis, GERD , anemia, HLD, admitted for sepsis 2/2 infected fluid collection. Pt was recently discharged for same diagnosis on 09/10/18. Upon initial presentation, pt was found to be febrile at 101.1 with WBC 17.8. Pt was seen by ID and given IV Unasyn. CTAP was done that showed larger fluid collection compared to previous CT. ELINOR drain was replaced by IR with no complications. Later on she was switched to Zosyn on 09/20. Pt eventually completed IV antibiotic course. Her symptoms improved and she was discharged home with VNS services for ELINOR drain care. Pt's HCP, Catie, was contacted throughout hospital admission and made aware of treatment course. VNS CARE: VNS will need to change dressing once a week, with a 4x4 Tegederm and biopatch to cover the catheter. Pt is allowed to shower on same day as dressing change. ELINOR drain will also need to be flushed with NS 5cc twice a day and will be emptied when full. Date of Discharge: 09/23/18 Minutes to complete discharge: 40 Discharge Summary Reason For Visit: CARCINOMATOSOS,SEPSIS Current Active Problems Anemia (Chronic) T2DM (type 2 diabetes mellitus) (Chronic) Condition: Improved - Instructions Diet, Activity, Other Instructions: You were seen in the hospital for complaints of fever. In the hospital, you were treated for your infected abdominal fluid and given IV antibiotics. Throughout your hospital stay, your symptoms improved and fever improved. You are being discharged home. MEDICATIONS Please continue taking the rest of your home medications as directed. For constipation, you take the following: Miralax 17 gm twice a day Colace 100 mg three times a day Senna 2 tabs at night REFERRALS Please follow up with your primary care physician, Dr. Tapia, within 1 week. Please follow up with your oncologist, Dr. Dave, within 1 week. If you experience worsening chest pain, intractable abdominal pain, persistent nausea/vomiting, please make an appointment to see your primary care physician as soon as possible. If you are unable to make an appointment with your PCP, please proceed to your nearest emergency room immediately. Referrals: Alex Tapia MD [Staff Physician] - 1 Week Fran Dave MD [Staff Physician] - 1 Week Disposition: HOME - Home Medications Comprehensive Discharge Medication List: Ambulatory Orders Loratadine [Claritin] 10 mg PO DAILY 09/28/17 Omeprazole Magnesium [Prilosec Otc] 40 mg PO DAILY 09/28/17 Travoprost [Travatan Z] 1 drop OU HS 09/28/17 Psyllium Husk [Metamucil] 0.4 gm PO DAILY 08/11/18 Sitagliptin Phosphate [Januvia] 100 mg PO DAILY 08/11/18 Insulin NPH Hum/Reg Insulin Hm [Novolin 70-30 Flexpen] 6 units SQ ACDIN Linaclotide [Linzess] 1 tab PO DAILY 08/13/18 Metformin HCl [Glucophage] 500 mg PO BID 08/13/18 Zolpidem Tartrate [Ambien] 5 mg PO HS 08/13/18 [place]-3 Acid Ethyl Esters [Lovaza] 1 g PO DAILY 09/03/18 Olopatadine HCl [Pazeo] 2.5 ml OU DAILY 09/21/18 Docusate Sodium [Colace -] 100 mg PO TID #90 capsule 09/23/18 Lisinopril [Prinivil] 5 mg PO DAILY #30 tablet 09/23/18 Oxycodone HCl 5 mg PO Q6H PRN #12 tablet MDD 4 09/23/18 Polyethylene Glycol 3350 [Miralax 119 gm Btl -] 17 gm PO BID #3 bottle 09/23/18 Sennosides [Senna -] 2 tab PO HS #60 tablet 09/23/18 This patient is new to me today: No Emergency Visit: Yes ED Registration Date: 09/11/18 Care time: The patient presented to the Emergency Department on the above date and was hospitalized for further evaluation of their emergent condition. Critical Care patient: No - Discharge Referral Referred to [facility] Yes Physician Referral: Alex Flores MD ([facility])
[2018-09-23] MEDS: DOCUSATE SODIUM 100 MG CAPSULE (FP) PO SCH ×2 (13:59→21:08)
--- NOTE | 2018-09-23 18:24 | PN ---
Teaching Attending Note Name of Resident: Liya Barksdale ATTENDING PHYSICIAN STATEMENT I saw and evaluated the patient. I reviewed the resident's note and discussed the case with the resident. I agree with the resident's findings and plan as documented. SUBJECTIVE: Patient is comfortable with no acute distress. No nausea or vomiting. OBJECTIVE: Vital Signs Temperature 100.3 F H 09/23/18 17:24 Pulse Rate 96 H 09/23/18 17:24 Respiratory Rate 18 09/23/18 17:24 Blood Pressure 154/91 09/23/18 17:24 O2 Sat by Pulse Oximetry (%) 97 09/23/18 09:00 GENERAL: A&Ox3, no acute distress EYES: PERRLA, EOMI ENT: Moist mucus membranes NECK: No JVD, LUNGS: CTA, no wheezes HEART: RRR, no murmurs, S1S2 positive ABDOMEN: Soft, nontender, BS present, large ventral hernia present on R side, moderately reducible. L sided abdominal drain in place, no drainage seen. EXTREMITIES: 2+ pulses, no edema. NEUROLOGICAL: Cranial nerves II-XII intact. CBCD WBC 9.9 K/mm3 (4.0-10.0) 09/23/18 06:00 RBC 3.34 M/mm3 (3.60-5.2) L 09/23/18 06:00 Hgb 9.0 GM/dL (10.7-15.3) L 09/23/18 06:00 Hct 27.2 % (32.4-45.2) L 09/23/18 06:00 MCV 81.4 fl (80-96) 09/23/18 06:00 MCHC 33.2 g/dl (32.0-36.0) 09/23/18 06:00 RDW 17.8 % (11.6-15.6) H 09/23/18 06:00 Plt Count 610 K/MM3 (134-434) H 09/23/18 06:00 MPV 7.3 fl (7.5-11.1) L 09/23/18 06:00 CMP Sodium 135 mmol/L (136-145) L 09/23/18 06:00 Potassium 4.4 mmol/L (3.5-5.1) 09/23/18 06:00 Chloride 102 mmol/L (98-107) 09/23/18 06:00 Carbon Dioxide 27 mmol/L (21-32) 09/23/18 06:00 Anion Gap 6 MMOL/L (8-16) L 09/23/18 06:00 BUN 8 mg/dL (7-18) 09/23/18 06:00 Creatinine 0.7 mg/dL (0.55-1.3) 09/23/18 06:00 Creat Clearance w eGFR > 60 (>60) 09/23/18 06:00 Random Glucose 86 mg/dL (74-106) 09/23/18 06:00 Calcium 8.0 mg/dL (8.5-10.1) L 09/23/18 06:00 Total Bilirubin 0.4 mg/dL (0.2-1) 09/19/18 06:30 AST 14 U/L (15-37) L 09/19/18 06:30 ALT 9 U/L (13-61) L 09/19/18 06:30 Alkaline Phosphatase 104 U/L (45-117) 09/19/18 06:30 Total Protein 6.2 g/dl (6.4-8.2) L 09/19/18 06:30 Albumin 1.6 g/dl (3.4-5.0) L 09/19/18 06:30 CARDIAC ENZYMES Troponin I < 0.02 ng/ml (0.00-0.05) 09/11/18 18:28 Current Medications Generic Name Dose Route Start Last Admin Trade Name Freq PRN Reason Stop Dose Admin Acetaminophen 650 mg 09/11/18 21:20 09/22/18 20:24 Tylenol - PO 650 mg Q4H PRN Administration PAIN LEVEL 1-5 OR FEVER Acetaminophen 325 mg 09/13/18 18:16 09/23/18 06:25 Tylenol - PO 325 mg Q8H PRN Administration PAIN LEVEL 6-10 Docusate Sodium 100 mg 09/23/18 14:00 09/23/18 13:59 Colace - PO 100 mg TID ECTOR Administration Enoxaparin Sodium 40 mg 09/21/18 15:30 09/23/18 09:27 Lovenox - SQ 40 mg DAILY ECTOR Administration Lisinopril 5 mg 09/22/18 17:00 09/23/18 09:27 Prinivil PO 5 mg DAILY ECTOR Administration Ondansetron HCl 4 mg 09/23/18 07:58 Zofran Injection IVPUSH Q8H PRN NAUSEA Oxycodone HCl 5 mg 09/21/18 08:15 09/23/18 06:24 Roxicodone - PO 5 mg Q6H PRN Administration PAIN LEVEL 6-10 Polyethylene Glycol 17 gm 09/23/18 22:00 Miralax (For Daily Use) - PO BID [facility] Ranitidine HCl 150 mg 09/15/18 10:00 09/23/18 09:27 Zantac - PO 150 mg DAILY [facility] Administration Senna 2 tab 09/23/18 22:00 Senna - PO HS [facility] Home Medications Medication Instructions Recorded Loratadine [Claritin] 10 mg PO DAILY 09/28/17 Omeprazole Magnesium [Prilosec Otc] 40 mg PO DAILY 09/28/17 Travoprost [Travatan Z] 1 drop OU HS 09/28/17 Psyllium Husk [Metamucil] 0.4 gm PO DAILY 08/11/18 Sitagliptin Phosphate [Januvia] 100 mg PO DAILY 08/11/18 Insulin NPH Hum/Reg Insulin Hm 6 units SQ ACDIN 08/13/18 [Novolin 70-30 Flexpen] Linaclotide [Linzess] 1 tab PO DAILY 08/13/18 Metformin HCl [Glucophage] 500 mg PO BID 08/13/18 Zolpidem Tartrate [Ambien] 5 mg PO HS 08/13/18 [place]-3 Acid Ethyl Esters [Lovaza] 1 g PO DAILY 09/03/18 Olopatadine HCl [Pazeo] 2.5 ml OU DAILY 09/21/18 Docusate Sodium [Colace -] 100 mg PO TID #90 capsule 09/23/18 Lisinopril [Prinivil] 5 mg PO DAILY #30 tablet 09/23/18 Oxycodone HCl 5 mg PO Q6H PRN #12 tablet MDD 4 09/23/18 Polyethylene Glycol 3350 [Miralax 17 gm PO BID #3 bottle 09/23/18 119 gm Btl -] Sennosides [Senna -] 2 tab PO HS #60 tablet 09/23/18 ASSESSMENT AND PLAN: Patient is a 68 y/o lady with Pmhx of HLP, DM , metastatic uterine cancer, peritoneal carcinomatosis, SB, s/p peritoneal drain for ascitis ,recent admisison for peritonitis who presented with fever and worsening abd pain # s/p sepsis due to having peritonitis: intermittent fevers with possible tumor fever. last dose today, and will discharge the patient today. # Incarcerated Abd wall hernia. No intervention at this time # Uterine cancer with peritoneal carcinomatosis: continues to drain. follow up with the surgeon as an outpatient. DVT px with lovenox DNR/DNI
[2018-09-23] MEDS: POLYETHYLENE GLYCOL 3350 119 GM BTL PO SCH (21:08)
[2018-09-23] MEDS ORDERED: SENNOSIDES 8.6MG TABLET (FP) PO SCH ×2 (22:00)
[2018-09-24] MEDS: DOCUSATE SODIUM 100 MG CAPSULE (FP) PO SCH (06:27)
[2018-09-24 06:31] VITALS: TEMP 98.5
[2018-09-24] MEDS ORDERED: PT OWN MED DRAWER 7, Y5N ONE (09:13)
[2018-09-24] MEDS ORDERED: ONDANSETRON 4 MG/2 ML VIAL IVPUSH ONE (09:22)
[2018-09-24] MEDS: LISINOPRIL 5 MG TABLET (FP) PO SCH (09:23)
[2018-09-24] MEDS: ENOXAPARIN NA (PORCINE) 40 MG/0.4 ML DISP.SYRIN SQ SCH (09:23)
[2018-09-24] MEDS: POLYETHYLENE GLYCOL 3350 119 GM BTL PO SCH (09:23)
[2018-09-24] MEDS: RANITIDINE HCL 150 MG TABLET (FP) PO SCH (09:23)
[2018-09-24] MEDS: ACETAMINOPHEN 325 MG TABLET (FP) PO PRN (09:34)
[2018-09-24] MEDS: oxyCODONE HCL 5 MG TABLET PO PRN (09:35)
--- NOTE | 2018-09-24 10:21 | PN ---
Teaching Attending Note Name of Resident: Liya Barksdale ATTENDING PHYSICIAN STATEMENT I saw and evaluated the patient. I reviewed the resident's note and discussed the case with the resident. I agree with the resident's findings and plan as documented. SUBJECTIVE: Patient is feeling better with no acute distress. wants to go home. Able to tolerate weight. OBJECTIVE: Vital Signs Temperature 98.5 F 09/24/18 06:29 Pulse Rate 97 H 09/24/18 06:29 Respiratory Rate 20 09/24/18 06:29 Blood Pressure 150/88 09/24/18 06:29 O2 Sat by Pulse Oximetry (%) 97 09/23/18 09:00 GENERAL: A&Ox3, no acute distress EYES: PERRLA, EOMI ENT: Moist mucus membranes NECK: No JVD, LUNGS: CTA, no wheezes HEART: RRR, no murmurs, S1S2 positive ABDOMEN: Soft, nontender, BS present, large ventral hernia present on R side, reducible. L sided abdominal drain in place. EXTREMITIES: 2+ pulses, no edema. NEUROLOGICAL: Cranial nerves II-XII intact. CBCD WBC 9.9 K/mm3 (4.0-10.0) 09/23/18 06:00 RBC 3.34 M/mm3 (3.60-5.2) L 09/23/18 06:00 Hgb 9.0 GM/dL (10.7-15.3) L 09/23/18 06:00 Hct 27.2 % (32.4-45.2) L 09/23/18 06:00 MCV 81.4 fl (80-96) 09/23/18 06:00 MCHC 33.2 g/dl (32.0-36.0) 09/23/18 06:00 RDW 17.8 % (11.6-15.6) H 09/23/18 06:00 Plt Count 610 K/MM3 (134-434) H 09/23/18 06:00 MPV 7.3 fl (7.5-11.1) L 09/23/18 06:00 CMP Sodium 135 mmol/L (136-145) L 09/23/18 06:00 Potassium 4.4 mmol/L (3.5-5.1) 09/23/18 06:00 Chloride 102 mmol/L (98-107) 09/23/18 06:00 Carbon Dioxide 27 mmol/L (21-32) 09/23/18 06:00 Anion Gap 6 MMOL/L (8-16) L 09/23/18 06:00 BUN 8 mg/dL (7-18) 09/23/18 06:00 Creatinine 0.7 mg/dL (0.55-1.3) 09/23/18 06:00 Creat Clearance w eGFR > 60 (>60) 09/23/18 06:00 Random Glucose 86 mg/dL (74-106) 09/23/18 06:00 Calcium 8.0 mg/dL (8.5-10.1) L 09/23/18 06:00 Total Bilirubin 0.4 mg/dL (0.2-1) 09/19/18 06:30 AST 14 U/L (15-37) L 09/19/18 06:30 ALT 9 U/L (13-61) L 09/19/18 06:30 Alkaline Phosphatase 104 U/L (45-117) 09/19/18 06:30 Total Protein 6.2 g/dl (6.4-8.2) L 09/19/18 06:30 Albumin 1.6 g/dl (3.4-5.0) L 09/19/18 06:30 CARDIAC ENZYMES Troponin I < 0.02 ng/ml (0.00-0.05) 09/11/18 18:28 Current Medications Generic Name Dose Route Start Last Admin Trade Name Freq PRN Reason Stop Dose Admin Acetaminophen 650 mg 09/11/18 21:20 09/22/18 20:24 Tylenol - PO 650 mg Q4H PRN Administration PAIN LEVEL 1-5 OR FEVER Acetaminophen 325 mg 09/13/18 18:16 09/24/18 09:34 Tylenol - PO 325 mg Q8H PRN Administration PAIN LEVEL 6-10 Docusate Sodium 100 mg 09/23/18 14:00 09/24/18 06:27 Colace - PO 100 mg TID ECTOR Administration Enoxaparin Sodium 40 mg 09/21/18 15:30 09/24/18 09:23 Lovenox - SQ 40 mg DAILY ECTOR Administration Lisinopril 5 mg 09/22/18 17:00 09/24/18 09:23 Prinivil PO 5 mg DAILY ECTOR Administration Ondansetron HCl 4 mg 09/23/18 07:58 Zofran Injection IVPUSH Q8H PRN NAUSEA Oxycodone HCl 5 mg 09/21/18 08:15 09/24/18 09:35 Roxicodone - PO 5 mg Q6H PRN Administration PAIN LEVEL 6-10 Polyethylene Glycol 17 gm 09/23/18 22:00 09/24/18 09:23 Miralax (For Daily Use) - PO Not Given BID ECTOR Ranitidine HCl 150 mg 09/15/18 10:00 09/24/18 09:23 Zantac - PO 150 mg DAILY ECTOR Administration Senna 2 tab 09/23/18 22:00 09/23/18 21:08 Senna - PO 2 tab HS ECTOR Administration Home Medications Medication Instructions Recorded Loratadine [Claritin] 10 mg PO DAILY 09/28/17 Omeprazole Magnesium [Prilosec Otc] 40 mg PO DAILY 09/28/17 Travoprost [Travatan Z] 1 drop OU HS 09/28/17 Psyllium Husk [Metamucil] 0.4 gm PO DAILY 08/11/18 Sitagliptin Phosphate [Januvia] 100 mg PO DAILY 08/11/18 Insulin NPH Hum/Reg Insulin Hm 6 units SQ ACDIN 08/13/18 [Novolin 70-30 Flexpen] Linaclotide [Linzess] 1 tab PO DAILY 08/13/18 Metformin HCl [Glucophage] 500 mg PO BID 08/13/18 Zolpidem Tartrate [Ambien] 5 mg PO HS 08/13/18 [place]-3 Acid Ethyl Esters [Lovaza] 1 g PO DAILY 09/03/18 Olopatadine HCl [Pazeo] 2.5 ml OU DAILY 09/21/18 Docusate Sodium [Colace -] 100 mg PO TID #90 capsule 09/23/18 Lisinopril [Prinivil] 5 mg PO DAILY #30 tablet 09/23/18 Oxycodone HCl 5 mg PO Q6H PRN #12 tablet MDD 4 09/23/18 Polyethylene Glycol 3350 [Miralax 17 gm PO BID #3 bottle 09/23/18 119 gm Btl -] Sennosides [Senna -] 2 tab PO HS #60 tablet 09/23/18 ASSESSMENT AND PLAN: Patient is a 68 y/o lady with Pmhx of HLP, DM , metastatic uterine cancer, peritoneal carcinomatosis, SB, s/p peritoneal drain for ascitis ,recent admisison for peritonitis who presented with fever and worsening abd pain # s/p sepsis due to having peritonitis: completed IV antibiotic and will discharge the patient home today. # Incarcerated Abdominal wall hernia. No intervention at this time # Uterine cancer with peritoneal carcinomatosis: continues to drain. follow up with the surgeon as an outpatient. DVT px with lovenox DNR/DNI
[2018-09-24 12:11] VITALS: BP 149/96; PULSE 100
== END 2018-09-24 11:56 | disposition home or self-care (01) | DRG 374 ==
LOC: JER 17:47 → JERBED 19:56 → J4W 22:26 → J8W 09-14 17:17
PROVIDERS: ADMIT Internal Medicine; ATTEND Internal Medicine
PROC: 30233N1 Transfusion of Nonautologous Red Blood Cells into Peripheral Vein, Percutaneous Approach (ICD-10-PCS; principal; 2018-09-14)
PROC: 0W9F30Z Drainage of Abdominal Wall with Drainage Device, Percutaneous Approach (ICD-10-PCS; 2018-09-17)
PROC: BW11YZZ Fluoroscopy of Abdomen and Pelvis using Other Contrast (ICD-10-PCS; 2018-09-17)
DX: C78.6 Secondary malignant neoplasm of retroperitoneum and peritoneum (principal); A41.9 Sepsis, unspecified organism; K65.9 Peritonitis, unspecified; J98.11 Atelectasis; J90 Pleural effusion, not elsewhere classified; R18.8 Other ascites; C54.1 Malignant neoplasm of endometrium; K43.9 Ventral hernia without obstruction or gangrene; D64.9 Anemia, unspecified; K21.9 Gastro-esophageal reflux disease without esophagitis; E78.5 Hyperlipidemia, unspecified; E11.9 Type 2 diabetes mellitus without complications
CPT/HCPCS: 36415; 36430; 49423; 71045-TC-FY; 71046-TC-FY; 74176-TC; 76000-TC-FY; 76098-TC-FY; 80048; 80053; 81003; 81015; 82803; 82962; 83605; 83735; 84100; 84132; 84484; 85025; 85027; 85610; 85730; 86850; 86900; 86901; 86922; 87040; 87070; 87086; 87186; 87205; 87633; 87804; 87899; 88108; 88305-TC; 93005; 93010; 93970-TC; 94010; 99285-25; C1729; C1769; J7030; P9038; P9058; Q9967

== ENCOUNTER → 2018-11-02 | Day surgery (SDC) | payer OTHER | END | disposition home or self-care (01) | LOC: JRADIR 11:14 | PROVIDERS: ATTEND Internal Medicine Hematology & Oncology | PROC: 0W2JX0Z Change Drainage Device in Pelvic Cavity, External Approach (ICD-10-PCS; principal; 2018-11-02) | DX: C54.1 Malignant neoplasm of endometrium (principal); R18.8 Other ascites | CPT/HCPCS: 49423; C1729; C1769 ==

== ENCOUNTER 2019-01-18 11:03 | Inpatient (IN) | payer OTHER ==
--- NOTE | 2019-01-18 12:35 | PDOC ---
History of Present Illness - General Chief Complaint: Pain Stated Complaint: ABD PAIN Time Seen by Provider: 01/18/19 12:00 History Source: Patient Exam Limitations: No Limitations Past History - Travel Traveled outside of the country in the last 30 days: No Close contact w/someone who was outside of country & ill: No - Past Medical History Allergies/Adverse Reactions: Allergies Allergy/AdvReac Type Severity Reaction Status Date / Time carboplatin Allergy Intermediate Verified 01/18/19 11:13 shellfish derived Allergy Intermediate Vomiting Verified 01/18/19 11:13 carboplatinum Allergy Intermediate Uncoded 01/18/19 11:13 Home Medications: Ambulatory Orders Loratadine [Claritin] 10 mg PO DAILY 09/28/17 Omeprazole Magnesium [Prilosec Otc] 40 mg PO DAILY 09/28/17 Travoprost [Travatan Z] 1 drop OU HS 09/28/17 Psyllium Husk [Metamucil] 0.4 gm PO DAILY 08/11/18 Sitagliptin Phosphate [Januvia] 100 mg PO DAILY 08/11/18 Insulin NPH Hum/Reg Insulin Hm [Novolin 70-30 Flexpen] 6 units SQ ACDIN Linaclotide [Linzess] 1 tab PO DAILY 08/13/18 Metformin HCl [Glucophage] 500 mg PO BID 08/13/18 Zolpidem Tartrate [Ambien] 5 mg PO HS 08/13/18 [place]-3 Acid Ethyl Esters [Lovaza] 1 g PO DAILY 09/03/18 Olopatadine HCl [Pazeo] 2.5 ml OU DAILY 09/21/18 Docusate Sodium [Colace -] 100 mg PO TID #90 capsule 09/23/18 Lisinopril [Prinivil] 5 mg PO DAILY #30 tablet 09/23/18 Oxycodone HCl 5 mg PO Q6H PRN #12 tablet MDD 4 09/23/18 Polyethylene Glycol 3350 [Miralax 119 gm Btl -] 17 gm PO BID #3 bottle 09/23/18 Sennosides [Senna -] 2 tab PO HS #60 tablet 09/23/18 Anemia: Yes Asthma: No Cancer: Yes (UTERINE, Endometrial, PERITONEAL CARCINOMATOSIS) Cardiac Disorders: No CVA: No COPD: No CHF: No Dementia: No Diabetes: Yes GI Disorders: Yes (GERD, diverticulosis, SBO, HERNIA) Disorders: Yes (uterine) HTN: No Hypercholesterolemia: Yes Liver Disease: No Seizures: No Thyroid Disease: No Other medical history: paracentesis - Surgical History Abdominal Surgery: Yes (BLOCKAGE,HERNIA) Appendectomy: No Cardiac Surgery: No Cholecystectomy: Yes Lung Surgery: No Neurologic Surgery: No Orthopedic Surgery: Yes (SHOULDER SX,HAND SX) - Immunization History Immunization Up to Date: Yes - Suicide/Smoking/Psychosocial Hx Smoking History: Never smoked Have you smoked in the past 12 months: No Information on smoking cessation initiated: No Hx Alcohol Use: No Drug/Substance Use Hx: No Substance Use Type: None Hx Substance Use Treatment: No Review of Systems - Review of Systems Able to Perform ROS?: Yes Comments:: 01/18/19 19:03 CONSTITUTIONAL: Absent: fever, chills, diaphoresis, generalized weakness, malaise, loss of appetite HEENT: Absent: rhinorrhea, nasal congestion, throat pain, throat swelling, difficulty swallowing, mouth swelling, ear pain, eye pain, visual Changes CARDIOVASCULAR: Absent: chest pain, loss of consciousness, palpitations, irregular heart rate, peripheral edema RESPIRATORY: Absent: cough, shortness of breath, dyspnea with exertion, orthopnea, wheezing, stridor, hemoptysis GASTROINTESTINAL: Present: abdominal pain, clogged ELINOR drain Absent: abdominal pain, abdominal distension, nausea, vomiting, diarrhea, constipation, melena, hematochezia GENITOURINARY: Absent: dysuria, frequency, urgency, hesitancy, hematuria, flank pain, genital pain MUSCULOSKELETAL: Absent: myalgia, arthralgia, joint swelling SKIN: Absent: rash, itching, pallor HEMATOLOGIC/IMMUNOLOGIC: Absent: easy bleeding, easy bruising, lymphadenopathy, frequent infections ENDOCRINE: Absent: unexplained weight gain, unexplained weight loss, heat intolerance, cold intolerance NEUROLOGIC: Absent: headache, focal weakness or paresthesias, dizziness, unsteady gait, seizure, mental status changes, bladder or bowel incontinence PSYCHIATRIC: Absent: anxiety, depression, suicidal or homicidal ideation, hallucinations. Is the patient limited Cuban proficient: No *Physical Exam - Vital Signs Last Vital Signs Temp Pulse Resp BP Pulse Ox 98.5 F 91 H 18 116/69 99 01/18/19 11:10 01/18/19 11:10 01/18/19 11:10 01/18/19 11:10 01/18/19 11:10 - Physical Exam Comments: 01/18/19 19:05 GENERAL: Well developed, well nourished. Awake and alert. No acute distress. HEENT: Normocephalic, atraumatic. PERRLA, EOMI. No conjunctival pallor. Sclera are non- icteric. Moist mucous membranes. Oropharynx is clear. NECK: Supple. Full ROM. No JVD. Carotid pulses 2+ and symmetric, without bruits. No thyromegaly. No lymphadenopathy. CARDIOVASCULAR: Regular rate and rhythm. No murmurs, rubs, or gallops. Distal pulses are 2+ and symmetric. PULMONARY: No evidence of respiratory distress. Lungs clear to auscultation bilaterally. No wheezing, rales or rhonchi. ABDOMINAL: TTP of the R flank. Large hernia to the RLQ, non-reducible. ELINOR drain intact in the LUQ. No drainage noted. Soft. Mildly distended. No rebound or guarding. No organomegaly. Normoactive bowel sounds. MUSCULOSKELETAL Normal range of motion at all joints. No bony deformities or tenderness. No CVA tenderness. EXTREMITIES: No cyanosis. No clubbing. No edema. No calf tenderness. SKIN: Warm and dry. Normal capillary refill. No rashes. No jaundice. NEUROLOGICAL: Alert, awake, appropriate. Cranial nerves 2-12 intact. No deficits to light touch and temperature in face, upper extremities and lower extremities. No motor deficits in the in face, upper extremities and lower extremities. Normoreflexic in the upper and lower extremities. Normal speech. Toes are down- going bilaterally. Gait is normal without ataxia. PSYCHIATRIC: Cooperative. Good eye contact. Appropriate mood and affect. ED Treatment Course - LABORATORY CBC & Chemistry Diagram: 01/19/19 06:45 01/19/19 06:45 Medical Decision Making - Medical Decision Making 01/18/19 19:12 The patient is a 68-year-old female with past medical history of metastatic endometrial cancer, peritoneal carcinomatosis, NIDDM who presents to the ER today with lack of drainage from her ELINOR drain for 3 days. She states that she is also having associated abdominal pain and she notes that her right hernia has gotten larger. She also admits to associated nausea but denies vomiting. She is having loose bowel movements. Her last bowel movement was this morning. Denies fevers, chills, body aches, chest pain, shortness of breath, weakness, constipation, frequency, urgency and hematuria A/P: Decreased drainage from ELINOR drain On exam he with a large right-sided hernia. Tender to palpation, nonreducible ELINOR drain without any material in the drainage port. Nothing in the tubing Given larger size of the lower right hernia we will obtain a CAT scan today. We' ll also obtain a CAT scan to evaluate if there is a pocket of ascites that is not draining. Basic labs obtained Of note patient's hemoglobin is 6.5. Creatinine is elevated at 1.7 this is most likely due to the chronic anemia. Patient transfused 1 unit at this time. Second unit is ordered. CAT scan was delayed to give blood. Patient will need admission Currently in CAT scan. Sign out given to Brandi Garner NP. *DC/Admit/Observation/Transfer Diagnosis at time of Disposition: Anemia, Uterine cancer Ascites Qualifiers: Ascites type: malignant Qualified Code(s): R18.0 - Malignant ascites - Referrals - Patient Instructions - Post Discharge Activity
[2019-01-18] MEDS ORDERED: ACETAMINOPHEN 1000 MG/100 ML VIAL (NON FORMULARY) IVPB ONE (12:40)
--- NOTE | 2019-01-18 12:46 | PDOC ---
*Physical Exam - Vital Signs Last Vital Signs Temp Pulse Resp BP Pulse Ox 98.5 F 91 H 18 116/69 99 01/18/19 11:10 01/18/19 11:10 01/18/19 11:10 01/18/19 11:10 01/18/19 11:10 ED Treatment Course - LABORATORY CBC & Chemistry Diagram: 01/19/19 06:45 01/19/19 06:45 Medical Decision Making - Medical Decision Making 01/18/19 12:45 Pt seen by the Advanced Practice Provider under my direct supervision Ancillary studies reviewed I agree with plan as outlined by the Advanced Practice Provider SUSAN Bates *DC/Admit/Observation/Transfer Diagnosis at time of Disposition: Anemia, Uterine cancer, Ascites - Referrals - Patient Instructions - Post Discharge Activity
[2019-01-18] MEDS ORDERED: ACETAMINOPHEN INJECTION 100 ML IVPB ONE (12:49)
[2019-01-18 13:20] LABS: BASO % 0.6 % (0-2.0); EOS % 1.1 % (0-4.5); HEMATOCRIT 19.6 % (32.4-45.2); LYMPH % 20.5 % (8-40); MCH 27.4 pg (25.7-33.7); MEAN CELL VOLUME 83.1 fl (80-96); MONO % 9.6 % (3.8-10.2); NEUT % 68.2 % (42.8-82.8); PLATELET COUNT 578 K/MM3 (134-434); RBC 2.36 M/mm3 (3.60-5.2); RDW 16.2 % (11.6-15.6); WHITE BLOOD COUNT 8.5 K/mm3 (4.0-10.0)
[2019-01-18 13:28] LABS: HEMOGLOBIN 6.5 GM/dL (10.7-15.3)
[2019-01-18 13:47] LABS: INR 1.44 (0.83-1.09)
[2019-01-18 13:57] LABS: ALBUMIN 1.9 g/dl (3.4-5.0); ALK PHOS 399 U/L (45-117); ANION GAP 6 MMOL/L (8-16); BILIRUBIN,TOTAL 0.3 mg/dL (0.2-1); BLOOD UREA NITROGEN 20 mg/dL (7-18); CALCIUM 8.2 mg/dL (8.5-10.1); CHLORIDE 101 mmol/L (98-107); CO2 25 mmol/L (21-32); CREATININE 1.6 mg/dL (0.55-1.3); GLUCOSE,RANDOM 79 mg/dL (74-106); POTASSIUM 4.6 mmol/L (3.5-5.1); SGOT/AST 22 U/L (15-37); SGPT/ALT < 6 U/L (13-61); SODIUM 132 mmol/L (136-145); TOT PROT 7.4 g/dl (6.4-8.2)
[2019-01-18 14:11] LABS: EPI CELLS 10.3 /HPF (0-5/HPF); HYALINE CASTS 14 /lpf (0-8); PH,URINE 7.5 (5.0-8.0); URINE APPEARANCE CLEAR; URINE BACTERIA 30.3 /hpf (NEGATIVE); URINE BILIRUBIN NEGATIVE (NEGATIVE); URINE COLOR YELLOW; URINE GLUCOSE (UA) NEGATIVE (NEGATIVE); URINE KETONE NEGATIVE (NEGATIVE); URINE LEUK ESTERASE 1+ (NEGATIVE); URINE NITRITE NEGATIVE (NEGATIVE); URINE PROTEIN TRACE (NEGATIVE); URINE RBC 4 /hpf (0-4); URINE WBC 8 /hpf (0-5)
[2019-01-18] MEDS ORDERED: ONDANSETRON 4 MG/2 ML VIAL IVPUSH ONE (14:48)
[2019-01-18 15:36] LABS: YEAST NONE SEEN (NEGATIVE)
--- NOTE | 2019-01-18 20:09 | PDOC ---
*Physical Exam - Vital Signs Last Vital Signs Temp Pulse Resp BP Pulse Ox 98.7 F 76 18 124/65 97 01/18/19 18:22 01/18/19 18:22 01/18/19 18:22 01/18/19 18:22 01/18/19 18:22 - Physical Exam Comments: 01/18/19 20:09 Sign-out received from outgoing ER provider Jana. Pt interviewed and examined. Ancillary studies reviewed. CT results suggestive of worsening mets of her endometrial cancer. Patient admitted to obs for IR consult re: ELINOR drain malfunction. Discussed with MD Marroquin, admitting resident who accept patient for amdission. ED Treatment Course - LABORATORY CBC & Chemistry Diagram: 01/18/19 13:00 01/18/19 13:00 - ADDITIONAL ORDERS Additional order review: Laboratory Results 01/18/19 01/18/19 01/18/19 13:45 13:00 13:00 PT with INR 17.00 H INR 1.44 H Sodium Potassium Chloride Carbon Dioxide Anion Gap BUN Creatinine Est GFR (CKD-EPI)AfAm Est GFR (CKD-EPI)NonAf Random Glucose Lactic Acid 1.2 Calcium Total Bilirubin AST ALT Alkaline Phosphatase Total Protein Albumin Urine Color Yellow Urine Appearance Clear Urine pH 7.5 Ur Specific [place] 1.021 Urine Protein Trace Urine Glucose (UA) Negative Urine Ketones Negative Urine Blood Trace Urine Nitrite Negative Urine Bilirubin Negative Urine Urobilinogen 1.0 Ur Leukocyte Esterase 1+ H Urine WBC (Auto) 8 Urine RBC (Auto) 4 Urine Casts (Auto) 14 U Pathogenic Cast Auto None seen U Epithel Cells (Auto) 10.3 Urine Bacteria (Auto) 30.3 Urine Yeast (Auto) None seen Blood Type Antibody Screen Crossmatch 01/18/19 01/18/19 13:00 13:00 PT with INR INR Sodium 132 L Potassium 4.6 Chloride 101 Carbon Dioxide 25 Anion Gap 6 L BUN 20 H Creatinine 1.6 H Est GFR (CKD-EPI)AfAm 37.98 Est GFR (CKD-EPI)NonAf 32.77 Random Glucose 79 Lactic Acid Calcium 8.2 L Total Bilirubin 0.3 AST 22 ALT < 6 L Alkaline Phosphatase 399 H Total Protein 7.4 Albumin 1.9 L Urine Color Urine Appearance Urine pH Ur Specific [place] Urine Protein Urine Glucose (UA) Urine Ketones Urine Blood Urine Nitrite Urine Bilirubin Urine Urobilinogen Ur Leukocyte Esterase Urine WBC (Auto) Urine RBC (Auto) Urine Casts (Auto) U Pathogenic Cast Auto U Epithel Cells (Auto) Urine Bacteria (Auto) Urine Yeast (Auto) Blood Type O POSITIVE Antibody Screen Negative Crossmatch See Detail 01/18/19 13:00 RBC 2.36 L MCV 83.1 MCHC 33.0 RDW 16.2 H MPV 7.0 L Neutrophils % 68.2 Lymphocytes % 20.5 D Monocytes % 9.6 Eosinophils % 1.1 Basophils % 0.6 - Medications Given in the ED: ED Medications Discontinued Medications Generic Name Dose Route Start Last Admin Trade Name Freq PRN Reason Stop Dose Admin Acetaminophen 1,000 mg 01/18/19 12:40 01/18/19 13:15 Ofirmev Injection - IVPB 01/18/19 12:41 1,000 mg ONCE ONE Administration Ondansetron HCl 4 mg 01/18/19 14:48 01/18/19 15:38 Zofran Injection IVPUSH 01/18/19 14:49 Not Given ONCE ONE *DC/Admit/Observation/Transfer Diagnosis at time of Disposition: Anemia, Uterine cancer Ascites Qualifiers: Ascites type: malignant Qualified Code(s): R18.0 - Malignant ascites - Discharge Dispostion Decision to Admit order: Yes - Referrals Referrals: Alex Tapia MD [Primary Care Provider] - - Patient Instructions - Post Discharge Activity
--- NOTE | 2019-01-18 20:36 | PN ---
Teaching Attending Note Name of Resident: Helder Marroquin ATTENDING PHYSICIAN STATEMENT I saw and evaluated the patient. I reviewed the resident's note and discussed the case with the resident. I agree with the resident's findings and plan as documented. SUBJECTIVE: Patient is a 68-year-old woman with PMH of metastatic endometrial cancer ( diagnosed in 2010), GERD, peritoneal carcinomatosis, SBO, HLD and NIDDM who presents to the ER today with lack of drainage from her ELINOR drain for 3 days. She states that she is also having associated abdominal pain and she notes that her right hernia has gotten larger. She also admits to associated nausea but denies vomiting. She is having loose bowel movements. Her last bowel movement was this morning. Denies fevers, chills, body aches, chest pain, shortness of breath, weakness, constipation, frequency, urgency or hematuria Decreased drainage from ELINOR drain OBJECTIVE: Alert Vital Signs Period Temp Pulse Resp BP Sys/Marcelino Pulse Ox Last 24 Hr 98.5 F-99.6 F 76-91 18-18 116-129/65-74 97-100 HEENT: No Jaundice, eye redness or discharge, PERRLA, EOMI. Normocephalic, atraumatic. External ears are normal and hearing is grossly intact. No nasal discharge. Neck: Supple, nontender. No palpable adenopathy or thyromegaly. No JVD Chest: Good effort. Clear to auscultation and percussion. Heart: Regular. No S3, rub or murmur Abdomen: Distended, soft, +HSM. Large right-sided hernia; tender to palpation and nonreducible. LLQ ELINOR drain without any material in the drainage port. No rebound or guarding. Normal bowel sounds. Ext: Peripheral pulses intact. No leg edema. Skin: Warm and dry. No petechiae, rash or ecchymosis. Neuro: Alert. Oriented x3. CN 2-12 grossly intact. Sensation grossly intact in all four extremities and DTR are symmetric. Psych: Appropriate mood and affect. Good insight. Home Medications Medication Instructions Recorded Loratadine [Claritin] 10 mg PO DAILY 09/28/17 Omeprazole Magnesium [Prilosec Otc] 40 mg PO DAILY 09/28/17 Travoprost [Travatan Z] 1 drop OU HS 09/28/17 Psyllium Husk [Metamucil] 0.4 gm PO DAILY 08/11/18 Sitagliptin Phosphate [Januvia] 100 mg PO DAILY 08/11/18 Insulin NPH Hum/Reg Insulin Hm 6 units SQ ACDIN 08/13/18 [Novolin 70-30 Flexpen] Linaclotide [Linzess] 1 tab PO DAILY 08/13/18 Metformin HCl [Glucophage] 500 mg PO BID 08/13/18 Zolpidem Tartrate [Ambien] 5 mg PO HS 08/13/18 [place]-3 Acid Ethyl Esters [Lovaza] 1 g PO DAILY 09/03/18 Olopatadine HCl [Pazeo] 2.5 ml OU DAILY 09/21/18 Docusate Sodium [Colace -] 100 mg PO TID #90 capsule 09/23/18 Lisinopril [Prinivil] 5 mg PO DAILY #30 tablet 09/23/18 Oxycodone HCl 5 mg PO Q6H PRN #12 tablet MDD 4 09/23/18 Polyethylene Glycol 3350 [Miralax 17 gm PO BID #3 bottle 09/23/18 119 gm Btl -] Sennosides [Senna -] 2 tab PO HS #60 tablet 09/23/18 Abnormal Lab Results 01/18/19 01/18/19 01/18/19 13:00 13:00 13:00 RBC 2.36 L Hgb 6.5 L* Hct 19.6 L D RDW 16.2 H Plt Count 578 H MPV 7.0 L PT with INR INR Sodium 132 L Anion Gap 6 L BUN 20 H Creatinine 1.6 H Calcium 8.2 L ALT < 6 L Alkaline Phosphatase 399 H Albumin 1.9 L Ur Leukocyte Esterase Crossmatch See Detail 01/18/19 01/18/19 13:00 13:45 RBC Hgb Hct RDW Plt Count MPV PT with INR 17.00 H INR 1.44 H Sodium Anion Gap BUN Creatinine Calcium ALT Alkaline Phosphatase Albumin Ur Leukocyte Esterase 1+ H Crossmatch ASSESSMENT AND PLAN: 1. Severe anemia - Patient on Lovenox for VTE prophylasix. Will rule out GI blood loss or bleeding into the peritoneum - likely superimposed on bone marrow suppression from metastatic cancer. Consult IR for diagnostic paracentesis. Do serial stool guaiacs and ascertain the intensity of iron deficiency. Would treat with IV Venofer and then Procrit to preempt future blood transfusions. Being transfused one unit PRBC in the ER. EKG shows NSR with T wave inversion in III, V1-3, but initial troponin is negative. Will repeat EKG and troponin to rule out ACS. 2. Metastatic endometrial cancer/Peritoneal carcinomatosis/?Malfunctioning ELINOR drain - Preliminary reading of CT abdomen/pelvis showed evidence of metastasis, new fluid collection distinct from previously documented ascites and right side hernia with contrast passing through. Will instill tPA to try and open up the ELINOR drain and consult IR for possible replacement or repositioning of ELINOR drain. Consult oncology. 3. Hypoalbuminemia - Possibly due to combined effects of malnutrition and inflammation associated with comorbid chronic conditions. Will ensure adequate dietary protein intake and also consult route salesperson. 4. NIDDM For now, we will hold the home diabetes drugs and implement sliding scale insulin regimen. Provide comprehensive diabetes care with patient teaching and counseling about the importance of adherence to prescribed diabetes regimen, euglycemia, eye care and foot care. 5. CADE - Likely due to volume contraction. Will hydrate gently after PRBC transfusion and monitor urine output. Get kidney sonogram. Will avoid nephrotoxic agents such as NSAIDS, aminoglycosides, contrast dyes and certain Alternative medicine products. 6. DVT prophylaxis - SCD, TEDs. Will withhold Lovenox 40 mg SQ q 24 hours until acute bleeding is excluded. 7. Advance directives - Full code
[2019-01-18] MEDS ORDERED: LACTATED RINGERS SOLUTION 1,000 ML IV SCH (21:00)
--- NOTE | 2019-01-18 22:05 | HP ---
CHIEF COMPLAINT: cloggd ELINOR drain HISTORY OF PRESENT ILLNESS: 68 year old liberian-speaking female with a history of metastatic endometrial carcinoma w/ carcinomatosis, NIDDM, R sided abdominal hernia and multiple admissions for infected ascitic fluid collection presents to the hospital for the complaint of abdominal pain/swelling and inactive ELINOR drainage for 3 months. Reports that since her drain stopped working, she has been feeling more bloated/ gassy, nauseous, and felt that her abdomen has been swelling. Reports mild pain in the LLQ and LUQ of her abdomen and more discomfort on her R sided abdominal hernia. States that she has progressively slowed her intake of food and water due to the feeling of being bloated. Patient states that she injects herself with lovenox and has recently noted to have several nosebleeds and bleeds around the area where she injects herself. States that she takes iron supplementation and has had darker stools. Has normal BMs and with last one being this morning. Denies chest pain, shortness of breath, vomiting, fevers, chills, diarrhea, hematochezia. ER course was notable for: (1) Hgb 6.5 (2) Cre 1.6 (3) Recent Travel: denies PAST MEDICAL HISTORY: metastatic endometrial carcinoma w/ carcinomatosis, NIDDM , R sided abdominal hernia PAST SURGICAL HISTORY: multiple abdominal surgeries, ELINOR drainage Social History: Smoking: denies Alcohol: denies Drugs: denies Allergies carboplatin Allergy (Intermediate, Verified 01/18/19 11:13) PT HAD REACTION TO CARBOPLATIN AND WILL NO LONGER RECIEVE THERAPY PER MD OFFICE shellfish derived Allergy (Intermediate, Verified 01/18/19 11:13) Vomiting carboplatinum Allergy (Intermediate, Uncoded 01/18/19 11:13) HOME MEDICATIONS: Home Medications Medication Instructions Recorded Loratadine [Claritin] 10 mg PO DAILY 09/28/17 Omeprazole Magnesium [Prilosec Otc] 40 mg PO DAILY 09/28/17 Travoprost [Travatan Z] 1 drop OU HS 09/28/17 Psyllium Husk [Metamucil] 0.4 gm PO DAILY 08/11/18 Sitagliptin Phosphate [Januvia] 100 mg PO DAILY 08/11/18 Insulin NPH Hum/Reg Insulin Hm 6 units SQ ACDIN 08/13/18 [Novolin 70-30 Flexpen] Linaclotide [Linzess] 1 tab PO DAILY 08/13/18 Metformin HCl [Glucophage] 500 mg PO BID 08/13/18 Zolpidem Tartrate [Ambien] 5 mg PO HS 08/13/18 [place] Pk-3 Acid Ethyl Esters [Lovaza] 1 g PO DAILY 09/03/18 Olopatadine HCl [Pazeo] 2.5 ml OU DAILY 09/21/18 Docusate Sodium [Colace -] 100 mg PO TID #90 capsule 09/23/18 Lisinopril [Prinivil] 5 mg PO DAILY #30 tablet 09/23/18 Oxycodone HCl 5 mg PO Q6H PRN #12 tablet MDD 4 09/23/18 Polyethylene Glycol 3350 [Miralax 17 gm PO BID #3 bottle 09/23/18 119 gm Btl -] Sennosides [Senna -] 2 tab PO HS #60 tablet 09/23/18 REVIEW OF SYSTEMS CONSTITUTIONAL: Absent: fever, chills, diaphoresis, generalized weakness, malaise, loss of appetite, weight change HEENT: Absent: rhinorrhea, nasal congestion, throat pain, throat swelling, difficulty swallowing, mouth swelling, ear pain, eye pain, visual changes CARDIOVASCULAR: Absent: chest pain, syncope, palpitations, irregular heart rate, lightheadedness , peripheral edema RESPIRATORY: Absent: cough, shortness of breath, dyspnea with exertion, orthopnea, wheezing, stridor, hemoptysis GASTROINTESTINAL:abdominal distension, nausea Absent: abdominal pain, vomiting, diarrhea, constipation, melena, hematochezia GENITOURINARY: Absent: dysuria, frequency, urgency, hesitancy, hematuria, flank pain, genital pain MUSCULOSKELETAL: Absent: myalgia, arthralgia, joint swelling, back pain, neck pain SKIN: Absent: rash, itching, pallor HEMATOLOGIC/IMMUNOLOGIC: Absent: easy bleeding, easy bruising, lymphadenopathy, frequent infections ENDOCRINE: Absent: unexplained weight gain, unexplained weight loss, heat intolerance, cold intolerance NEUROLOGIC: Absent: headache, focal weakness or paresthesias, dizziness, unsteady gait, seizure, mental status changes, bladder or bowel incontinence PSYCHIATRIC: Absent: anxiety, depression, suicidal or homicidal ideation, hallucinations. PHYSICAL EXAMINATION Vital Signs - 24 hr 01/18/19 01/18/19 01/18/19 11:10 15:45 16:05 Temperature 98.5 F 99.6 F 99.3 F Pulse Rate 91 H Pulse Rate [ 81 82 Right] Respiratory 18 18 18 Rate Blood Pressure 116/69 Blood Pressure 129/74 122/71 [Right Arm] O2 Sat by Pulse 99 99 100 Oximetry (%) 01/18/19 01/18/19 18:07 18:22 Temperature 98.7 F 98.7 F Pulse Rate Pulse Rate [ 80 76 Right] Respiratory 18 18 Rate Blood Pressure Blood Pressure 124/74 124/65 [Right Arm] O2 Sat by Pulse 99 97 Oximetry (%) GENERAL: A&Ox3, no acute distress EYES: PERRLA, EOMI ENT: Moist mucus membranes NECK: No JVD LUNGS: CTA, no wheezes HEART: RRR, systolic murmur noted on exam ABDOMEN: mildly distended but soft, diffusely uncomfortable to palpation, ELINOR drain in the LLQ not actively draining without any surrounding erythema or edema , R sided abdominal hernia present, similar to prior exam on last admission, bowel sounds heard through the hernia, non-reducible. MUSCULOSKELETAL: No CVA Tenderness EXTREMITIES: 2+ pulses, no edema. NEUROLOGICAL: Cranial nerves II-XII intact. No focal deficits Laboratory Results - last 24 hr 01/18/19 01/18/19 01/18/19 13:00 13:00 13:00 WBC 8.5 RBC 2.36 L Hgb 6.5 L* Hct 19.6 L D MCV 83.1 MCH 27.4 MCHC 33.0 RDW 16.2 H Plt Count 578 H MPV 7.0 L Absolute Neuts (auto) 5.8 Neutrophils % 68.2 Lymphocytes % 20.5 D Monocytes % 9.6 Eosinophils % 1.1 Basophils % 0.6 Nucleated RBC % 0 PT with INR INR Sodium 132 L Potassium 4.6 Chloride 101 Carbon Dioxide 25 Anion Gap 6 L BUN 20 H Creatinine 1.6 H Est GFR (CKD-EPI)AfAm 37.98 Est GFR (CKD-EPI)NonAf 32.77 Random Glucose 79 Lactic Acid Calcium 8.2 L Total Bilirubin 0.3 AST 22 ALT < 6 L Alkaline Phosphatase 399 H Total Protein 7.4 Albumin 1.9 L Urine Color Urine Appearance Urine pH Ur Specific [place] Urine Protein Urine Glucose (UA) Urine Ketones Urine Blood Urine Nitrite Urine Bilirubin Urine Urobilinogen Ur Leukocyte Esterase Urine WBC (Auto) Urine RBC (Auto) Urine Casts (Auto) U Pathogenic Cast Auto U Epithel Cells (Auto) Urine Bacteria (Auto) Urine Yeast (Auto) Blood Type O POSITIVE Antibody Screen Negative Crossmatch See Detail 01/18/19 01/18/19 01/18/19 13:00 13:00 13:45 WBC RBC Hgb Hct MCV MCH MCHC RDW Plt Count MPV Absolute Neuts (auto) Neutrophils % Lymphocytes % Monocytes % Eosinophils % Basophils % Nucleated RBC % PT with INR 17.00 H INR 1.44 H Sodium Potassium Chloride Carbon Dioxide Anion Gap BUN Creatinine Est GFR (CKD-EPI)AfAm Est GFR (CKD-EPI)NonAf Random Glucose Lactic Acid 1.2 Calcium Total Bilirubin AST ALT Alkaline Phosphatase Total Protein Albumin Urine Color Yellow Urine Appearance Clear Urine pH 7.5 Ur Specific [place] 1.021 Urine Protein Trace Urine Glucose (UA) Negative Urine Ketones Negative Urine Blood Trace Urine Nitrite Negative Urine Bilirubin Negative Urine Urobilinogen 1.0 Ur Leukocyte Esterase 1+ H Urine WBC (Auto) 8 Urine RBC (Auto) 4 Urine Casts (Auto) 14 U Pathogenic Cast Auto None seen U Epithel Cells (Auto) 10.3 Urine Bacteria (Auto) 30.3 Urine Yeast (Auto) None seen Blood Type Antibody Screen Crossmatch ASSESSMENT/PLAN: 68 year old liberian-speaking female with a history of metastatic endometrial carcinoma w/ carcinomatosis, NIDDM, R sided abdominal hernia and multiple admissions for infected ascitic fluid collection presents to the hospital for the complaint of inactive ELINOR drainage for 3 month duration. #Abdominal pain/Swelling: likely 2/2 new fluid collection seen on CT causing abdominal distention from fluid vs blood accumulation, the area around the ELINOR drain shows no significant fluid collection, which is likely why it is not draining -CT abdomen/Pelvis showed pleural effusions bilaterally, interval development of [id number] loculated perihatpic fluid collection that extends inferiorly into the ipsilateral paracolic space, [id number] intraperitoneal fluid collectionin left abdomen and pelvis ventrally. There is no fluid collection seen around the sight of the ELINOR drain. -appears as though the new fluid collection perihepatically is not in the same location as the ELINOR drain and may represent the cause of this patient's symptoms -will get IR to evaluate this fluid collection and recommend management, possibly to replace the drain with one where the new fluid collection is -unclear if this new loculated collection contains blood and could be a cause of the patient's decrease in hemoglobin -Dr. Dave Consultation #Normocytic Anemia: patient's hemoglobin is now 6.5, down from a baseline of around 10. Could be due to acute blood loss if patient has been bleeding intraabdominally -will get FOBT -iron studies -reticulocyte count -transfused 1U PRBC in ED -will get CBC now and in the AM -may benefit from procrit if patient has bone marrow suppression #Acute Kidney Injury: likely prerenal azotemia from hypovolemia, acute blood loss, or poor PO intake of food and water -will fluid resuscitate with blood and lactated ringers -repeat BMP in the morning #Hypoalbuminemia: low albumin (1.9) in the setting of normal total protein, could be due to poor PO intake -would consider workup for paraproteinemia -heme onc consultation #Diabetes Mellitus: well controlled at home -hold home antiglycemics -BGMs ACHS -Insulin sliding scale coverage #Hypertension: not hypertensive -does not appear to be on hypertensives at home #FEN -received blood, will continue fluids with LR #Prophylaxis -hold heparin in light of potential blood loss #Disposition -admit med surg Visit type - Emergency Visit Emergency Visit: Yes ED Registration Date: 01/18/19 Care time: The patient presented to the Emergency Department on the above date and was hospitalized for further evaluation of their emergent condition. - New Patient This patient is new to me today: Yes Date on this admission: 01/18/19 - Critical Care Critical Care patient: No
[2019-01-18] MEDS ORDERED: ZOLPIDEM TARTRATE 5 MG TABLET ONE (23:07)
[2019-01-18] MEDS ORDERED: DOCUSATE SODIUM 100 MG CAPSULE (FP) PO ONE ×2 (23:07→23:08)
[2019-01-18] MEDS ORDERED: oxyCODONE HCL 5 MG TABLET ONE (23:12)
[2019-01-18] MEDS: oxyCODONE HCL 5 MG TABLET PO PRN (23:16)
[2019-01-18] MEDS: ZOLPIDEM TARTRATE 5 MG TABLET PO SCH (23:16)
[2019-01-18] MEDS: DOCUSATE SODIUM 100 MG CAPSULE (FP) PO SCH (23:16)
[2019-01-18] MEDS: SENNOSIDES 8.6MG TABLET (FP) PO SCH (23:17)
[2019-01-18] MEDS: INSULIN SLIDING SCALE (NOVOLOG) 1 VIAL SQ SCH (23:55)
[2019-01-19 00:24] VITALS: BMI 25.0
[2019-01-19] MEDS: DOCUSATE SODIUM 100 MG CAPSULE (FP) PO SCH ×3 (06:01→22:29)
[2019-01-19] MEDS: INSULIN SLIDING SCALE (NOVOLOG) 1 VIAL SQ SCH ×4 (06:01→21:12)
[2019-01-19] MEDS: oxyCODONE HCL 5 MG TABLET PO PRN ×2 (06:08→18:54)
[2019-01-19 07:24] LABS: HEMATOCRIT 24.5 % (32.4-45.2); HEMOGLOBIN 8.3 GM/dL (10.7-15.3); MCH 27.9 pg (25.7-33.7); MCHC 33.8 g/dl (32.0-36.0); MEAN CELL VOLUME 82.5 fl (80-96); MEAN PLT VOLUME 6.9 fl (7.5-11.1); PLATELET COUNT 585 K/MM3 (134-434); RBC 2.97 M/mm3 (3.60-5.2); RDW 15.6 % (11.6-15.6); WHITE BLOOD COUNT 8.7 K/mm3 (4.0-10.0)
[2019-01-19 08:25] LABS: CALCIUM 7.9 mg/dL (8.5-10.1); CREATININE 1.3 mg/dL (0.55-1.3); MAGNESIUM 2.3 mg/dL (1.8-2.4); PHOSPHOROUS 3.6 mg/dL (2.5-4.9); POTASSIUM 4.5 mmol/L (3.5-5.1)
[2019-01-19] MEDS: LORATADINE 10 MG TABLET PO SCH (09:23)
[2019-01-19] MEDS: PANTOPRAZOLE 40 MG TABLET (FP) PO SCH (09:23)
[2019-01-19] MEDS ORDERED: DEXTROSE 50%-WATER - 25 GM/50 ML VIAL IVPUSH ONE (11:22)
[2019-01-19] MEDS ORDERED: DEXTROSE 50%-WATER 25 GM/50 ML DISP.SYRIN ONE (11:23)
[2019-01-19] MEDS ORDERED: DEXTROSE 5%-WATER - 1,000 ML IV SCH (11:30)
--- NOTE | 2019-01-19 13:55 | PN ---
Physical Exam: SUBJECTIVE: Patient seen and examined this AM. She states she is having abdominal pain. Also states she has been unable to tolerate PO for 2-3 weeks. OBJECTIVE: Vital Signs Period Temp Pulse Resp BP Sys/Marcelino Pulse Ox Last 24 Hr 98.4 F-99.7 F 76-85 18-18 122-138/65-77 97-100 GEN: A&O, no acute distress HEENT: Moist mucus membranes, PERRL, EOMI HEART: RRR, no murmurs noted LUNGS: CTA b/l, no wheezes noted ABDOMEN: Soft, Diffuse tenderness, worse in RUQ and left side. Non-reducible ventral hernia RLQ. Rondon's positive, ELINOR drain present on LMQ, dressing clean and dry, no surrounding erythema EXTREMITIES: trace peripheral edema on LLE, no calf tenderness NEURO: CN II-XII in tact, 5/5 strength throughout, no sensation deficits Laboratory Results - last 24 hr 01/18/19 01/18/19 01/18/19 13:00 13:00 13:45 WBC RBC Hgb Hct MCV MCH MCHC RDW Plt Count MPV Retic Count Sodium 132 L Potassium 4.6 Chloride 101 Carbon Dioxide 25 Anion Gap 6 L BUN 20 H Creatinine 1.6 H Est GFR (CKD-EPI)AfAm 37.98 Est GFR (CKD-EPI)NonAf 32.77 POC Glucometer Random Glucose 79 Calcium 8.2 L Phosphorus Magnesium Ferritin Total Bilirubin 0.3 AST 22 ALT < 6 L Alkaline Phosphatase 399 H Total Protein 7.4 Albumin 1.9 L Urine Color Yellow Urine Appearance Clear Urine pH 7.5 Ur Specific [place] 1.021 Urine Protein Trace Urine Glucose (UA) Negative Urine Ketones Negative Urine Blood Trace Urine Nitrite Negative Urine Bilirubin Negative Urine Urobilinogen 1.0 Ur Leukocyte Esterase 1+ H Urine WBC (Auto) 8 Urine RBC (Auto) 4 Urine Casts (Auto) 14 U Pathogenic Cast Auto None seen U Epithel Cells (Auto) 10.3 Urine Bacteria (Auto) 30.3 Urine Yeast (Auto) None seen Blood Type O POSITIVE Antibody Screen Negative Crossmatch See Detail 01/18/19 01/19/19 01/19/19 23:46 05:46 06:45 WBC 8.7 RBC 2.97 L Hgb 8.3 L Hct 24.5 L D MCV 82.5 MCH 27.9 MCHC 33.8 RDW 15.6 Plt Count 585 H MPV 6.9 L Retic Count Sodium Potassium Chloride Carbon Dioxide Anion Gap BUN Creatinine Est GFR (CKD-EPI)AfAm Est GFR (CKD-EPI)NonAf POC Glucometer 66 69 Random Glucose Calcium Phosphorus Magnesium Ferritin Total Bilirubin AST ALT Alkaline Phosphatase Total Protein Albumin Urine Color Urine Appearance Urine pH Ur Specific [place] Urine Protein Urine Glucose (UA) Urine Ketones Urine Blood Urine Nitrite Urine Bilirubin Urine Urobilinogen Ur Leukocyte Esterase Urine WBC (Auto) Urine RBC (Auto) Urine Casts (Auto) U Pathogenic Cast Auto U Epithel Cells (Auto) Urine Bacteria (Auto) Urine Yeast (Auto) Blood Type Antibody Screen Crossmatch 01/19/19 01/19/19 01/19/19 06:45 06:45 06:45 WBC RBC Hgb Hct MCV MCH MCHC RDW Plt Count MPV Retic Count 1.63 H Sodium 131 L Potassium 4.5 Chloride 99 Carbon Dioxide 23 Anion Gap 9 BUN 18 Creatinine 1.3 Est GFR (CKD-EPI)AfAm 48.82 Est GFR (CKD-EPI)NonAf 42.12 POC Glucometer Random Glucose 79 Calcium 7.9 L Phosphorus 3.6 Magnesium 2.3 Ferritin 500.4 H Total Bilirubin AST ALT Alkaline Phosphatase Total Protein Albumin Urine Color Urine Appearance Urine pH Ur Specific [place] Urine Protein Urine Glucose (UA) Urine Ketones Urine Blood Urine Nitrite Urine Bilirubin Urine Urobilinogen Ur Leukocyte Esterase Urine WBC (Auto) Urine RBC (Auto) Urine Casts (Auto) U Pathogenic Cast Auto U Epithel Cells (Auto) Urine Bacteria (Auto) Urine Yeast (Auto) Blood Type Antibody Screen Crossmatch 01/19/19 01/19/19 11:21 11:43 WBC RBC Hgb Hct MCV MCH MCHC RDW Plt Count MPV Retic Count Sodium Potassium Chloride Carbon Dioxide Anion Gap BUN Creatinine Est GFR (CKD-EPI)AfAm Est GFR (CKD-EPI)NonAf POC Glucometer 47 198 Random Glucose Calcium Phosphorus Magnesium Ferritin Total Bilirubin AST ALT Alkaline Phosphatase Total Protein Albumin Urine Color Urine Appearance Urine pH Ur Specific [place] Urine Protein Urine Glucose (UA) Urine Ketones Urine Blood Urine Nitrite Urine Bilirubin Urine Urobilinogen Ur Leukocyte Esterase Urine WBC (Auto) Urine RBC (Auto) Urine Casts (Auto) U Pathogenic Cast Auto U Epithel Cells (Auto) Urine Bacteria (Auto) Urine Yeast (Auto) Blood Type Antibody Screen Crossmatch Active Medications Generic Name Dose Route Start Last Admin Trade Name Freq PRN Reason Stop Dose Admin Docusate Sodium 100 mg 01/18/19 22:00 01/19/19 06:01 Colace - PO 100 mg TID ECTOR Administration Dextrose 1,000 mls @ 75 mls/hr 01/19/19 11:30 D5w - IV ASDIR ECTOR Insulin Aspart 1 vial 01/18/19 22:00 01/19/19 11:30 Novolog Vial Sliding Scale - SQ Not Given ACHS [facility] Protocol Loratadine 10 mg 01/19/19 10:00 01/19/19 09:23 Claritin - PO 10 mg DAILY ECTOR Administration Non-Formulary Medication 1 tab 01/19/19 10:00 Linaclotide [Linzess] PO DAILY ECTOR Non-Formulary Medication 1 ml 01/19/19 10:00 Olopatadine Hcl [Pazeo] OU DAILY ECTOR Oxycodone HCl 5 mg 01/18/19 20:51 01/19/19 06:08 Roxicodone - PO 5 mg Q6H PRN Administration PAIN LEVEL 6-10 Pantoprazole Sodium 40 mg 01/19/19 10:00 01/19/19 09:23 Protonix - PO 40 mg DAILY ECTOR Administration Senna 2 tab 01/18/19 22:00 01/18/19 23:17 Senna - PO 2 tab HS ECTOR Administration Zolpidem Tartrate 5 mg 01/18/19 22:00 01/18/19 23:16 Ambien - PO 5 mg HS ECTOR Administration ASSESSMENT/PLAN: 68 year old uzbek-speaking female with a history of metastatic endometrial carcinoma w/ carcinomatosis, NIDDM, R sided abdominal hernia and multiple admissions for infected ascitic fluid collection presents to the hospital for the complaint of abdominal pain/swelling and inactive ELINOR drainage for 3 months. Abdominal pain and fluid collection, likely secondary to known endometrial carcinoma with mets and carcinomatosis -CT noted with multiple fluid collections -IR consulted, possibility of removing vs adjusting vs replacing ELINOR drain tomorrow -Heme/Onc consulted -Zofran for nausea -Continue home pain regimen -Triple phase CT pending official read, concern for bleeding tumor in hepatic region -Hold Lovenox with possibility of active bleeding NIDDM -BGMs ACHS -Insulin sliding scale -noted hypoglycemic and not tolerating PO intake well -D5 LR @ 75 to prevent hypoglycemic episodes Anemia -s/p 2 units with appropriate Hgb response -Trend CBC -Iron studies, B12, folate pending -Heme/Onc consulted Ventral Hernia -stable, CT noted FEN -D5 LR @ 75 cc/hr -monitor and replete -NPO at midnight for possible IR procedure tomorrow DVT Prophylaxis -SCDs, hold chemical prophylaxis due to possibility of bleeding Disposition Med/Surg - DNR/DNI Visit type - Emergency Visit Emergency Visit: Yes ED Registration Date: 01/18/19 Care time: The patient presented to the Emergency Department on the above date and was hospitalized for further evaluation of their emergent condition. - New Patient This patient is new to me today: Yes Date on this admission: 01/19/19 - Critical Care Critical Care patient: No
[2019-01-19] MEDS ORDERED: ONDANSETRON 4 MG TABLET PO ONE (14:45)
--- NOTE | 2019-01-19 15:07 | CONSULT ---
Consultation: REQUESTING PROVIDER: CONSULT REQUEST: We have been asked to medically evaluate this patient for carcinomatosis HISTORY OF PRESENT ILLNESS: This is a 68 yo F with PMH of metastatic endometrial carcinoma with carcinomatosis, abd ELINOR drain, on Racheal ac, with miltiple admissions for infected ascites, NIDDM, R sided abdominal hernia, who presented due to abd pain/ swelling and inactive ELINOR drainage x 3 mo. Reports feeling bloated and nauseous with mild LLQ and LUQ abd pain, causing decreased PO intake. Reports several nosebleeds and bleeds around Racheal inj area. + dark stools due to Fe supplements. denies hematochezia, hematemesis, hematuria. Admission Hgb 6.5 improved to 8.3 s /p 2 U pRBC, baseline was 9. Platelets [address] abdomen/Pelvis: pleural effusions bilaterally, interval development of [id number] loculated perihepatic fluid collection that extends inferiorly into the ipsilateral paracolic space, [id number] intraperitoneal fluid collectionin left abdomen and pelvis ventrally. There is no fluid collection seen around the sight of the ELINOR drain. REVIEW OF SYSTEMS: CONSTITUTIONAL: Absent: fever, chills HEENT: Absent: rhinorrhea, nasal congestion, throat pain, CARDIOVASCULAR: Absent: chest pain, palpitations, lightheadedness RESPIRATORY: Absent: cough, shortness of breath, hemoptysis GASTROINTESTINAL: Absent: melena, hematochezia, hematemesis GENITOURINARY: Absent: dysuria, hematuria MUSCULOSKELETAL: Absent: back pain, neck pain SKIN: Absent: rash, itching, pallor HEMATOLOGIC/IMMUNOLOGIC: + easy bleeding ENDOCRINE: Absent: heat intolerance, cold intolerance NEUROLOGIC: Absent: headache, focal weakness or paresthesias PHYSICAL EXAMINATION Vital Signs - 24 hr 01/18/19 01/18/19 01/18/19 15:45 16:05 18:07 Temperature 99.6 F 99.3 F 98.7 F Pulse Rate Pulse Rate [ 81 82 80 Right] Respiratory 18 18 18 Rate Blood Pressure Blood Pressure 129/74 122/71 124/74 [Right Arm] O2 Sat by Pulse 99 100 99 Oximetry (%) 01/18/19 01/19/19 01/19/19 18:22 00:09 00:28 Temperature 98.7 F 98.4 F Pulse Rate 81 Pulse Rate [ 76 Right] Respiratory 18 18 Rate Blood Pressure 123/70 Blood Pressure 124/65 [Right Arm] O2 Sat by Pulse 97 98 Oximetry (%) 01/19/19 01/19/19 01/19/19 06:00 09:00 10:00 Temperature 99.7 F H 98.7 F Pulse Rate 84 85 Pulse Rate [ Right] Respiratory 18 18 18 Rate Blood Pressure 134/73 138/77 Blood Pressure [Right Arm] O2 Sat by Pulse 98 Oximetry (%) 01/19/19 14:00 Temperature 98.7 F Pulse Rate 86 Pulse Rate [ Right] Respiratory 20 Rate Blood Pressure 111/62 Blood Pressure [Right Arm] O2 Sat by Pulse Oximetry (%) GENERAL: Awake, alert, and fully oriented, in no acute distress. HEAD: Normal with no signs of trauma. EYES: extraocular movements intact, sclera anicteric, conjunctiva clear. No lid lag. EARS, NOSE, THROAT: Moist mucous membranes. NECK: supple without lymphadenopathy LUNGS: bibasilar crackles HEART: Regular rate and rhythm, normal S1 and S2 ABDOMEN: RLQ mass, L sided drain in place. globally reduced bowel sounds Breasts: no mass, no axillary adenopathy Laboratory Results - last 24 hr 01/18/19 01/18/19 01/18/19 13:00 13:45 23:46 WBC RBC Hgb Hct MCV MCH MCHC RDW Plt Count MPV Retic Count Sodium Potassium Chloride Carbon Dioxide Anion Gap BUN Creatinine Est GFR (CKD-EPI)AfAm Est GFR (CKD-EPI)NonAf POC Glucometer 66 Random Glucose Calcium Phosphorus Magnesium Ferritin U Pathogenic Cast Auto None seen Urine Yeast (Auto) None seen Blood Type O POSITIVE Antibody Screen Negative Crossmatch See Detail 01/19/19 01/19/19 01/19/19 05:46 06:45 06:45 WBC 8.7 RBC 2.97 L Hgb 8.3 L Hct 24.5 L D MCV 82.5 MCH 27.9 MCHC 33.8 RDW 15.6 Plt Count 585 H MPV 6.9 L Retic Count Sodium 131 L Potassium 4.5 Chloride 99 Carbon Dioxide 23 Anion Gap 9 BUN 18 Creatinine 1.3 Est GFR (CKD-EPI)AfAm 48.82 Est GFR (CKD-EPI)NonAf 42.12 POC Glucometer 69 Random Glucose 79 Calcium 7.9 L Phosphorus 3.6 Magnesium 2.3 Ferritin U Pathogenic Cast Auto Urine Yeast (Auto) Blood Type Antibody Screen Crossmatch 01/19/19 01/19/19 01/19/19 06:45 06:45 11:21 WBC RBC Hgb Hct MCV MCH MCHC RDW Plt Count MPV Retic Count 1.63 H Sodium Potassium Chloride Carbon Dioxide Anion Gap BUN Creatinine Est GFR (CKD-EPI)AfAm Est GFR (CKD-EPI)NonAf POC Glucometer 47 Random Glucose Calcium Phosphorus Magnesium Ferritin 500.4 H U Pathogenic Cast Auto Urine Yeast (Auto) Blood Type Antibody Screen Crossmatch 01/19/19 11:43 WBC RBC Hgb Hct MCV MCH MCHC RDW Plt Count MPV Retic Count Sodium Potassium Chloride Carbon Dioxide Anion Gap BUN Creatinine Est GFR (CKD-EPI)AfAm Est GFR (CKD-EPI)NonAf POC Glucometer 198 Random Glucose Calcium Phosphorus Magnesium Ferritin U Pathogenic Cast Auto Urine Yeast (Auto) Blood Type Antibody Screen Crossmatch Active Medications Generic Name Dose Route Start Last Admin Trade Name Freq PRN Reason Stop Dose Admin Docusate Sodium 100 mg 01/18/19 22:00 01/19/19 14:42 Colace - PO 100 mg TID ECTOR Administration Dextrose 1,000 mls @ 75 mls/hr 01/19/19 11:30 01/19/19 14:42 D5w - IV 75 mls/hr ASDIR ECTOR Administration Insulin Aspart 1 vial 01/18/19 22:00 01/19/19 11:30 Novolog Vial Sliding Scale - SQ Not Given ACHS ECTOR Protocol Loratadine 10 mg 01/19/19 10:00 01/19/19 09:23 Claritin - PO 10 mg DAILY ECTOR Administration Non-Formulary Medication 1 tab 01/19/19 10:00 Linaclotide [Linzess] PO DAILY ECTOR Non-Formulary Medication 1 ml 01/19/19 10:00 Olopatadine Hcl [Pazeo] OU DAILY ECTOR Oxycodone HCl 5 mg 01/18/19 20:51 01/19/19 06:08 Roxicodone - PO 5 mg Q6H PRN Administration PAIN LEVEL 6-10 Pantoprazole Sodium 40 mg 01/19/19 10:00 01/19/19 09:23 Protonix - PO 40 mg DAILY ECTOR Administration Senna 2 tab 01/18/19 22:00 01/18/19 23:17 Senna - PO 2 tab HS ECTOR Administration Zolpidem Tartrate 5 mg 01/18/19 22:00 01/18/19 23:16 Ambien - PO 5 mg HS ECTOR Administration ASSESSMENT/PLAN: This is a 68 yo F with PMH of metastatic endometrial carcinoma with carcinomatosis, abd ELINOR drain, on Racheal ac, with miltiple admissions for infected ascites, NIDDM, R sided abdominal hernia, who presented due to abd pain/ swelling and inactive ELINOR drainage x [address] abdomen/Pelvis w/o cont: pleural effusions bilaterally, interval development of [id number] loculated perihepatic fluid collection that extends inferiorly into the ipsilateral paracolic space, [id number] intraperitoneal fluid collectionin left abdomen and pelvis ventrally. There is no fluid collection seen around the sight of the ELINOR drain. metastatic endometrial carcinoma with carcinomatosis nonfunctional L abdomen ELINOR drain worsened normocytic anemia NIDDM R sided abd hernia -ct w/o cont reviewed. CT and/pelvis w contrast done today pending read. will discuss with IT regarding quality of perihepatic fluid and potential ELINOR placement to drain it -r/o blood loss anemia; f/u ct w cont. transfused 2 u pRBC hgb improved to 8.3. trend h/h. -hold lovenox -f/u fe studies, b12, folate, hemolysis w/u Dispo: We will continue to follow the patient. Thank you for this consultative opportunity.
--- NOTE | 2019-01-19 15:14 | PN ---
Teaching Attending Note Name of Resident: Hamlet Medrano ATTENDING PHYSICIAN STATEMENT I saw and evaluated the patient. I reviewed the resident's note and discussed the case with the resident. I agree with the resident's findings and plan as documented. SUBJECTIVE: No fever or chills. No STOLL , has abd pain, generalized and mainly on L . nauseous but no vomiting today. tolerated breakfast. denies hematochezia or melena. OBJECTIVE: NAD CV: RRR Lungs: CTAB Ext: no edema, no erythema, no bruising Abd: soft, NL BS. right sided abd wall hernia with bowel sounds. not able to reduce . TTP in all q=uadrants. no rebound tenderness ASSESSMENT AND PLAN: Unfortunate 68 y/o lady with h/o HLP, DM , metastatic uterine cancer, peritoneal carcinomatosis, s/p ELINOR for ascitis, recent admission for peritonitis and infected fluid collection who presented with abd pain and was found to have anemia with new fluid collection 1- Abd pain: chronic . due to peritoneal carcinomatosis . no fever and no signs of infection 2- R sided peritoneal fluid collection: could be due to bleeding or necrosis in a tumor mass. - obtain triple phase CT with IV contrast. - hold all blood thinners ( on Lovenox at home ). 3- L sided peritoneal fluid collection: ? adjustment of ELINOR drain . gato d/w IR 4- Worsening normocytic anemia: likely worsening anemia of chronic disease. ? bleeding into a tumor. no signs of GI bleed . - follow CT read - check OB in stool . - hold Lovenox. - follow iron studies and B12/folate 5- Hypoglycemia: gave D50 and add D5 containing IVF 6- h/o metastatic endometrial cancer: didnot start her chemo yet due to anemia and other considerations. has a port 7- R sided hydronephrosis: likely due to compression with tumor mass and Lymphadenopathy. CADE resolved with Initial hydration . - will d/w urology. ? stenting pending tumor shrinking with chemo. HLOC Will address code status .
--- NOTE | 2019-01-19 17:22 | EKG ---
Test Reason : Blood Pressure : / mmHG Vent. Rate : 081 BPM Atrial Rate : 081 BPM P-R Int : 172 ms QRS Dur : 090 ms QT Int : 378 ms P-R-T Axes : 037 -13 018 degrees QTc Int : 439 ms NORMAL SINUS RHYTHM MODERATE VOLTAGE CRITERIA FOR LVH, MAY BE NORMAL VARIANT CANNOT RULE OUT SEPTAL INFARCT , AGE UNDETERMINED ABNORMAL ECG WHEN COMPARED WITH ECG OF 11-SEP-2018 18:40, MINIMAL CRITERIA FOR SEPTAL INFARCT ARE NOW PRESENT T WAVE INVERSION NOW EVIDENT IN ANTERIOR LEADS Confirmed by BRENDA VALERIO MD ([id number]) on 01/19/2019 5:22:36 PM Referred By: Confirmed By:BRENDA VALERIO MD
[2019-01-19] MEDS ORDERED: DEXTROSE 5%-LACTATED RINGERS 1,000 ML IV SCH (18:00)
[2019-01-19] MEDS ORDERED: ONDANSETRON 4 MG/2 ML VIAL IVPUSH ONE (18:00)
--- NOTE | 2019-01-19 19:21 | PN ---
Teaching Attending Note Name of Resident: Tiffani Melendez ATTENDING PHYSICIAN STATEMENT I saw and evaluated the patient. I reviewed the resident's note and discussed the case with the resident. I agree with the resident's findings and plan as documented. SUBJECTIVE: Patient seen and examined Advanced endometrial ca S/p surgery x 2 , s/p multiple chemotherapy regimens including, taxol, carboplatinum, doxil, gemcitibine. No MSI so not an immunotherapy candidate. Sent to [facility] for investigational studies. Multiple delays and compliance issues. Never entered into any studies. Presents with intra-abdominal carcinomatosis. Having nausea and emesis, but moving bowels so likely not obstructed at this time. Anemia - chronic disease vs ? component of blood loss Question of palliation - Will IP drain be of benefit . No more viable chemotherapy options, so would defer on stent unless renal failure . IR to dcide if catheter would have any benefit . Pain management Check stools Transfuse prn OBJECTIVE: ASSESSMENT AND PLAN:
[2019-01-19] MEDS: SENNOSIDES 8.6MG TABLET (FP) PO SCH (22:29)
[2019-01-19] MEDS: ZOLPIDEM TARTRATE 5 MG TABLET PO SCH (22:29)
[2019-01-20] MEDS: oxyCODONE HCL 5 MG TABLET PO PRN ×3 (00:52→20:53)
[2019-01-20 04:10] LABS: SERUM IRON SATURATION 20 % (15-55); TOTAL IRON BINDING CAPACITY 121 ug/dL (250-450); UIBC 97 ug/dL (118-369)
[2019-01-20] MEDS: INSULIN SLIDING SCALE (NOVOLOG) 1 VIAL SQ SCH ×4 (06:30→21:58)
[2019-01-20] MEDS: DOCUSATE SODIUM 100 MG CAPSULE (FP) PO SCH ×3 (06:30→21:58)
[2019-01-20 07:07] LABS: HEMATOCRIT 23.5 % (32.4-45.2); MCH 28.3 pg (25.7-33.7); MEAN CELL VOLUME 83.2 fl (80-96); MEAN PLT VOLUME 6.8 fl (7.5-11.1); PLATELET COUNT 556 K/MM3 (134-434); RBC 2.83 M/mm3 (3.60-5.2); RDW 15.7 % (11.6-15.6)
--- NOTE | 2019-01-20 08:03 | PN ---
Physical Exam: SUBJECTIVE: Patient seen and examined this AM> returned for family discussion between palliative care nurse, social work, and patient with HCP present. Pt states that she did f/u at [facility] for trials, however initially could not proceed due to severe anemia requiring transfusion. She has a f/u appointment on January 27. She is aware of her options including continuing with the trial OR hospice. At this time she would like to attend that appointment and get more information from the doctor there about the trial and then decide after that about hospice vs continuing attempts at treatment. OBJECTIVE: Vital Signs Period Temp Pulse Resp BP Sys/Marcelino Pulse Ox Last 24 Hr 98.7 F-99.6 F 81-86 18-20 111-138/62-77 98-98 GEN: A&O, no acute distress HEENT: Moist mucus membranes, PERRL, EOMI HEART: RRR, no murmurs noted LUNGS: CTA b/l, no wheezes noted ABDOMEN: Soft, Diffuse tenderness, worse in RUQ and left side. Non-reducible ventral hernia RLQ. Rondon's positive, ELINOR drain present on LMQ, dressing with some serosanguinous drainage, no surrounding erythema EXTREMITIES: trace peripheral edema on LLE, no calf tenderness NEURO: CN II-XII in tact, 5/5 strength throughout, no sensation deficits Laboratory Results - last 24 hr 01/19/19 01/19/19 01/19/19 06:45 06:45 06:45 WBC 8.7 RBC 2.97 L Hgb 8.3 L Hct 24.5 L D MCV 82.5 MCH 27.9 MCHC 33.8 RDW 15.6 Plt Count 585 H MPV 6.9 L Retic Count 1.63 H Sodium 131 L Potassium 4.5 Chloride 99 Carbon Dioxide 23 Anion Gap 9 BUN 18 Creatinine 1.3 Est GFR (CKD-EPI)AfAm 48.82 Est GFR (CKD-EPI)NonAf 42.12 POC Glucometer Random Glucose 79 Calcium 7.9 L Phosphorus 3.6 Magnesium 2.3 Iron TIBC Iron Saturation Ferritin Free T4 01/19/19 01/19/19 01/19/19 06:45 06:45 11:21 WBC RBC Hgb Hct MCV MCH MCHC RDW Plt Count MPV Retic Count Sodium Potassium Chloride Carbon Dioxide Anion Gap BUN Creatinine Est GFR (CKD-EPI)AfAm Est GFR (CKD-EPI)NonAf POC Glucometer 47 Random Glucose Calcium Phosphorus Magnesium Iron 24 L TIBC 121 L Iron Saturation 20 Ferritin 500.4 H Free T4 01/19/19 01/19/19 01/19/19 11:36 11:43 16:04 WBC RBC Hgb Hct MCV MCH MCHC RDW Plt Count MPV Retic Count Sodium Potassium Chloride Carbon Dioxide Anion Gap BUN Creatinine Est GFR (CKD-EPI)AfAm Est GFR (CKD-EPI)NonAf POC Glucometer 200 198 107 Random Glucose Calcium Phosphorus Magnesium Iron TIBC Iron Saturation Ferritin Free T4 01/19/19 01/20/19 01/20/19 21:00 06:00 06:00 WBC 8.0 RBC 2.83 L Hgb 8.0 L Hct 23.5 L MCV 83.2 MCH 28.3 MCHC 34.0 RDW 15.7 H Plt Count 556 H MPV 6.8 L Retic Count Sodium Potassium Chloride Carbon Dioxide Anion Gap BUN Creatinine Est GFR (CKD-EPI)AfAm Est GFR (CKD-EPI)NonAf POC Glucometer 108 Random Glucose Calcium Phosphorus Magnesium Iron TIBC Iron Saturation Ferritin Free T4 1.33 01/20/19 06:35 WBC RBC Hgb Hct MCV MCH MCHC RDW Plt Count MPV Retic Count Sodium Potassium Chloride Carbon Dioxide Anion Gap BUN Creatinine Est GFR (CKD-EPI)AfAm Est GFR (CKD-EPI)NonAf POC Glucometer 88 Random Glucose Calcium Phosphorus Magnesium Iron TIBC Iron Saturation Ferritin Free T4 Active Medications Generic Name Dose Route Start Last Admin Trade Name Freq PRN Reason Stop Dose Admin Docusate Sodium 100 mg 01/18/19 22:00 01/20/19 06:30 Colace - PO Not Given TID ECTOR Dextrose/Lactated Ringer's 1,000 mls @ 75 mls/hr 01/19/19 18:00 01/19/19 21: 09 D5-Lr - IV 75 mls/hr ASDIR ECTOR Administration Insulin Aspart 1 vial 01/18/19 22:00 01/20/19 06:30 Novolog Vial Sliding Scale - SQ Not Given ACHS ECTOR Protocol Loratadine 10 mg 01/19/19 10:00 01/19/19 09:23 Claritin - PO 10 mg DAILY ECTOR Administration Non-Formulary Medication 1 tab 01/19/19 10:00 Linaclotide [Linzess] PO DAILY ECTOR Non-Formulary Medication 1 ml 01/19/19 10:00 Olopatadine Hcl [Pazeo] OU DAILY ECTOR Oxycodone HCl 5 mg 01/18/19 20:51 01/20/19 00:52 Roxicodone - PO 5 mg Q6H PRN Administration PAIN LEVEL 6-10 Pantoprazole Sodium 40 mg 01/19/19 10:00 01/19/19 09:23 Protonix - PO 40 mg DAILY ECTOR Administration Senna 2 tab 01/18/19 22:00 01/19/19 22:29 Senna - PO 2 tab HS ECTOR Administration Zolpidem Tartrate 5 mg 01/18/19 22:00 01/19/19 22:29 Ambien - PO 5 mg HS ECTOR Administration ASSESSMENT/PLAN: 68 year old ghanaian-speaking female with a history of metastatic endometrial carcinoma w/ carcinomatosis, NIDDM, R sided abdominal hernia and multiple admissions for infected ascitic fluid collection presents to the hospital for the complaint of abdominal pain/swelling and inactive ELINOR drainage for 3 months. Abdominal pain and fluid collection, likely secondary to known endometrial carcinoma with mets and carcinomatosis -CT noted with multiple fluid collections -IR consulted, possibility of removing vs adjusting vs replacing ELINOR drain tomorrow? -Heme/Onc consult appreciated, no further chemotherapy options here at this time , pt has f/u at [facility] for trial on January 27 -Zofran for nausea -Continue home pain regimen -Triple phase CT noted, concern for bleeding tumor in hepatic region -Hold Lovenox with possibility of active bleeding NIDDM -BGMs ACHS -Insulin sliding scale -noted hypoglycemic and not tolerating PO intake well, monitor BGMs Anemia -s/p 2 units with appropriate Hgb response -Trend CBC -Iron studies -B12, folate okay -Heme/Onc consult appreciated Ventral Hernia -stable, CT noted FEN -LR @ 75 cc/hr -monitor and replete -Regular Diet DVT Prophylaxis -SCDs, hold chemical prophylaxis due to possibility of bleeding Disposition Med/Surg - DNR/DNI Visit type - Emergency Visit Emergency Visit: Yes ED Registration Date: 01/18/19 Care time: The patient presented to the Emergency Department on the above date and was hospitalized for further evaluation of their emergent condition. - New Patient This patient is new to me today: No - Critical Care Critical Care patient: No
[2019-01-20 08:05] LABS: CALCIUM 8.1 mg/dL (8.5-10.1); CREATININE 1.3 mg/dL (0.55-1.3); MAGNESIUM 2.2 mg/dL (1.8-2.4); PHOSPHOROUS 3.7 mg/dL (2.5-4.9); POTASSIUM 4.6 mmol/L (3.5-5.1)
[2019-01-20] MEDS: LORATADINE 10 MG TABLET PO SCH ×2 (10:25→17:07)
[2019-01-20] MEDS: PANTOPRAZOLE 40 MG TABLET (FP) PO SCH ×2 (10:25→17:07)
[2019-01-20] MEDS: LACTATED RINGERS SOLUTION 1,000 ML/1,000 ML INFUS.BAG IV SCH (12:04)
--- NOTE | 2019-01-20 17:20 | PN ---
Teaching Attending Note Name of Resident: Hamlet Medrano ATTENDING PHYSICIAN STATEMENT I saw and evaluated the patient. I reviewed the resident's note and discussed the case with the resident. I agree with the resident's findings and plan as documented. SUBJECTIVE: Tried to communicate with patient through educational sign language interpreter [id number]. unfortunately, she did not communicate well OBJECTIVE: NAD CV: RRR Lungs: CTAB Ext: no edema, no erythema, no bruising Abd: soft, NL BS. right sided abd wall hernia with bowel sounds. non-reducible . TTP in all quadrants. no rebound tenderness ASSESSMENT AND PLAN: Unfortunate 68 y/o lady with h/o HLP, DM , metastatic uterine cancer, peritoneal carcinomatosis, s/p ELINOR for ascitis, recent admission for peritonitis and infected fluid collection who presented with abd pain and was found to have anemia with new fluid collection 1- Abd pain: chronic. due to peritoneal carcinomatosis . 2- R sided peritoneal fluid collection: could be due to bleeding or necrosis in a tumor mass. - triphase Ct reviewed. - hold all blood thinners. 3- L sided peritoneal fluid collection: IR Not available to discuss today 4- Worsening normocytic anemia: likely worsening anemia of chronic disease. ? bleeding into a tumor. no signs of GI bleed . -OB in stool . - hold Lovenox. - iron studies done after transfusion, but likely indicate ACd. B12/folate noted 5- Hypoglycemia: resolved. po intake 6- h/o metastatic endometrial cancer: meeting withpalliative care today. patient wishes to continue to follow ( apt in January ) to discuss her chemo options before deciding on palliative route 7- R sided hydronephrosis: likely due to compression with tumor mass and Lymphadenopathy. DNR//DNI.
--- NOTE | 2019-01-20 18:01 | CON.GU ---
Consult Consult Specialty:: Referred by:: Margi Reason for Consultation:: R hydronephrosis - History of Present Illness History of Present Illness: 68 year old romanian-speaking female with a history of metastatic endometrial carcinoma w/ carcinomatosis, NIDDM, R sided abdominal hernia and multiple admissions for infected ascitic fluid collection presents to the hospital for the complaint of abdominal pain/swelling and inactive ELINOR drainage for 3 months. Reports that since her drain stopped working, she has been feeling more bloated/ gassy, nauseous, and felt that her abdomen has been swelling. Reports mild pain in the LLQ and LUQ of her abdomen and more discomfort on her R sided abdominal hernia. States that she has progressively slowed her intake of food and water due to the feeling of being bloated. Patient states that she injects herself with lovenox and has recently noted to have several nosebleeds and bleeds around the area where she injects herself. States that she takes iron supplementation and has had darker stools. Has normal BMs and with last one being this morning. Denies chest pain, shortness of breath, vomiting, fevers, chills, diarrhea, hematochezia. CT showed R mild R hydro and cons req. ER course was notable for: (1) Hgb 6.5 (2) Cre 1.6 (3) Recent Travel: denies PAST MEDICAL HISTORY: metastatic endometrial carcinoma w/ carcinomatosis, NIDDM , R sided abdominal hernia PAST SURGICAL HISTORY: multiple abdominal surgeries, ELINOR drainage Social History: Smoking: denies Alcohol: denies Drugs: denies Allergies carboplatin Allergy (Intermediate, Verified 01/18/19 11:13) PT HAD REACTION TO CARBOPLATIN AND WILL NO LONGER RECIEVE THERAPY PER MD OFFICE shellfish derived Allergy (Intermediate, Verified 01/18/19 11:13) Vomiting carboplatinum Allergy (Intermediate, Uncoded 01/18/19 11:13) - History Source History Provided By: Medical Record Limitations to Obtaining History: No Limitations - Past Medical History Cardio/Vascular: Yes: HTN Gastrointestinal: Yes: Cancer (uterine with mets) Hepatobiliary: Yes: Other (liver mets) - Alcohol/Substance Use Hx Alcohol Use: No - Smoking History Smoking history: Never smoked Have you smoked in the past 12 months: No Home Medications - Allergies Allergies/Adverse Reactions: Allergies Allergy/AdvReac Type Severity Reaction Status Date / Time carboplatin Allergy Intermediate Verified 01/18/19 11:13 shellfish derived Allergy Intermediate Vomiting Verified 01/18/19 11:13 carboplatinum Allergy Intermediate Uncoded 01/18/19 11:13 - Home Medications Home Medications: Ambulatory Orders Loratadine [Claritin] 10 mg PO DAILY 09/28/17 Omeprazole Magnesium [Prilosec Otc] 40 mg PO DAILY 09/28/17 Travoprost [Travatan Z] 1 drop OU HS 09/28/17 Psyllium Husk [Metamucil] 0.4 gm PO DAILY 08/11/18 Sitagliptin Phosphate [Januvia] 100 mg PO DAILY 08/11/18 Insulin NPH Hum/Reg Insulin Hm [Novolin 70-30 Flexpen] 6 units SQ ACDIN Linaclotide [Linzess] 1 tab PO DAILY 08/13/18 Metformin HCl [Glucophage] 500 mg PO BID 08/13/18 Zolpidem Tartrate [Ambien] 5 mg PO HS 08/13/18 [place]-3 Acid Ethyl Esters [Lovaza] 1 g PO DAILY 09/03/18 Olopatadine HCl [Pazeo] 2.5 ml OU DAILY 09/21/18 Docusate Sodium [Colace -] 100 mg PO TID #90 capsule 09/23/18 Lisinopril [Prinivil] 5 mg PO DAILY #30 tablet 09/23/18 Oxycodone HCl 5 mg PO Q6H PRN #12 tablet MDD 4 09/23/18 Polyethylene Glycol 3350 [Miralax 119 gm Btl -] 17 gm PO BID #3 bottle 09/23/18 Sennosides [Senna -] 2 tab PO HS #60 tablet 09/23/18 Acetaminophen [Tylenol] 975 mg PO Q4H 01/19/19 Ammonium Lactate Cream [Lac-Hydrin 12% *Cream*] 1 applic TP BID 01/19/19 Clotrimazole [Antifungal] 30 gm TP BID 01/19/19 Enoxaparin [Lovenox -] 60 mg SQ BID 01/19/19 Ferrous Sulfate 325 mg PO BID 01/19/19 Insulin (Novolog) [Novolog] 6 units SQ AC 01/19/19 Ketoconozole 2% Cream [Nizoral 2% Cream -] 1 applic TP BID 01/19/19 Loratadine 10 mg PO DAILY 01/19/19 Meloxicam 15 mg PO DAILY 01/19/19 Olopatadine HCl [Pazeo] 0.7 drop OP 01/19/19 Omeprazole/Sodium Bicarbonate [Omeprazole-Bicarb 40-1,100 Cap] 40 mg PO DAILY Ondansetron [Ondansetron Odt] 8 mg PO Q12H 01/19/19 Psyllium Husk [Metamucil] 0.4 gm QID 01/19/19 Simethicone 80 mg PO Q8H 01/19/19 Simvastatin 40 mg PO DAILY 01/19/19 Sitagliptin Phosphate [Januvia] 50 mg PO DAILY 01/19/19 Physical Exam- Vital Signs: Vital Signs Temperature 98.7 F 01/20/19 13:28 Pulse Rate 99 H 01/20/19 13:28 Respiratory Rate 18 01/20/19 13:28 Blood Pressure 121/71 01/20/19 13:28 O2 Sat by Pulse Oximetry (%) 98 01/20/19 09:00 Constitutional: Yes: Well Nourished, No Distress, Calm Eyes: Yes: WNL Cardiovascular: Yes: WNL Respiratory: Yes: WNL Gastrointestinal: Yes: Soft (LLQ dist w ELINOR) Labs: CBC, BMP 01/20/19 06:00 01/20/19 06:00 Imaging - Results Cat Scan: Report Reviewed Problem List - Problems (1) Hydronephrosis Assessment/Plan: cysto R JJ stent insertion 01/21/19 Code(s): N13.30 - UNSPECIFIED HYDRONEPHROSIS (2) Anemia Code(s): D64.9 - ANEMIA, UNSPECIFIED (3) Ascites Code(s): R18.8 - OTHER ASCITES Qualifiers: Ascites type: malignant Qualified Code(s): R18.0 - Malignant ascites (4) Uterine cancer Code(s): C55 - MALIGNANT NEOPLASM OF UTERUS, PART UNSPECIFIED (5) Abdominal carcinomatosis Code(s): C76.2 - MALIGNANT NEOPLASM OF ABDOMEN (6) Abdominal pain Code(s): R10.9 - UNSPECIFIED ABDOMINAL PAIN Qualifiers: Abdominal location: generalized Qualified Code(s): R10.84 - Generalized abdominal pain
--- NOTE | 2019-01-20 20:19 | PN ---
Progress Note (short form) - Note Progress Note: Patient seen and discussed with family members at bedside note seen I.R to review imaging and decide re removal of catheter or need for right sided catheter. Would transfuse one unit of blood in anticipation of discharge in near term.
[2019-01-20] MEDS ORDERED: ONDANSETRON 4 MG/2 ML VIAL IVPB ONE (21:58)
[2019-01-20] MEDS: SENNOSIDES 8.6MG TABLET (FP) PO SCH (21:58)
[2019-01-20] MEDS: ZOLPIDEM TARTRATE 5 MG TABLET PO SCH (21:58)
[2019-01-21] MEDS: DOCUSATE SODIUM 100 MG CAPSULE (FP) PO SCH ×3 (05:59→21:58)
[2019-01-21] MEDS: INSULIN SLIDING SCALE (NOVOLOG) 1 VIAL SQ SCH ×4 (06:00→21:58)
[2019-01-21 07:14] LABS: HEMATOCRIT 24.4 % (32.4-45.2); MCH 27.7 pg (25.7-33.7); MEAN CELL VOLUME 84.1 fl (80-96); MEAN PLT VOLUME 6.6 fl (7.5-11.1); PLATELET COUNT 571 K/MM3 (134-434); RDW 15.9 % (11.6-15.6)
[2019-01-21 07:29] LABS: CALCIUM 8.5 mg/dL (8.5-10.1); CREATININE 1.3 mg/dL (0.55-1.3); MAGNESIUM 2.1 mg/dL (1.8-2.4); PHOSPHOROUS 3.8 mg/dL (2.5-4.9); POTASSIUM 4.2 mmol/L (3.5-5.1)
[2019-01-21] MEDS ORDERED: ONDANSETRON 4 MG/2 ML VIAL IVPUSH PRN (09:16)
[2019-01-21] MEDS ORDERED: PROMETHAZINE HCL 25 MG/1 ML VIAL IVPUSH PRN (09:16)
--- NOTE | 2019-01-21 09:16 | OP ---
Operative Note - Note: Operative Date: 01/21/19 Pre-Operative Diagnosis: R hydronephrosis, endometrial ca Operation: cystoscopy and R JJ stent insertion Findings: R hydronephrosis Post-Operative Diagnosis: Same as Pre-op Surgeon: Andre Goodrich Anesthesiologist/ENGINEER STEAM: Kerwin Roland Anesthesia: General Estimated Blood Loss (mls): 0 Drains & Tubes with Location: 6 fr 24 cm R JJ stent Operative Report Dictated: Yes
[2019-01-21] MEDS ORDERED: LIDOCAINE HCL/PF 2% SDV 5ML VIAL ONE (09:21)
[2019-01-21] MEDS ORDERED: PROPOFOL 20 ML ONE (09:21)
[2019-01-21] MEDS ORDERED: ceFAZolin SODIUM 1 GM VIAL IVPB ONE (09:44)
[2019-01-21] MEDS ORDERED: ceFAZolin SODIUM 1 GM VIAL ONE (09:48)
--- NOTE | 2019-01-21 11:00 | OP ---
DATE OF OPERATION: 01/21/2019 PREOPERATIVE DIAGNOSIS: Right hydronephrosis, endometrial cancer. POSTOPERATIVE DIAGNOSIS: Right hydronephrosis, endometrial cancer. PRODEDURE: Cystoscopy, right double-J stent insertion. SURGEON: Andre Huynh MD TRANSFER PROFESSOR: None. ANESTHESIA: General via laryngeal mask. ANESTHESIOLOGIST: Kerwin Roland MD SPECIMENS: None. CULTURES: None. DRAINS: A 6-Malian 24-cm right double-J stent. ESTIMATED BLOOD LOSS: None. COMPLICATIONS: None. PROCEDURE WAS FOLLOWS: Patient was brought into the operating room, placed on the operating table in the supine position. After administration of general anesthesia via laryngeal mask, intravenous antibiotics were administered, and sequential compression devices were placed. The patient was placed in dorsal lithotomy position. The vagina and perineum were prepped and draped in the usual sterile manner. A 22-Malian cystoscope was inserted into the bladder. The bladder was emptied and cystoscopy was performed. This demonstrated no foreign bodies, tumors, stones, or inflammation. Both ureteral orifices were in their usual location with diminished efflux in the right ureteral orifice. The right ureteral orifice was cannulated with a 0.038 guidewire, which was advanced to the level of the right renal pelvis under fluoroscopic and direct visual guidance. Then, a dual lumen catheter was inserted. A retrograde pyelogram was done demonstrating moderate right hydroureteronephrosis and a tortuous proximal right ureter. Now, dual lumen catheter was removed. A 6-Malian 24-cm double-J stent was inserted over the guidewire under direct visual and fluoroscopic guidance leaving 1 coil in the renal pelvis and 1 coil in the bladder. Bladder was emptied, and the cystoscope removed. She tolerated the procedure well, was transferred to the recovery room in stable condition. ANDRE HUYNH M.D. [id number]
[2019-01-21] MEDS: LORATADINE 10 MG TABLET PO SCH (11:45)
[2019-01-21] MEDS: PANTOPRAZOLE 40 MG TABLET (FP) PO SCH (11:45)
[2019-01-21] MEDS: oxyCODONE HCL 5 MG TABLET PO PRN ×2 (11:56→17:45)
[2019-01-21] MEDS: LACTATED RINGERS SOLUTION 1,000 ML/1,000 ML INFUS.BAG IV SCH (11:58)
[2019-01-21] MEDS: LACTATED RINGERS SOLUTION 1,000 ML IV SCH (11:58)
--- NOTE | 2019-01-21 12:24 | PN ---
Progress Note (short form) - Note Progress Note: Patient seen and examined Had stent placement for hydro Discussed with Dr. Rinaldi - no catheter drainage planned . Ideally remove left side catheter and transfuse and then for discharge. Last Vital Signs Temp Pulse Resp BP Pulse Ox 98.1 F 92 H 20 120/65 98 01/21/19 11:59 01/21/19 11:59 01/21/19 12:00 01/21/19 11:59 01/21/19 12:00 HEENT: NADIA, EOM Intact Oropharynx: No thrush, No mucositis Cor: RSR, No murmurs, No gallops Lungs: Clear to P&A Abd: Soft, Normal bowel sounds, No organomegaly catheter; right ventral hernia Ext:No significant edema Skin: No rashes, Integument intact CBC, BMP 01/21/19 06:45 01/21/19 06:45 Current Medications Generic Name Dose Route Start Last Admin Trade Name Freq PRN Reason Stop Dose Admin Docusate Sodium 100 mg 01/18/19 22:00 01/21/19 05:59 Colace - PO Not Given TID ECTOR Fentanyl 50 mcg 01/21/19 09:16 Sublimaze Injection - IVPUSH [id number] PRN PAIN-PACU ORDER X 4 DOSES ONLY Lactated Ringer's 1,000 ml in 1,000 mls @ 75 mls/hr 01/20/19 11:45 01/21/19 11:58 Lactated Ringers Solution IV Not Given ASDIR ECTOR Lactated Ringer's 1,000 mls @ 125 mls/hr 01/21/19 09:30 01/21/19 11:58 Lactated Ringers Solution IV 125 mls/hr ASDIR ECTOR Administration Insulin Aspart 1 vial 01/18/19 22:00 01/21/19 11:47 Novolog Vial Sliding Scale - SQ Not Given ACHS [facility] Protocol Loratadine 10 mg 01/19/19 10:00 01/21/19 11:45 Claritin - PO 10 mg DAILY ECTOR Administration Non-Formulary Medication 1 tab 01/19/19 10:00 Linaclotide [Linzess] PO DAILY ECTOR Non-Formulary Medication 1 ml 01/19/19 10:00 Olopatadine Hcl [Pazeo] OU DAILY ECTOR Ondansetron HCl 4 mg 01/21/19 09:16 Zofran Injection IVPUSH Q6H PRN NAUSEA AND/OR VOMITING Oxycodone HCl 5 mg 01/18/19 20:51 01/21/19 11:56 Roxicodone - PO 5 mg Q6H PRN Administration PAIN LEVEL 6-10 Pantoprazole Sodium 40 mg 01/19/19 10:00 01/21/19 11:45 Protonix - PO 40 mg DAILY ECTOR Administration Promethazine HCl 12.5 mg 01/21/19 09:16 Phenergan Injection - IVPUSH Q6H PRN NAUSEA-FOR RESCUE AFTER 15 MIN Senna 2 tab 01/18/19 22:00 01/20/19 21:58 Senna - PO 2 tab HS ECTOR Administration Zolpidem Tartrate 5 mg 01/18/19 22:00 01/20/19 21:58 Ambien - PO 5 mg HS ECTOR Administration Impression: Advanced endometrial ca S/P stent placement Anemia Plan transfuse catheter removal
--- NOTE | 2019-01-21 15:05 | PN ---
Teaching Attending Note Name of Resident: Hamlet Medrano ATTENDING PHYSICIAN STATEMENT I saw and evaluated the patient. I reviewed the resident's note and discussed the case with the resident. I agree with the resident's findings and plan as documented. SUBJECTIVE: no fever or chills. No STOLL . Abd pain is better OBJECTIVE: NAD CV: RRR Lungs: CTAB Ext: no edema, no erythema, no bruising Abd: soft, NL BS. right sided abd wall hernia with bowel sounds. non-reducible . minimal TTP in all quadrants. no rebound tenderness ASSESSMENT AND PLAN: Unfortunate 68 y/o lady with h/o HLP, DM , metastatic uterine cancer, peritoneal carcinomatosis, s/p ELINOR for ascitis, recent admission for peritonitis and infected fluid collection who presented with abd pain and was found to have anemia with new fluid collection 1- Abd pain: chronic. due to peritoneal carcinomatosis . 2- R sided peritoneal fluid collection: could be due to bleeding or necrosis in a tumor mass. - no drainage or intervention 3- L sided peritoneal fluid collection: L sided drain removed. new L sided collection is not to be drained due to possibility of bleed 4- Worsening normocytic anemia: transfuse one unit before dc 5- Hypoglycemia: resolved. po intake 6- h/o metastatic endometrial cancer: patient wishes t cont to follow with [facility]'s oncology clinic on 01/27/19 for further discussion 7- R sided hydronephrosis: likely due to compression with tumor mass and Lymphadenopathy.s/p stent placement today . f/u with urology DNR//DNI. Dc home today . VNS to be arranged
--- NOTE | 2019-01-21 17:03 | PN ---
Physical Exam: SUBJECTIVE: Patient seen and examined this AM. States she is feeling the same. Still with pain. OBJECTIVE: Vital Signs Period Temp Pulse Resp BP Sys/Marcelino Pulse Ox Last 24 Hr 98.1 F-99.8 F 81-94 16-20 103-121/60-93 98-99 GEN: A&O, no acute distress HEENT: Moist mucus membranes, PERRL, EOMI HEART: RRR, no murmurs noted LUNGS: CTA b/l, no wheezes noted ABDOMEN: Soft, Diffuse tenderness, worse in RUQ and left side. Non-reducible ventral hernia RLQ. Rondon's positive, ELINOR drain present on LMQ, dressing with some serosanguinous drainage, no surrounding erythema EXTREMITIES: trace peripheral edema on LLE, no calf tenderness NEURO: CN II-XII in tact, 5/5 strength throughout, no sensation deficits Laboratory Results - last 24 hr 01/18/19 01/20/19 01/20/19 13:00 06:00 17:18 WBC RBC Hgb Hct MCV MCH MCHC RDW Plt Count MPV Haptoglobin 325 H Sodium Potassium Chloride Carbon Dioxide Anion Gap BUN Creatinine Est GFR (CKD-EPI)AfAm Est GFR (CKD-EPI)NonAf POC Glucometer 102 Random Glucose Calcium Phosphorus Magnesium Blood Type O POSITIVE Antibody Screen Negative Crossmatch See Detail 01/20/19 01/21/19 01/21/19 21:52 05:57 06:45 WBC 8.0 RBC 2.90 L Hgb 8.0 L Hct 24.4 L MCV 84.1 MCH 27.7 MCHC 33.0 RDW 15.9 H Plt Count 571 H MPV 6.6 L Haptoglobin Sodium Potassium Chloride Carbon Dioxide Anion Gap BUN Creatinine Est GFR (CKD-EPI)AfAm Est GFR (CKD-EPI)NonAf POC Glucometer 105 97 Random Glucose Calcium Phosphorus Magnesium Blood Type Antibody Screen Crossmatch 01/21/19 01/21/19 01/21/19 06:45 11:46 14:30 WBC RBC Hgb Hct MCV MCH MCHC RDW Plt Count MPV Haptoglobin Sodium 133 L Potassium 4.2 Chloride 100 Carbon Dioxide 25 Anion Gap 8 BUN 12 Creatinine 1.3 Est GFR (CKD-EPI)AfAm 48.82 Est GFR (CKD-EPI)NonAf 42.12 POC Glucometer 80 Random Glucose 91 Calcium 8.5 Phosphorus 3.8 Magnesium 2.1 Blood Type O POSITIVE Antibody Screen Negative Crossmatch See Detail 01/21/19 16:29 WBC RBC Hgb Hct MCV MCH MCHC RDW Plt Count MPV Haptoglobin Sodium Potassium Chloride Carbon Dioxide Anion Gap BUN Creatinine Est GFR (CKD-EPI)AfAm Est GFR (CKD-EPI)NonAf POC Glucometer 101 Random Glucose Calcium Phosphorus Magnesium Blood Type Antibody Screen Crossmatch Active Medications Generic Name Dose Route Start Last Admin Trade Name Randolphq PRN Reason Stop Dose Admin Docusate Sodium 100 mg 01/18/19 22:00 01/21/19 14:12 Colace - PO 100 mg TID ECTOR Administration Fentanyl 50 mcg 01/21/19 09:16 Sublimaze Injection - IVPUSH [id number] PRN PAIN-PACU ORDER X 4 DOSES ONLY Lactated Ringer's 1,000 ml in 1,000 mls @ 75 mls/hr 01/20/19 11:45 01/21/19 11:58 Lactated Ringers Solution IV Not Given ASDIR ECTOR Lactated Ringer's 1,000 mls @ 125 mls/hr 01/21/19 09:30 01/21/19 11:58 Lactated Ringers Solution IV 125 mls/hr ASDIR ECTOR Administration Insulin Aspart 1 vial 01/18/19 22:00 01/21/19 16:30 Novolog Vial Sliding Scale - SQ Not Given ACHS [facility] Protocol Loratadine 10 mg 01/19/19 10:00 01/21/19 11:45 Claritin - PO 10 mg DAILY ECTOR Administration Non-Formulary Medication 1 tab 01/19/19 10:00 Linaclotide [Linzess] PO DAILY ECTOR Non-Formulary Medication 1 ml 01/19/19 10:00 Olopatadine Hcl [Pazeo] OU DAILY ECTOR Ondansetron HCl 4 mg 01/21/19 09:16 Zofran Injection IVPUSH Q6H PRN NAUSEA AND/OR VOMITING Oxycodone HCl 5 mg 01/18/19 20:51 01/21/19 11:56 Roxicodone - PO 5 mg Q6H PRN Administration PAIN LEVEL 6-10 Pantoprazole Sodium 40 mg 01/19/19 10:00 01/21/19 11:45 Protonix - PO 40 mg DAILY ECTOR Administration Promethazine HCl 12.5 mg 01/21/19 09:16 Phenergan Injection - IVPUSH Q6H PRN NAUSEA-FOR RESCUE AFTER 15 MIN Senna 2 tab 01/18/19 22:00 01/20/19 21:58 Senna - PO 2 tab HS ECTOR Administration Zolpidem Tartrate 5 mg 01/18/19 22:00 01/20/19 21:58 Ambien - PO 5 mg HS ECTOR Administration ASSESSMENT/PLAN:
--- NOTE | 2019-01-21 17:20 | DS ---
Physical Exam: SUBJECTIVE: Patient seen and examined this AM. No new complaints overnight. Still with pain. OBJECTIVE: Vital Signs Period Temp Pulse Resp BP Sys/Marcelino Pulse Ox Last 24 Hr 98.1 F-99.8 F 81-94 16-20 103-121/60-93 98-99 PHYSICAL EXAM GEN: A&O, no acute distress HEENT: Moist mucus membranes, PERRL, EOMI HEART: RRR, no murmurs noted LUNGS: CTA b/l, no wheezes noted ABDOMEN: Soft, Diffuse tenderness, worse in RUQ and left side. Non-reducible ventral hernia RLQ. Rondon's positive, ELINOR drain present on LMQ, dressing with some serosanguinous drainage, no surrounding erythema EXTREMITIES: trace peripheral edema on LLE, no calf tenderness NEURO: CN II-XII in tact, 5/5 strength throughout, no sensation deficits LABS Laboratory Results - last 24 hr 01/18/19 01/20/19 01/20/19 13:00 06:00 17:18 WBC RBC Hgb Hct MCV MCH MCHC RDW Plt Count MPV Haptoglobin 325 H Sodium Potassium Chloride Carbon Dioxide Anion Gap BUN Creatinine Est GFR (CKD-EPI)AfAm Est GFR (CKD-EPI)NonAf POC Glucometer 102 Random Glucose Calcium Phosphorus Magnesium Blood Type O POSITIVE Antibody Screen Negative Crossmatch See Detail 01/20/19 01/21/19 01/21/19 21:52 05:57 06:45 WBC 8.0 RBC 2.90 L Hgb 8.0 L Hct 24.4 L MCV 84.1 MCH 27.7 MCHC 33.0 RDW 15.9 H Plt Count 571 H MPV 6.6 L Haptoglobin Sodium Potassium Chloride Carbon Dioxide Anion Gap BUN Creatinine Est GFR (CKD-EPI)AfAm Est GFR (CKD-EPI)NonAf POC Glucometer 105 97 Random Glucose Calcium Phosphorus Magnesium Blood Type Antibody Screen Crossmatch 01/21/19 01/21/19 01/21/19 06:45 11:46 14:30 WBC RBC Hgb Hct MCV MCH MCHC RDW Plt Count MPV Haptoglobin Sodium 133 L Potassium 4.2 Chloride 100 Carbon Dioxide 25 Anion Gap 8 BUN 12 Creatinine 1.3 Est GFR (CKD-EPI)AfAm 48.82 Est GFR (CKD-EPI)NonAf 42.12 POC Glucometer 80 Random Glucose 91 Calcium 8.5 Phosphorus 3.8 Magnesium 2.1 Blood Type O POSITIVE Antibody Screen Negative Crossmatch See Detail 01/21/19 16:29 WBC RBC Hgb Hct MCV MCH MCHC RDW Plt Count MPV Haptoglobin Sodium Potassium Chloride Carbon Dioxide Anion Gap BUN Creatinine Est GFR (CKD-EPI)AfAm Est GFR (CKD-EPI)NonAf POC Glucometer 101 Random Glucose Calcium Phosphorus Magnesium Blood Type Antibody Screen Crossmatch HOSPITAL COURSE: Date of Admission:01/18/19 Date of Discharge: 01/21/19 HPI on Admission: 68 year old sinhala-speaking female with a history of metastatic endometrial carcinoma w/ carcinomatosis, NIDDM, R sided abdominal hernia and multiple admissions for infected ascitic fluid collection presents to the hospital for the complaint of abdominal pain/swelling and inactive ELINOR drainage for 3 months. Reports that since her drain stopped working, she has been feeling more bloated/ gassy, nauseous, and felt that her abdomen has been swelling. Reports mild pain in the LLQ and LUQ of her abdomen and more discomfort on her R sided abdominal hernia. States that she has progressively slowed her intake of food and water due to the feeling of being bloated. Patient states that she injects herself with lovenox and has recently noted to have several nosebleeds and bleeds around the area where she injects herself. States that she takes iron supplementation and has had darker stools. Has normal BMs and with last one being this morning. Denies chest pain, shortness of breath, vomiting, fevers, chills, diarrhea, hematochezia. Hospital Course: Discharge Summary Reason For Visit: ANEMIA, MALIGNANT NEOPLASM OF UTERUS Current Active Problems Abdominal fluid collection (Acute) Hydronephrosis (Acute) Anemia (Chronic) Ascites (Chronic) Uterine cancer (Chronic) Condition: Stable - Instructions Diet, Activity, Other Instructions: You were admitted to the hospital for abdominal pain. You were found to be anemic and required blood transfusions. Your blood count is now stable. You were seen by a urologist who recommended placement of a ureter stent to help resolve some of the edema around your kidney. You were seen by the interventional radiologist who removed the ELINOR drain in from your abdomen. At this time you are medically stable for discharge. You should follow up at your scheduled appointment with the Oncology clinic at [facility] on January 27. You should follow up with your primary doctor within 2 weeks of discharge. You should continue all of your home medications as they are prescribed. If you have any severe or concerning symptoms you should be seen by your doctor or return to the emergency department. you are not to take any aspirin, advil, motrin, ibuprofen, Lovenox or any blood thinners Referrals: Andre Goodrich MD [Staff Physician] - 2 Weeks Fran Dave MD [Staff Physician] - 1 Week Disposition: HOME - Home Medications Comprehensive Discharge Medication List: Ambulatory Orders Zolpidem Tartrate [Ambien] 5 mg PO HS 08/13/18 Olopatadine HCl [Pazeo] 2.5 ml OU DAILY 09/21/18 Acetaminophen [Tylenol] 975 mg PO Q4H 01/19/19 Ammonium Lactate Cream [Lac-Hydrin 12% Cream -] 1 applic TP BID 01/19/19 Clotrimazole [Antifungal] 30 gm TP BID 01/19/19 Ferrous Sulfate 325 mg PO BID 01/19/19 Ketoconozole 2% Cream [Nizoral 2% Cream -] 1 applic TP BID 01/19/19 Loratadine 10 mg PO DAILY 01/19/19 Omeprazole/Sodium Bicarbonate [Omeprazole-Bicarb 40-1,100 Cap] 40 mg PO DAILY Ondansetron [Zofran *Odt*] 8 mg PO Q12H 01/19/19 Psyllium Husk [Metamucil] 0.4 gm QID 01/19/19 Simethicone 80 mg PO Q8H 01/19/19 Simvastatin 40 mg PO DAILY 01/19/19
[2019-01-21] MEDS ORDERED: INSULIN (NOVOLOG) ASPART 100 UNITS/ML 10ML VIAL ONE (21:30)
[2019-01-21] MEDS: SENNOSIDES 8.6MG TABLET (FP) PO SCH (21:58)
[2019-01-21] MEDS: ZOLPIDEM TARTRATE 5 MG TABLET PO SCH (21:58)
[2019-01-22] MEDS: DOCUSATE SODIUM 100 MG CAPSULE (FP) PO SCH ×3 (06:23→22:12)
[2019-01-22] MEDS: INSULIN SLIDING SCALE (NOVOLOG) 1 VIAL SQ SCH ×4 (06:24→22:18)
[2019-01-22] MEDS: LACTATED RINGERS SOLUTION 1,000 ML IV SCH (09:30)
[2019-01-22] MEDS: LORATADINE 10 MG TABLET PO SCH (12:04)
[2019-01-22] MEDS: PANTOPRAZOLE 40 MG TABLET (FP) PO SCH (12:04)
--- NOTE | 2019-01-22 12:18 | PN ---
Teaching Attending Note Name of Resident: Asif Vincent ATTENDING PHYSICIAN STATEMENT I saw and evaluated the patient. I reviewed the resident's note and discussed the case with the resident. I agree with the resident's findings and plan as documented. SUBJECTIVE: No fever or chills. Abd pain is stable. no N/V. OBJECTIVE: NAD CV: RRR Lungs: CTAB Ext: no edema, no erythema, no bruising Abd: soft, NL BS. Non-reducible right sided abd wall hernia with bowel sounds. minimal TTP in all quadrants. no rebound tenderness ASSESSMENT AND PLAN: Unfortunate 68 y/o lady with h/o HLP, DM , metastatic uterine cancer, peritoneal carcinomatosis, s/p ELINOR for ascitis, recent admission for peritonitis and infected fluid collection who presented with abd pain and was found to have anemia with new fluid collection 1- Abd pain: chronic. due to peritoneal carcinomatosis . 2- R sided peritoneal fluid collection: could be due to bleeding or necrosis in a tumor mass. - no drainage or intervention is recommended 3- L sided peritoneal fluid collection: L sided drain removed. new L sided collection is not to be drained due to possibility of bleed 4- Worsening normocytic anemia: s/p transfusion 5- Hypoglycemia: resolved. po intake 6- h/o metastatic endometrial cancer: patient wishes to cont to follow with [facility]'s oncology clinic on 01/27/19 for further discussion 7- R sided hydronephrosis: likely due to compression with tumor mass and Lymphadenopathy.s/p stent placement . f/u with urology DNR//DNI. patient lives a lone. home services to be resumed
[2019-01-22] MEDS: ACETAMINOPHEN 325 MG TABLET (FP) PO PRN (16:58)
[2019-01-22] MEDS ORDERED: POLYETHYLENE GLYCOL 3350 119 GM BTL PO ONE (17:31)
[2019-01-22] MEDS ORDERED: POLYETHYLENE GLYCOL 3350 119 GM BTL PO PRN (17:31)
[2019-01-22] MEDS: ZOLPIDEM TARTRATE 5 MG TABLET PO SCH (22:12)
[2019-01-22] MEDS: SENNOSIDES 8.6MG TABLET (FP) PO SCH (22:12)
--- NOTE | 2019-01-23 00:06 | PN ---
Physical Exam: SUBJECTIVE: Patient seen and examined OBJECTIVE: Vital Signs Period Temp Pulse Resp BP Sys/Marcelino Pulse Ox Last 24 Hr 98 F-99.4 F 82-89 18-20 116-128/69-75 95-96 GEN: A&O, no acute distress HEENT: Moist mucus membranes, PERRL, EOMI HEART: RRR, no murmurs noted LUNGS: CTA b/l, no wheezes noted ABDOMEN: Soft, Diffuse tenderness, worse in RUQ and left side. Non-reducible ventral hernia RLQ. EXTREMITIES: trace peripheral edema on LLE, no calf tenderness NEURO: CN II-XII in tact, 5/5 strength throughout, no sensation deficits Laboratory Results - last 24 hr 01/22/19 01/22/19 01/22/19 06:21 11:59 16:33 POC Glucometer 74 96 95 01/22/19 22:17 POC Glucometer 106 Active Medications Generic Name Dose Route Start Last Admin Trade Name Freq PRN Reason Stop Dose Admin Acetaminophen 325 mg 01/21/19 17:37 01/22/19 16:58 Tylenol - PO 325 mg Q4H PRN Administration PAIN Docusate Sodium 100 mg 01/18/19 22:00 01/22/19 22:12 Colace - PO 100 mg TID ECTOR Administration Fentanyl 50 mcg 01/21/19 09:16 Sublimaze Injection - IVPUSH [id number] PRN PAIN-PACU ORDER X 4 DOSES ONLY Lactated Ringer's 1,000 mls @ 125 mls/hr 01/21/19 09:30 01/22/19 09:30 Lactated Ringers Solution IV Not Given ASDIR COUNTS INCLUDE 234 BEDS AT THE [facility] Insulin Aspart 1 vial 01/18/19 22:00 01/22/19 22:18 Novolog Vial Sliding Scale - SQ Not Given ACHS COUNTS INCLUDE 234 BEDS AT THE [facility] Protocol Loratadine 10 mg 01/19/19 10:00 01/22/19 12:04 Claritin - PO 10 mg DAILY ECTOR Administration Non-Formulary Medication 1 tab 01/19/19 10:00 Linaclotide [Linzess] PO DAILY COUNTS INCLUDE 234 BEDS AT THE [facility] Non-Formulary Medication 1 ml 01/19/19 10:00 Olopatadine Hcl [Pazeo] OU DAILY ECTOR Ondansetron HCl 4 mg 01/21/19 09:16 Zofran Injection IVPUSH Q6H PRN NAUSEA AND/OR VOMITING Oxycodone HCl 5 mg 01/18/19 20:51 01/21/19 17:45 Roxicodone - PO 5 mg Q6H PRN Administration PAIN LEVEL 6-10 Pantoprazole Sodium 40 mg 01/19/19 10:00 01/22/19 12:04 Protonix - PO 40 mg DAILY ECTOR Administration Polyethylene Glycol 17 gm 01/22/19 17:31 Miralax (For Daily Use) - PO DAILY PRN CONSTIPATION Promethazine HCl 12.5 mg 01/21/19 09:16 Phenergan Injection - IVPUSH Q6H PRN NAUSEA-FOR RESCUE AFTER 15 MIN Senna 2 tab 01/18/19 22:00 01/22/19 22:12 Senna - PO 2 tab HS ECTOR Administration Zolpidem Tartrate 5 mg 01/18/19 22:00 01/22/19 22:12 Ambien - PO 5 mg HS ECTOR Administration ASSESSMENT/PLAN: Abdominal pain and fluid collection, likely secondary to known endometrial carcinoma with mets and carcinomatosis -CT noted with multiple fluid collections -IR consulted, possibility of removing vs adjusting vs replacing ELINOR drain tomorrow? -Zofran for nausea -Continue home pain regimen -Triple phase CT noted, concern for bleeding tumor in hepatic region NIDDM -BGMs ACHS -Insulin sliding scale -noted hypoglycemic and not tolerating PO intake well, monitor BGMs Anemia -s/p 2 units with appropriate Hgb response -Trend CBC -Iron studies -B12, folate okay -Heme/Onc consult appreciated Ventral Hernia -stable, CT noted Disposition Med/Surg - DNR/DNI Visit type - Emergency Visit Emergency Visit: Yes ED Registration Date: 01/18/19 Care time: The patient presented to the Emergency Department on the above date and was hospitalized for further evaluation of their emergent condition. - New Patient This patient is new to me today: Yes Date on this admission: 01/23/19 - Critical Care Critical Care patient: No
[2019-01-23] MEDS ORDERED: PT OWN MED DRAWER 7, Y5N ONE ×2 (05:07→06:30)
[2019-01-23] MEDS: DOCUSATE SODIUM 100 MG CAPSULE (FP) PO SCH ×3 (06:17→21:37)
[2019-01-23] MEDS: INSULIN SLIDING SCALE (NOVOLOG) 1 VIAL SQ SCH ×4 (06:17→21:37)
[2019-01-23] MEDS: LORATADINE 10 MG TABLET PO SCH (09:19)
[2019-01-23] MEDS: PANTOPRAZOLE 40 MG TABLET (FP) PO SCH (09:19)
[2019-01-23] MEDS: oxyCODONE HCL 5 MG TABLET PO PRN ×2 (09:45→17:13)
[2019-01-23] MEDS: ACETAMINOPHEN 325 MG TABLET (FP) PO PRN (09:47)
[2019-01-23] MEDS: LACTATED RINGERS SOLUTION 1,000 ML IV SCH ×2 (09:51→17:22)
--- NOTE | 2019-01-23 14:39 | PN ---
Progress Note (short form) - Note Progress Note: Subjective: No fever or chills . Abd pain is stable and improved after pain meds . had a small BM , not satisfactory Objective: Vital Signs: Last Vital Signs Temp Pulse Resp BP Pulse Ox 98.9 F 88 20 124/72 95 01/23/19 14:19 01/23/19 14:19 01/23/19 14:19 01/23/19 14:19 01/23/19 09:00 Laboratory Results - last 24 hr 01/22/19 01/22/19 01/23/19 16:33 22:17 06:16 POC Glucometer 95 106 76 01/23/19 12:01 POC Glucometer 85 Physical Exam: NAD CV: RRR Lungs: CTAB Ext: no edema, no erythema, no bruising Abd: soft, NL BS. Non-reducible right sided abd wall hernia with bowel sounds. minimal TTP in all quadrants. no rebound tenderness ASSESSMENT AND PLAN: Unfortunate 68 y/o lady with h/o HLP, DM , metastatic uterine cancer, peritoneal carcinomatosis, s/p ELINOR for ascitis, recent admission for peritonitis and infected fluid collection who presented with abd pain and was found to have anemia with new fluid collection 1- Abd pain: chronic. due to peritoneal carcinomatosis . 2- R sided peritoneal fluid collection: could be due to bleeding or necrosis in a tumor mass. - no drainage or intervention is recommended 3- L sided peritoneal fluid collection: L sided drain removed. new L sided collection is not to be drained due to possibility of bleed 4- Worsening normocytic anemia: s/p transfusion 5- Hypoglycemia: resolved. po intake . will not resume diabetes meds at dc 6- h/o metastatic endometrial cancer: patient wishes to cont to follow with [facility]'s oncology clinic on 01/27/19 for further discussion 7- R sided hydronephrosis: likely due to compression with tumor mass and Lymphadenopathy.s/p stent placement . f/u with urology DNR//DNI. patient lives a lone. home services were declined. will try again Thursday Visit type - Emergency Visit Emergency Visit: Yes ED Registration Date: 01/18/19 Care time: The patient presented to the Emergency Department on the above date and was hospitalized for further evaluation of their emergent condition. - New Patient This patient is new to me today: No - Critical Care Critical Care patient: No
[2019-01-23] MEDS ORDERED: PROMETHAZINE HCL 25 MG/1 ML VIAL IVPUSH PRN (15:38)
[2019-01-23] MEDS ORDERED: ONDANSETRON 4 MG/2 ML VIAL IVPUSH PRN (15:38)
--- NOTE | 2019-01-23 15:39 | EKG ---
Test Reason : Blood Pressure : / mmHG Vent. Rate : 082 BPM Atrial Rate : 082 BPM P-R Int : 178 ms QRS Dur : 086 ms QT Int : 380 ms P-R-T Axes : 048 -05 036 degrees QTc Int : 443 ms NORMAL SINUS RHYTHM NORMAL ECG WHEN COMPARED WITH ECG OF 18-JAN-2019 14:45, MINIMAL CRITERIA FOR SEPTAL INFARCT ARE NO LONGER PRESENT T WAVE INVERSION NO LONGER EVIDENT IN ANTERIOR LEADS Confirmed by ERIS TOBIN MD ([id number]) on 01/23/2019 3:39:13 PM Referred By: Confirmed By:ERIS TOBIN MD
[2019-01-23] MEDS ORDERED: SENNOSIDES 8.6MG TABLET (FP) PO SCH (22:00)
[2019-01-23] MEDS ORDERED: ZOLPIDEM TARTRATE 5 MG TABLET PO PRN (22:00)
[2019-01-24] MEDS: DOCUSATE SODIUM 100 MG CAPSULE (FP) PO SCH ×2 (06:11→15:22)
[2019-01-24] MEDS: INSULIN SLIDING SCALE (NOVOLOG) 1 VIAL SQ SCH ×2 (06:11→12:42)
[2019-01-24 06:52] LABS: HEMATOCRIT 27.6 % (32.4-45.2); HEMOGLOBIN 9.2 GM/dL (10.7-15.3); MCH 28.1 pg (25.7-33.7); MCHC 33.2 g/dl (32.0-36.0); MEAN CELL VOLUME 84.5 fl (80-96); MEAN PLT VOLUME 6.6 fl (7.5-11.1); PLATELET COUNT 594 K/MM3 (134-434); RBC 3.26 M/mm3 (3.60-5.2); RDW 15.9 % (11.6-15.6); WHITE BLOOD COUNT 9.4 K/mm3 (4.0-10.0)
[2019-01-24] MEDS: LINACLOTIDE PO SCH ×2 (08:10→08:11)
[2019-01-24] MEDS: OLOPATADINE HCL OU SCH ×2 (08:10→08:11)
[2019-01-24] MEDS: oxyCODONE HCL 5 MG TABLET PO PRN (08:56)
[2019-01-24] MEDS: ACETAMINOPHEN 325 MG TABLET (FP) PO PRN (08:57)
[2019-01-24] MEDS: LACTATED RINGERS SOLUTION 1,000 ML IV SCH (09:53)
[2019-01-24] MEDS ORDERED: LINACLOTIDE PO SCH (10:00)
[2019-01-24] MEDS ORDERED: OLOPATADINE HCL OU SCH (10:00)
[2019-01-24] MEDS ORDERED: PANTOPRAZOLE 40 MG TABLET (FP) PO SCH (10:00)
[2019-01-24] MEDS ORDERED: LORATADINE 10 MG TABLET PO SCH (10:00)
[2019-01-24 14:14] VITALS: BP 138/76; PULSE 90; TEMP 98.7
--- NOTE | 2019-01-24 15:34 | PN ---
Teaching Attending Note Name of Resident: Andre Newsome ATTENDING PHYSICIAN STATEMENT I saw and evaluated the patient. I reviewed the resident's note and discussed the case with the resident. I agree with the resident's findings and plan as documented. SUBJECTIVE: No fever or chills . abd pain continues OBJECTIVE: NAD CV: RRR Lungs: CTAB Ext: no edema, no erythema, no bruising Abd: soft, NL BS. Non-reducible right sided abd wall hernia with bowel sounds. minimal TTP in all quadrants. no rebound tenderness ASSESSMENT AND PLAN: Unfortunate 68 y/o lady with h/o HLP, DM , metastatic uterine cancer, peritoneal carcinomatosis, s/p ELINOR for ascitis, recent admission for peritonitis and infected fluid collection who presented with abd pain and was found to have anemia with new fluid collection 1- Abd pain: chronic. due to peritoneal carcinomatosis . 2- R sided peritoneal fluid collection: could be due to bleeding or necrosis in a tumor mass. - no drainage or intervention is recommended 3- L sided peritoneal fluid collection: L sided drain removed. new L sided collection is not to be drained due to possibility of bleed 4- Worsening normocytic anemia: s/p transfusion 5- Hypoglycemia: resolved. po intake . will not resume diabetes meds at dc 6- h/o metastatic endometrial cancer: patient wishes to cont to follow with [facility]'s oncology clinic on 01/27/19 for further discussion 7- R sided hydronephrosis: likely due to compression with tumor mass and Lymphadenopathy.s/p stent placement. f/u with urology DNR//DNI. VNS set . dc home
--- NOTE | 2019-01-24 17:03 | DS ---
Physical Exam: SUBJECTIVE: Patient seen and examined at bedside. No acute events overnight. OBJECTIVE: Vital Signs Period Temp Pulse Resp BP Sys/Marcelino Pulse Ox Last 24 Hr 97.9 F-98.9 F 90-102 18-20 126-144/74-82 95-95 PHYSICAL EXAM GENERAL: NAD HEAD: AT/NC EYES: PERRL, EOMI ENT: MMM NECK: Trachea midline, full range of motion, supple. LUNGS: CTAB. HEART: RRR ABDOMEN: Ventral non-reproducible hernia. BS+. Minimal TTP all 4 quadrants. EXTREMITIES: No CCE NEUROLOGICAL: Cranial nerves II through XII grossly intact. LABS Laboratory Results - last 24 hr 01/21/19 01/23/19 01/23/19 14:30 17:17 21:14 WBC RBC Hgb Hct MCV MCH MCHC RDW Plt Count MPV POC Glucometer 95 86 Blood Type O POSITIVE Antibody Screen Negative Crossmatch See Detail 01/24/19 01/24/19 01/24/19 05:50 06:15 12:41 WBC 9.4 RBC 3.26 L Hgb 9.2 L Hct 27.6 L MCV 84.5 MCH 28.1 MCHC 33.2 RDW 15.9 H Plt Count 594 H MPV 6.6 L POC Glucometer 75 95 Blood Type Antibody Screen Crossmatch HOSPITAL COURSE: Date of Admission:01/18/19 68 y/o F with h/o metastatic endometrial carcinoma w/ carcinomatosis, NIDDM, R sided abdominal hernia and multiple admissions for infected ascitic fluid collection presented to [facility] due to abdominal pain/swelling as well as inactive ELINOR drainage for 3 months. Pt underwent a CTAP which revealed " pleural effusions bilaterally, interval development of [id number] loculated perihepatic fluid collection that extends inferiorly into the ipsilateral paracolic space, [id number] intraperitoneal fluid collection in left abdomen and pelvis ventrally. There is no fluid collection seen around the sight of the ELINOR drain. " Pt's current ELINOR drain was removed and it was decided that a new drain would not be placed in light of increased bleeding risk. Pt's Hgb was noted to be 6.5 on admission and she subsequently was transfused 2 U PRBC. Furthermore, pt was noted to have right sided hydronephrosis most likely due to compression from her tumor. Pt underwent cysto with jj stent placement by urology. Pt discharged home with private aide and informed to follow up at [facility] oncology clinic on January 27. Date of Discharge: 01/24/19 Minutes to complete discharge: 35 Discharge Summary Reason For Visit: ANEMIA, MALIGNANT NEOPLASM OF UTERUS Condition: Stable - Instructions Diet, Activity, Other Instructions: You were admitted to the hospital for abdominal pain. You were found to be anemic and required blood transfusions. Your blood count is now stable. You were seen by a urologist who recommended placement of a ureter stent to help resolve some of the edema around your kidney. You were seen by the interventional radiologist who removed the ELINOR drain in from your abdomen. At this time you are medically stable for discharge. You should follow up at your scheduled appointment with the Oncology clinic at [facility] on January 27. You should follow up with your primary doctor within 2 weeks of discharge. You should continue all of your home medications as they are prescribed. If you have any severe or concerning symptoms you should be seen by your doctor or return to the emergency department. you are not to take any aspirin, advil, motrin, ibuprofen, Lovenox or any blood thinners Referrals: Andre Goodrich MD [Staff Physician] - 2 Weeks Fran Dave MD [Staff Physician] - 1 Week Disposition: HOME - Home Medications Comprehensive Discharge Medication List: Ambulatory Orders Zolpidem Tartrate [Ambien] 5 mg PO HS 08/13/18 Olopatadine HCl [Pazeo] 2.5 ml OU DAILY 09/21/18 Acetaminophen [Tylenol] 975 mg PO Q4H 01/19/19 Ammonium Lactate Cream [Lac-Hydrin 12% Cream -] 1 applic TP BID 01/19/19 Clotrimazole [Antifungal] 30 gm TP BID 01/19/19 Ferrous Sulfate 325 mg PO BID 01/19/19 Ketoconozole 2% Cream [Nizoral 2% Cream -] 1 applic TP BID 01/19/19 Loratadine 10 mg PO DAILY 01/19/19 Omeprazole/Sodium Bicarbonate [Omeprazole-Bicarb 40-1,100 Cap] 40 mg PO DAILY Ondansetron [Zofran *Odt*] 8 mg PO Q12H 01/19/19 Psyllium Husk [Metamucil] 0.4 gm QID 01/19/19 Simethicone 80 mg PO Q8H 01/19/19 Simvastatin 40 mg PO DAILY 01/19/19 This patient is new to me today: Yes Date on this admission: 01/24/19 Emergency Visit: Yes ED Registration Date: 01/18/19 Care time: The patient presented to the Emergency Department on the above date and was hospitalized for further evaluation of their emergent condition. Critical Care patient: No - Discharge Referral Referred to [facility] Med [facility] No
== END 2019-01-24 15:37 | disposition home or self-care (01) | DRG 982 ==
LOC: JER 11:03 → JERBED 20:52 → OBSVTOIN 22:08 → J7W 23:53
PROVIDERS: ADMIT Internal Medicine; ATTEND Internal Medicine
PROC: 30233N1 Transfusion of Nonautologous Red Blood Cells into Peripheral Vein, Percutaneous Approach (ICD-10-PCS; 2019-01-18)
PROC: 0T738DZ Dilation of Right Kidney Pelvis with Intraluminal Device, Via Natural or Artificial Opening Endoscopic (ICD-10-PCS; principal; 2019-01-21 09:30)
PROC: 0TJB8ZZ Inspection of Bladder, Via Natural or Artificial Opening Endoscopic (ICD-10-PCS; 2019-01-21 09:30)
DX: C78.6 Secondary malignant neoplasm of retroperitoneum and peritoneum (principal); N17.9 Acute kidney failure, unspecified; E46 Unspecified protein-calorie malnutrition; N13.30 Unspecified hydronephrosis; J90 Pleural effusion, not elsewhere classified; R18.0 Malignant ascites; K21.9 Gastro-esophageal reflux disease without esophagitis; K57.90 Diverticulosis of intestine, part unspecified, without perforation or abscess without bleeding; E78.00 Pure hypercholesterolemia, unspecified; D64.9 Anemia, unspecified; E88.09 Other disorders of plasma-protein metabolism, not elsewhere classified; K43.9 Ventral hernia without obstruction or gangrene; I10 Essential (primary) hypertension; C54.1 Malignant neoplasm of endometrium; R59.1 Generalized enlarged lymph nodes; C76.2 Malignant neoplasm of abdomen; E11.649 Type 2 diabetes mellitus with hypoglycemia without coma
CPT/HCPCS: 36415; 36430; 36511; 71045-TC-FY; 74176-TC; 74178-TC; 76000-TC-FY; 80048; 80053; 81003; 82607; 82728; 82746; 82962; 83010; 83540; 83550; 83605; 83615; 83735; 84100; 84439; 84443; 85025; 85027; 85044; 85610; 86850; 86900; 86901; 86922; 87086; 93005; 93010; 94760; 99284-25; G0378; J0131; P9038; P9058

== ENCOUNTER 2019-01-28 22:18 | Inpatient (IN) | payer OTHER | END 2019-02-03 13:00 | disposition home health service (06) | LOC: JERBED 01-29 01:58 → J8W 01-29 10:01 → JER 22:18 → J8W 01-29 22:28 ==